=== PATIENT | female | born 1960 | race Caucasian/White ===

== ENCOUNTER → 2017-11-01 09:32 | Outpatient (CLI) | payer OTHER, SELFPAY ==
[2017-11-01 12:24] LABS: Erythrocyte Sedimentation Rate 12 mm/hr (0-30)
[2017-11-01 12:25] LABS: Absolute Lymphocyte Count 1.76 X10^3/ul (0.83-4.51); Absolute Neutrophil Count 3.3 X10^3/uL (2.0-7.7); Basophil# 0.01 X10^3/uL; Basophil% 0.2 % (0-1); Eosinophil# 0.04 X10^3/uL; Eosinophils% 0.7 % (0-5); Hematocrit 40.7 % (37-47); Hemoglobin 13.3 g/dl (12.0-15.0); Lymphocyte # 1.76 X10^3/ul (4.0); Lymphocyte % 31.8 % (19-41); Mean Corp Hgb Conc 32.7 g/gl (32-36); Mean Corpuscular Hgb 29.2 pg (27.0-32.0); Mean Corpuscular Volume 89.3 fL (81-99); Mean Platelet Vol. 9.6 fl (6.2-12.0); Monocyte# 0.41 X10^3/uL; Monocyte% 7.4 % (0-10); Neutrophil # 3.32 X10^3/uL (2.7-7.7); Neutrophil % 59.9 % (47-70); Platelet Count 314 K/mm3 (150-450); RBC Distribution Width CV 13.3 % (11.6-14.6); Red Blood Count 4.56 M/mm3 (4.2-5.4); White Blood Count 5.5 K/mm3 (4.4-11.0)
[2017-11-01 12:39] LABS: ALB/GLOB Ratio 1.1 RATIO (0.9-2.4); AST(SGOT) 9 U/L (15-37); Alanine Aminotransfer ALT/SGPT 23 U/L (13-56); Albumin, Serum 3.8 g/dL (3.2-5.0); Alkaline Phosphatase 65 U/L (45-117); Anion Gap 10 (5-15); BUN 11 mg/dL (7-18); BUN/Creat Ratio 13.7 RATIO (10-20); CRP < 2.90 mg/L (0.0-3.0); Calcium,Total 8.4 mg/dL (8.5-10.1); Chloride 104 mmol/L (98-107); EST Glomerular Filtration Rate 78 mL/min (>60); Est Glom Filt Rate - Afr Amer 95 mL/min (>60); Globulin 3.6 g/dL (2.2-4.2); Glucose 84 mg/dL (74-106); Iron 80 ug/dL (50-170); Magnesium 2.3 mg/dL (1.6-2.6); Potassium 3.2 mmol/L (3.5-5.1); Protein, Total 7.4 g/dL (6.4-8.2); Rheumatoid Factor < 10.0 IU/mL (<15); Sodium Level 142 mmol/L (136-145); Thyroid Stim Hormone (TSH) 1.18 uIU/mL (0.358-3.74)
[2017-11-01 12:42] LABS: POSITIVE COUNT NO; POSITIVE DIFFERENTIAL NO; POSITIVE MORPHOLOGY NO
[2017-11-01 12:48] LABS: Vitamin B12 459 pg/mL (211-911); Vitamin D,25 Hydroxy 19.7 ng/mL (29.95-100.01)
[2017-11-03 17:53] LABS: ANTINUCLEAR ANTIBODIES DIRECT Negative (Negative)
== END ==
PROVIDERS: Family Provider Family Medicine; PCP Family Medicine; Visit Provider Family Medicine
DX: R50.9 Fever, unspecified (principal); R20.2 Paresthesia of skin; R53.83 Other fatigue
CPT/HCPCS: 36415; 80053; 82306; 82607; 83540; 83735; 84443; 85025; 85652; 86038; 86140; 86431

== ENCOUNTER → 2017-11-29 07:46 | Outpatient (CLI) | payer OTHER, SELFPAY ==
[2017-11-29 10:22] LABS: Erythrocyte Sedimentation Rate 29 mm/hr (0-30)
[2017-11-29 10:24] LABS: Absolute Lymphocyte Count 1.17 X10^3/ul (0.83-4.51); Absolute Neutrophil Count 3.1 X10^3/uL (2.0-7.7); Basophil# 0.03 X10^3/uL; Basophil% 0.6 % (0-1); Eosinophil# 0.07 X10^3/uL; Eosinophils% 1.5 % (0-5); Hematocrit 39.1 % (37-47); Hemoglobin 13.2 g/dl (12.0-15.0); Lymphocyte # 1.17 X10^3/ul (4.0); Lymphocyte % 24.7 % (19-41); Mean Corp Hgb Conc 33.8 g/gl (32-36); Mean Corpuscular Volume 88.9 fL (81-99); Mean Platelet Vol. 9.6 fl (6.2-12.0); Monocyte# 0.36 X10^3/uL; Monocyte% 7.6 % (0-10); Neutrophil # 3.09 X10^3/uL (2.7-7.7); Neutrophil % 65.4 % (47-70); POSITIVE COUNT NO; POSITIVE DIFFERENTIAL NO; POSITIVE MORPHOLOGY NO; Platelet Count 340 K/mm3 (150-450); RBC Distribution Width CV 13.2 % (11.6-14.6); RBC Distribution Width SD 42.6 fl (35.1-43.9); White Blood Count 4.7 K/mm3 (4.4-11.0)
[2017-11-29 10:37] LABS: ALB/GLOB Ratio 0.8 RATIO (0.9-2.4); AST(SGOT) 14 U/L (15-37); Alanine Aminotransfer ALT/SGPT 20 U/L (13-56); Albumin, Serum 3.4 g/dL (3.2-5.0); Alkaline Phosphatase 72 U/L (45-117); Anion Gap 10 (5-15); BUN 8 mg/dL (7-18); BUN/Creat Ratio 10.5 RATIO (10-20); Calcium,Total 9.2 mg/dL (8.5-10.1); Chloride 107 mmol/L (98-107); Creatinine, Serum 0.76 mg/dL (0.55-1.02); EST Glomerular Filtration Rate 83 mL/min (>60); Est Glom Filt Rate - Afr Amer 100 mL/min (>60); Globulin 4.1 g/dL (2.2-4.2); Glucose 86 mg/dL (74-106); Potassium 3.8 mmol/L (3.5-5.1); Protein, Total 7.5 g/dL (6.4-8.2); Sodium Level 144 mmol/L (136-145)
== END ==
PROVIDERS: Family Provider Family Medicine; PCP Family Medicine; Visit Provider Family Medicine
DX: K21.0 Gastro-esophageal reflux disease with esophagitis (principal)
CPT/HCPCS: 36415; 80053; 85025; 85652

== ENCOUNTER → 2017-12-04 08:48 | Outpatient (CLI) | payer OTHER, SELFPAY ==
--- NOTE | 2017-12-04 09:17 | RAD_ITS ---
STUDY: AIR-CONTRAST UPPER GI SERIES AND SMALL BOWEL FOLLOW-THROUGH. REASON FOR EXAM: Female, 57 years old. Intermittent fevers and diarrhea for one year. Lower abdominal pain. FLUOROSCOPY TIME (if supplied): (1:14) minutes/seconds TECHNIQUE: The patient ingested barium. Multiple images of the esophagus, stomach and duodenum were obtained. COMPARISON: None. FINDINGS: The esophagus is unremarkable. There is no evidence of esophageal obstruction. No mass lesion is seen. There is no evidence of gastroesophageal reflux. The stomach and duodenum are unremarkable. There is no evidence of ulceration. No mass lesion is seen. The small bowel transit is rapid. Within 15 minutes, contrast is seen within the colon. There is no evidence of intrinsic or extrinsic small bowel disease. The terminal ileum is unremarkable. RAD/Upper GI/w Small Bowel IMPRESSION: Rapid transit of the small bowel. No other abnormality is seen. Electronically Signed: Benji James MD at 15:06 EDT Tel [phone], Service support ,
== END ==
PROVIDERS: Family Provider Family Medicine; PCP Family Medicine; Visit Provider Family Medicine
DX: K21.0 Gastro-esophageal reflux disease with esophagitis (principal)
CPT/HCPCS: 74249

== ENCOUNTER → 2017-12-13 07:58 | Outpatient (CLI) | payer OTHER, SELFPAY ==
--- NOTE | 2017-12-13 08:00 | BI_ITS ---
MAMMOGRAPHY - BILATERAL SCREENING 3-D CAITLIN SYNTHESIS REASON FOR EXAM: Female, 57 years old. Bilateral Screening 3-D tomosynthesis PERTINENT HISTORY: Mother with breast cancer.. TECHNIQUE: 2-D mammograms and 3-D Caitlin synthesis of the breast (s) were performed. CAD was performed. COMPARISON: 2013 FINDINGS: The breast composition is heterogeneously dense that can obscure small breast masses. Scattered benign calcifications are seen. No dense spiculated masses or suspicious microcalcifications are identified. No architectural distortion is identified. There is no skin thickening or retraction. There has been no significant change since the prior study. BI/SCREENING MAMM (CAD), BILAT IMPRESSION: No mammographic signs of malignancy. Routine yearly mammograms recommended. ASSESSMENT CATEGORY: BIRADS Category 2: Benign. A letter regarding these results will be sent to the patient by the facility within 30 days. FOLLOW UP RECOMMENDATION: Yearly follow up mammogram recommended. (A) Approximately 10% of breast cancers are not detected by mammography. A normal mammogram should not delay biopsy of a clinically suspicious abnormality. Electronically Signed: Chon Blackwell MD at 11:02 EDT , Service support ,
[2017-12-18 11:31] LABS: HPV APTIMA, High Risk Negative (Negative)
== END ==
PROVIDERS: Family Provider Family Medicine; PCP Family Medicine; Visit Provider Nurse Practitioner Women's Health
DX: Z12.31 Encounter for screening mammogram for malignant neoplasm of breast (principal); Z12.4 Encounter for screening for malignant neoplasm of cervix
CPT/HCPCS: 77063; 77067; 88175; G0145

== ENCOUNTER → 2018-08-30 | Outpatient (CLI) | payer OTHER, SELFPAY ==
[2018-01-10 10:58] VITALS: BMI 26.1
[2018-08-30 10:19] LABS: ALB/GLOB Ratio 1.1 RATIO (0.9-2.4); AST(SGOT) 13 U/L (15-37); Alanine Aminotransfer ALT/SGPT 27 U/L (13-56); Albumin, Serum 3.7 g/dL (3.2-5.0); Alkaline Phosphatase 86 U/L (45-117); Anion Gap 8 (5-15); BUN 13 mg/dL (7-18); BUN/Creat Ratio 19.1 RATIO (10-20); Calcium,Total 8.4 mg/dL (8.5-10.1); Chloride 107 mmol/L (98-107); Cholesterol 214 mg/dL (200); Creatinine, Serum 0.68 mg/dL (0.55-1.02); EST Glomerular Filtration Rate 94 mL/min (>60); Est Glom Filt Rate - Afr Amer 114 mL/min (>60); Globulin 3.4 g/dL (2.2-4.2); Glucose 88 mg/dL (74-106); High Density Lipoprotein 33 mg/dL; Potassium 3.8 mmol/L (3.5-5.1); Protein, Total 7.1 g/dL (6.4-8.2); Sodium Level 139 mmol/L (136-145); Thyroid Stim Hormone (TSH) 1.59 uIU/mL (0.358-3.74); Triglycerides 283 mg/dL; Very Low Density Lipoprotein 57 mg/dL (5-40)
== END | disposition home or self-care (01) ==
LOC: MTLAB 07:43
PROVIDERS: Family Provider Family Medicine; PCP Family Medicine; Referring Provider Family Medicine; Visit Provider Family Medicine
DX: E78.5 Hyperlipidemia, unspecified (principal)
CPT/HCPCS: 36415; 80053; 80061; 84443

== ENCOUNTER → 2019-07-30 | Outpatient (CLI) | payer OTHER, SELFPAY ==
[2019-07-24 10:49] VITALS: BMI 26.1
--- NOTE | 2019-07-30 13:38 | US_ITS ---
STUDY: ULTRASOUND TRANSVAGINAL CLINICAL: Female, 58 years old. POST MENOPAUSAL B;LEEDING-ONCE TECHNIQUE: Transvaginal COMPARISON: None. FINDINGS: Normal uterine size measuring 8.2 x 5.5 x 2.5 cm in maximal craniocaudal dimension. 1.8 cm oval hypoechoic mass in the posterior body of uterus consistent with an intramural fibroid. 0.8 cm round isoechoic mass in the anterior body of uterus consistent with an intramural fibroid.. Normal endometrial thickness measuring 4 mm. There are no endometrial masses, and there is no fluid in the endometrial cavity. Normal uterine cervix. Normal right ovary, measuring 3.2 x 2.6 x 1.2 cm. There are multiple follicles without a dominant cyst. Normal left ovary, measuring 2.0 x 2.5 x 1.2 cm. There are multiple follicles without a dominant cyst. There is no free fluid in the pelvis. Polycystic ovary disease: No. US/Pelvic (Non ) IMPRESSION: Small fibroids but overall normal size of the uterus. Electronically Signed: Casimiro Fishman MD at 11:45 EDT Tel , Service support ,
--- NOTE | 2019-07-30 13:38 | BI_ITS ---
MAMMOGRAPHY - BILATERAL SCREENING REASON FOR EXAM: Female, 58 years old. Routine annual screening examination. PERTINENT HISTORY: Mother with breast cancer. TECHNIQUE: Digital bilateral breast caitlin (3D mammographic acquisition) in the CC and MLO projections. 2-D mediolateral oblique (MLO) and craniocaudad (CC) views of both breasts were obtained. CAD: Full Field Digital Mammography with Computer Added Detection was performed. COMPARISON: Comparison is made with prior examination dated December 13, 2017. FINDINGS: Breast Composition: The breasts are heterogeneously dense, which may obscure small masses. There are no dominant masses or suspicious calcifications. Stable calcified 3 mm nodule in the central portion of the right breast. No other significant abnormalities are identified. There has been no significant change since the prior study. BI/SCREEN MAMM (CAD) W/CAITLIN BILAT IMPRESSION: Stable bilateral screening mammogram. Yearly follow-up mammogram recommended. (A) ASSESSMENT CATEGORY: BIRADS Category 2: Benign. A letter regarding these results will be sent to the patient by the facility within 30 days. Approximately 10% of breast cancers are not detected by mammography. A normal mammogram should not delay biopsy of a clinically suspicious abnormality. [id number] Electronically Signed: Benji James, at 15:30 EDT , Service support ,
--- NOTE | 2019-07-30 13:38 | US_ITS ---
STUDY: ULTRASOUND TRANSVAGINAL CLINICAL: Female, 58 years old. POST MENOPAUSAL B;LEEDING-ONCE TECHNIQUE: Transvaginal COMPARISON: None. FINDINGS: Normal uterine size measuring 8.2 x 5.5 x 2.5 cm in maximal craniocaudal dimension. 1.8 cm oval hypoechoic mass in the posterior body of uterus consistent with an intramural fibroid. 0.8 cm round isoechoic mass in the anterior body of uterus consistent with an intramural fibroid.. Normal endometrial thickness measuring 4 mm. There are no endometrial masses, and there is no fluid in the endometrial cavity. Normal uterine cervix. Normal right ovary, measuring 3.2 x 2.6 x 1.2 cm. There are multiple follicles without a dominant cyst. Normal left ovary, measuring 2.0 x 2.5 x 1.2 cm. There are multiple follicles without a dominant cyst. There is no free fluid in the pelvis. Polycystic ovary disease: No. US/Transvaginal Non- IMPRESSION: Small fibroids but overall normal size of the uterus. Electronically Signed: Casimiro Fishman MD at 11:45 EDT Tel , Service support ,
== END | disposition home or self-care (01) ==
PROVIDERS: PCP Family Medicine; Referring Provider Nurse Practitioner Women's Health; Visit Provider Nurse Practitioner Women's Health
DX: N95.0 Postmenopausal bleeding (principal); Z12.31 Encounter for screening mammogram for malignant neoplasm of breast
CPT/HCPCS: 76830; 76856; 77063; 77067

== ENCOUNTER → 2020-05-06 | Outpatient (CLI) | payer OTHER, SELFPAY ==
[2019-07-24 10:49] VITALS: BMI 26.1
== END | disposition home or self-care (01) ==
PROVIDERS: PCP Family Medicine; Visit Provider Family Medicine
DX: Z20.828 Contact with and (suspected) exposure to other viral communicable diseases (principal)
CPT/HCPCS: 87635; U0003

== ENCOUNTER → 2021-02-10 | Outpatient (CLI) | payer OTHER, SELFPAY ==
--- NOTE | 2021-02-10 14:15 | LIP_PTH ---
PATIENT: LINDA SANTIAGO LOC: [facility] U#:[id number] AGE/SX: 60/F ROOM: RE02/10/[address]: Dr. Reji Villarreal MD : 1960 BED: DIS: 02/10/2021 SPEC #: [id number] RECD: 02/10/21 16:16 STATUS: IVANIA REFany #: [id number] SONALI: 02/10/21 14:[address]: Reji Villarreal DEPT: SURGICAL PATHOLOGY RECD BY: Pilo Nicholas ENTERED: 02/11/21 07:10 SP TYPE: LIPOMA OTHR DR: Dr. Dany Thacker MD Tissues: Soft tissues, NOS Procedures: Surgery Specimen Level III HEADER OPERATION: Excision right arm lipoma PRE-OP DIAGNOSIS: Right arm lipoma TISSUE SUBMITTED: Right arm lipoma MICROSCOPIC DIAGNOSIS Right arm lipoma, excision: Mature adipose tissue, consistent with lipoma. Skin, no pathologic diagnosis. SJ:leena 02/12/2021 MICROSCOPIC DESCRIPTION Slides are reviewed. GROSS DESCRIPTION Received in fixative is one container labeled with the patient's name and designated right arm. The specimen consists of a piece of skin with underlying tissue. The skin piece measures 1.2 x 0.5 cm and underlying tissue measures 2 x 1.5 x 0.7 cm. The specimen is inked, bisected and submitted entirely in one cassette. / JULIANA:leena 02/11/21 TC:1 CPT: 14682
== END | disposition home or self-care (01) ==
LOC: LABSPEC 16:31
PROVIDERS: PCP Family Medicine; Referring Provider Surgery; Visit Provider Surgery
DX: D17.21 Benign lipomatous neoplasm of skin and subcutaneous tissue of right arm (principal)
CPT/HCPCS: 88304

== ENCOUNTER → 2021-02-17 17:00 | Outpatient (CLI) | payer OTHER, SELFPAY | PROVIDERS: PCP Family Medicine; Referring Provider Family Medicine; Visit Provider Family Medicine | DX: Z20.822 Contact with and (suspected) exposure to COVID-19 (principal) | CPT/HCPCS: 87635; U0005; U0003 ==

== ENCOUNTER → 2021-04-07 15:32 | Outpatient (CLI) | payer OTHER, SELFPAY ==
[2021-04-07 17:44] LABS: Absolute Neutrophil Count 3.2 X10^3/uL (2.0-7.7); Basophil# 0.03 X10^3/uL; Basophil% 0.5 % (0-1); Eosinophils% 1.8 % (0-5); Hematocrit 40.1 % (37-47); Hemoglobin 13.1 g/dL (12.0-15.0); Lymphocyte % 31.9 % (19-41); Mean Corp Hgb Conc 32.7 g/dL (32-36); Mean Corpuscular Hgb 29.3 pg (27.0-32.0); Mean Corpuscular Volume 89.7 fL (81-99); Monocyte# 0.47 X10^3/uL; Monocyte% 8.3 % (0-10); NRBC Flagged by Analyzer 0 % (0-5); Neutrophil # 3.24 X10^3/uL (2.7-7.7); Neutrophil % 57.3 % (47-70); Platelet Count 316 K/mm3 (150-450); RBC Distribution Width CV 12.6 % (11.6-14.6); RBC Distribution Width SD 41.1 fl (35.1-43.9); Red Blood Count 4.47 M/mm3 (4.2-5.4); White Blood Count 5.7 K/mm3 (4.4-11.0)
[2021-04-07 17:56] LABS: ALB/GLOB Ratio 0.9 RATIO (0.9-2.4); AST(SGOT) 24 U/L (15-37); Alanine Aminotransfer ALT/SGPT 53 U/L (13-56); Albumin, Serum 3.5 g/dL (3.2-5.0); Alkaline Phosphatase 66 U/L (45-117); Anion Gap 6 (5-15); BUN 10 mg/dL (7-18); BUN/Creat Ratio 16.2 RATIO (10-20); Calcium,Total 8.8 mg/dL (8.5-10.1); Chloride 109 mmol/L (98-107); Creatinine, Serum 0.62 mg/dL (0.55-1.02); EST Glomerular Filtration Rate 105 mL/min (>60); Est Glom Filt Rate - Afr Amer 126 mL/min (>60); Glucose 88 mg/dL (74-106); Lipase 142 U/L (73-393); Potassium 3.6 mmol/L (3.5-5.1); Protein, Total 7.5 g/dL (6.4-8.2); Sodium Level 139 mmol/L (136-145)
== END ==
PROVIDERS: PCP Family Medicine; Referring Provider Family Medicine; Visit Provider Family Medicine
DX: R10.9 Unspecified abdominal pain (principal)
CPT/HCPCS: 36415; 80053; 83690; 85025

== ENCOUNTER → 2021-04-08 07:07 | Outpatient (CLI) | payer OTHER, SELFPAY ==
--- NOTE | 2021-04-08 07:10 | US_ITS ---
STUDY: ABDOMINAL ULTRASOUND - RIGHT UPPER QUADRANT REASON FOR VISIT: Female, 60 years old RUQ PAIN TECHNIQUE: Ultrasound evaluation of the right upper quadrant was performed with real-time and static morelos-scale imaging. TECHNICAL QUALITY: Adequate. COMPARISON: None. FINDINGS: Liver: The liver measures 14.8 cm. There is increased echogenicity consistent with fatty infiltration. The bile ducts are within normal limits. There is hepatic color flow. The direction of portal flow is hepatopetal. There is no demonstrated mass lesion. Gallbladder: Normal distended gallbladder. The gallbladder wall measures 2.2 mm. There is a negative sonographic Herring''s sign. There is no pericholecystic fluid. There are multiple echogenic structures within the gallbladder, consistent with multiple gallstones. Common Bile Duct (C.B.D.): The common bile duct measures 2.2 mm. Pancreas: Normal size of the head, body and tail of the pancreas. There is normal echogenicity of the pancreas. There is no demonstrated pancreatic mass or cyst. Right Kidney: Normal size of the right kidney. The right kidney measures 11.4 cm x 5.4 cm x 5.7 cm. Normal renal cortex. The right cortex measures 1.6 cm. There is no demonstrated renal mass or cyst. There is no right hydronephrosis. US/Abdomen Limited IMPRESSION: Fatty infiltration of the liver. Multiple gallstones. Electronically Signed: Benji James MD at 8:53 EST , Service support ,
== END ==
PROVIDERS: PCP Family Medicine; Referring Provider Family Medicine; Visit Provider Family Medicine
DX: R10.9 Unspecified abdominal pain (principal)
CPT/HCPCS: 76705

== ENCOUNTER → 2021-04-12 12:29 | Outpatient (CLI) | payer OTHER, SELFPAY ==
[2021-04-12 15:16] LABS: Absolute Lymphocyte Count 1.62 X10^3/uL (0.83-4.51); Absolute Neutrophil Count 3.2 X10^3/uL (2.0-7.7); Basophil# 0.02 X10^3/uL; Basophil% 0.4 % (0-1); Eosinophil# 0.08 X10^3/uL; Eosinophils% 1.5 % (0-5); Hematocrit 41.2 % (37-47); Hemoglobin 13.6 g/dL (12.0-15.0); Lymphocyte # 1.62 X10^3/ul (0.83-4.51); Lymphocyte % 30.2 % (19-41); Mean Corpuscular Hgb 29.7 pg (27.0-32.0); Mean Platelet Vol. 10.1 fl (6.2-12.0); Monocyte% 7.5 % (0-10); NRBC Flagged by Analyzer 0 % (0-5); Neutrophil # 3.23 X10^3/uL (2.7-7.7); Neutrophil % 60.2 % (47-70); Platelet Count 323 K/mm3 (150-450); RBC Distribution Width CV 12.6 % (11.6-14.6); RBC Distribution Width SD 41.1 fl (35.1-43.9); Red Blood Count 4.58 M/mm3 (4.2-5.4); White Blood Count 5.4 K/mm3 (4.4-11.0)
[2021-04-12 15:39] LABS: ALB/GLOB Ratio 0.9 RATIO (0.9-2.4); AST(SGOT) 12 U/L (15-37); Alanine Aminotransfer ALT/SGPT 31 U/L (13-56); Albumin, Serum 3.6 g/dL (3.2-5.0); Alkaline Phosphatase 65 U/L (45-117); Anion Gap 4 (5-15); BUN 9 mg/dL (7-18); BUN/Creat Ratio 13.7 RATIO (10-20); Calcium,Total 9.1 mg/dL (8.5-10.1); Chloride 106 mmol/L (98-107); Creatinine, Serum 0.66 mg/dL (0.55-1.02); EST Glomerular Filtration Rate 97 mL/min (>60); Est Glom Filt Rate - Afr Amer 118 mL/min (>60); Globulin 3.9 g/dL (2.2-4.2); Glucose 90 mg/dL (74-106); Lipase 124 U/L (73-393); Potassium 3.9 mmol/L (3.5-5.1); Protein, Total 7.5 g/dL (6.4-8.2); Sodium Level 139 mmol/L (136-145)
== END ==
PROVIDERS: PCP Family Medicine; Referring Provider Family Medicine; Visit Provider Family Medicine
DX: R10.9 Unspecified abdominal pain (principal)
CPT/HCPCS: 36415; 80053; 83690; 85025

== ENCOUNTER → 2021-04-13 10:47 | Outpatient (CLI) | payer OTHER, SELFPAY | PROVIDERS: PCP Family Medicine; Referring Provider Family Medicine; Visit Provider Family Medicine | DX: R30.0 Dysuria (principal) | CPT/HCPCS: 87086; 87088 ==

== ENCOUNTER 2021-04-22 09:58 | Day surgery (SDC) | payer OTHER, SELFPAY ==
[2021-04-22] VITALS (9 sets, daily range): BP systolic 97–154; BP diastolic 52–80; PULSE 66–82; RESP 16; TEMP 36.1–36.6; O2SAT 95–100; BMI 29.0
--- NOTE | 2021-04-22 10:06 | EKG12_ITS ---
Test Reason : PRE OP Blood Pressure : / mmHG Vent. Rate : 065 BPM Atrial Rate : 065 BPM P-R Int : 138 ms QRS Dur : 088 ms QT Int : 430 ms P-R-T Axes : 050 003 046 degrees QTc Int : 447 ms Normal sinus rhythm Normal ECG When compared with ECG of 27-AUG-2009 10:26, No significant change was found Confirmed by JAMES BROOKS, OLIVA ([id number]), news assignment editor VINAY BROOKE ([id number]) on 04/26/2021 2:06:44 PM Referred By: MANISHA Confirmed By:OLIVA RAMIREZ MD
[2021-04-22] MEDS: Lactated Ringers 1,000 ML 15 ML IV (10:28)
--- NOTE | 2021-04-22 11:15 | PCM.HP.BLA ---
History and Physical Date of Admission: 04/22/21 Intake Visit Reasons: GALLSTONES Chief Complaint: gallstones Timber Sizer Required: No Is patient in pain?: No Allergies penicillin G Allergy (Mild, Verified 01/20/21 13:43) Other Medications citalopram 20 mg tablet 20 mg PO .COMPLEX #90 tab 06/05/18 [Rx Confirmed 04/14/21] clobetasol 0.05 % topical cream 1 applic TOPICAL .COMPLEX #15 g 09/28/20 [Rx Confirmed 04/14/21] estradiol See Rx Instructions VAGINAL .COMPLEX #42.5 g 10/21/20 [Rx Confirmed 04/14/21] calcium carbonate 600 mg calcium (1,500 mg) tablet 600 mg PO DAILY 01/20/21 [History Confirmed 04/14/21] cholecalciferol (vitamin D3) 50 mcg (2,000 unit) capsule 50 mcg PO DAILY 01/20/21 [History Confirmed 04/14/21] famotidine 40 mg tablet 40 mg PO DAILY 01/20/21 [History Confirmed 04/14/21] nitrofurantoin macrocrystal 100 mg capsule 100 mg PO BID 04/14/21 [History Confirmed 04/14/21] PFSH Medical History Hypercholesteremia Lipoma Surgical History H/O tubal ligation History of breast biopsy Family History (Updated 04/14/21 @ 12:45 by Reina Monday) Father Cancer lung Hypertension Mother Breast cancer Social History Smoking Status: Never smoker alcohol intake: current details: social substance use type: does not use caffeine: No what type of physical activity do you participate in: none seatbelt use: always do you feel safe at home: Yes 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 The patient is referred by Dr. Dany Thacker and a written copy my surgical consult recommendations will return to him. We have in the recent past assisted the patient with a benign subcutaneous lipoma excision. The patient is having spells of right upper quadrant discomfort. She then had an attack of stomach pain nausea dizziness and chilling. On April 08, 2021 a right upper quadrant ultrasound was obtained at the [facility]. This demonstrated fatty infiltration of the liver. The gallbladder wall was 2.2 mm. No pericholecystic fluid. Multiple gallstones are seen. The common bile duct measures 2.2 mm. On April 12, 2021 white blood cell count was 5.4 with a hemoglobin 13.6 hematocrit 41.2 platelet count 323,000. Normal differential. BUN is 9 with a creatinine of 0.66. Liver function tests are normal. Lipase normal. She has had 2 severe episodes. The last one was quite notable. She has had a lot of recent stress in her life. She works for [employer]. ROS General General: No weight change, appetite, fatigue, colon cancer, breast cancer or weakness HEENT HEENT: No difficulty swallowing, eye injury, eye surgery, swollen glands or hoarseness Endo Endocrine: No thyroid disease, diabetes mellitus, thyroid cancer, Hair loss, heat intolerance or cold intolerance Skin Skin: No rash or changing moles Musc Musculoskeletal: Yes back problems and arthritis; No rheumatoid arthritis, gout or joint pain Cardio Cardiovascular: No murmur, pacemaker, heart disease, atrial fibrillation, high blood pressure, heart attack, heart stent, palpitations, shortness of breat with exertion or chest pain Psych Psychiatric: Yes anxiety; No depression or hearing voices Resp Respiratory: No shortness of breath, No sleep apnea, No cough, No COPD, No asthma, No emphysema and No wheezing Gastro Gastrointestinal: Yes abdominal pain, Yes nausea or vomiting, No diarrhea, No constipation, No blood in stool, No acid reflux, No hemorrhoids, No ulcers, Yes gallbladder problem and No black,tarry stools Blaine Hematologic: No blood thinners, No blood disorders, No bleeding, No anemia and No blood clots Neuro Neurologic: No system reviewed and no additional complaints, except as documented, No as per HPI, No abnormal gait, No abnormal hearing, No abnormal movements, No abnormal speech, No behavioral changes, No burning sensations, No confusion, No convulsions, No disequilibrium, No dizziness, No localized weakness, No frequent falls, No headache(s), No lack of coordination, No loss of vision, No memory loss, No numbness, No other visual disturbances, No radicular pain, No restless legs, No sensory deficit, No syncope, No tingling, No tremor(s), No weakness and No other Exam Const General: cooperative, comfortable, no acute distress and well developed Nutritional Appearance: overweight Orientation: alert and awake [facility] Head: normal to inspection Eyes General: appearance normal, both eyes and all related structures Resp Effort & Inspection: normal respiratory effort Auscultation: clear to auscultation bilaterally Cardio Rate: regular rate Rhythm: regular rhythm GI Palpation: soft and no hepatosplenomegaly Auscultation: normal bowel sounds Musc Cervical Spine: normal cervical lordosis Skin General: no rashes or lesions noted Extrem General: no calf tenderness Psych Thought Process: normal Assessment and Plan Assessment and Plan (1) Cholelithiasis with chronic cholecystitis: Status: Chronic Qualifiers: Biliary obstruction: without biliary obstruction Cholelithiasis location: gallbladder Qualified Code(s): K80.10 - Calculus of gallbladder with chronic cholecystitis without obstruction Plan - Dr. Reji Villarreal MD: Findings are very much consistent with chronic cholecystitis cholelithiasis and biliary colic. I propose for the patient laparoscopic cholecystectomy with selective cholangiography. She is aware of the technique, benefit, risk, alternatives. She has had an opportunity to ask and have questions answered. Tentatively we will schedule for April 22, 2021. She will remain on a low-fat diet until that time. I appreciate the opportunity of assisting with her surgical care. Copy: Dr. Dany Villarreal M.D., F.A.C.S. I have re-examined the patient. There are no clinical changes since date of exam.
--- NOTE | 2021-04-22 11:42 | EX.PCM.DISCH ---
Discharge Instructions Procedure General Surgery Diet Discharge Diet: Light diet - advance as tolerated (if you have questions about your diet instructions, please talk to you doctor.) Activity Discharge Activity: May Not Drive (for 3-5 days or while taking narcotic pain medicine.) May shower in (days): 1 Lifting Restrictions: 10 pounds Dressing / Incision Call your doctor if your incision/area has: Continuous Slow Oozing, Sudden Increased Bleeding, Increased Pain/ Swelling, Increased Redness and Foul Smelling Discharge Call your doctor if you observe: Fever of 101 or Higher Suture Line Care: Avoid Pulling/Pushing and Avoid Pinching/Bending Additional Dressing/Incision Instructions:: Change or remove dressing in 4 days. Leave steri-strips in place for 1 week. Follow Up Care Please Follow Up With: Reji Villarreal MD When: Call [phone] to make an appointment to be seen in about 10 days. Test Results: Test results from this visit will be discussed in further detail at your follow-up appointment, if applicable. Discharge Plan Admission Attending Provider: Reji Villarreal Primary Care Provider: Dany Thacker Discharge Orders/Prescriptions Prescriptions: No Action famotidine 40 mg tablet 40 mg PO BID RF: 0 cholecalciferol (vitamin D3) 50 mcg (2,000 unit) capsule 50 mcg PO DAILY RF: 0 calcium carbonate 600 mg calcium (1,500 mg) tablet 600 mg PO DAILY RF: 0 citalopram [Celexa] 20 mg tablet 20 mg PO DAILY RF: 0 estradiol 0.01 % (0.1 mg/gram) cream 0.1 applic vaginal PRN PRN (Reason: HORMONES) RF: 0
--- NOTE | 2021-04-22 12:00 | GALL_PTH ---
PATIENT: LINDA SANTIAGO LOC: [facility] U#:[id number] AGE/SX: 60/F ROOM: RE04/22/[address]: Dr. Reji Villarreal MD : 1960 BED: DIS: 04/22/2021 SPEC #: [id number] RECD: 04/23/21 07:01 STATUS: IVANIA ELISE #: [id number] SONALI: 04/22/21 12:[address]: Reji Villarreal DEPT: SURGICAL PATHOLOGY RECD BY: Anna Gonzalez ENTERED: 04/23/21 08:41 SP TYPE: NEAL LOVELACE DR: Dr. Dany Thacker MD Tissues: Gallbladder, NOS Procedures: Surgery Specimen Level III HEADER OPERATION: Laparoscopic cholecystectomy with IOC, umbilical hernia repair PRE-OP DIAGNOSIS: Cholecystitis TISSUE SUBMITTED: Gallbladder MICROSCOPIC DIAGNOSIS Gallbladder, cholecystectomy: Chronic cholecystitis and cholelithiasis. AM:leena 04/26/2021 MICROSCOPIC DESCRIPTION Slides are reviewed. GROSS DESCRIPTION Received is one container labeled with the patient's name and designated gallbladder. The specimen consists of a gallbladder measuring 8 cm in length and up to 3.5 cm in diameter. The external surface is pink-bhatti, smooth and glistening for the most part. Focally it is granular, hemorrhagic and contains cautery artifact. The gallbladder contains green-yellow mucoid bile and multiple black to yellow-green mulberry stones measuring in aggregate 2 x 1 x 0.5 cm and <0.1 to 0.7 cm in greatest dimension. The mucosa is bile-stained and without any mass lesions. The gallbladder wall measures up to 0.1 cm in thickness. [employer]ist sections from the gallbladder and the cystic duct are submitted in one cassette. / SJ:leena 04/23/21 TC:3 CPT: 74388
[2021-04-22] MEDS: Bupivacaine Mpf 0.5% 30 ML VIAL (12:39)
--- NOTE | 2021-04-22 12:40 | RAD_ITS ---
STUDY: INTRAOPERATIVE CHOLANGIOGRAM. REASON FOR EXAM: Female, 60 years old. Laparoscopic cholecystectomy. FLUOROSCOPY TIME (if supplied): ( 13.6 seconds ) minutes/seconds. A cine loop of 95 images were submitted. TECHNIQUE: An intraoperative cholangiogram was performed by the surgeon. Imaging was submitted. COMPARISON: None. FINDINGS: The common bile duct is not dilated. No intraluminal filling defect is seen. There is free flow of contrast into the duodenum. RAD/Cholangiogram/ O R,Initial IMPRESSION: Unremarkable intraoperative cholangiogram. Electronically Signed: Benji James MD at 15:20 EST , Service support ,
--- NOTE | 2021-04-22 13:21 | PCM.OPRPT ---
Problems Associated Problem List Diagnoses (1) Cholelithiasis with chronic cholecystitis: Report of Operation Date of Procedure: 04/22/21 Pre-Operative Diagnosis: Chronic cholecystitis cholelithiasis Post-Operative Diagnosis: Same Surgery/Procedure Performed:: Laparoscopic cholecystectomy with cholangiography Description of Surgical Findings:: Timeout informed consent was obtained. 60-year-old female was taken to the operating place upon the table. Ancef 2 g given intravenously. The abdomen sterilely prepped and draped. 0.5% Marcaine was used as local anesthetic. Throughout the procedure total 30 cc was used. Skin sites preanesthetized. A vertical infraumbilical incision was created holding sutures 0 Vicryl placed varies needle inserted saline drop test performed the abdomen was insufflated with CO2 to a pressure of 10 mmHg pressure. 10 mm trocar was inserted. 10 mm laparoscope inserted. No missing trocar injuries. Under direct visualization 5 mm trochars were placed in the epigastric mid abdomen right upper quadrant. The gallbladder had any adhesions of omentum that were dissected free with blunt dissection and electrocautery dissection. Cautery was placed and distraction and blunt dissection was performed this demonstrated a anterior cystic artery overlying the cystic duct. I got the critical view completely dissecting free the fundus of the gallbladder identifying the cystic artery and cystic duct. The cystic artery was clipped twice proximally once distally prior to transecting it. A Hem-o-nicky clip was placed on the cystic duct incision in the cystic duct and through a 14-gauge Angiocath cholangiogram catheter was inserted. Fluoroscopically controlled cholangiograms were obtained demonstrating a very small common bile duct but otherwise normal ductal anatomy. The cholangiogram catheter was removed 2 Hem-o-nicky clips were placed on the cystic duct stump prior to transecting it. The gallbladder was dissected free from the liver bed. Small amount of bile was released from the gallbladder and this was rapidly aspirated free and secured. The patient had steatosis of the liver making it somewhat fragile. Electrocautery was used for hemostasis. Where needed Hem-o-nicky clips were used. The gallbladder was completely released and immediately placed in a retrieval bag. The right upper quadrant was aspirated and irrigated free of excess fluid. A piece of fibrillar was placed in the liver bed. The gallbladder was then exited the umbilicus after the abdomen was deflated through an antiviral valve. The fascia at the umbilicus likely noted 0 Vicryl [id number] suture. Skin edges approximated opted for Monocryl subdermal stitches. Steri-Strips Telfa OpSite dressings applied. Sponge and instrument and needle counts were reported to the surgeon be correct. Specimen gallbladder. Drains none. Blood loss minimal. The patient was taken to the recovery room in satisfactory addition without apparent complication Reji Villarreal M.D., F.A.C.S. Surgeon: Reji Villarreal Type of Anesthesia: General and Local Anesthesiologist: Tom Choe
[2021-04-22] MEDS: Acetaminophen 325 MG Tablet 650 MG PO (15:37)
== END 2021-04-22 17:10 | disposition home or self-care (01) ==
LOC: SDC 10:02 → AC 10:03
PROVIDERS: PCP Family Medicine; Visit Provider Surgery
PROC: (CPT 47610; principal; 2021-04-22 11:40)
DX: K80.10 Calculus of gallbladder with chronic cholecystitis without obstruction (principal); K76.0 Fatty (change of) liver, not elsewhere classified; E78.00 Pure hypercholesterolemia, unspecified; F41.9 Anxiety disorder, unspecified; M19.90 Unspecified osteoarthritis, unspecified site; K21.9 Gastro-esophageal reflux disease without esophagitis; Z87.891 Personal history of nicotine dependence; Z79.899 Other long term (current) drug therapy
CPT/HCPCS: 00790; 47563; 74300; 76000; 88304; 93005; J7120; J2405

== ENCOUNTER → 2021-11-19 | Outpatient (CLI) | payer OTHER, SELFPAY ==
--- NOTE | 2021-11-19 07:17 | BI_ITS ---
MAMMOGRAPHY - BILATERAL SCREENING REASON FOR EXAM: Female, 60 years old. Routine annual screening examination. PERTINENT HISTORY: Mother with breast cancer. Remote bilateral excisional breast biopsies. TECHNIQUE: Digital bilateral breast caitlin (3D mammographic acquisition) in the CC and MLO projections. 2-D mediolateral oblique (MLO) and craniocaudad (CC) views of both breasts were obtained. CAD: Full Field Digital Mammography with Computer Added Detection was performed. COMPARISON: Comparison is made with prior study of 07/30/2019 and 12/13/2017. FINDINGS: Breast Composition: The breasts are heterogeneously dense, which may obscure small masses. There are no dominant masses or suspicious calcifications. Stable small benign-appearing bilateral axillary lymph nodes. No other significant abnormalities are identified. There has been no significant change since the prior study. BI/SCRN MAMM (CAD)W/CAITLIN BILAT IMPRESSION: Stable bilateral screening mammogram. Yearly follow-up mammogram recommended. (A) ASSESSMENT CATEGORY: BIRADS Category 2: Benign. A letter regarding these results will be sent to the patient by the facility within 30 days. Approximately 10% of breast cancers are not detected by mammography. A normal mammogram should not delay biopsy of a clinically suspicious abnormality. [id number] Electronically Signed: Benji James MD at 8:28 EDT ,
== END | disposition home or self-care (01) ==
LOC: OPBI 07:16
PROVIDERS: PCP Family Medicine; Referring Provider Obstetrics & Gynecology; Visit Provider Obstetrics & Gynecology
DX: Z12.31 Encounter for screening mammogram for malignant neoplasm of breast (principal); Z80.3 Family history of malignant neoplasm of breast
CPT/HCPCS: 77063; 77067

== ENCOUNTER → 2022-11-02 | Outpatient (CLI) | payer OTHER, SELFPAY ==
[2022-11-02 11:22] LABS: ALB/GLOB Ratio 0.9 RATIO (0.9-2.4); AST(SGOT) 19 U/L (15-37); Alanine Aminotransfer ALT/SGPT 25 U/L (13-56); Albumin, Serum 3.6 g/dL (3.2-5.0); Alkaline Phosphatase 75 U/L (45-117); Anion Gap 7 (5-15); BUN 10 mg/dL (7-18); BUN/Creat Ratio 12.3 RATIO (10-20); Calcium,Total 9.1 mg/dL (8.5-10.1); Chloride 108 mmol/L (98-107); Cholesterol 258 mg/dL (200); Creatinine, Serum 0.82 mg/dL (0.55-1.02); EST Glomerular Filtration Rate 75 mL/min (>60); Est Glom Filt Rate - Afr Amer 91 mL/min (>60); Globulin 3.8 g/dL (2.2-4.2); Glucose 91 mg/dL (74-106); High Density Lipoprotein 37 mg/dL; Protein, Total 7.4 g/dL (6.4-8.2); Sodium Level 140 mmol/L (136-145); Thyroid Stim Hormone (TSH) 2.04 uIU/mL (0.358-3.74); Triglycerides 258 mg/dL; Very Low Density Lipoprotein 52 mg/dL (5-40)
[2022-11-02 11:46] LABS: Microalbumin,Random Urine 6.5 mg/L (NO RANGE EST.); Microalbumin:Creatinine Ratio 8.8 mg/g CRE (<30 mg/g CRE)
== END | disposition home or self-care (01) ==
LOC: MTLAB 07:01
PROVIDERS: PCP Family Medicine; Referring Provider Family Medicine; Visit Provider Family Medicine
DX: I10 Essential (primary) hypertension (principal)
CPT/HCPCS: 36415; 80053; 80061; 82043; 82570; 84443

== ENCOUNTER → 2022-12-29 | Outpatient (CLI) | payer OTHER, SELFPAY ==
--- NOTE | 2022-12-29 07:05 | BI_ITS ---
MAMMOGRAPHY - BILATERAL SCREENING REASON FOR EXAM: Female, 62 years old. Routine annual screening examination. PERTINENT HISTORY: Mother with breast cancer. History of prior bilateral excisional breast biopsies. TECHNIQUE: Digital bilateral breast caitlin (3D mammographic acquisition) in the CC and MLO projections. 2-D mediolateral oblique (MLO) and craniocaudad (CC) views of both breasts were obtained. CAD: Full Field Digital Mammography with Computer Added Detection was performed. COMPARISON: Comparison is made with prior study dated November 19, 2021 and July 30, 2019. FINDINGS: Breast Composition: The breasts are heterogeneously dense, which may obscure small masses. There are no dominant masses or suspicious calcifications. No other significant abnormalities are identified. There has been no significant change since the prior study. BI/SCRN MAMM (CAD)W/CAITLIN BILAT IMPRESSION: Stable bilateral screening mammogram. Yearly follow-up mammogram recommended. (A) ASSESSMENT CATEGORY: BIRADS Category 1: Negative. A letter regarding these results will be sent to the patient by the facility within 30 days. Approximately 10% of breast cancers are not detected by mammography. A normal mammogram should not delay biopsy of a clinically suspicious abnormality. [id number] Electronically Signed: Benji James MD at 8:56 EDT ,
== END | disposition home or self-care (01) ==
LOC: OPBI 07:04
PROVIDERS: PCP Family Medicine; Referring Provider Nurse Practitioner Women's Health; Visit Provider Nurse Practitioner Women's Health
DX: Z12.31 Encounter for screening mammogram for malignant neoplasm of breast (principal); Z80.3 Family history of malignant neoplasm of breast
CPT/HCPCS: 77063; 77067

== ENCOUNTER → 2023-01-17 | Outpatient (CLI) | payer OTHER, SELFPAY ==
[2023-01-25 13:07] LABS: HPV APTIMA, High Risk Negative (Negative)
== END | disposition home or self-care (01) ==
LOC: LABSPEC 13:40
PROVIDERS: Referring Provider Nurse Practitioner Women's Health; Visit Provider Nurse Practitioner Women's Health
DX: Z12.4 Encounter for screening for malignant neoplasm of cervix (principal)
CPT/HCPCS: 87624; 88175; G0145

== ENCOUNTER → 2023-07-17 | Outpatient (CLI) | payer OTHER, SELFPAY ==
--- NOTE | 2023-07-17 08:40 | RAD_ITS ---
STUDY: X-RAY - LEFT HAND REASON FOR EXAM: Female, 62 years old. Mass left hand TECHNIQUE: 3 view(s) of the hand. COMPARISON: None. FINDINGS: Normal radiocarpal articulation. Normal distal radioulnar joint. Normal visualized carpal bones. Normal carpal articulations Normal carpometacarpal articulation of the thumb. Normal second through fifth carpometacarpal joints. Normal metacarpi. Normal metacarpophalangeal joint of the thumb. Normal interphalangeal joint of the thumb. Normal proximal and distal phalanges of the thumb. Normal metacarpophalangeal joints of the second through fifth fingers. Normal proximal and distal interphalangeal joints of the second through fifth fingers. Normal phalanges of the second through fifth fingers. There is a 7.8 mm x 6.4 mm calcified nodule overlying the dorsal aspect of the wrist. A similar appearing calcified nodule measuring 5.6 mm x 4.2 mm is seen as well. RAD/Hand Min 3 Views IMPRESSION: There are 2 adjacent well defined calcified nodules overlying the dorsal aspect of the carpal bones most likely corresponding to the palpable abnormality. Electronically Signed: Benji James MD at 11:14 EST ,
== END | disposition home or self-care (01) ==
PROVIDERS: PCP Family Medicine; Referring Provider Family Medicine; Visit Provider Surgery
DX: R22.9 Localized swelling, mass and lump, unspecified (principal)
CPT/HCPCS: 73130

== ENCOUNTER → 2023-09-19 | Outpatient (CLI) | payer OTHER, SELFPAY ==
--- NOTE | 2023-09-19 06:46 | MRI_ITS ---
STUDY: MRI LEFT WRIST WITH AND WITHOUT CONTRAST REASON FOR EXAM: Female, 62 years old. Calcified mass. Nodule on left hand, off tendon aches. Symptoms for 4 to 6 months. TECHNIQUE: Standardized fat and water weighted pulse sequences were obtained in all 3 orthogonal planes, pre-and post contrast administration. 15 mL IV Clariscan was administered for the contrast portion of the examination. COMPARISON: Left hand radiographs dated 07/17/2023. FINDINGS: There is a clustered low signal densely calcified mass/deposit in the joint recess dorsal to the lunate-capitate joint and deep to the extensor digitorum tendons, overall measuring 0.7 cm AP, 2.1 cm transverse, and 1.3 cm craniocaudad. Normal visualized distal radius and ulna. Normal distal radioulnar Articulation (DRUJ). Normal triangular fibrocartilaginous complex (TFCC). Intact carpal bones. There is mild degenerative arthrosis at the triscaphe joint and first CMC joint. Normal visualized interosseous scapholunate ligament. Normal visualized dorsal (extrinsic) ligaments. Normal visualized volar (extrinsic) ligaments. There is minimal tenosynovitis of the extensor carpi radialis longus tendon (axial STIR series 6 images 14-17). Normal remainder of the extensor tendons. Normal flexor tendons. Normal carpal tunnel with a normal median nerve. Normal second through fifth carpometacarpal articulations. Normal visualized metacarpal bones. There is no demonstrated soft tissue abnormality. There is no abnormal contrast enhancement. MRI/Upper Ext Joint Only W/WO Cont IMPRESSION: Nonspecific 0.7 x 2.1 x 1.3 cm clustered densely calcified mass/deposit in the joint recess dorsal to the lunate-capitate joint and deep to the extensor digitorum tendons. No aggressive features. Mild degenerative arthrosis at the triscaphe joint and first CMC joint. Minimal tenosynovitis of the extensor carpi radialis longus tendon. No abnormal contrast enhancement. Electronically Signed: Irvin Stanton MD at 9:11 EDT ,
[2023-09-19 07:11] LABS: CREATININE FINGERSTICK < 1.0 mg/dL (0.55-1.02); EGFR FINGERSTICK > 60.0000 mL/min (>60)
== END | disposition home or self-care (01) ==
LOC: MRI 06:36
PROVIDERS: PCP Family Medicine; Referring Provider Orthopaedic Surgery Sports Medicine; Visit Provider Orthopaedic Surgery Sports Medicine
DX: R22.32 Localized swelling, mass and lump, left upper limb (principal)
CPT/HCPCS: 73223; A9575

== ENCOUNTER 2023-10-18 07:00 | Day surgery (SDC) | payer OTHER, SELFPAY ==
[2023-10-18] VITALS (7 sets, daily range): BP systolic 95–137; BP diastolic 54–70; PULSE 61–79; RESP 14–16; TEMP 36.2–36.7; O2SAT 94–100; BMI 27.4
[2023-10-18] MEDS: Lactated Ringers 1,000 ML 15 ML IV (07:35)
--- NOTE | 2023-10-18 08:31 | HP.PCM_ITS ---
HPI - General HPI Narrative LINDA SANTIAGO, is a 62 F who presents for left wrist mass excision. no changes to h and p. ok to proceed. rab and post op instructions given. left wrist marked. no further concerns or questions. MR#: [id number] Acct: [id number] Name: LINDA SANTIAGO Rep #: [id number] : 1960 Provider: Dr. Dion Stewart MD Age/Sex: 62/F Location: [facility] [place] Status: Signed Intake Vital Signs 09/07/2407:23 09/19/2411:25 Height 5 ft 5 in 5 ft 5 in Weight: 164 lb BMI 27.3 Intake Visit Reasons: left hand Chief Complaint: bump left hand Accompanied by: Is patient in pain?: Yes Allergies Penicillins Allergy (Verified 09/21/23 15:02) Rash Medications famotidine 40 mg tablet 40 mg PO BID 01/20/21 [History Confirmed 09/21/23] citalopram 20 mg tablet (Celexa) 20 mg PO DAILY 04/20/21 [History Confirmed 09/21/23] multivitamin 1 tab PO DAILY 01/12/22 [History Confirmed 09/21/23] clobetasol 0.05 % topical cream 1 applic topical DAILY PRN itching #15 grams 09/28/22 [Rx Confirmed 09/21/23] lisinopril 20 mg tablet 20 mg PO DAILY 01/17/23 [History Confirmed 09/21/23] rosuvastatin 10 mg tablet 10 mg PO DAILY 01/17/23 [History Confirmed 09/21/23] estradiol 0.01% (0.1 mg/gram) vaginal cream See Rx Instructions vaginal .COMPLEX #42.5 grams 02/10/23 [Rx Confirmed 09/21/23] diphenhydramine 25 mg-acetaminophen 500 mg/15 mL oral solution ml PO PRN 09/07/23 [History Confirmed 09/21/23] fexofenadine 60 mg tablet (Milly Allergy) 60 mg PO DAILY PRN 09/07/23 [History Confirmed 09/21/23] PFSH Medical History Anemia Anxiety Arthritis Cardiology follow-up encounter Former smoker Ganglion cyst of dorsum of left wrist Gastric reflux History of echocardiogram History of IBS History of stress test Hx of mitral valve prolapse Hypercholesteremia Lipoma Migraine headache Wears contact lenses Wears glasses Surgical History H/O tubal ligation History of breast biopsy S/P laparoscopic cholecystectomy Family History Father Cancer lung HypertensionMother Breast cancer Social History Smoking Status: Former smoker alcohol intake: current details: social substance use type: does not use caffeine: No what type of physical activity do you participate in: none seatbelt use: always do you feel safe at home: Yes 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 Dion Stewart MD 09/21/23 1317. Part of today?s visit was documented by [ ], acting as scribe. LINDA SANTIAGO is a 62 year old F here today for FU L wrist MRI. Patient still having pain and does not like the cosmetic appearance of the wrist either. Ortho Exam General General: Yes no acute distress Neurologic: Yes alert and Yes oriented x3 Psychologic: Yes reasonable and appropriate Right Wrist/Hand Skin/Wound: No Swelling and No Ecchymosis Left Wrist/Hand Skin/Wound: Yes CDI, No Swelling, No Ecchymosis, Yes nail intact, Yes capillary refill normal and No erythema Left Wrist: Yes ROM-Extension 0-60, Yes ROM-Flexion 0-80, Yes ROM-Pronation 0-80 and Yes ROM-Supination 0-90 Motor: EPL: 5, FDP-2: 5, 1st Dorsal Interosseous: 5 and APB: 5 Sensation: Radial: I, Ulnar: I and Median: I WRIST: firm, fixed lesion on dorsum of L wrist, midline, mildly tender. about 1 cm, round. Supplemental Info [facility] [address] [place] [address] Upper Ext Joint Only W/WO Cont MR#: [id number] Acct: [id number] Name: LINDA SANTIAGO HAIM Rep #: [id number] : 1960 F 62 From: Irvin Stanton MD PCP: Dr. Dany Thacker MD Status: REG CLI Study: Upper Ext Joint Only W/WO Cont Date of Exam: 09/19/23 Exam# [id number] Ordering Dr: Dion Stewart MD STUDY: MRI LEFT WRIST WITH AND WITHOUT CONTRAST REASON FOR EXAM: Female, 62 years old. Calcified mass. Nodule on left hand, off tendon aches. Symptoms for 4 to 6 months. TECHNIQUE: Standardized fat and water weighted pulse sequences were obtained in all 3 orthogonal planes, pre-and post contrast administration. 15 mL IV Clariscan was administered for the contrast portion of the examination. COMPARISON: Left hand radiographs dated 07/17/2023. FINDINGS: There is a clustered low signal densely calcified mass/deposit in the joint recess dorsal to the lunate-capitate joint and deep to the extensor digitorum tendons, overall measuring 0.7 cm AP, 2.1 cm transverse, and 1.3 cm craniocaudad. Normal visualized distal radius and ulna. Normal distal radioulnar Articulation (DRUJ). Normal triangular fibrocartilaginous complex (TFCC). Intact carpal bones. There is mild degenerative arthrosis at the triscaphe joint and first CMC joint. Normal visualized interosseous scapholunate ligament. Normal visualized dorsal (extrinsic) ligaments. Normal visualized volar (extrinsic) ligaments. There is minimal tenosynovitis of the extensor carpi radialis longus tendon (axial STIR series 6 images 14-17). Normal remainder of the extensor tendons. Normal flexor tendons. Normal carpal tunnel with a normal median nerve. Normal second through fifth carpometacarpal articulations. Normal visualized metacarpal bones. There is no demonstrated soft tissue abnormality. There is no abnormal contrast enhancement. MRI/Upper Ext Joint Only W/WO Cont IMPRESSION: Nonspecific 0.7 x 2.1 x 1.3 cm clustered densely calcified mass/deposit in the joint recess dorsal to the lunate-capitate joint and deep to the extensor digitorum tendons. No aggressive features. Mild degenerative arthrosis at the triscaphe joint and first CMC joint. Minimal tenosynovitis of the extensor carpi radialis longus tendon. No abnormal contrast enhancement. Electronically Signed: Irvin Stanton MD at 9:11 EDT , I independently reviewed the imaging. Concur with radiologist report. Coding Level of Care Code Off vis,est,level 3 Diagnoses Mass of left hand R22.32 Assessment and Plan Assessment and Plan (1) Mass of left hand: Status: Acute Plan: 62 yr F with L wrist Nonspecific 0.7 x 2.1 x 1.3 cm clustered densely calcified mass/deposit in the joint recess dorsal to the lunate-capitate joint and deep to the extensor digitorum tendons. No aggressive features. Patient counseled on the diagnosis prognosis different treatment options available including rest ice to be modifications bracing and surgical excision. This looks like benign callus if calcified deposit. The patient is interested to have this removed. They were consented for left wrist mass excision. They understand the pros and cons risks and benefits of this and wished to go ahead. No further questions. Pros and cons risks and benefits were discussed with the patient including but not limited to infection, pain, stiffness, bleeding, damage to surrounding structures, neurovascular injury, recurrence or retear, failure or wear of hardware or fixation, instability, fracture, deep vein thrombosis and pulmonary embolism, anesthetic risks, , patient dissatisfaction, need for further surgery and other risks. Patient understood and wished to proceed with surgery, and signed the informed consent documentation. [facility] Medical History Ganglion cyst of dorsum of left wrist Wears contact lenses Wears glasses Anxiety Arthritis Anemia Migraine headache History of IBS Gastric reflux Former smoker History of echocardiogram History of stress test Hx of mitral valve prolapse Cardiology follow-up encounter Lipoma Hypercholesteremia Home Medications ?Medication ?Instructions ?Recorded ?Last Taken ?Type famotidine 40 mg tablet 40 mg PO BID 01/20/21 10/17/23 History citalopram 20 mg tablet (Celexa) 20 mg PO DAILY 04/20/21 10/18/23 History multivitamin 1 tab PO DAILY 01/12/22 10/17/23 History clobetasol 0.05 % topical cream 1 applic topical DAILY PRN itching 09/28/22 10/16/23 Rx #15 grams lisinopril 20 mg tablet 20 mg PO DAILY 01/17/23 10/18/23 History rosuvastatin 10 mg tablet 10 mg PO DAILY 01/17/23 10/17/23 History estradiol 0.01% (0.1 mg/gram) See Rx Instructions vaginal 02/10/23 Unknown Rx vaginal cream .COMPLEX #42.5 grams diphenhydramine 25 15 ml PO QHS 09/07/23 10/17/23 History mg-acetaminophen 500 mg/15 mL oral solution fexofenadine 60 mg tablet (Milyl 60 mg PO DAILY PRN ALLERGY 09/07/23 Unknown History Allergy) Allergy/AdvReac Type Severity Reaction Status Date / Time Penicillins Allergy Rash Verified 10/18/23 07:21 Family History Father Cancer lung Hypertension Mother Breast cancer Surgical History S/P laparoscopic cholecystectomy History of breast biopsy H/O tubal ligation Social History Smoking Status: Former smoker alcohol intake: current details: social substance use type: does not use caffeine: No what type of physical activity do you participate in: none seatbelt use: always do you feel safe at home: Yes 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
--- NOTE | 2023-10-18 08:45 | MASS_PTH ---
PATIENT: LINDA SANTIAGO LOC: [facility] [place] U#:[id number] AGE/SX: 62/F ROOM: RE10/18/[address]: Dr. Dion Stewart MD : 1960 BED: DIS: 10/18/2023 SPEC #: [id number] RECD: 10/18/23 12:25 STATUS: IVANIA ARIK #: [id number] SONALI: 10/18/23 08:[address]: Dion Stewart DEPT: SURGICAL PATHOLOGY RECD BY: Pilo Nicholas ENTERED: 10/18/23 13:57 SP TYPE: Mass OTHR DR: Dr. Dany Thacker MD Tissues: Skin of wrist and hand Procedures: Surgery Specimen Level IV HEADER OPERATION: Left wrist mass excision PRE-OP DIAGNOSIS: Mass of left hand TISSUE SUBMITTED: Left wrist mass MICROSCOPIC DIAGNOSIS Left wrist mass, biopsy: Fibrous tissue with dystrophic microcalcifications. AM/mr 10/19/2023 MICROSCOPIC DESCRIPTION Slides are reviewed. GROSS DESCRIPTION Received in fixative is one container labeled with the patient's name and designated Left wrist mass. The specimen consists of multiple irregular fragments of bhatti-yellow soft tissue measuring in aggregate 1.5 x 1.2 x 0.2cm. The specimen is submitted in its entirety in one cassette. AM/mr 10/18/2023 TC:5 CPT:58333
[2023-10-18] MEDS: Cefazolin 2 GM in 0.9% Normal Saline (100mL Bag) 100 ML IV (08:48)
--- NOTE | 2023-10-18 09:11 | RAD_ITS ---
INDICATION: MASS EXAMINATION/TECHNIQUE: X-RAY - LEFT XR Wrist 2 Views 3 VIEWS COMPARISON: No relevant prior comparison study available FINDINGS: 2 lateral views of the wrist were obtained intraoperatively on a C-arm for documentation only. Number of fluoroscopic images: 2 Radiation dose: 0.38 mGy Fluoroscopy time: 31.1 seconds. RAD/Wrist 2 Views IMPRESSION: Intraoperative exam as described above. Electronically Signed: Elias Painter MD at 8:43 EDT ,
[2023-10-18] MEDS: Bupivacaine 0.25% 30 ML Vial (09:45)
--- NOTE | 2023-10-18 09:52 | PCM.OPRPT ---
Problems Associated Problem List Diagnoses (1) Mass of left hand: Report of Operation Date of Procedure: 10/18/23 Pre-Operative Diagnosis: Left wrist mass Post-Operative Diagnosis: Same Surgery/Procedure Performed:: Left wrist mass excision Description of Surgical Findings:: Calcifications white in appearance Surgeon: Dion Stewart Type of Anesthesia: General and Local Anesthesiologist: Bonifacio Candelario Estimated Blood Loss (mL): 10 Description of Procedure: Patient brought to the operating room theater. Placed supine on the table. 2 g IV Ancef administered prior to start of the procedure. General anesthesia induced. All bony prominences padded. SCDs on the legs. 18 inch tourniquet applied to the upper extremity properly padded. Left upper extremity prepped and draped in the usual sterile fashion with chlorhexidine-based prep solution allowing over 3 minutes drying time prior to draping. Preoperative timeout performed confirm the site patient and the surgery. Began by elevating the limb inflated the tourniquet to 250 mmHg. Made this standard dorsal longitudinal approach overlying the mass. Carried dissection down through skin and subtenons tissue to meticulous hemostasis. Protected the extensor tendons retracted this medially and laterally. Made a small distal a longitudinal incision in the extensor retinaculum which I did close at the end of the case with 2-0 Vicryl suture. Identified the 2 calcified masses I remove these gently with a [place] instrument. Took intraoperative lateral radiographs to confirm appropriate removal of the calcific appearing deposits and sent this to the lab for pathology. Tourniquet let down hemostasis achieved meticulous hemostasis. Thorough irrigation with normal saline. Skin closed with horizontal mattress 3-0 Ethilon sutures skin cleaned with wet dry dressing. 5 cc of quarter percent bupivacaine for local anesthesia. Skin cleaned with wet dry dressing provocation of Adaptic 4 x 4 gauze and Daya wrap with tape for the upper extremity dressing. Patient woken up from a general anesthetic transferred off the operating room table and taken postanesthetic care unit in stable addition. All sponge and immature counts were correct no complications. Plan for the patient gentle range of motion no heavy lifting or gripping follow-up in the office in 2 [place] [address]? Complications none Admit VTE Documentation VTE Present on Admission: No VTE Mechan Device Prophylaxis: SCD's VTE Pharm Prophylaxis ordered?: No Reason prophylaxis not ordered:: Treatment Not Indicated Procedures Musculoskeletal 20xxx-29xxx: Other Procedure See Report
--- NOTE | 2023-10-18 10:00 | DCINST_ITS ---
Discharge Instructions Diet Discharge Diet: No restrictions Activity Discharge Activity: Return to Normal Activity Ice area for (Minutes): 10 Keep extremity elevated above heart level: Operative Extremity Dressing / Incision Call your doctor if your incision/area has: Continuous Slow Oozing, Sudden Increased Bleeding, Increased Pain/ Swelling, Increased Redness, Foul Smelling D ischarge and Swelling at the incision site Remove Dressing in: leave in place till F/U Cleanse incision/area with: Do not get Incision Wet Follow Up Care Please Follow Up With: Dion Stewart MD When: 2 days Test Results: Test results from this visit will be discussed in further detail at your follow- up appointment, if applicable. Discharge Plan Admission Attending Provider: Dion Stewart Primary Care Provider: Dany Thacker Instructions Print Language: Albanian Discharge Orders/Prescriptions Prescriptions: No Action famotidine 40 mg tablet 40 mg PO BID multivitamin Tablet 1 tab PO DAILY lisinopril 20 mg tablet 20 mg PO DAILY rosuvastatin 10 mg tablet 10 mg PO DAILY fexofenadine [Milly Allergy] 60 mg tablet 60 mg PO DAILY PRN (Reason: ALLERGY) diphenhydramine-acetaminophen 25-500 mg-mg/mL solution 15 ml PO QHS citalopram [Celexa] 20 mg tablet 20 mg PO DAILY Rx Instructions: 20 mg PO 1.5 tab daily clobetasol 0.05 % cream 1 applic topical DAILY PRN (Reason: itching) Qty: 15 1RF Rx Instructions: apply small amount topically daily and prn as needed for itching estradiol 0.01 % (0.1 mg/gram) cream See Rx Instructions vaginal .COMPLEX Qty: 42.5 0RF Rx Instructions: small amount daily X 2 weeks then 2 days a week vaginally; Referrals / Follow Up: Dany Thacker MD [Primary Care Provider] - Dion Stewart MD [Med Staff - Active Staff] - Disposition Disposition (needs filled in before D/C Order can be placed): Home, Self Care
== END 2023-10-18 11:04 | disposition home or self-care (01) ==
LOC: SDC 07:01 → AC 07:02
PROVIDERS: PCP Family Medicine; Referring Provider Orthopaedic Surgery Sports Medicine; Visit Provider Orthopaedic Surgery Sports Medicine
PROC: (CPT 25076; principal; 2023-10-18 08:30)
DX: R22.32 Localized swelling, mass and lump, left upper limb (principal); E78.00 Pure hypercholesterolemia, unspecified; F41.9 Anxiety disorder, unspecified; K21.9 Gastro-esophageal reflux disease without esophagitis; Z79.899 Other long term (current) drug therapy; Z87.891 Personal history of nicotine dependence
CPT/HCPCS: 25076; 73100; 76000; 88305; J2405

== ENCOUNTER 2024-01-01 17:40 | Emergency (ER) | payer OTHER, SELFPAY ==
[2024-01-01 17:41] VITALS: BP 136/55; PULSE 103; RESP 18; TEMP 36.5; O2SAT 96; BMI 27.0
[2024-01-01 19:41] VITALS: BP 134/99; PULSE 80; RESP 16; O2SAT 97
--- NOTE | 2024-01-01 19:47 | EDS_ITS ---
HPI HPI - GI History of Present Illness Chief Complaint: Constipation Informant: patient Abdominal Pain/Flank Pain Onset: Weeks (1) Context: Gradual Onset Timing: Continuous Quality: Cramping Location: RLQ and LLQ Worsened by: Nothing Relieved by: - (Passing gas) Nausea/Vomiting/Emesis GI Symptom: Positive for Nausea and Vomiting Quality: Positive for - (Dry heaves) Associated Symptoms Associated Symptoms: Negative for Dysuria, Frequency or Hematuria Narrative Narrative: Patient presents with abdominal pain and constipation that has been getting worse over the past week. Patient states it is gradually getting worse. Patient states that has been constant. Patient states her pain is mainly over the lower abdomen. Patient describes it as cramping. Patient states that it gets better when she is able to pass gas. Patient states she has been having some nausea and vomiting with some dry heaves. Patient denies any hematemesis or coffee-ground emesis. Patient denies any urinary complaints. Patient admits to a low-grade fever of 100.9 at home. [facility] Medical History Disease of gingiva due to infection Ganglion cyst of dorsum of left wrist Wears contact lenses Wears glasses Anxiety Arthritis Anemia Migraine headache History of IBS Gastric reflux Former smoker History of echocardiogram History of stress test Hx of mitral valve prolapse Cardiology follow-up encounter [place] Hypercholesteremia Home Medications ?Medication ?Instructions ?Recorded ?Last Taken ?Type famotidine 40 mg tablet 40 mg PO BID 01/20/21 10/17/23 History citalopram 20 mg tablet (Celexa) 20 mg PO DAILY 04/20/21 10/18/23 History multivitamin 1 tab PO DAILY 01/12/22 10/17/23 History clobetasol 0.05 % topical cream 1 applic topical DAILY PRN itching 09/28/22 10/16/23 Rx #15 grams lisinopril 20 mg tablet 20 mg PO DAILY 01/17/23 10/18/23 History rosuvastatin 10 mg tablet 10 mg PO DAILY 01/17/23 10/17/23 History estradiol 0.01% (0.1 mg/gram) See Rx Instructions vaginal 02/10/23 Unknown Rx vaginal cream .COMPLEX #42.5 grams fexofenadine 60 mg tablet (Milly 60 mg PO DAILY PRN ALLERGY 09/07/23 Unknown History Allergy) meclizine 25 mg tablet 25 mg PO TID PRN dizziness #30 tabs 11/04/23 Unknown Rx doxycycline hyclate 100 mg tablet 100 mg PO BID #14 tabs 12/16/23 Unknown Rx methylprednisolone 4 mg tablets in See Rx Instructions PO PER PKG DIR 12/16/23 Unknown Rx a dose pack (Medrol (Sebastien)) #21 tabs ciprofloxacin HCl 500 mg tablet 500 mg PO BID #20 TABLETS 01/01/24 Unknown Rx metronidazole 500 mg tablet 500 mg PO Q6H #40 tabs 01/01/24 Unknown Rx Allergy/AdvReac Type Severity Reaction Status Date / Time Penicillins Allergy Rash Verified 01/01/24 17:41 Family History Father Cancer lung Hypertension Mother Breast cancer Surgical History S/P laparoscopic cholecystectomy History of breast biopsy H/O tubal ligation Social History Smoking Status: Former smoker alcohol intake: current details: social substance use type: does not use caffeine: No what type of physical activity do you participate in: none seatbelt use: always do you feel safe at home: Yes 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 [employer] [facility] ED Constitutional Constitutional ED: Reports fever(s); Denies chills Eyes Eyes: Denies blurry vision or change in vision ENT ENT ED: Denies rhinorrhea or sore throat Cardiovascular Cardiovascular: Denies chest pain or palpitations Respiratory/Chest Respiratory/Chest: Denies cough or dyspnea Gastrointestinal Gastrointestinal: Reports abdominal pain, constipation, nausea and vomiting Genitourinary Genitourinary ED: Denies dysuria or hematuria Musculoskeletal Musculoskeletal: Denies back pain or neck pain Integumentary Denies abscess or rash Neurologic Neurologic: Reports headache(s); Denies weakness Allergic/Immunologic Allergic/Immunologic ED: Denies mouth swelling or urticaria EXAM Physical Exam Const Vital Signs: 01/01/24 17:41 01/01/24 19:41 01/01/24 21:00 Temperature 97.7 F L Temperature Source Temporal Pulse Rate 103 H 80 77 Respiratory Rate 18 16 19 H Blood Pressure 136/55 H 134/99 H 129/81 H Blood Pressure Mean 82 110 97 Pulse Ox 96 97 97 Oxygen Delivery Method Room Air Room Air Room Air Positive well nourished and well developed General Appearance ED: well developed and NAD HEENT Reports moist mucous membranes Neck supple and no JVD Resp normal respiratory effort and clear to auscultation bilaterally Cardio regular rate and regular rhythm GI non-distended Palpation: soft and tender LLQ, RLQ and suprapubic; Negative for guarding or rebound tenderness present Neuro CN's II-XII intact bilaterally, moves all extremities and no sensory deficits noted Sensorium / Orientation: alert Motor Exam: strength 5/5 throughout Psych mental status grossly normal MDM MDM MDM Narrative Medical decision making narrative: Differential diagnosis includes constipation, bowel obstruction, dehydration, pancreatitis, gastritis, and peptic ulcer disease. CBC will be obtained to assess for leukocytosis and anemia. Comprehensive metabolic profile will be obtained to assess for hepatic function, renal function, and electrolyte abnormality. Lipase will be obtained to assess for pancreatitis. CT scan of the abdomen pelvis will be obtained to assess for constipation, bowel obstruction, and perforation. Lab Data Attestation: I reviewed the patient's lab results. Lab results narrative: CBC was reviewed. There is a leukocytosis of 15.7. The remainder is within normal limits. Comprehensive metabolic profile was reviewed and was within normal limits. Lipase was reviewed and was normal at 53. Labs: Laboratory Results - last 24 hr 01/01/24 19:51 WBC 15.7 H RBC 4.29 Hgb 12.8 Hct 39.2 MCV 91.4 MCH 29.8 MCHC 32.7 RDW Std Deviation 44.3 H RDW Coeff of Aditya 13.3 Plt Count 303 MPV 9.5 Immature Gran % (Auto) 0.400 Neut % (Auto) 80.4 H Lymph % (Auto) 10.4 L [place] % (Auto) 8.2 Eos % (Auto) 0.3 Baso % (Auto) 0.3 Absolute Neuts (auto) 12.6 H Absolute Lymphs (auto) 1.63 Nucleated RBC % 0 Sodium 136 Potassium 3.9 Chloride 106 Carbon Dioxide 23.0 Anion Gap 7 BUN 5 L Creatinine 0.72 Estim Creat Clear Calc 79.31 Est GFR (MDRD) Af Amer 104 Est GFR (MDRD) Non-Af 86 BUN/Creatinine Ratio 6.9 L Glucose 115 H Calcium 8.6 Total Bilirubin 0.60 AST 11 L ALT 21 Alkaline Phosphatase 70 Total Protein 7.3 Albumin 3.0 L Globulin 4.3 H Albumin/Globulin Ratio 0.7 L Lipase 53 Radiography Diagnostic Testing: Clinical Impression(s) from Imaging Studies Abdomen/Pelvis CT 01/01/24 20:20 IMPRESSION: 1. Acute diverticulitis involving the sigmoid. Mild free fluid. No free abscess, visible contained focal perforation, or free intraperitoneal air. Mildly prominent fluid in distal small bowel and proximal half of the colon. 2. 2.4 cm simple right ovarian or paraovarian cyst. Due to the size and appearance ACR White Paper guidelines (Mariee, et. al. JACR 2020;17(2):248-254) suggest no follow-up is necessary. Electronically Signed: Natalia Pittman MD at 22:22 EDT , CT scan of the abdomen pelvis was obtained. There is acute diverticulitis involving the sigmoid colon. There is mild free fluid. There is no abscess or perforation noted. There is a right ovarian cyst noted as well. This was interpreted by the radiologist and was also independently reviewed by myself. Treatment and Re-Evaluation :: Patient given IV fluids and Zofran. Patient was feeling better on reevaluation. Patient was advised of her findings. Patient was given a dose of Cipro and Flagyl here. Patient was given prescriptions for Cipro and Flagyl. Patient was instructed to avoid alcohol while taking Flagyl. Patient was instructed to start with a bland diet and advance as tolerated. Patient was instructed to follow-up with her primary care physician in 5 to 7 days. Patient understood and was agreeable with the plan. All questions were answered. Discharge Plan Triage Chief Complaint: Constipation ED Provider: Dimas Jackson Dx/Rx/DC Orders Clinical Impression: Sigmoid diverticulitis, Abdominal pain Instructions: ED Diverticulitis Prescriptions: New metronidazole 500 mg tablet 500 mg PO Q6H Qty: 40 0RF ciprofloxacin HCl 500 mg tablet 500 mg PO BID Qty: 20 0RF No Action famotidine 40 mg tablet 40 mg PO BID multivitamin Tablet 1 tab PO DAILY lisinopril 20 mg tablet 20 mg PO DAILY rosuvastatin 10 mg tablet 10 mg PO DAILY fexofenadine [Milly Allergy] 60 mg tablet 60 mg PO DAILY PRN (Reason: ALLERGY) meclizine 25 mg tablet 25 mg PO TID PRN (Reason: dizziness) Qty: 30 0RF doxycycline hyclate 100 mg tablet 100 mg PO BID Qty: 14 0RF methylprednisolone [Medrol (Sebastien)] 4 mg tablets,dose pack See Rx Instructions PO PER PKG DIR Qty: 21 0RF Rx Instructions: PO PER PKG DIR citalopram [Celexa] 20 mg tablet 20 mg PO DAILY Rx Instructions: 20 mg PO 1.5 tab daily clobetasol 0.05 % cream 1 applic topical DAILY PRN (Reason: itching) Qty: 15 1RF Rx Instructions: apply small amount topically daily and prn as needed for itching estradiol 0.01 % (0.1 mg/gram) cream See Rx Instructions vaginal .COMPLEX Qty: 42.5 0RF Rx Instructions: small amount daily X 2 weeks then 2 days a week vaginally; Primary Care Provider: Dany Thacker Referrals: Dany Thacker MD [Primary Care Provider] - 5-7 Days Print Language: Bulgarian Disposition Disposition: Home, Self Care
[2024-01-01] MEDS: 0.9% Normal Saline (1000mL) 1,000 ML 999 ML IV (19:55)
[2024-01-01] MEDS: Ondansetron 4 MG/2 ML Vial IV (19:56)
[2024-01-01 20:00] LABS: Absolute Lymphocyte Count 1.63 X10^3/uL (0.83-4.51); Absolute Neutrophil Count 12.6 X10^3/uL (2.0-7.7); Basophil# 0.04 X10^3/uL; Basophil% 0.3 % (0-1); Eosinophil# 0.05 X10^3/uL; Eosinophils% 0.3 % (0-5); Hematocrit 39.2 % (37-47); Hemoglobin 12.8 g/dL (12.0-15.0); Lymphocyte # 1.63 X10^3/ul (0.83-4.51); Lymphocyte % 10.4 % (19-41); Mean Corp Hgb Conc 32.7 g/dL (32-36); Mean Corpuscular Hgb 29.8 pg (27.0-32.0); Mean Corpuscular Volume 91.4 fL (81-99); Mean Platelet Vol. 9.5 fl (6.2-12.0); Monocyte# 1.29 X10^3/uL; Monocyte% 8.2 % (0-10); NRBC Flagged by Analyzer 0 % (0-5); Neutrophil % 80.4 % (47-70); Platelet Count 303 K/mm3 (150-450); RBC Distribution Width CV 13.3 % (11.6-14.6); RBC Distribution Width SD 44.3 fl (35.1-43.9); Red Blood Count 4.29 M/mm3 (4.2-5.4); White Blood Count 15.7 K/mm3 (4.4-11.0)
[2024-01-01 20:17] LABS: ALB/GLOB Ratio 0.7 RATIO (0.9-2.4); AST(SGOT) 11 U/L (15-37); Alanine Aminotransfer ALT/SGPT 21 U/L (13-56); Alkaline Phosphatase 70 U/L (45-117); Anion Gap 7 (5-15); BUN 5 mg/dL (7-18); BUN/Creat Ratio 6.9 RATIO (10-20); Calcium,Total 8.6 mg/dL (8.5-10.1); Chloride 106 mmol/L (98-107); Creatinine, Serum 0.72 mg/dL (0.55-1.02); EST Glomerular Filtration Rate 86 mL/min (>60); Est Glom Filt Rate - Afr Amer 104 mL/min (>60); Estimated Creatinine Clearance 79.31 ml/min; Globulin 4.3 g/dL (2.2-4.2); Glucose 115 mg/dL (74-106); Lipase 53 U/L (13-75); Potassium 3.9 mmol/L (3.5-5.1); Protein, Total 7.3 g/dL (6.4-8.2); Sodium Level 136 mmol/L (136-145)
--- NOTE | 2024-01-01 20:20 | CT_ITS ---
EXAM: CT ABDOMEN AND PELVIS WITH INTRAVENOUS CONTRAST CLINICAL INDICATION: Abdominal pain TECHNIQUE: Helically acquired images were obtained of the abdomen and pelvis with intravenous contrast. This CT exam was performed using one or more of the following dose reduction techniques: automated exposure control, adjustment of the mA and/or kV according to patient size, and/or use of iterative reconstruction technique. RADIATION DOSE: CTDIvol = 13.03 mGy, DLP = 931.65 mGy-cmContrast: IV 100mL [id number] COMPARISON: Pelvic ultrasound August 09, 2019, right ovary was not seen. FINDINGS: LOWER THORAX: Unremarkable. Lung bases are clear. No cardiomegaly. No significant pericardial effusion. ABDOMEN: LIVER: Unremarkable. Homogeneous. No focal mass. GALLBLADDER AND BILE DUCTS: Presumed cholecystectomy. No bile duct dilatation. PANCREAS: Unremarkable. No focal cystic or solid mass. SPLEEN: Unremarkable. Normal size without focal cystic or solid mass. ADRENALS: Unremarkable. No nodules. KIDNEYS AND URETERS: Unremarkable. Normal renal size and position. No hydronephrosis. STOMACH AND BOWEL: There is moderate fluid and gas distending the proximal half to two thirds of the colon. There is moderate wall thickening, luminal narrowing and hazy adjacent pericolonic soft tissue stranding involving the mid sigmoid colon, at the left of midline, with numerous diverticuli in the underlying segment. Mildly prominent fluid in distal small bowel. PELVIS: APPENDIX: Small appendix is seen. BLADDER: Mildly prominently distended, 13.1 cm craniocaudal but thin-walled. REPRODUCTIVE: Bilateral tubal ligation clips are noted. ABDOMEN and PELVIS: INTRAPERITONEAL SPACE: See below. BONES/JOINTS: Unremarkable. No suspicious lytic or blastic abnormality. SOFT TISSUES: Cluster of coarse calcifications or coarse ovoid calcification of roughly 7 mm x 5 mm in the right subareolar breast may be fibroadenoma. Moderate disc space narrowing and mild vacuum disc at L5-S1. Mild scattered intrapelvic fluid. No discrete drainable fluid collection. No free intraperitoneal air. No discrete abdominal or pelvic wall hernia. VASCULATURE: Well-circumscribed presumed 2.3 cm x 1.6 cm x 2.4 cm simple-appearing right adnexal cyst. Atherosclerotic changes of aortoiliac vessels, no aneurysm or dissection or high-grade arterial origin stenosis. LYMPH NODES: Unremarkable. No enlarged lymph nodes. CT/Abdomen/Pelvis W IV Cont ONLY IMPRESSION: 1. Acute diverticulitis involving the sigmoid. Mild free fluid. No free abscess, visible contained focal perforation, or free intraperitoneal air. Mildly prominent fluid in distal small bowel and proximal half of the colon. 2. 2.4 cm simple right ovarian or paraovarian cyst. Due to the size and appearance ACR White Paper guidelines (Mariee, et. al. JACR 2020;17(2):248-254) suggest no follow-up is necessary. Electronically Signed: Natalia Pittman MD at 22:22 EDT ,
[2024-01-01 21:00] VITALS: BP 129/81; PULSE 77; RESP 19; O2SAT 97
[2024-01-01 23:00] VITALS: BP 120/54; PULSE 88; RESP 16; O2SAT 98
[2024-01-01] MEDS: Ciprofloxacin 500 MG Tablet PO (23:16)
[2024-01-01] MEDS: metroNIDAZOLE 500 MG Tablet PO (23:16)
[2024-01-01 23:21] VITALS: BP 120/58; PULSE 88; RESP 16; TEMP 36.7; O2SAT 98
== END 2024-01-01 23:25 | disposition home or self-care (01) ==
PROVIDERS: Emergency Provider Emergency Medicine; PCP Family Medicine; Visit Provider Emergency Medicine
DX: K57.32 Diverticulitis of large intestine without perforation or abscess without bleeding (principal); Z87.891 Personal history of nicotine dependence; R11.2 Nausea with vomiting, unspecified; E78.00 Pure hypercholesterolemia, unspecified; R10.9 Unspecified abdominal pain; K21.9 Gastro-esophageal reflux disease without esophagitis; N83.201 Unspecified ovarian cyst, right side
CPT/HCPCS: 74177; 80053; 83690; 85025; 96361; 96374; 99284; J7030; Q9967; A4216; J2405

== ENCOUNTER → 2024-03-21 | Outpatient (CLI) | payer OTHER, SELFPAY ==
[2024-03-21 10:39] LABS: Anion Gap 4 (5-15); BUN 9 mg/dL (7-18); BUN/Creat Ratio 12.9 RATIO (10-20); Calcium,Total 9.2 mg/dL (8.5-10.1); Chloride 110 mmol/L (98-107); Cholesterol 184 mg/dL (200); EST Glomerular Filtration Rate 90 mL/min (>60); Est Glom Filt Rate - Afr Amer 109 mL/min (>60); Glucose 95 mg/dL (74-106); High Density Lipoprotein 46 mg/dL; Potassium 3.9 mmol/L (3.5-5.1); Sodium Level 142 mmol/L (136-145); Triglycerides 238 mg/dL; Very Low Density Lipoprotein 48 mg/dL (5-40)
== END | disposition home or self-care (01) ==
PROVIDERS: PCP Family Medicine; Referring Provider Family Medicine; Visit Provider Family Medicine
DX: Z00.00 Encounter for general adult medical examination without abnormal findings (principal)
CPT/HCPCS: 36415; 80048; 80061

== ENCOUNTER → 2024-04-09 | Outpatient (CLI) | payer OTHER, SELFPAY ==
--- NOTE | 2024-04-09 15:27 | BI_ITS ---
MAMMOGRAPHY - BILATERAL SCREENING REASON FOR EXAM: Female, 63 years old. Routine annual screening examination. PERTINENT HISTORY: Mother with breast cancer. History of prior bilateral excisional breast biopsies. TECHNIQUE: Digital bilateral breast caitlin (3D mammographic acquisition) in the CC and MLO projections. 2-D mediolateral oblique (MLO) and craniocaudad (CC) views of both breasts were obtained. CAD: Full Field Digital Mammography with Computer Added Detection was performed. COMPARISON: Comparison is made with prior study December 29, 2022 and November 19, 2021. FINDINGS: Breast Composition: The breasts are heterogeneously dense, which may obscure small masses. There are no dominant masses or suspicious calcifications. Stable subcentimeter calcified nodules in the retroareolar region of the right breast. No other significant abnormalities are identified. There has been no significant change since the prior study. BI/SCRN MAMM (CAD)W/CAITLIN BILAT IMPRESSION: Stable bilateral screening mammogram. Yearly follow-up mammogram recommended. (A) ASSESSMENT CATEGORY: BIRADS Category 2: Benign. A letter regarding these results will be sent to the patient by the facility within 30 days. Approximately 10% of breast cancers are not detected by mammography. A normal mammogram should not delay biopsy of a clinically suspicious abnormality. [id number] Electronically Signed: Benji James MD at 8:21 EST ,
--- NOTE | 2024-04-09 15:29 | BD_ITS ---
STUDY: DUAL ENERGY X-RAY ABSORPTIOMETRY / DXA REASON FOR EXAM: Female, 63 years old. [id number] TECHNIQUE: Bone Mineral Density (BMD) measurements of lumbar spine and bilateral hips were obtained. COMPARISON: None. FINDINGS: Lumbar Spine (L1-L4): g/cm2 (0.987) / T-score (-0.5) / Z-score (1.2) Findings are suggestive of normal bone density with a low fracture risk. Left Femur Total: g/cm2 (0.991) / T-score (0.4) / Z-score (1.6) Left Femoral Neck: g/cm2 (0.751) / T-score (-0.9) / Z-score (0.6) Right Femur Total: g/cm2 (0.957) / T-score (0.1) / Z-score (1.3) Right Femoral Neck: g/cm2 (0.767) / T-score (-0.7) / Z-score (0.7) BD/Dexa Bone Density Study IMPRESSION: The patient is considered normal as outlined below according to World Efra Organization (WHO) criteria with a low fracture risk. Reference Information: The T-score is the number of standard deviations above or below the standard which is normal for young adults at their peak bone mineral density. The World Health Organization (WHO) interprets the T-scores as follows: Above -1 Normal bone density Between -1 and -2.5 Osteopenia Equal to / or below -2.5 Osteoporosis As a practical clinical guideline, osteopenia may be graded as follows: Mild -1 through -1.5 Moderate -1.6 through -2.0 Severe -2.1 through -2.4 The Z-score is the number of standard deviations above or below age-matched controls. A Z-score of less than -1.5 would be considered abnormal. References: 1. NIH Osteoporosis and Related Bone Diseases www osteo.org 2. International Society for Clinical Densitometry www iscd.org 3. National Osteoporosis Foundation www nof.org Electronically Signed: Benji James MD at 15:00 EST ,
== END | disposition home or self-care (01) ==
LOC: OPBD 15:25
PROVIDERS: PCP Family Medicine; Referring Provider Family Medicine; Visit Provider Family Medicine
DX: Z00.00 Encounter for general adult medical examination without abnormal findings (principal); Z12.31 Encounter for screening mammogram for malignant neoplasm of breast
CPT/HCPCS: 77063; 77067; 77080

== ENCOUNTER → 2024-08-16 | Outpatient (CLI) | payer OTHER, SELFPAY | END | disposition home or self-care (01) | LOC: MTLAB 09:24 | PROVIDERS: PCP Family Medicine; Referring Provider Family Medicine; Visit Provider Family Medicine | DX: K57.92 Diverticulitis of intestine, part unspecified, without perforation or abscess without bleeding (principal) | CPT/HCPCS: 87493; 87506 ==

== ENCOUNTER 2024-08-21 12:28 | Emergency (ER) | payer OTHER, SELFPAY ==
[2024-08-21 12:29] VITALS: BP 137/58; PULSE 81; RESP 15; TEMP 36.6; O2SAT 97; BMI 26.4
[2024-08-21 13:07] LABS: Mucous, Urine 0 SEEN /hpf (<or=2+); Red Blood Cells-Urine 0 SEEN /hpf (0-5)
[2024-08-21 13:11] LABS: Color, Urine Yellow (Yellow); Glucose, Dipstick Normal (Normal); Ketone-Dipstick Negative (Negative); Leukocyte Esterase-Dipstick 25 /ul (Negative); Nitrite-Dipstick Negative (Negative); Occult Blood-Urine 25 /ul (Negative); Protein-Dipstick 30 mg/dl (Negative); Specific Gravity, Urine 1.025 (1.002-1.030); Urine Bilirubin Dipstick Negative (Negative); Urine Clarity Turbid (Clear); Urine Urobilinogen Normal (Normal)
[2024-08-21 13:12] LABS: Absolute Neutrophil Count 9.1 X10^3/uL (2.0-7.7); Basophil# 0.03 X10^3/uL; Basophil% 0.3 % (0-1); Eosinophil# 0.06 X10^3/uL; Eosinophils% 0.6 % (0-5); Hemoglobin 13.4 g/dL (12.0-15.0); Lymphocyte % 8.3 % (19-41); Mean Corp Hgb Conc 34.4 g/dL (32-36); Mean Corpuscular Hgb 30.3 pg (27.0-32.0); Mean Corpuscular Volume 88.2 fL (81-99); Mean Platelet Vol. 9.7 fl (6.2-12.0); Monocyte# 0.71 X10^3/uL; Monocyte% 6.6 % (0-10); NRBC Flagged by Analyzer 0 % (0-5); Neutrophil # 9.06 X10^3/uL (2.7-7.7); Neutrophil % 83.9 % (47-70); Platelet Count 277 K/mm3 (150-450); RBC Distribution Width SD 42.3 fl (35.1-43.9); Red Blood Count 4.42 M/mm3 (4.2-5.4); White Blood Count 10.8 K/mm3 (4.4-11.0)
[2024-08-21 13:22] LABS: Amorphous Sediment 2+; Bacteria 2+ /hpf (None Seen); Squamous Epithelial Cells - UA 0-5 SEEN /hpf (5-10)
[2024-08-21 13:23] LABS: White Blood Cells 0-5 SEEN /hpf (0-5)
[2024-08-21 14:43] LABS: ALB/GLOB Ratio 1.5 RATIO (0.9-2.4); AST(SGOT) 46 U/L (<=31); Alanine Aminotransfer ALT/SGPT 139 U/L (<=34); Albumin, Serum 4.3 g/dL (3.4-4.8); Alkaline Phosphatase 90 U/L (35-104); Anion Gap 11 (5-15); BUN 9 mg/dL (4-19); Calcium,Total 9.3 mg/dL (7.6-11.0); Carbon Dioxide 22.4 mmol/L (21.0-32.0); Chloride 107 mmol/L (98-108); Creatinine, Serum 0.72 mg/dL (0.70-1.20); EST Glomerular Filtration Rate 94 (>60); Estimated Creatinine Clearance 78.57 ml/min (50-250); Globulin 2.8 g/dL (2.2-4.2); Glucose 98 mg/dL (70-99); Lipase 29 U/L (13-75); Potassium 3.8 mmol/L (3.3-5.1); Protein, Total 7.1 g/dL (5.9-8.4); Sodium Level 140 mmol/L (133-145); Total Bilirubin 0.38 mg/dL (0.00-1.30)
[2024-08-21 14:49] VITALS: BP 121/61; PULSE 79; RESP 20; TEMP 36.9; O2SAT 97
--- NOTE | 2024-08-21 15:07 | EX.ED.DYSGE1 ---
HPI History of Present Illness Chief Complaint: Abd Pain [facility] Medical History Disease of gingiva due to infection Ganglion cyst of dorsum of left wrist Wears contact lenses Wears glasses Anxiety Arthritis Anemia Migraine headache History of IBS Gastric reflux Former smoker History of echocardiogram History of stress test Hx of mitral valve prolapse Cardiology follow-up encounter [place] Hypercholesteremia Home Medications ?Medication ?Instructions ?Recorded ?Last Taken ?Type famotidine 40 mg tablet 40 mg PO BID 01/20/21 10/17/23 History citalopram 20 mg tablet (Celexa) 20 mg PO DAILY 04/20/21 10/18/23 History multivitamin 1 tab PO DAILY 01/12/22 10/17/23 History clobetasol 0.05 % topical cream 1 applic topical DAILY PRN itching 09/28/22 10/16/23 Rx #15 grams lisinopril 20 mg tablet 20 mg PO DAILY 01/17/23 10/18/23 History rosuvastatin 10 mg tablet 10 mg PO DAILY 01/17/23 10/17/23 History estradiol 0.01% (0.1 mg/gram) See Rx Instructions vaginal 02/10/23 Unknown Rx vaginal cream .COMPLEX #42.5 grams fexofenadine 60 mg tablet (Milly 60 mg PO DAILY PRN ALLERGY 09/07/23 Unknown History Allergy) meclizine 25 mg tablet 25 mg PO TID PRN dizziness #30 tabs 11/04/23 Unknown Rx doxycycline hyclate 100 mg tablet 100 mg PO BID #14 tabs 12/16/23 Unknown Rx methylprednisolone 4 mg tablets in See Rx Instructions PO PER PKG DIR 12/16/23 Unknown Rx a dose pack (Medrol (Sebastien)) #21 tabs ciprofloxacin HCl 500 mg tablet 500 mg PO BID #20 TABLETS 01/01/24 Unknown Rx metronidazole 500 mg tablet 500 mg PO Q6H #40 tabs 01/01/24 Unknown Rx ondansetron 4 mg disintegrating 4 mg PO Q8H PRN PRN Nausea #10 tabs 08/21/24 Unknown Rx tablet Allergy/AdvReac Type Severity Reaction Status Date / Time Penicillins Allergy Rash Verified 08/21/24 15:09 Family History Father Cancer lung Hypertension Mother Breast cancer Surgical History S/P laparoscopic cholecystectomy History of breast biopsy H/O tubal ligation Social History Smoking Status: Former smoker alcohol intake: current details: social substance use type: does not use caffeine: No what type of physical activity do you participate in: none seatbelt use: always do you feel safe at home: Yes 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 [employer] Physical Exam Const Vital Signs: 08/21/24 12:29 08/21/24 14:49 08/21/24 16:29 Temperature 97.9 F 98.5 F Temperature Source Oral Oral Pulse Rate 81 79 71 Respiratory Rate 15 20 H 17 Blood Pressure 137/58 H 121/61 H 109/51 L Blood Pressure Mean 84 81 70 Pulse Ox 97 97 95 Oxygen Delivery Method Room Air Room Air Room Air MDM MDM MDM Narrative Medical decision making narrative: HISTORY OF PRESENT ILLNESS: Chief complaint: Abdominal pain 63-year-old female history of hypertension, hyperlipidemia, GERD recently diagnosed with diverticulitis abdominal pain states she has been having abdominal pain nausea and tenderness has been intermittent for 12 days. She notes she recently finished antibiotics for diverticulitis. She further states she feels bloated/distended. Note nausea and intermittent dizziness. Notes symptoms ongoing for approximately 6 days. She states she stopped antibiotics around this time. Since then she has felt the symptoms and they were worse. She notes watery diarrhea several episodes a day. She notes nausea. No blood in her stool. No she was recently tested for C. difficile and other GI bugs she states they were negative. She denies chest pain or shortness of breath. Denies any Palpitations, focal weakness, loss of sensation, or movement. REVIEW OF SYSTEMS: Pertinent positives: Abdominal pain, nausea, dizziness Pertinent negatives: PHYSICAL EXAM: Nursing triage notes reviewed, Vital signs reviewed Constitutional: please see mdm HENT: MMM Eyes: Pupils equal round and reactive to light, Extraocular muscles intact Neck: No stridor, no JVD, full neck ROM Lungs: Clear to auscultation, No wheezing or rales. No increased work of breathing, no conversational dyspnea, no accessory muscle use, no nasal flaring. No respiratory distress noted Heart: Regular rate and rhythm, No murmurs, No rubs and No gallops, 2+ distal pulses (radial, femoral, posterior tibial) in all extremities Abdomen: [], But no rigidity, rebound or guarding, no obvious peritoneal signs, no palpable pulsatile abdominal masses, no auscultated abdominal bruit : No CVAT Extremities: No edema Neuro: No new focal neurological deficits, cranial nerves II through XII intact, 5/5 strength in all present extremities. Intact sensation to light touch in all present extremities, 2+ reflexes bilateral patella tendons. Skin: No rash or lesions noted MEDICAL DECISION MAKING: Chief Complaint: please see HPI External records reviewed: Reviewed prior imaging studies: Reviewed CT scan of the abdomen pelvis from December 2023 which showed acute diverticulitis involving sigmoid colon, no evidence of abscess or perforation. Reviewed microbiological testing from 08/16/2024 which had a negative stool panel including C. difficile. Factors affecting care: diverticulitis, as per [facility] Social determinants of health: none History obtained from others: none Consults: none [facility] Narrative: Patient was initially hemodynamically stable, afebrile and nontoxic-appearing. Abdominal exam relatively benign. Slight distention but no definitive peritoneal signs. I considered the following differential diagnosis: AAA, small bowel obstruction, abdominal perforation, appendicitis, pancreatitis, hepatobiliary pathology (acute cholecystitis), mesenteric ischemia, pathology (ie nephrolithiasis, pyelonephritis). I initially resuscitated the patient with 1 L normal saline, 2 mg of IV morphine and 4 mg of IV Zofran. I obtained a broad lab and imaging workup. ALL IMAGES (IF OBTAINED) HAVE BEEN PERSONALLY REVIEWED AND INTERPRETED BY MYSELF. CBC without leukocytosis, severe anemia, no thrombocytopenia. CMP without evidence of acute kidney injury, significant electrolyte abnormality, anion gap to suggest end organ hypo-perfusion, no evidence of metabolic acidosis with a normal bicarbonate, no evidence of hepatobiliary obstructive pathology. Noted slight elevation in AST and ALT which are likely noncontributory. Lipase is wnl indicating no pancreatic inflammation. Urinalysis shows no evidence of urinary inflammation suggestive of UTI CT scan abdomen pelvis was remarkable for evidence of colitis The synthesis of the patient's history, physical exam, labs images suggest likely colitis. Given the patient's recent antimicrobial prescription and resultant diarrhea I did not feel it was indicated to start antibiotics at this time. She had no white count, no fever. Recent stool/enteric panel was negative for invasive bacterial species. The patient and/or family, caregivers express understanding. The patient and/or family, caregivers agrees with the plan. Shared decision making: I will have a discussion with the patient and or visitors regarding risk/benefits of further testing or admission. They will be made aware of of the risk/benefits inherent in this decision they will be given the opportunity to voice understanding. Total critical care time today provided was at least 0 minutes. This excludes separately billable procedures. Critical care time (if documented) is secondary to the patient having high probability of clinically significant/life threatening deterioration in the patient's condition which required my urgent intervention. Impression: 1. Acute abdominal pain 2. History of diverticulitis 3. Elevated liver enzymes Dispo: Discharge home This note was generated with [employer] dictation software. It may contain incorrect words, spelling, and punctuation that were not noted in review of the chart prior to signing. Lab Data Labs: Laboratory Results - last 24 hr 08/21/24 08/21/24 12:59 13:01 WBC 10.8 RBC 4.42 Hgb 13.4 Hct 39.0 MCV 88.2 MCH 30.3 MCHC 34.4 RDW Std Deviation 42.3 RDW Coeff of Aditya 13.0 Plt Count 277 MPV 9.7 Immature Gran % (Auto) 0.300 Neut % (Auto) 83.9 H Lymph % (Auto) 8.3 L Wagoner % (Auto) 6.6 Eos % (Auto) 0.6 Baso % (Auto) 0.3 Absolute Neuts (auto) 9.1 H Absolute Lymphs (auto) 0.90 Nucleated RBC % 0 Sodium 140 Potassium 3.8 Chloride 107 Carbon Dioxide 22.4 Anion Gap 11 BUN 9 Creatinine 0.72 Estim Creat Clear Calc 78.57 Est GFR (MDRD) Non-Af 94 BUN/Creatinine Ratio 13.0 Glucose 98 Calcium 9.3 Total Bilirubin 0.38 AST 46 H ALT 139 H Alkaline Phosphatase 90 Total Protein 7.1 Albumin 4.3 Globulin 2.8 Albumin/Globulin Ratio 1.5 Lipase 29 Urine Color Yellow Urine Clarity Turbid Urine pH 5.0 Ur Specific Omer 1.025 Urine Protein 30 H Urine Glucose (UA) Normal Urine Ketones Negative Urine Occult Blood 25 H Urine Nitrite Negative Urine Bilirubin Negative Urine Urobilinogen Normal Ur Leukocyte Esterase 25 H Urine RBC 0 SEEN Urine WBC 0-5 SEEN Ur Squamous Epith Cells 0-5 SEEN Amorphous Sediment 2+ Urine Bacteria 2+ Urine Mucus 0 SEEN Radiography Diagnostic Testing: Clinical Impression(s) from Imaging Studies Abdomen/Pelvis CT 08/21/24 15:40 IMPRESSION: 1. Mild wall thickening and enhancement of the distal sigmoid colon, which may represent infectious/inflammatory colitis. 2. No acute abdominopelvic finding. Reading Location: [facility] Discharge Plan Triage Chief Complaint: Abd Pain ED Provider: Thomas Watts Dx/Rx/DC Orders Clinical Impression: Colitis Instructions: ED Understanding Colitis Prescriptions: New ondansetron 4 mg tablet,disintegrating 4 mg PO Q8H PRN PRN (Reason: Nausea) Qty: 10 0RF No Action famotidine 40 mg tablet 40 mg PO BID multivitamin Tablet 1 tab PO DAILY lisinopril 20 mg tablet 20 mg PO DAILY rosuvastatin 10 mg tablet 10 mg PO DAILY fexofenadine [Milly Allergy] 60 mg tablet 60 mg PO DAILY PRN (Reason: ALLERGY) meclizine 25 mg tablet 25 mg PO TID PRN (Reason: dizziness) Qty: 30 0RF doxycycline hyclate 100 mg tablet 100 mg PO BID Qty: 14 0RF methylprednisolone [Medrol (Sebastien)] 4 mg tablets,dose pack See Rx Instructions PO PER PKG DIR Qty: 21 0RF Rx Instructions: PO PER PKG DIR citalopram [Celexa] 20 mg tablet 20 mg PO DAILY Rx Instructions: 20 mg PO 1.5 tab daily metronidazole 500 mg tablet 500 mg PO Q6H Qty: 40 0RF ciprofloxacin HCl 500 mg tablet 500 mg PO BID Qty: 20 0RF clobetasol 0.05 % cream 1 applic topical DAILY PRN (Reason: itching) Qty: 15 1RF Rx Instructions: apply small amount topically daily and prn as needed for itching estradiol 0.01 % (0.1 mg/gram) cream See Rx Instructions vaginal .COMPLEX Qty: 42.5 0RF Rx Instructions: small amount daily X 2 weeks then 2 days a week vaginally; Primary Care Provider: Dany Thacker Referrals: Friend,Leo, DO [Med Staff - Active Staff] - Activity Restrictions/Additional Instructions: Thank you for trusting us with your care today! Your labs images were reassuring. Your CT scan showed evidence of inflammation of your colon but no evidence of obvious diverticulitis or other acute surgical pathology that require admission or operation. Please drink plenty of fluids recommend Body Armor/Pedialyte/Gatorade. Please take Zofran as needed for nausea and vomiting. Please take Tylenol (2 pills, 650 mg), ibuprofen (2 pills, 400 mg) every 6 hours as needed for pain and fever control. Please return to the emergency department if your symptoms change or worsen. Please follow with your primary care physician and Gastroenterology (Dr. Monroe) for further outpatient evaluation and management. Print Language: Sinhala Disposition Disposition: Home, Self Care
--- NOTE | 2024-08-21 15:40 | CT_ITS ---
PROCEDURE: ABDOMEN/PELVIS W IV CONT ONLY 08/21/2024 REASON FOR EXAM: 63-year-old female, LOWER ABDOMINAL PAIN, history of diverticulitis. TECHNIQUE: Abdomen and pelvis CT with intravenous contrast. Coronal and Sagittal reconstruction series were provided. PATIENT PREPARATION: Per protocol ORAL CONTRAST TYPE: None. CONTRAST: Isovue 370 VOLUME: 100 mL One or more dose reduction techniques were used (e.g., Automated exposure control, adjustment of the mA and/or kV according to patient size, use of iterative reconstruction technique. RADIATION DOSE SUMMARY: CTDlvol: 25 mGy DLP: 800 mGycm COMPARISON: CT abdomen pelvis 01/01/2024. FINDINGS: Lung bases: Bibasilar atelectasis. The heart is normal in size. Liver: The liver is normal in size without focal hepatic mass. The major portal veins are patent. Minimal biliary ductal dilation. Gallbladder: Prior cholecystectomy. Spleen: Unremarkable. Pancreas: Unremarkable. Adrenals: Unremarkable. Kidneys: No hydronephrosis or nephrolithiasis. Bladder: Mildly distended and unremarkable. Reproductive Organs: Mildly lobular contour of the uterus with scattered fibroids. Bilateral Essure devices. Bowel: The bowel loops are normal in caliber. Mild wall thickening and enhancement of the distal sigmoid colon. Mild distal colonic diverticulosis. No ascites or pneumoperitoneum. Normal appendix. Lymph nodes: No suspicious lymph node enlargement. Vasculature: Mild mixed atherosclerotic plaque throughout the aortoiliac vessels. Bones: Minimal thoracolumbar spondylosis. No aggressive osseous lesions. CT/Abdomen/Pelvis W IV Cont ONLY IMPRESSION: 1. Mild wall thickening and enhancement of the distal sigmoid colon, which may represent infectious/inflammatory colitis. 2. No acute abdominopelvic finding. Reading Location: [id number]
[2024-08-21] MEDS: Morphine 2 MG/ML Syringe IV (15:55)
[2024-08-21] MEDS: 0.9% Normal Saline (1000mL) 1,000 ML 999 ML IV (15:55)
[2024-08-21] MEDS: Ondansetron 4 MG/2 ML Vial IV (15:56)
[2024-08-21 16:29] VITALS: BP 109/51; PULSE 71; RESP 17; O2SAT 95
== END 2024-08-21 17:56 | disposition home or self-care (01) ==
PROVIDERS: Emergency Provider Emergency Medicine; PCP Family Medicine; Visit Provider Emergency Medicine
DX: K52.9 Noninfective gastroenteritis and colitis, unspecified (principal); R74.8 Abnormal levels of other serum enzymes; R74.01 Elevation of levels of liver transaminase levels; I34.1 Nonrheumatic mitral (valve) prolapse; F41.9 Anxiety disorder, unspecified; K21.9 Gastro-esophageal reflux disease without esophagitis; E78.00 Pure hypercholesterolemia, unspecified; M19.90 Unspecified osteoarthritis, unspecified site; Z88.0 Allergy status to penicillin; Z90.49 Acquired absence of other specified parts of digestive tract; Z87.19 Personal history of other diseases of the digestive system; Z79.899 Other long term (current) drug therapy; Z87.891 Personal history of nicotine dependence
CPT/HCPCS: 74177; 80053; 81001; 83690; 85025; 96361; 96374; 96375; 99283; Q9967; A4216; J2405

== ENCOUNTER → 2024-08-27 | Outpatient (CLI) | payer OTHER, SELFPAY ==
[2024-08-27 12:04] LABS: ALB/GLOB Ratio 1.5 RATIO (0.9-2.4); AST(SGOT) 18 U/L (<=31); Alanine Aminotransfer ALT/SGPT 46 U/L (<=34); Albumin, Serum 4.5 g/dL (3.4-4.8); Alkaline Phosphatase 77 U/L (35-104); Anion Gap 11 (5-15); BUN 9 mg/dL (4-19); BUN/Creat Ratio 12.3 RATIO (10-20); Calcium,Total 9.7 mg/dL (7.6-11.0); Carbon Dioxide 24.9 mmol/L (21.0-32.0); Chloride 105 mmol/L (98-108); Creatinine, Serum 0.76 mg/dL (0.70-1.20); EST Glomerular Filtration Rate 88 (>60); Globulin 3.1 g/dL (2.2-4.2); Glucose 94 mg/dL (70-99); Potassium 4.3 mmol/L (3.3-5.1); Protein, Total 7.5 g/dL (5.9-8.4); Sodium Level 140 mmol/L (133-145); Total Bilirubin 0.25 mg/dL (0.00-1.30)
[2024-08-28 16:09] LABS: Endomysial Antibody IgA Negative (Negative); Immunoglobulin A 181 mg/dL (87-352); t-Transglutaminase IgA 2 U/mL (0-3)
== END | disposition home or self-care (01) ==
LOC: LAB 10:49
PROVIDERS: PCP Family Medicine; Referring Provider Student in an Organized Health Care Education/Training Program; Visit Provider Student in an Organized Health Care Education/Training Program
DX: K52.9 Noninfective gastroenteritis and colitis, unspecified (principal)
CPT/HCPCS: 36415; 80053; 82784; 83516; 86255

== ENCOUNTER → 2024-08-29 | Outpatient (CLI) | payer OTHER, SELFPAY ==
[2024-08-31 08:08] LABS: Calprotectin, Stool 16 ug/g (0-120)
== END | disposition home or self-care (01) ==
LOC: MTLAB 07:57
PROVIDERS: PCP Family Medicine; Referring Provider Student in an Organized Health Care Education/Training Program; Visit Provider Student in an Organized Health Care Education/Training Program
DX: K52.9 Noninfective gastroenteritis and colitis, unspecified (principal)
CPT/HCPCS: 83993

== ENCOUNTER 2024-11-07 05:52 | Day surgery (SDC) | payer OTHER, SELFPAY ==
[2024-11-07] VITALS (7 sets, daily range): BP systolic 95–123; BP diastolic 51–60; PULSE 61–71; RESP 16; TEMP 36.3–37; O2SAT 95–100; BMI 26.4
--- OUTSIDE RECORDS SUMMARY | 2024-11-07 05:55 | XMS RPT_ITS | CCD ---
Author Organization [facility] Care Team Providers Care Director Of User Experience Name Role Phone Dr. Dany Thacker Referring Provider [facility]PRAIS[facility], KACI Gifford Attending Provider [phone] Care Physician, No Primary Primary Care Provider Unavailable Care Physician, No Primary Referring Provider Un available CebuDr. Reji matthew Attending Provider [phone] Care Physician, No Primary Primary Care Provider Unavailable Care Physician, No Primary Referring Provider Un available Cebul, Dr. Reji Schreiber Attending Provider [phone] Dr. Dany Thacker Primary Care Provider [phone] Dany Thacker Referring Provider [phone] MD Dion Stewart Attending Provider [phone] Kedar BROOKS, Dr. Saenz Primary Care Provider [phone] Dr. Dany Thacker MD Attending Provider Dr. Dany Thacker MD Referring Provider Dr. Thomas Watts DO Emergency Provider [phone] Thomas Watts DO Attending Provider Lisa Avila Attending Provider Lisa Avila Referring Provider Dany Thacker Referring Unavailable Dany Thacker Primary Care Unavailable Friend, Leo Attending Unavailable Lisa Olivares Referring Unavailable Dany Thacker Primary Care Unavailable Lisa Olivares Attending Unavailable Dany Thacker Primary Care Unavailable Dany Thacker Attending Unavailable Dany Thacker Referring Unavailable Thacker, Dany Attending Unavailable Thacker, Dany Referring Unavailable Thacker, Dany Primary Care Unavailable Dany Thacker Attending Unavailable Dany Thacker Referring Unavailable Dany Thacker Primary Care Unavailable Kedar, Dany Primary Care Unavailable Thomas Watts Attending Unavailable Dimas Jackson Attending Unavailable Kedar, Dany Primary Care Unavailable Lisa Olivares Referring Unavailable Kedar, Dany Primary Care Unavailable Lisa Olivares Attending Unavailable Dany Thacker Referring Unavailable Dany Thacker Primary Care Unavailable Lisa Olivares Attending Unavailable Kedar, Dany Primary Care Unavailable Silvio Peters Attending Unavailable Kedar, Dany Referring Unavailable Allergies Allergy Classification Reported Allergen(s) Allergy Type Date of Onset Reaction(s) Facility (5 sources) Penicillin G Drug Allergy 05-03-[address] [facility] (5 sources) Penicillins Allergy to substance 09-21-[address] [facility] (1 source) Penicillins Drug allergy (disorder) 11-05-[address] [facility] Repository Medications Current Medications Medication Drug Class(es) Dates Sig (Normalized) Sig (Original) acetaminophen 500 mg / diphenhydrAMINE hydrochloride 25 mg oral tablet (2 sources) Histamine-1 Receptor Antagonist Start: 08-27-2024 Diphenhydramine- Acetaminophen (Tylenol Pm Extra Strength) 25-500 mg tablet Active 1 {tbl} PO AT BEDTIME as needed August 27, 2024 12:00am clobetasol propionate 0.5 mg/ml topical cream (20 sources) Corticosteroid Start: 11-16-2021 End: 09-28-2022 Clobetasol 0.05 % cream Active 1 NMA TOPICAL DAILY as needed for itching September 28, 2022 10:56am apply small amount topically daily and prn as needed for itching Start: 11-16-2021 End: 09-28-2022 Clobetasol 0.05 % cream Disc ontinued 1 NMA TOPICAL DAILY as needed for itching November 16, 2021 12:00am September 28, 2022 10:56am apply small amount topically daily and prn as needed for itching Start: 07-24-2019 End: 09-28-2020 Clobetasol 0.05 % cream Disc ontinued 1 NMA TOPICAL .COMPLEX July 24, 2019 1:00am September 28, 2020 7:39am 1 applic TOPICAL apply thin layer as directed bid X 2 weeks then daily X 2 weeks; apply thin layer; massage in to cover area Diphenhydramine-Acetaminophe n (1 source) Start: 09-07-2023 Diphenhydramine-Acetaminophe n Active ML PO September 07, 2023 12:00am famotidine 40 mg oral tablet (20 sources) Histami ne-2 Recepto r Antagon ist Start: 01-20-2021 take 1 tablet by mouth twice daily Famotidine 40 mg tablet Active 40 mg PO TWICE A DAY January 20, 2021 12:00am Start: 12-13-2017 End: 07-24-2019 take 1 tablet by mouth once daily Famotidine (Pepcid) 40 mg tablet Discontinued 40 mg PO daily December 13, 2017 12:00am July 24, 2019 11:49am fexofenadine hydrochloride 60 mg oral tablet (5 sources) Histamine-1 Receptor Antagonist Start: 09-07-2023 take 1 tablet by mouth once daily as needed Fexofenadine (Milly Allergy) 60 mg tablet Active 60 mg PO DAILY as needed for ALLERGY September 07, 2023 12:00am lisinopril 20 mg oral tablet (7 sources) Angiotensin Converting Enzyme Inhibitor Start: 01-17-2023 take 1 tablet by mouth once daily Lisinopril 20 mg tablet Active 20 mg PO DAILY January 17, 2023 12:00am methylPREDNISolone 4 mg oral tablet (4 sources) Corticosteroid Start: 12-16-2023 take 1 tablet by mouth once Methylprednisolone (Medrol (Sebastien)) 4 mg tablets,dose pack Active 0 PO per package directions December 16, 2023 12:00am PO PER PKG DIR Multivitamin preparation (5 sources) Start: 01-12-2022 take 1 tablet by mouth once daily Multivitamin Active 1 TABLET PO DAILY January 11, 2022 11:00pm Start: 01-12-2022 take 1 tablet by shania th once daily Multivitamin Active 1 TABLET PO DAILY January 12, 2022 12:00am Multivitamin tablet (4 sources) Start: 01-12-2022 Multivitamin tablet Active 1 {tbl} PO DAILY January 12, 2022 12:00am omeprazole 20 mg delayed release oral tablet (2 sources) Proton Pump Inhibitor Start: 08-27-2024 take 1 tablet by mouth once daily Omeprazole 20 mg tablet,delayed release (DR/EC) Active 20 mg PO daily August 27, 2024 12:00am ondansetron 4 mg disintegrating oral tablet (3 sources) Serotonin-3 Receptor Antagonist Start: 08-21-2024 take 1 tablet by mouth every eight hours as needed for nausea Ondansetron 4 mg tablet,disintegrat ing Active 4 mg PO EVERY 8 HOURS NEEDED as needed for Nausea August 21, 2024 12:00am Completed/Discontinued Medications Medication Drug Class(es) Dates Sig (Normalized) Sig (Original) acetaminophen 325 mg / HYDROcodone bitartrate 5 mg oral tablet (10 sources) Opioid Agonist Start: 04-22-2021 End: 01-12-2022 Hydrocodone-Acetami nophen 5-325 mg tablet Discontinued 1 {tbl} PO EVERY 6 HOURS as needed for pain 6 2 April 22, 2021 January 12, 2022 9:30am Start: 04-22-2021 End: 01-12-2022 take 1 tablet by mouth every six hours Hydrocodone-Acetaminophen Discontinued 1 TABLET PO EVERY 6 HOURS 6 2 April 22, 2021 January 12, 2022 9:30am calcium carbonate 1500 mg oral tablet (10 sources) Start: 01-20-2021 End: 01-12-2022 take 1 tablet by mouth once daily Calcium Carbonate 600 mg calcium (1,500 mg) tablet Discontinued 600 mg PO DAILY January 20, 2021 12:00am January 12, 2022 9:28am cholecalciferol 0.05 mg oral capsule (10 sources) Vitamin D Start: 01-20-2021 End: 01-12-2022 take 1 capsule by mouth once daily Cholecalciferol (Vitamin D3) 50 mcg (2,000 unit) capsule Discontinued 50 ug PO DAILY January 20, 2021 12:00am January 12, 2022 9:29am ciprofloxacin 500 mg oral tablet (4 sources) Quinolone Antimicrobial Start: 01-01-2024 End: 08-27-2024 take 1 tablet by mouth twice daily Ciprofloxacin Hcl 500 mg tablet Discontinued 500 mg PO TWICE A DAY January 01, 2024 12:00am August 27, 2024 10:11am citalopram 20 mg oral tablet (20 sources) Serotonin Reuptake Inhibitor Start: 01-10-2018 End: 08-27-2024 take 1.5 tablets by mouth once daily Citalopram (Celexa) 20 mg tablet Discontinued 20 mg PO .COMPLEX 90 June 05, 2018 10:35am April 20, 2021 9:18am 20 mg PO 1.5 tab daily Start: 12-13-2017 End: 01-10-2018 take 1 tablet by mouth once daily Citalopram (Celexa) 20 mg tablet Discontinued 20 mg PO daily December 13, 2017 12:00am January 10, 2018 11:08am Diphenhydramine-Acetaminophe n 25-500 mg-mg/mL solution (4 sources) Start: 09-07-2023 End: 11-04-2023 take 1 mL by mouth at bedtime Diphenhydramine-Acetaminophen 25-500 mg-mg/mL solution Discontinued 15 mL PO AT BEDTIME September 07, 2023 12:00am November 04, 2023 11:55am doxycycline hyclate 100 mg oral tablet (4 sources) [facility] ycline -class Drug Start: 12-16-2023 End: 08-27-2024 take 1 tablet by mouth twice daily Doxycycline Hyclate 100 mg tablet Discontinued 100 mg PO TWICE A DAY December 16, 2023 12:00am August 27, 2024 10:10am estradiol 0.1 mg/ml vaginal cream (20 sources) Estrog en Start: 01-12-2022 End: 08-27-2024 Estradiol 0.01 % (0.1 mg/gra m) cream Discontinued 0 VAGINAL .COMPLEX 42.5 February 10, 2023 3:25pm August 27, 2024 10:14am small amount daily X 2 weeks then 2 days a week vaginally; Start: 01-12-2022 End: 02-10-2023 Estradiol Active 0 VAGINAL . COMPLEX 42.5 February 10, 2023 3:25pm small amount daily X 2 weeks then 2 days a week vaginally; Start: 10-21-2020 End: 01-12-2022 Estradiol 0.01 % (0.1 mg/gra m) cream Discontinued 0.1 NMA VAGINAL NEEDED as needed for HORMONES April 20, 2021 9:18am January 12, 2022 9:29am small amount as directed vaginal every other day X 4 weeks then twice a week; Start: 10-21-2020 End: 01-12-2022 Estradiol Discontinued 0.1 A PPLIC VAGINAL NEEDED April 20, 2021 9:18am January 12, 2022 9:29am small amount as directed vaginal every other day X 4 weeks then twice a week; fluticasone propionate 0.05 mg/actuat metered dose nasal spray (4 sources) Corticosteroid Start: 11-04-2023 End: 11-18-2023 take 50 ug nasal route every twelve hours Fluticasone Propionate (Allergy Relief (Fluticasone)) 50 mcg/actuation spray,suspension Discontinued 1 NMA INTRANASAL Q12H 16 November 04, 2023 12:00am November 17, 2023 12:00am November 18, 2023 12:11am administer into each nostril meclizine hydrochloride 25 mg oral tablet (4 sources) Antiemetic Start: 11-04-2023 End: 08-27-2024 take 1 tablet by mouth three times daily as needed for dizziness Meclizine 25 mg tablet Discontinued 25 mg PO THREE TIMES A DAY as needed for dizziness November 04, 2023 12:00am August 27, 2024 10:13am metroNIDAZOLE 500 mg oral tablet (4 sources) Nitroimidazole Antimicrobial Start: 01-01-2024 End: 08-27-2024 take 1 tablet by mouth every six hours Metronidazole 500 mg tablet Discontinued 500 mg PO EVERY 6 HOURS January 01, 2024 12:00am August 27, 2024 10:14am nystatin [id number] unt/ml topical cream (10 sources) Polyene Antifungal Start: 12-13-2017 End: 10-21-2020 Nystatin 100,000 unit/gram cream Discontinued 1 NMA TOPICAL TWICE A DAY as needed for monilial intertrigo December 13, 2017 12:00am October 21, 2020 8:35am Start: 12-13-2017 End: 10-21-2020 Nystatin Discontinued 1 APPL IC TOPICAL TWICE A DAY December 13, 2017 12:00am October 21, 2020 8:35am rosuvastatin calcium 10 mg oral tablet (7 sources) HMG-CoA Reductase Inhibitor Start: 01-17-2023 End: 08-27-2024 take 1 tablet by mouth once daily Rosuvastatin 10 mg tablet Discontinued 10 mg PO DAILY January 17, 2023 12:00am August 27, 2024 10:13am Problems Active Problems Problem Classification Problem Date Documented Da te Episodic/Chronic Abdominal pain (5 sources) Abdominal pain; Translations: [Unspecified abdominal pain] Onset: 11-04-2024 01-09-2024 Episodic Anxiety disorders (10 sources) Anxiety; Translations: [Anxiety disorder, unspecified] 01-10-2018 Chronic Biliary tract disease (10 sources) Calculus of gallbladder with cholecystitis; Translations: [Calculus of gallbladder with chronic cholecystitis without obstruction] 01-12-2022 Episodic Conditions associated with dizziness or vertigo (4 sources) Vertigo; Translations: [Dizziness and giddiness] 11-04-2023 Episodic Disorders of lipid metabolism (10 sources) Hypercholesterolemia; Translations: [Pure hypercholesterolemia, unspecified] 10-21-2020 Chronic Disorders of teeth and jaw (4 sources) Gingival disease; Translations: [Other specified disorders of gingiva and edentulous alveolar ridge] 12-16-2023 Episodic Diverticulosis and diverticulitis (5 sources) Diverticulitis of sigmoid colon; Translations: [Diverticulitis of large intestine without perforation or abscess without bleeding] Onset: 08-20-2024 01-09-2024 Chronic Menopausal disorders (11 sources) Atrophic vaginitis; Translations: [Postmenopausal atrophic vaginitis] 01-12-2022 Chronic Comment on above: estradiol cream/[facility] Noninfectious gastroenteritis (6 sources) Colitis; Translations: [Noninfective gastroenteritis and colitis, unspecified] Onset: 09-02-2024 08-21-2024 Episodic Other and unspecified benign neoplasm (10 sources) Lipoma (clinical); Translations: [Benign lipomatous neoplasm, unspecified] 01-12-2022 Episodic Other circulatory disease (10 sources) Labile hypertension due to being in a clinical environment; Translations: [Elevated blood-pressure reading, without diagnosis of hypertension] 07-24-2019 Episodic Other connective tissue disease (5 sources) Ganglion cyst of left dorsal wrist; Translations: [Ganglion, left wrist] 09-07-2023 Episodic Other gastrointestinal disorders (4 sources) Heartburn; Translations: [Heartburn] 08-27-2024 Episodic Other liver diseases (4 sources) Elevated liver enzymes level; Translations: [Abnormal levels of other serum enzymes] 08-27-2024 Episodic Other skin disorders (11 sources) Lichen sclerosus et atrophicus; Translations: [Lichen sclerosus et atrophicus] 01-12-2022 Chronic Comment on above: clobetesol/stable Other skin disorders (10 sources) Mass of subcutaneous tissue; Translations: [Localized swelling, mass and lump, unspecified] 01-12-2022 Episodic Other skin disorders (6 sources) Mass of hand; Translations: [Localized swelling, mass and lump, left upper limb] 07-17-2023 Episodic Other skin disorders (4 sources) Localized swelling, mass and lump, left upper limb; Translations: [Localized superficial swelling, mass, or lump] 07-17-2023 Episodic Past or Other Problems Problem Classification Problem Date Documented Da te Episodic/Chronic Other gastrointestinal disorders (1 source) Constipation, unspecified; Translations: [Constipation, unspecified] Onset: 01-12-2024 Episodic Results Test Name Value Interpretation Reference Range Facility Calprotectin, Stoolon [address] 16 ug/g Normal 0-[address] [facility] Comment on above: Result Comment: Conc entration Interpretation Follow-Up < 5 - 50 ug/g Normal None >50 -120 ug/g Borderline Re-evaluate in 4-6 weeks >120 ug/g Abnormal Repeat as clinically indicated Performed at: [facility] [id number] [place], [place] [id number] Entertainment Reporter: Frank Nuñez MD, Phone: [phone] Performed By: #### L 7000.0700 ####[facility] [address] [place], [place], [address] Calprotectin stoolOrdered By : Lisa Olivares on 08-29-2024 Stool Calprotectin 16 ug/g 0-120 [facility] Comment on above: Concentration Interp retation Follow-Up< 5 - 50 ug/g Normal None>50 -120 ug/g Borderline Re-evaluate in 4-6 weeks >120 ug/g Abnormal Repeat as clinically indicatedPerformed at: [facility] [address] [place], [place] [id number] Director: Frank Nuñez MD, Phone: [phone] Celiac Disease Profileon ENDOMYSIAL IGA Negative Normal Negative [facility] Comment on above: Performed By: #### L 500.4050, L3410.2400 #### [facility] [address] [place], [place], [address] IMMUNOGLOB A QN 181 mg/dL Normal 87-[address] [facility] Comment on above: Result Comment: Perf ormed at: [facility] [id number] Entertainment Reporter: Evens Mireles PhD, Phone: [phone] Performed By: #### L 500.4050, L3410.2400 #### [facility] [address] [place], [place], [id number] tTG IGA 2 U/mL Normal 0-[address] [facility] Comment on above: Result Comment: Nega tive 0 - 3 Weak Positive 4 - 10 Positive >10 Tissue Transglutaminase (tTG) has been identified as the endomysial antigen. Studies have demonstr- ated that endomysial IgA antibodies have over 99% specificity for gluten sensitive enteropathy. Performed By: #### L 500.4050, L3410.2400 #### [facility] [address] [place], [address] Anion gap in Serum or Plasma Ordered By: Lisa Olivares on 08-27-2024 Anion gap [Moles/Vol] 11 mmol/L 5-15 [facility] BUN/creatinine ratioOrdered By: Lisa Olivares on 08-27-2024 Urea nitrogen/Creatinine [Mass ratio] 12.3 mg/mg 10-[address] [facility] Bilirubin, totalOrdered By: Lisa Olivares on 08-27-2024 Bilirubin [Mass/Vol] 0.25 mg/dL 0.00-1.30 [facility] Carbon dioxide, total [Moles /volume] in Central venous bloodOrdered By: Lisa Olivares on 08-27-2024 CO2 [Moles/Vol] 24.9 mmol/L 21.0-32.[address] [facility] Chloride assayOrdered By: Mima Olivares on 08-27-2024 Chloride [Moles/Vol] 105 mmol/L 98-108 [facility] Comprehensive Metabolic Prof ilon 08-27-2024 Albumin [Mass/Vol] 4.5 g/dL Normal 3.4-4.8 [facility] Comment on above: Performed By: #### L 500.4050, L3410.2400 #### [facility] [address] [place], [address] Albumin/Globulin [Mass ratio] 1.5 {ratio} Normal 0.9-2.[address] [facility] Comment on above: Performed By: #### L 500.4050, L3410.2400 #### [facility] [address] [place], [address] ALK PHOS 77 U/L Normal 35-[address] [facility] Comment on above: Performed By: #### L 500.4050, L3410.2400 #### [facility] [address] [place], [address] ALT [Catalytic activity/Vol] 46 U/L High <=[address] [facility] Comment on above: Performed By: #### L 500.4050, L3410.2400 #### [facility] [address] [place], [address] AST [Catalytic activity/Vol] 18 U/L Normal <=[address] [facility] Comment on above: Performed By: #### L 500.4050, L3410.2400 #### [facility] [address] [place], [address] Bilirubin [Mass/Vol] 0.25 mg/dL Normal 0.00-1.30 [facility] Comment on above: Performed By: #### L 500.4050, L3410.2400 #### [facility] [address] [place], [address] BUN/CRE 12.3 RATIO Normal 10-[address] [facility] Comment on above: Performed By: #### L 500.4050, L3410.2400 #### [facility] [address] [place], [address] Calcium [Mass/Vol] 9.7 mg/dL Normal 7.6-11.0 [facility] Comment on above: Performed By: #### L 500.4050, L3410.2400 #### [facility] [address] [place], [address] Chloride [Moles/Vol] 105 mmol/L Normal 98-108 [facility] Comment on above: Performed By: #### L 500.4050, [id number] #### [facility] [address] [place], [address] CO2 [Moles/Vol] 24.9 mmol/L Normal 21.0-32.[address] [facility] Comment on above: Performed By: #### L 500.4050, L3410.2400 #### [facility] [address] [place], [address] Creatinine [Mass/Vol] 0.76 mg/dL Normal 0.70-1.20 [facility] Comment on above: Performed By: #### L 500.4050, L3410.2400 #### [facility] [address] [place], [address] GAP 11 Normal 5-[address] [facility] Comment on above: Performed By: #### L 500.4050, [id number] #### [facility] [address] [place], [address] GFR/1.73 sq M.predicted among non-blacks MDRD (S/P/Bld) [Vol rate/Area] 88 mL/min/{1.73_m2} Normal >[address] [facility] Comment on above: Result Comment: mL/m in/1.73m2 CKD-EPI Creatinine Equation (2020) Performed By: #### L 500.4050, L3410.2400 #### [facility] [address] [place], [address] Globulin (S) [Mass/Vol] 3.1 g/dL Normal 2.2-4.2 [facility] Comment on above: Performed By: #### L 500.4050, [id number] #### [facility] [address] [place], [address] Glucose [Mass/Vol] 94 mg/dL Normal 70-99 [facility] Comment on above: Performed By: #### L 500.4050, [id number] #### [facility] [address] [place], [address] Potassium [Moles/Vol] 4.3 mmol/L Normal 3.3-5.1 [facility] Comment on above: Performed By: #### L 500.4050, [id number] #### [facility] [address] [place], [address] Sodium [Moles/Vol] 140 mmol/L Normal 133-145 [facility] Comment on above: Performed By: #### L 500.4050, [id number] #### [facility] [address] [place], [address] T PROT 7.5 g/dL Normal 5.9-8.[address] [facility] Comment on above: Performed By: #### L 500.4050, [id number] #### [facility] [address] [place], [address] Urea nitrogen [Mass/Vol] 9 mg/dL Normal 4-[address] [facility] Comment on above: Performed By: #### L 500.4050, [id number] #### [facility] [address] [place], [address] Endomysial IgA antibody assa yOrdered By: Lisa Olivares on 08-27-2024 Endomysial IgA Antibody Negative Negative [facility] GFR/1.73 sq M.predicted kinga g non-blacks MDRD (S/P/Bld) [Vol rate/Area]Ordered By: Lisa Olivares on 08-27-2024 Estimated GFR (MDRD) Non-Af Amer 88 >[address] [facility] Comment on above: mL/min/1.73m2 CKD-EP I Creatinine Equation (2020) Gastroenterology Visit Repor ton 08-27-2024 Gastroenterology Visit Report [facility] [address] [place] [address] OFFICE VISIT Date of Service: 08/27/24 MR#: [id number] Acct: [id number] Name: LINDA SANTIAGO HAIM Rep #: [id number] : 1960 Provider: MADONNA Jc Age/Sex: 63/F Location: [facility] Status: Signed Intake Vital Signs 08/21/24 12:29 Height 5 ft 5 in Intake Visit Reasons: DIARRHEA - DVT Chief Complaint: colitis Course Instructor Required: No Allergies Penicillins Allergy (Verified 08/21/24 15:09) Rash Medications ???Medication ???Instructions ???Recorded ???Confirmed ???Type famotidine 40 mg tablet 40 mg PO BID 01/20/21 08/27/24 His tory multivitamin 1 tab PO DAILY 01/12/22 08/27/24 H istory clobetasol 0.05 % topical cream 1 applic topical DAILY PRN itching 09/28/22 10/31/23 Rx #15 grams lisinopril 20 mg tablet 20 mg PO DAILY 01/17/23 08/27/24 H istory fexofenadine 60 mg tablet (Milly 60 mg PO DAILY PRN ALLERGY 09/0608/27/24 History Allergy) methylprednisolone 4 mg tablets in See Rx Instructions PO PER PKG D IR 12/16/23 12/16/23 Rx a dose pack (Medrol (Sebastien)) #21 tabs ondansetron 4 mg disintegrating 4 mg PO Q8H PRN PRN Nausea #10 tab s 08/21/24 Rx tablet diphenhydramine 25 1 tab PO QHS PRN 08/27/24 08/27/24 History mg-acetaminophen 500 mg tablet (Tylenol PM Extra Strength) omeprazole 20 mg tablet,delayed 20 mg PO QDAY 08/27/24 08/27/24 Hi story release Patient : No Nurse's Note: OV 08.27.24 Pt here to establish care. Pt reports she was experiencing diarrhea, abdominal pain, dizziness, and n/v. Pt reports she cut out gluten, and limiting dairy and seems to be feeling a little better. Pt reports gallbladder removed 3-4 years ago. Pt reports prior hx of colonoscopy. No prior EGD. 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 Ganglion cyst of dorsum of left wrist Wears contact lenses Wears glasses Anxiety Arthritis Anemia Migraine headache History of IBS Gastric reflux Former smoker History of echocardiogram History of stress test Hx of mitral valve prolapse Cardiology follow-up encounter Lipoma Hypercholesteremia Surgical History S/P laparoscopic cholecystectomy History of breast biopsy H/O tubal ligation Family History Father Cancer lung Hypertension Mother Breast cancer Social History Smoking Status: Former smoker alcohol intake: current details: social substance use type: does not use caffeine: No what type of physical activity do you participate in: none seatbelt use: always do you feel safe at home: Yes 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 ED .07.16 with nausea, abd pain and tenderness. Pt recently finished antibiotic for diverticulitis. Work up remarkable for elevated liver enzymes and colitis on CT. CT abd/pelvis .07.16:1. Mild wall thickening and enhancement of the distal sigmoid colon, which may represent infectious/ inflammatory colitis. 2. No acute abdominopelvic finding. Pt was diagnosed with diverticulitis in December 2023 and was treated with antibiotics. She recently felt like she was having this again. She contacted her PCP and was put on an antibiotic however this time it worsened her symptoms and she discontinued it. She presented to the ED and had a CT which showed colitis. She endorses having issues with her bowels all through out her life with intermittent diarrhea. She has cut out gluten in her diet and has noticed improvements. SHe is not sure if the gluten free is helping or if she is just healing. Last colonoscopy was about 10 years ago. She also has intermittent heartburn and difficulty swallowing pills. SHe has tried famotidine and PPIs in the past for this. ROS Const Constitutional: No fatigue, fever(s) or weight change ENT ENT: No difficulty swallowing Gastro GI: Positive for abdominal pain, bloating, change in bowel habits, diarrhea, heartburn, excessive flatus and nausea/dyspepsia; No belching, change in stool character, coffee ground emesis, constipation, cramping, difficulty swallowing, feeling full early, incontinent of stools, Vomiting blood/hematemesis, Blood in stool, loose stools, Black,tarry stools, pain with swallowing, vomiting or other Musc Musculoskeletal: Positive for joint swelling, stiffness, Arthritis and restless legs; No joint pain Skin Skin: No yellowing of the eye or itchy eyes Neuro Neurology: Positive for (more content not included)... Normal [facility] IgA [Mass/Vol]Ordered By: Mima Olivares on 08-27-2024 Immunoglobulin A 181 mg/dL 87-[address] [facility] Comment on above: Performed at: [place] [id number] Director: Evens Mireles PhD, Phone: [phone] Laboratory - Chemistry and C hemistry - challengeOrdered By: Lisa Olivares on 08-27-2024 AST [Catalytic activity/Vol] 18 U/L <[address] [facility] Potassium (Unsp spec) [Mass/ Vol]Ordered By: Lisa Oliavres on 08-27-2024 Potassium [Moles/Vol] 4.3 mmol/L 3.3-5.1 [facility] Serum creatinine measurement (mass/volume)Ordered By: Lisa Olivares on 08-27-2024 Creatinine [Mass/Vol] 0.76 mg/dL 0.70-1.20 [facility] Serum globulin measurementOr dered By: Lisa Olivares on 08-27-2024 Globulin (S) [Mass/Vol] 3.1 g/dL 2.2-4.2 [facility] Serum glucose measurement (m ass/volume)Ordered By: Lisa Olivares on 08-27-2024 Glucose [Mass/Vol] 94 mg/dL 70-99 [facility] Serum or plasma alanine padron otransferase (ALT) measurementOrdered By: Lisa Olivares on 08-27-2024 ALT [Catalytic activity/Vol] 46 U/L High <[address] [facility] Serum or plasma albumin oswaldo urement (mass/volume)Ordered By: Lisa Olivares on 08-27-2024 Albumin [Mass/Vol] 4.5 g/dL 3.4-4.8 [facility] Serum or plasma albumin/glob ulin mass ratioOrdered By: Lisa Olivares on 08-27-2024 Albumin/Globulin [Mass ratio] 1.5 {ratio} 0.9-2.[address] [facility] Serum or plasma alkaline daniel sphatase measurementOrdered By: Lisa Olivares on 08-27-2024 ALP [Catalytic activity/Vol] 77 U/L 35-[address] [facility] Serum or plasma calcium oswaldo urement (mass/volume)Ordered By: Lisa Olivares on 08-27-2024 Calcium [Mass/Vol] 9.7 mg/dL 7.6-11.0 [facility] Serum or plasma urea nitroge n measurement (mass/volume)Ordered By: Lisa Olivares on 08-27-2024 Urea nitrogen [Mass/Vol] 9 mg/dL 4-[address] [facility] Sodium levelOrdered By: Shyam Olivares on 08-27-2024 Sodium [Moles/Vol] 140 mmol/L 133-145 [facility] Total proteinOrdered By: Maribel Olivares on 08-27-2024 Protein [Mass/Vol] 7.5 g/dL 5.9-8.4 [facility] tTG IgA Qn (S)Ordered By: Mima Olivares on 08-27-2024 Tissue Transglutaminase IgA Ab 2 U/mL 0-[address] [facility] Comment on above: Negative 0 - 3 Weak Positive 4 - 10 Positive >10 Tissue Transglutaminase (tTG) has been identified as the endomysial antigen. Studies have demonstr- ated that endomysial IgA antibodies have over 99% specificity for gluten sensitive enteropathy. Abdomen/Pelvis W IV Cont ONL Yon 08-21-2024 Abdomen/Pelvis W IV Cont ONLY [facility] Imaging Services [address] [place] [place] [id number] Abdomen/Pelvis W IV Cont ONLY MR#: [id number] Acct: [id number] Name: LINDA SANTIAGO Rep #: [id number] : 1960 F 63 From: Sabine Wang nd, MD PCP: Dr. Dany Thacker MD Status: REG ER Study: Abdomen/Pelvis W IV Cont ONLY Date of Exam: Exam# [id number] Ordering Dr: Thomas Watts DO PROCEDURE: ABDOMEN/PELVIS W IV CONT ONLY 08/21/2024 REASON FOR EXAM: 63-year-old female, LOWER ABDOMINAL PAIN, history of diverticulitis. TECHNIQUE: Abdomen and pelvis CT with intravenous contrast. Coronal and Sagittal reconstruction series were provided. PATIENT PREPARATION: Per protocol ORAL CONTRAST TYPE: None. CONTRAST: Isovue 370 VOLUME: 100 mL One or more dose reduction techniques were used (e.g., Automated exposure control, adjustment of the mA and/or kV according to patient size, use of iterative reconstruction technique. RADIATION DOSE SUMMARY: CTDlvol: 25 mGy DLP: 800 mGycm COMPARISON: CT abdomen pelvis 01/01/2024. FINDINGS: Lung bases: Bibasilar atelectasis. The heart is normal in size. Liver: The liver is normal in size without focal hepatic mass. The major portal veins are patent. Minimal biliary ductal dilation. Gallbladder: Prior cholecystectomy. Spleen: Unremarkable. Pancreas: Unremarkable. Adrenals: Unremarkable. Kidneys: No hydronephrosis or nephrolithiasis. Bladder: Mildly distended and unremarkable. Reproductive Organs: Mildly lobular contour of the uterus with scattered fibroids. Bilateral Essure devices. Bowel: The bowel loops are normal in caliber. Mild wall thickening and enhancement of the distal sigmoid colon. Mild distal colonic diverticulosis. No ascites or pneumoperitoneum. Normal appendix. Lymph nodes: No suspicious lymph node enlargement. Vasculature: Mild mixed atherosclerotic plaque throughout the aortoiliac vessels. Bones: Minimal thoracolumbar spondylosis. No aggressive osseous lesions. CT/Abdomen/Pelvis W IV Cont ONLY IMPRESSION: 1. Mild wall thickening and enhancement of the distal sigmoid colon, which may represent infectious/inflammator y colitis. 2. No acute abdominopelvic finding. Reading Location: [facility] CC: Dr. Dany Thacker MD; Dr. Thomas Watts DO Computer Applications Developer: Signed Normal [facility] Absolute neutrophil countOrd ered By: ED PROVIDER on 08-21-2024 Neutrophils (Bld) [#/Vol] 9.1 10*3/uL High 2.0-7.[address] [facility] Amorphous sediment detection in urine sediment by light microscopyOrdered By: ED PROVIDER on 08-21-2024 Amorphous sediment LM Ql (Urine sed) 2+ [facility] Anion gap in Serum or Plasma Ordered By: ED PROVIDER on 08-21-2024 Anion gap [Moles/Vol] 11 mmol/L 5-15 [facility] BUN/creatinine ratioOrdered By: ED PROVIDER on 08-21-2024 Urea nitrogen/Creatinine [Mass ratio] 13.0 mg/mg 10-[address] [facility] Basophil percentageOrdered B y: ED PROVIDER on 08-21-2024 Basophils/100 WBC (Bld) 0.3 % 0-1 [facility] Bilirubin Test strip Ql (U)O rdered By: ED PROVIDER on 08-21-2024 Bilirubin Ql (U) Negative Negative [facility] Bilirubin, totalOrdered By: ED PROVIDER on 08-21-2024 Bilirubin [Mass/Vol] 0.38 mg/dL 0.00-1.30 [facility] CBC W/Diff, Automatedon Absolute Lymph 0.90 X10 3/uL Normal 0.83-4.[address] [facility] Comment on above: Performed By: #### L 501.2450, L100.0100, L500.4050 ####[facility] [address] [place], [address] Absolute Neut 9.1 X10 3/uL High 2.0-7.[address] [facility] Comment on above: Performed By: #### L 501.2450, L100.0100, L500.4050 ####[facility] [address] [place], [address] Basophils/100 WBC (Bld) 0.3 % Normal 0-1 [facility] Comment on above: Performed By: #### L 501.2450, L100.0100, L500.4050 ####[facility] [address] [place], [address] Eosinophils/100 WBC (Bld) 0.6 % Normal 0-[address] [facility] Comment on above: Performed By: #### L 501.2450, L100.0100, L500.4050 ####[facility] [address] [place], [address] Erythrocyte distribution width (RBC) [Ratio] 13.0 % Normal 11.6-14.[address] [facility] Comment on above: Performed By: #### L 501.2450, L100.0100, L500.4050 ####[facility] [address] [place], [address] Hematocrit (Bld) [Volume fraction] 39.0 % Normal 37-[address] [facility] Comment on above: Performed By: #### L 501.2450, L100.0100, L500.4050 ####[facility] [address] [place], [address] Hemoglobin (Bld) [Mass/Vol] 13.4 g/dL Normal 12.0-15.[address] [facility] Comment on above: Performed By: #### L 501.2450, L100.0100, L500.4050 ####[facility] [address] [place], [address] IG% 0.300 Normal 0.0-0.[address] [facility] Comment on above: Result Comment: IG% - Immature Granulocytes (promyelocytes, myelocytes and metamyelocytes) > 1% indicates that a LEFT SHIFT is Present. Performed By: #### L 501.2450, L100.0100, L500.4050 ####[facility] [address] [place], [address] Lymphocytes/100 WBC (Bld) 8.3 % Low 19-[address] [facility] Comment on above: Performed By: #### L 501.2450, L100.0100, L500.4050 ####[facility] [address] [place], [address] MCH (RBC) [Entitic mass] 30.3 pg Normal 27.0-32.[address] [facility] Comment on above: Performed By: #### L 501.2450, L100.0100, L500.4050 ####[facility] [address] [place], [address] MCHC (RBC) [Mass/Vol] 34.4 g/dL Normal 32-36 [facility] Comment on above: Performed By: #### L 501.2450, L100.0100, L500.4050 ####[facility] [address] [place], [address] MCV (RBC) [Entitic vol] 88.2 fL Normal 81-99 [facility] Comment on above: Performed By: #### L 501.2450, L100.0100, L500.4050 ####[facility] [address] [place], [address] Monocytes/100 WBC (Bld) 6.6 % Normal 0-10 [facility] Comment on above: Performed By: #### L 501.2450, L100.0100, L500.4050 ####[facility] [address] [place], [address] Neutrophils/100 WBC (Bld) 83.9 % High 47-[address] [facility] Comment on above: Performed By: #### L 501.2450, L100.0100, L500.4050 ####[facility] [address] [place], [address] Nucleated RBC (Bld) [#/Vol] 0 10*3/uL Normal 0-[address] [facility] Comment on above: Performed By: #### L 501.2450, L100.0100, L500.4050 ####[facility] [address] [place], [address] Platelet mean volume (Bld) [Entitic vol] 9.7 fL Normal 6.2-12.[address] [facility] Comment on above: Performed By: #### L 501.2450, L100.0100, L500.4050 ####[facility] [address] [place], [address] Platelets (Bld) [#/Vol] 277 10*3/uL Normal 150-[address] [facility] Comment on above: Performed By: #### L 501.2450, L100.0100, L500.4050 ####[facility] [address] [place], [address] RBC (Bld) [#/Vol] 4.42 10*6/uL Normal 4.2-5.4 [facility] Comment on above: Performed By: #### L 501.2450, L100.0100, L500.4050 ####[facility] [address] [place], [address] RDW SD 42.3 fl Normal 35.1-43.[address] [facility] Comment on above: Performed By: #### L 501.2450, L100.0100, L500.4050 ####[facility] [address] [place], [address] WBC (Bld) [#/Vol] 10.8 10*3/uL Normal 4.4-11.0 [facility] Comment on above: Performed By: #### L 501.2450, L100.0100, L500.4050 ####[facility] [address] [place], [address] Carbon dioxide, total [Moles /volume] in Central venous bloodOrdered By: ED PROVIDER on 08-21-2024 CO2 [Moles/Vol] 22.4 mmol/L 21.0-32.[address] [facility] Chloride assayOrdered By: ED PROVIDER on 08-21-2024 Chloride [Moles/Vol] 107 mmol/L 98-108 [facility] Comprehensive Metabolic Prof ilon 08-21-2024 Albumin [Mass/Vol] 4.3 g/dL Normal 3.4-4.8 [facility] Comment on above: Performed By: #### L 501.2450, L100.0100, L500.4050 ####[facility] [address] [place], [address] Albumin/Globulin [Mass ratio] 1.5 {ratio} Normal 0.9-2.[address] [facility] Comment on above: Performed By: #### L 501.2450, L100.0100, L500.4050 ####[facility] [address] [place], [address] ALK PHOS 90 U/L Normal 35-[address] [facility] Comment on above: Performed By: #### L 501.2450, L100.0100, L500.4050 ####[facility] [address] [place], [address] ALT [Catalytic activity/Vol] 139 U/L High <=[address] [facility] Comment on above: Performed By: #### L 501.2450, L100.0100, L500.4050 ####[facility] [address] [place], [address] AST [Catalytic activity/Vol] 46 U/L High <=[address] [facility] Comment on above: Performed By: #### L 501.2450, L100.0100, L500.4050 ####[facility] [address] [place], [address] Bilirubin [Mass/Vol] 0.38 mg/dL Normal 0.00-1.30 [facility] Comment on above: Performed By: #### L 501.2450, L100.0100, L500.4050 ####[facility] [address] [place], [address] BUN/CRE 13.0 RATIO Normal 10-[address] [facility] Comment on above: Performed By: #### L 501.2450, L100.0100, L500.4050 ####[facility] [address] [place], [address] Calcium [Mass/Vol] 9.3 mg/dL Normal 7.6-11.0 [facility] Comment on above: Performed By: #### L 501.2450, L100.0100, L500.4050 ####[facility] [address] [place], [address] Chloride [Moles/Vol] 107 mmol/L Normal 98-108 [facility] Comment on above: Performed By: #### L 501.2450, L100.0100, L500.4050 ####[facility] [address] [place], [address] CO2 [Moles/Vol] 22.4 mmol/L Normal 21.0-32.[address] [facility] Comment on above: Performed By: #### L 501.2450, L100.0100, L500.4050 ####[facility] [address] [place], [address] Creatinine [Mass/Vol] 0.72 mg/dL Normal 0.70-1.20 [facility] Comment on above: Performed By: #### L 501.2450, L100.0100, L500.4050 ####[facility] [address] [place], [address] ECRCL 78.57 ml/min Normal 50-[address] [facility] Comment on above: Performed By: #### L 501.2450, L100.0100, L500.4050 ####[facility] [address] [place], [address] GAP 11 Normal 5-[address] [facility] Comment on above: Performed By: #### L 501.2450, L100.0100, L500.4050 ####[facility] [address] [place], [address] GFR/1.73 sq M.predicted among non-blacks MDRD (S/P/Bld) [Vol rate/Area] 94 mL/min/{1.73_m2} Normal >[address] [facility] Comment on above: Result Comment: mL/m in/1.73m2 CKD-EPI Creatinine Equation (2020) Performed By: #### L 501.2450, L100.0100, L500.4050 ####[facility] [address] [place], [address] Globulin (S) [Mass/Vol] 2.8 g/dL Normal 2.2-4.2 [facility] Comment on above: Performed By: #### L 501.2450, L100.0100, L500.4050 ####[facility] [address] [place], [address] Glucose [Mass/Vol] 98 mg/dL Normal 70-99 [facility] Comment on above: Performed By: #### L 501.2450, L100.0100, L500.4050 ####[facility] [address] [place], [address] Potassium [Moles/Vol] 3.8 mmol/L Normal 3.3-5.1 [facility] Comment on above: Performed By: #### L 501.2450, L100.0100, L500.4050 ####[facility] [address] [place], [address] Sodium [Moles/Vol] 140 mmol/L Normal 133-145 [facility] Comment on above: Performed By: #### L 501.2450, L100.0100, L500.4050 ####[facility] [address] [place], [address] T PROT 7.1 g/dL Normal 5.9-8.[address] [facility] Comment on above: Performed By: #### L 501.2450, L100.0100, L500.4050 ####[facility] [address] [place], [address] Urea nitrogen [Mass/Vol] 9 mg/dL Normal 4-[address] [facility] Comment on above: Performed By: #### L 501.2450, L100.0100, L500.4050 ####[facility] [address] [place], [address] Emergency Department Summary on 08-21-2024 Emergency Department Summary [facility] Medical Records Department [address] [place] [address] Emergency Department Summary 08/21/24 MR#: [id number] Acct: [id number] Name: LINDA SANTIAGO HAIM Rep #: [id number] : 1960 63 From: Thomas Watts DO PCP: Dr. Dany Thacker MD Status:DEP ER Location: ED HPI History of Present Illness Chief Complaint: Abd Pain [facility] Medical History Disease of gingiva due to infection Ganglion cyst of dorsum of left wrist Wears contact lenses Wears glasses Anxiety Arthritis Anemia Migraine headache History of IBS Gastric reflux Former smoker History of echocardiogram History of stress test Hx of mitral valve prolapse Cardiology follow-up encounter [place] Hypercholesteremia Home Medications ???Medication ???Instructions ???Recorded ???Last Taken ???Type famotidine 40 mg tablet 40 mg PO BID 01/20/21 10/17/23 His tory citalopram 20 mg tablet (Celexa) 20 mg PO DAILY 04/20/21 10/18/23 H istory multivitamin 1 tab PO DAILY 01/12/22 10/17/23 H istory clobetasol 0.05 % topical cream 1 applic topical DAILY PRN itching 09/28/22 10/16/23 Rx #15 grams lisinopril 20 mg tablet 20 mg PO DAILY 01/17/23 10/18/23 H istory rosuvastatin 10 mg tablet 10 mg PO DAILY 01/17/23 10/17/23 H istory estradiol 0.01% (0.1 mg/gram) See Rx Instructions vaginal Unknown Rx vaginal cream .COMPLEX #42.5 grams fexofenadine 60 mg tablet (Milly 60 mg PO DAILY PRN ALLERGY 09/06 Unknown History Allergy) meclizine 25 mg tablet 25 mg PO TID PRN dizziness #30 tab s 11/04/23 Unknown Rx doxycycline hyclate 100 mg tablet 100 mg PO BID #14 tabs 12/16/23 U nknown Rx methylprednisolone 4 mg tablets in See Rx Instructions PO PER PKG D IR 12/16/23 Unknown Rx a dose pack (Medrol (Sebastien)) #21 tabs ciprofloxacin HCl 500 mg tablet 500 mg PO BID #20 TABLETS 01/01/24 Unknown Rx metronidazole 500 mg tablet 500 mg PO Q6H #40 tabs 01/01/24 Un known Rx ondansetron 4 mg disintegrating 4 mg PO Q8H PRN PRN Nausea #10 tab s 08/21/24 Unknown Rx tablet Allergy/AdvReac Type Severity Reaction Status Date / Time Penicillins Allergy Rash Verified 08/21/24 15:09 Family History Father Cancer lung Hypertension Mother Breast cancer Surgical History S/P laparoscopic cholecystectomy History of breast biopsy H/O tubal ligation Social History Smoking Status: Former smoker alcohol intake: current details: social substance use type: does not use caffeine: No what type of physical activity do you participate in: none seatbelt use: always do you feel safe at home: Yes 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 [employer] EXAM Physical Exam Const Vital Signs: 08/21/24 12:29 08/21/24 14:49 08/21/24 16:29 Temperature 97.9 F 98.5 F Temperature Source Oral Oral Pulse Rate 81 79 71 Respiratory Rate 15 20 H 17 Blood Pressure 137/58 H 121/61 H 109/51 L Blood Pressure Mean 84 81 70 Pulse Ox 97 97 95 Oxygen Delivery Method Room Air Room Air Room Air MDM MDM MDM Narrative Medical decision making narrative: HISTORY OF PRESENT ILLNESS: Chief complaint: Abdominal pain 63-year-old female history of hypertension, hyperlipidemia, GERD recently diagnosed with diverticulitis abdominal pain states she has been having abdominal pain nausea and tenderness has been intermittent for 12 days. She notes she recently finished antibiotics for diverticulitis. She further states she feels bloated/distended. Note nausea and intermittent dizziness. Notes symptoms ongoing for approximately 6 days. She states she stopped antibiotics around this time. Since then she has felt the symptoms and they were worse. She notes watery diarrhea several episodes a day. She notes nausea. No blood in her stool. No she was recently tested for C. difficile and other GI bugs she states they were negative. She denies chest pain or shortness of breath. Denies any Palpitations, focal weakness, loss of sensation, or movement. REVIEW OF SYSTEMS: Pertinent positives: Abdominal pain, nausea, dizziness Pertinent negatives: PHYSICAL EXAM: Nursing triage notes reviewed, Vital signs reviewed Constitutional: please see mdm HENT: MMM Eyes: Pupils equal round and reactive to light, Extraocular muscles intact Neck: No stridor, no JVD, full neck ROM Lungs: Clear to auscultation, No wheezing or rales. No increased work of breathing, no conversational dyspnea, no accessory muscle use, no nasal flaring. No respiratory distress noted Heart: Regular rate and rhythm, No murmurs, No rub (more content not included)... Normal [facility] Eosinophil percentageOrdered By: ED PROVIDER on 08-21-2024 Eosinophils/100 WBC (Bld) 0.6 % 0-[address] [facility] Epithelial cells.squamous LM Ql (Urine sed)Ordered By: ED PROVIDER on 08-21-2024 Epithelial cells.squamous LM.HPF (Urine sed) [#/Area] 0 /[HPF] 5-[address] [facility] Erythrocyte distribution wid th (RBC) [Ratio]Ordered By: ED PROVIDER on 08-21-2024 Erythrocyte distribution width (RBC) [Entitic vol] 42.3 fL 35.1-43.[address] [facility] Erythrocyte distribution wid th ratioOrdered By: ED PROVIDER on 08-21-2024 Erythrocyte distribution width (RBC) [Ratio] 13.0 % 11.6-14.[address] [facility] Estimation of creatinine micki aranceOrdered By: ED PROVIDER on 08-21-2024 Estimated Creatinine Clearance Calc 78.57 ml/min 50-[address] [facility] GFR/1.73 sq M.predicted kinga g non-blacks MDRD (S/P/Bld) [Vol rate/Area]Ordered By: ED PROVIDER on 08-21-2024 Estimated GFR (MDRD) Non-Af Amer 94 >[address] [facility] Comment on above: mL/min/1.73m2 CKD-EP I Creatinine Equation (2020) Glucose Ql (U)Ordered By: ED PROVIDER on 08-21-2024 Urine Glucose (UA) Normal mg/dl Normal [facility] Hematocrit Auto (Bld) [Volum e fraction]Ordered By: ED PROVIDER on 08-21-2024 Hematocrit (Bld) [Volume fraction] 39.0 % 37-[address] [facility] Hemoglobin measurementOrdere d By: ED PROVIDER on 08-21-2024 Hemoglobin (Bld) [Mass/Vol] 13.4 g/dL 12.0-15.[address] [facility] Immature granulocytes/100 WB C Auto (Bld)Ordered By: ED PROVIDER on 08-21-2024 Immature granulocytes/100 WBC (Bld) 0.300 % 0.0-0.[address] [facility] Comment on above: IG% - Immature Granu locytes (promyelocytes, myelocytes and metamyelocytes) > 1% indicates that a LEFT SHIFT is Present. Ketones Test strip Ql (U)Ord ered By: ED PROVIDER on 08-21-2024 Ketones Ql (U) Negative Negative [facility] Laboratory - Chemistry and C hemistry - challengeOrdered By: ED PROVIDER on 08-21-2024 AST [Catalytic activity/Vol] 46 U/L High <[address] [facility] Lipaseon 08-21-2024 Lipase [Catalytic activity/Vol] 29 U/L Normal 13-[address] [facility] Comment on above: Result Comment: Gabriella ambrocio note: LIPASE revised reference range effective 22. New Lipase methodology. Expected to produce lower values than the previous assay method. NEW Reference Range: 13 - 75 U/L Performed By: #### L 501.2450, L100.0100, L500.4050 ####[facility] [address] [place], [address] Lipase measurementOrdered By : ED PROVIDER on 08-21-2024 Lipase [Catalytic activity/Vol] 29 U/L 13-[address] [facility] Comment on above: Please note:LIPASE r evised reference range effective 22. New Lipase methodology. Expected to produce lower values than the previous assay method. NEW Reference Range: 13 - 75 U/L Lymphocytes Auto (Unsp spec) [#/Vol]Ordered By: ED PROVIDER on 08-21-2024 Lymphocytes (Bld) [#/Vol] 0.90 10*3/uL 0.83-4.[address] [facility] Lymphocytes/100 WBC Auto (Un sp spec)Ordered By: ED PROVIDER on 08-21-2024 Lymphocytes/100 WBC (Bld) 8.3 % Low 19-[address] [facility] MCV (mean corpuscular volume ) determinationOrdered By: ED PROVIDER on 08-21-2024 MCV (RBC) [Entitic vol] 88.2 fL 81-99 [facility] Mean corpuscular hemoglobin (MCH) determinationOrdered By: ED PROVIDER on 08-21-2024 MCH (RBC) [Entitic mass] 30.3 pg 27.0-32.[address] [facility] Mean corpuscular hemoglobin concentration (MCHC) determinationOrdered By: ED PROVIDER on 08-21-2024 MCHC (RBC) [Mass/Vol] 34.4 g/dL 32-36 [facility] Mean platelet volume determi nationOrdered By: ED PROVIDER on 08-21-2024 Platelet mean volume (Bld) [Entitic vol] 9.7 fL 6.2-12.[address] [facility] Microscopic analysis of urin e for red blood cells (RBC)Ordered By: ED PROVIDER on 08-21-2024 Urine RBC 0 SEEN /hpf 0-[address] [facility] Monocyte percentageOrdered B y: ED PROVIDER on 08-21-2024 Monocytes/100 WBC (Bld) 6.6 % 0-10 [facility] Mucus LM Ql (Urine sed)Order ed By: ED PROVIDER on 08-21-2024 Mucus Ql (Urine sed) 0 SEEN /hpf [facility] Neutrophil percentageOrdered By: ED PROVIDER on 08-21-2024 Neutrophils/100 WBC (Bld) 83.9 % High 47-[address] [facility] Nitrite Test strip Ql (U)Ord ered By: ED PROVIDER on 08-21-2024 Nitrite Ql (U) Negative Negative [facility] Nucleated red blood cell per centageOrdered By: ED PROVIDER on 08-21-2024 Nucleated RBC/100 WBC (Bld) [Ratio] 0 % 0-[address] [facility] Platelet countOrdered By: ED PROVIDER on 08-21-2024 Platelets (Bld) [#/Vol] 277 10*3/uL 150-[address] [facility] Potassium (Unsp spec) [Mass/ Vol]Ordered By: ED PROVIDER on 08-21-2024 Potassium [Moles/Vol] 3.8 mmol/L 3.3-5.1 [facility] Protein Test strip Ql (U)Ord ered By: ED PROVIDER on 08-21-2024 Protein Ql (U) 30 mg/dl High Negative [facility] RBC Auto (Bld) [#/Vol]Ordere d By: ED PROVIDER on 08-21-2024 RBC (Bld) [#/Vol] 4.42 10*6/uL 4.2-5.4 [facility] Serum creatinine measurement (mass/volume)Ordered By: ED PROVIDER on 08-21-2024 Creatinine [Mass/Vol] 0.72 mg/dL 0.70-1.20 [facility] Serum globulin measurementOr dered By: ED PROVIDER on 08-21-2024 Globulin (S) [Mass/Vol] 2.8 g/dL 2.2-4.2 [facility] Serum glucose measurement (m ass/volume)Ordered By: ED PROVIDER on 08-21-2024 Glucose [Mass/Vol] 98 mg/dL 70-99 [facility] Serum or plasma alanine padron otransferase (ALT) measurementOrdered By: ED PROVIDER on 08-21-2024 ALT [Catalytic activity/Vol] 139 U/L High <[address] [facility] Serum or plasma albumin oswaldo urement (mass/volume)Ordered By: ED PROVIDER on 08-21-2024 Albumin [Mass/Vol] 4.3 g/dL 3.4-4.8 [facility] Serum or plasma albumin/glob ulin mass ratioOrdered By: ED PROVIDER on 08-21-2024 Albumin/Globulin [Mass ratio] 1.5 {ratio} 0.9-2.[address] [facility] Serum or plasma alkaline daniel sphatase measurementOrdered By: ED PROVIDER on 08-21-2024 ALP [Catalytic activity/Vol] 90 U/L 35-[address] [facility] Serum or plasma calcium oswaldo urement (mass/volume)Ordered By: ED PROVIDER on 08-21-2024 Calcium [Mass/Vol] 9.3 mg/dL 7.6-11.0 [facility] Serum or plasma urea nitroge n measurement (mass/volume)Ordered By: ED PROVIDER on 08-21-2024 Urea nitrogen [Mass/Vol] 9 mg/dL 4-[address] [facility] Sodium levelOrdered By: ED Christa MONTOYA on 08-21-2024 Sodium [Moles/Vol] 140 mmol/L 133-145 [facility] Total proteinOrdered By: ED PROVIDER on 08-21-2024 Protein [Mass/Vol] 7.1 g/dL 5.9-8.4 [facility] Urinalysis, Completeon 08-21 WBC 0-5 SEEN Normal 0-[address] [facility] Comment on above: Order Comment: COLLE CTOR TO SPECIFY Performed By: #### L 400.0001 #### [facility] [address] [place], [address] AMORPHOUS 2+ Normal [facility] Comment on above: Order Comment: LUIZ CTOR TO SPECIFY Performed By: #### L 400.0001 #### [facility] [address] [place], [address] BACTERIA 2+ /hpf Normal None Seen [facility] Comment on above: Order Comment: LUIZ CTOR TO SPECIFY Performed By: #### L 400.0001 #### [facility] [address] [place], [address] EPI,SQUAMOUS 0-5 SEEN Normal 5-[address] [facility] Comment on above: Order Comment: LUIZ CTOR TO SPECIFY Performed By: #### L 400.0001 #### [facility] [address] [place], [address] Mucus Ql (Urine sed) 0 SEEN Normal [facility] Comment on above: Order Comment: LUIZ CTOR TO SPECIFY Performed By: #### L 400.0001 #### [facility] [address] [place], [address] RBC 0 SEEN Normal 0-[address] [facility] Comment on above: Order Comment: LUIZ CTOR TO SPECIFY Performed By: #### L 400.0001 #### [facility] [address] [place], [address] Urine blood detectionOrdered By: ED PROVIDER on 08-21-2024 Urine Occult Blood 25 /ul High Negative [facility] Urine clarityOrdered By: ED PROVIDER on 08-21-2024 Clarity (U) Turbid Clear [facility] Urine color determinationOrd ered By: ED PROVIDER on 08-21-2024 Color (U) Yellow Yellow [facility] Urine leukocyte esterase det ection by dipstickOrdered By: ED PROVIDER on 08-21-2024 Leukocyte esterase Test strip Ql (U) 25 /ul High Negative [facility] Urine pHOrdered By: ED PROVI IMELDA on 08-21-2024 pH (U) 5.0 [pH] 5.0 - 8.[address] [facility] Urine sediment bacteria coun t by microscopy (number/high power field)Ordered By: ED PROVIDER on 08-21-2024 Bacteria LM.HPF (Urine sed) [#/Area] 2 /[HPF] None Seen [facility] Urine specific gravity measu rementOrdered By: ED PROVIDER on 08-21-2024 Specific gravity (U) [Rel density] 1.025 1.002-1.[address] [facility] Urobilinogen Ql (U)Ordered B y: ED PROVIDER on 08-21-2024 Urine Urobilinogen Normal mg/dl Normal [facility] White blood cell (WBC) count Ordered By: ED PROVIDER on 08-21-2024 WBC (Bld) [#/Vol] 10.8 10*3/uL 4.4-11.0 [facility] White blood cell countOrdere d By: ED PROVIDER on 08-21-2024 Urine WBC 0-5 SEEN /hpf 0-[address] [facility] C. difficile DNA KIM+probe Q l (Unsp spec)Ordered By: Dany Thacker on 08-16-2024 Clostridioides difficile (PCR) [facility] CDIFF (PCR)on 08-16-2024 CDIFF Pending 027 [id number] NAP1-B1 Presumptive Negative *for epidemiolologic???use C. Diff PCR Negative- No toxigenic C. Diff Detected Normal [facility] Comment on above: Performed By: #### M [id number], M100.637 ####[facility] [address] [place], [place], [id number] ENTERIC PATHOGEN PANEL STOOL on 08-16-2024 EP PANEL Normal Reference Ran ge = Not Detected Nucleic acid amplification test method Not detected for Campylobacter group, Salmonella species, Shigella species, Vibrio Group, Yersinia enterocolitica, EHEC (Shiga Toxin 1, Shiga Toxin 2), Norovirus Gl/Gll, and Rotavirus A. Other common stool pathogens are not detected on this panel include: Aeromonas/Plesiomonas or parasites. Order testing for these organisms separately if suspected. This is an amplified DNA test which makes it both specific and sensitive. CAMPYLOBACTER Not Detected Norovirus Not Detected Rotavirus Not Detected Salmonella Not Detected Shiga Toxin Not Detected Shigella sp. Not Detected VIBRIO Not Detected Yersinia Not Detected Normal [facility] Comment on above: Performed By: #### M 100.6796, M100.637 ####[facility] [address] [place], [place], [address] Stool enteric pathogen panel by probe and target amplification methodOrdered By: Dany Thacker on 08-16-2024 Enteric Bacteriology [facility] Dexa Bone Density Studyon Dexa Bone Density Study [facility] Imaging Services [address] [place], [place] [address] Dexa Bone Density Study MR#: [id number] Acct: [id number] Name: LINDA SANTIAGO Rep #: [id number] : 1960 F 63 From: Benji rangel MD PCP: Dr. Dany Thacker MD Status: [facility] Study: Dexa Bone Density Study Date of Exam: 04/09/24 Exam# [id number] Ordering Dr: Dany Thacker MD [id number] STUDY: DUAL ENERGY X-RAY ABSORPTIOMETRY / DXA REASON FOR EXAM: Female, 63 years old. [id number] TECHNIQUE: Bone Mineral Density (BMD) measurements of lumbar spine and bilateral hips were obtained. COMPARISON: None. FINDINGS: Lumbar Spine (L1-L4): g/cm2 (0.987) / T-score (-0.5) / Z-score (1.2) Findings are suggestive of normal bone density with a low fracture risk. Left Femur Total: g/cm2 (0.991) / T-score (0.4) / Z-score (1.6) Left Femoral Neck: g/cm2 (0.751) / T-score (-0.9) / Z-score (0.6) Right Femur Total: g/cm2 (0.957) / T-score (0.1) / Z-score (1.3) Right Femoral Neck: g/cm2 (0.767) / T-score (-0.7) / Z-score (0.7) BD/Dexa Bone Density Study IMPRESSION: The patient is considered normal as outlined below according to World Efra Organization (WHO) criteria with a low fracture risk. Reference Information: The T-score is the number of standard deviations above or below the standard which is normal for young adults at their peak bone mineral density. The World Health Organization (WHO) interprets the T-scores as follows: Above -1 Normal bone density Between -1 and -2.5 Osteopenia Equal to / or below -2.5 Osteoporosis As a practical clinical guideline, osteopenia may be graded as follows: Mild -1 through -1.5 Moderate -1.6 through -2.0 Severe -2.1 through -2.4 The Z-score is the number of standard deviations above or below age-matched controls. A Z-score of less than -1.5 would be considered abnormal. References: 1. NIH Osteoporosis and Related Bone Diseases www osteo.org 2. International Society for Clinical Densitometry www iscd.org 3. National Osteoporosis Foundation www nof.org Electronically Signed: Benji James MD at 15:00 EST , CC: Dr. Dany Thacker MD Computer Applications Developer: Signed Normal [facility] SCRN MAMM (CAD)W/CAITLIN Barron n 04-09-2024 SCRN MAMM (CAD)W/CAITLIN BILAT [facility] Imaging Services [address] [place], [place] [address] SCRN MAMM (CAD)W/CAITLIN IZAGUIRRE MR#: [id number] Acct: [id number] Name: LINDA SANTIAGO Rep #: [id number] : 1960 F 63 From: Benji rangel MD PCP: Dr. Dany Thacker MD Status: [facility] Study: SCRN MAMM (CAD)W/CAITLIN BILAT Date of Exam: 03/22 02/12 Exam# [id number] Ordering Dr: Dany Thacker MD [id number] MAMMOGRAPHY - BILATERAL SCREENING REASON FOR EXAM: Female, 63 years old. Routine annual screening examination. PERTINENT HISTORY: Mother with breast cancer. History of prior bilateral excisional breast biopsies. TECHNIQUE: Digital bilateral breast caitlin (3D mammographic acquisition) in the CC and MLO projections. 2-D mediolateral oblique (MLO) and craniocaudad (CC) views of both breasts were obtained. CAD: Full Field Digital Mammography with Computer Added Detection was performed. COMPARISON: Comparison is made with prior study December 29, 2022 and November 19, 2021. FINDINGS: Breast Composition: The breasts are heterogeneously dense, which may obscure small masses. There are no dominant masses or suspicious calcifications. Stable subcentimeter calcified nodules in the retroareolar region of the right breast. No other significant abnormalities are identified. There has been no significant change since the prior study. BI/SCRN MAMM (CAD)W/CAITLIN BILAT IMPRESSION: Stable bilateral screening mammogram. Yearly follow-up mammogram recommended. (A) ASSESSMENT CATEGORY: BIRADS Category 2: Benign. A letter regarding these results will be sent to the patient by the facility within 30 days. Approximately 10% of breast cancers are not detected by mammography. A normal mammogram should not delay biopsy of a clinically suspicious abnormality. [id number] Electronically Signed: Benji James MD at 8:21 EST , CC: Dr. Dany Thacker MD Computer Applications Developer: Signed Normal [facility] Basic Metabolic Profile (BMP )on 03-21-2024 BUN/CRE 12.9 RATIO Normal 03-[address] [facility] Comment on above: Performed By: #### L 500.2500, L500.4100 ####[facility] [address] [place], [address] CA,Total 9.2 mg/dL Normal 8.5-10.[address] [facility] Comment on above: Performed By: #### L 500.2500, L500.4100 ####[facility] [address] [place], [address] Chloride [Moles/Vol] 110 mmol/L High 98-107 [facility] Comment on above: Performed By: #### L 500.2500, L500.4100 ####[facility] [address] [place], [address] CO2 [Moles/Vol] 28.0 mmol/L Normal 21.0-32.[address] [facility] Comment on above: Performed By: #### L 500.2500, L500.4100 ####[facility] [address] [place], [address] Creatinine [Mass/Vol] 0.70 mg/dL Normal 0.55-1.02 [facility] Comment on above: Result Comment: The validity of the calculated GFR GFRAA in patients over 70 years has not been determined. Clinical correlation is essential. Performed By: #### L 500.2500, L500.4100 ####[facility] [address] [place], [address] EST GFR - AA 109 mL/min Normal >[address] [facility] Comment on above: Result Comment: Afri can [place] GFR Calc Performed By: #### L 500.2500, L500.4100 ####[facility] [address] [place], [address] GAP 4 Low 5-[address] [facility] Comment on above: Performed By: #### L 500.2500, L500.4100 ####[facility] [address] [place], [address] GFR/1.73 sq M.predicted among non-blacks MDRD (S/P/Bld) [Vol rate/Area] 90 mL/min/{1.73_m2} Normal >[address] [facility] Comment on above: Result Comment: Non- GFR Calc Performed By: #### L 500.2500, L500.4100 ####[facility] [address] [place], [address] Glucose [Mass/Vol] 95 mg/dL Normal 74-106 [facility] Comment on above: Performed By: #### L 500.2500, L500.4100 ####[facility] [address] [place], [address] Potassium [Moles/Vol] 3.9 mmol/L Normal 3.5-5.1 [facility] Comment on above: Performed By: #### L 500.2500, L500.4100 ####[facility] [address] [place], [address] Sodium [Moles/Vol] 142 mmol/L Normal 136-145 [facility] Comment on above: Performed By: #### L 500.2500, L500.4100 ####[facility] [address] [place], [address] Urea nitrogen [Mass/Vol] 9 mg/dL Normal 7-[address] [facility] Comment on above: Performed By: #### L 500.2500, L500.4100 ####[facility] [address] [place], [address] Lipid Profileon 03-21-2024 Cholesterol [Mass/Vol] 184 mg/dL Normal 200 [facility] Comment on above: Result Comment: <200 mg/dL Desirable 200-240 mg/dL Borderline >240 mg/dL High Risk Performed By: #### L 500.2500, L500.4100 ####[facility] [address] [place], [address] Cholesterol in HDL [Mass/Vol] 46 mg/dL Normal [facility] Comment on above: Result Comment: The drugs N-Acetylcysteine and Metamizole may falsely depress this assay. Reference Range HDL <40 mg/dL Low HDL Cholesterol HDL >or= 60 mg/dL High HDL Cholesterol Performed By: #### L 500.2500, L500.4100 ####[facility] [address] [place], [address] Cholesterol in LDL [Mass/Vol] 90 mg/dL Normal 0-[address] [facility] Comment on above: Performed By: #### L 500.2500, L500.4100 ####[facility] [address] [place], [address] Cholesterol in VLDL [Mass/Vol] 48 mg/dL High 5-[address] [facility] Comment on above: Performed By: #### L 500.2500, L500.4100 ####[facility] [address] [place], [address] Triglyceride [Mass/Vol] 238 mg/dL High [facility] Comment on above: Result Comment: The drugs N-Acetylcysteine and Metamizole may falsely depress this assay. Serum Triglycerides Reference Interval Normal <150 mg/dL Borderline high 150 - 199 mg/dL High 200 - 499 mg/dL Very High > or = 500 mg/dL Performed By: #### L 500.2500, L500.4100 ####[facility] [address] [place], [address] Abdomen/Pelvis W IV Cont ONL Yon 01-01-2024 Abdomen/Pelvis W IV Cont ONLY [facility] Imaging Services [address] [place], [place] [address] Abdomen/Pelvis W IV Cont ONLY MR#: [id number] Acct: [id number] Name: LINDA SANTIAGO Rep #: [id number] : 1960 F 63 From: Natalia Pittman MD PCP: Dr. Dany Thacker MD Status: [facility] Study: Abdomen/Pelvis W IV Cont ONLY Date of Exam: Exam# [id number] Ordering Dr: Dimas Jackson DO [id number] EXAM: CT ABDOMEN AND PELVIS WITH INTRAVENOUS CONTRAST CLINICAL INDICATION: Abdominal pain TECHNIQUE: Helically acquired images were obtained of the abdomen and pelvis with intravenous contrast. This CT exam was performed using one or more of the following dose reduction techniques: automated exposure control, adjustment of the mA and/or kV according to patient size, and/or use of iterative reconstruction technique. RADIATION DOSE: CTDIvol = 13.03 mGy, DLP = 931.65 mGy-cmContrast: IV 100mL Isovue-370 COMPARISON: Pelvic ultrasound August 09, 2019, right ovary was not seen. FINDINGS: LOWER THORAX: Unremarkable. Lung bases are clear. No cardiomegaly. No significant pericardial effusion. ABDOMEN: LIVER: Unremarkable. Homogeneous. No focal mass. GALLBLADDER AND BILE DUCTS: Presumed cholecystectomy. No bile duct dilatation. PANCREAS: Unremarkable. No focal cystic or solid mass. SPLEEN: Unremarkable. Normal size without focal cystic or solid mass. ADRENALS: Unremarkable. No nodules. KIDNEYS AND URETERS: Unremarkable. Normal renal size and position. No hydronephrosis. STOMACH AND BOWEL: There is moderate fluid and gas distending the proximal half to two thirds of the colon. There is moderate wall thickening, luminal narrowing and hazy adjacent pericolonic soft tissue stranding involving the mid sigmoid colon, at the left of midline, with numerous diverticuli in the underlying segment. Mildly prominent fluid in distal small bowel. PELVIS: APPENDIX: Small appendix is seen. BLADDER: Mildly prominently distended, 13.1 cm craniocaudal but thin-walled. REPRODUCTIVE: Bilateral tubal ligation clips are noted. ABDOMEN and PELVIS: INTRAPERITONEAL SPACE: See below. BONES/JOINTS: Unremarkable. No suspicious lytic or blastic abnormality. SOFT TISSUES: Cluster of coarse calcifications or coarse ovoid calcification of roughly 7 mm x 5 mm in the right subareolar breast may be fibroadenoma. Moderate disc space narrowing and mild vacuum disc at L5-S1. Mild scattered intrapelvic fluid. No discrete drainable fluid collection. No free intraperitoneal air. No discrete abdominal or pelvic wall hernia. VASCULATURE: Well-circumscribed presumed 2.3 cm x 1.6 cm x 2.4 cm simple-appearing right adnexal cyst. Atherosclerotic changes of aortoiliac vessels, no aneurysm or dissection or high-grade arterial origin stenosis. LYMPH NODES: Unremarkable. No enlarged lymph nodes. CT/Abdomen/Pelvis W IV Cont ONLY IMPRESSION: 1. Acute diverticulitis involving the sigmoid. Mild free fluid. No free abscess, visible contained focal perforation, or free intraperitoneal air. Mildly prominent fluid in distal small bowel and proximal half of the colon. 2. 2.4 cm simple right ovarian or paraovarian cyst. Due to the size and appearance ACR White Paper guidelines (Mariee, et. al. JACR 2020;17(2):248-254) suggest no follow-up is necessary. Electronically Signed: Natalia Pittman MD at 22:22 EDT Reading Location ID and State: [facility] / [place] Tel , Service support , CC: Dr. Dimas Jackson, ; Dr. Dany Thacker MD Computer Applications Developer: Signed Normal [facility] CBC W/Diff, Automatedon 12-20 Absolute Lymph 1.63 X10 3/uL Normal 0.83-4.[address] [facility] Comment on above: Performed By: #### L 100.0100, L500.4050, L501.2450 #### [facility] [address] [place], [place], [id number] Absolute Neut 12.6 X10 3/uL High 2.0-7.[address] [facility] Comment on above: Performed By: #### L 100.0100, L500.4050, L501.2450 #### [facility] [address] [place], [address] Basophils/100 WBC (Bld) 0.3 % Normal 0-1 [facility] Comment on above: Performed By: #### L 100.0100, L500.4050, L501.2450 #### [facility] [address] [place], [address] Eosinophils/100 WBC (Bld) 0.3 % Normal 0-[address] [facility] Comment on above: Performed By: #### L 100.0100, L500.4050, L501.2450 #### [facility] [address] [place], [address] Erythrocyte distribution width (RBC) [Ratio] 13.3 % Normal 11.6-14.[address] [facility] Comment on above: Performed By: #### L 100.0100, L500.4050, L501.2450 #### [facility] [address] [place], [address] Hematocrit (Bld) [Volume fraction] 39.2 % Normal 37-[address] [facility] Comment on above: Performed By: #### L 100.0100, L500.4050, L501.2450 #### [facility] [address] [place], [address] Hemoglobin (Bld) [Mass/Vol] 12.8 g/dL Normal 12.0-15.[address] [facility] Comment on above: Performed By: #### L 100.0100, L500.4050, L501.2450 #### [facility] [address] [place], [address] IG% 0.400 Normal 0.0-0.[address] [facility] Comment on above: Result Comment: IG% - Immature Granulocytes (promyelocytes, myelocytes and metamyelocytes) > 1% indicates that a LEFT SHIFT is Present. Performed By: #### L 100.0100, L500.4050, L501.2450 #### [facility] [address] [place], [address] Lymphocytes/100 WBC (Bld) 10.4 % Low 19-[address] [facility] Comment on above: Performed By: #### L 100.0100, L500.4050, L501.2450 #### [facility] [address] [place], [address] MCH (RBC) [Entitic mass] 29.8 pg Normal 27.0-32.[address] [facility] Comment on above: Performed By: #### L 100.0100, L500.4050, L501.2450 #### [facility] [address] [place], [address] MCHC (RBC) [Mass/Vol] 32.7 g/dL Normal 32-36 [facility] Comment on above: Performed By: #### L 100.0100, L500.4050, L501.2450 #### [facility] [address] [place], [address] MCV (RBC) [Entitic vol] 91.4 fL Normal 81-99 [facility] Comment on above: Performed By: #### L 100.0100, L500.4050, L501.2450 #### [facility] [address] [place], [address] Monocytes/100 WBC (Bld) 8.2 % Normal 0-10 [facility] Comment on above: Performed By: #### L 100.0100, L500.4050, L501.2450 #### [facility] [address] [place], [address] Neutrophils/100 WBC (Bld) 80.4 % High 47-[address] [facility] Comment on above: Performed By: #### L 100.0100, L500.4050, L501.2450 #### [facility] [address] [place], [address] Nucleated RBC (Bld) [#/Vol] 0 10*3/uL Normal 0-[address] [facility] Comment on above: Performed By: #### L 100.0100, L500.4050, L501.2450 #### [facility] [address] [place], [address] Platelet mean volume (Bld) [Entitic vol] 9.5 fL Normal 6.2-12.[address] [facility] Comment on above: Performed By: #### L 100.0100, L500.4050, L501.2450 #### [facility] [address] [place], [address] Platelets (Bld) [#/Vol] 303 10*3/uL Normal 150-[address] [facility] Comment on above: Performed By: #### L 100.0100, L500.4050, L501.2450 #### [facility] [address] [place], [address] RBC (Bld) [#/Vol] 4.29 10*6/uL Normal 4.2-5.4 [facility] Comment on above: Performed By: #### L 100.0100, L500.4050, L501.2450 #### [facility] [address] [place], [address] RDW SD 44.3 fl High 35.1-43.[address] [facility] Comment on above: Performed By: #### L 100.0100, L500.4050, L501.2450 #### [facility] [address] [place], [address] WBC (Bld) [#/Vol] 15.7 10*3/uL High 4.4-11.0 [facility] Comment on above: Performed By: #### L 100.0100, L500.4050, L501.2450 #### [facility] [address] [place], [address] Comprehensive Metabolic [facility] ilon 01-01-2024 Albumin [Mass/Vol] 3.0 g/dL Low 3.2-5.0 [facility] Comment on above: Performed By: #### L 100.0100, L500.4050, L501.2450 #### [facility] [address] [place], [address] Albumin/Globulin [Mass ratio] 0.7 {ratio} Low 0.9-2.[address] [facility] Comment on above: Performed By: #### L 100.0100, L500.4050, L501.2450 #### [facility] [address] [place], [address] ALK P 70 U/L Normal 45-[address] [facility] Comment on above: Performed By: #### L 100.0100, L500.4050, L501.2450 #### [facility] [address] [place], [address] ALT [Catalytic activity/Vol] 21 U/L Normal 13-[address] [facility] Comment on above: Performed By: #### L 100.0100, L500.4050, L501.2450 #### [facility] [address] [place], [address] AST [Catalytic activity/Vol] 11 U/L Low 15-[address] [facility] Comment on above: Performed By: #### L 100.0100, L500.4050, L501.2450 #### [facility] [address] [place], [address] Bilirubin [Mass/Vol] 0.60 mg/dL Normal 0.20-1.00 [facility] Comment on above: Result Comment: For patients on eltrombopag therapy, use of Dimension [place] TBIL is not recommended. Performed By: #### L 100.0100, L500.4050, L501.2450 #### [facility] [address] [place], [address] BUN/CRE 6.9 RATIO Low 10-[address] [facility] Comment on above: Performed By: #### L 100.0100, L500.4050, L501.2450 #### [facility] [address] [place], [address] CA,Total 8.6 mg/dL Normal 8.5-10.[address] [facility] Comment on above: Performed By: #### L 100.0100, L500.4050, L501.2450 #### [facility] [address] [place], [address] Chloride [Moles/Vol] 106 mmol/L Normal 98-107 [facility] Comment on above: Performed By: #### L 100.0100, L500.4050, L501.2450 #### [facility] [address] [place], [address] CO2 [Moles/Vol] 23.0 mmol/L Normal 21.0-32.[address] [facility] Comment on above: Performed By: #### L 100.0100, L500.4050, L501.2450 #### [facility] [address] [place], [address] Creatinine [Mass/Vol] 0.72 mg/dL Normal 0.55-1.02 [facility] Comment on above: Result Comment: The validity of the calculated GFR GFRAA in patients over 70 years has not been determined. Clinical correlation is essential. Performed By: #### L 100.0100, L500.4050, L501.2450 #### [facility] [address] [place], [address] ECRCL 79.31 ml/min Normal [facility] Comment on above: Performed By: #### L 100.0100, L500.4050, L501.2450 #### [facility] [address] [place], [address] EST GFR - AA 104 mL/min Normal >[address] [facility] Comment on above: Result Comment: Afri can [place] GFR Calc Performed By: #### L 100.0100, L500.4050, L501.2450 #### [facility] [address] [place], [address] GAP 7 Normal 5-[address] [facility] Comment on above: Performed By: #### L 100.0100, L500.4050, L501.2450 #### [facility] [address] [place], [address] GFR/1.73 sq M.predicted among non-blacks MDRD (S/P/Bld) [Vol rate/Area] 86 mL/min/{1.73_m2} Normal >[address] [facility] Comment on above: Result Comment: Non- GFR Calc Performed By: #### L 100.0100, L500.4050, L501.2450 #### [facility] [address] [place], [address] Globulin (S) [Mass/Vol] 4.3 g/dL High 2.2-4.2 [facility] Comment on above: Performed By: #### L 100.0100, L500.4050, L501.2450 #### [facility] [address] [place], [address] Glucose [Mass/Vol] 115 mg/dL High 74-106 [facility] Comment on above: Result Comment: Fast ing Glucose result from 100 to 125 mg/dL suggests IMPAIRED HOMEOSTASIS per A.D.A. criteria. Performed By: #### L 100.0100, L500.4050, L501.2450 #### [facility] [address] [place], [address] Potassium [Moles/Vol] 3.9 mmol/L Normal 3.5-5.1 [facility] Comment on above: Performed By: #### L 100.0100, L500.4050, L501.2450 #### [facility] [address] [place], [address] Sodium [Moles/Vol] 136 mmol/L Normal 136-145 [facility] Comment on above: Performed By: #### L 100.0100, L500.4050, L501.2450 #### [facility] [address] [place], [address] T PROT 7.3 g/dL Normal 6.4-8.[address] [facility] Comment on above: Performed By: #### L 100.0100, L500.4050, L501.2450 #### [facility] [address] [place], [address] Urea nitrogen [Mass/Vol] 5 mg/dL Low 7-[address] [facility] Comment on above: Performed By: #### L 100.0100, L500.4050, L501.2450 #### [facility] [address] [place], [address] Emergency Department Summary on 01-01-2024 Emergency Department Summary [facility] Medical Records Department [address] [place] [address] Emergency Department Summary 01/01/24 MR#: [id number] Acct: [id number] Name: LINDA SANTIAGO HAIM Rep #: [id number] : 1960 63 From: Dimas Jackson DO PCP: Dr. Dany Thacker MD Status:DEP ER Location: ED HPI HPI - GI History of Present Illness Chief Complaint: Constipation Informant: patient Abdominal Pain/Flank Pain Onset: Weeks (1) Context: Gradual Onset Timing: Continuous Quality: Cramping Location: RLQ and LLQ Worsened by: Nothing Relieved by: - (Passing gas) Nausea/Vomiting/Emesis GI Symptom: Positive for Nausea and Vomiting Quality: Positive for - (Dry heaves) Associated Symptoms Associated Symptoms: Negative for Dysuria, Frequency or Hematuria Narrative Narrative: Patient presents with abdominal pain and constipation that has been getting worse over the past week. Patient states it is gradually getting worse. Patient states that has been constant. Patient states her pain is mainly over the lower abdomen. Patient describes it as cramping. Patient states that it gets better when she is able to pass gas. Patient states she has been having some nausea and vomiting with some dry heaves. Patient denies any hematemesis or coffee-ground emesis. Patient denies any urinary complaints. Patient admits to a low-grade fever of 100.9 at home. [facility] Medical History Disease of gingiva due to infection Ganglion cyst of dorsum of left wrist Wears contact lenses Wears glasses Anxiety Arthritis Anemia Migraine headache History of IBS Gastric reflux Former smoker History of echocardiogram History of stress test Hx of mitral valve prolapse Cardiology follow-up encounter [place] Hypercholesteremia Home Medications ???Medication ???Instructions ???Recorded ???Last Taken ???Type famotidine 40 mg tablet 40 mg PO BID 01/20/21 10/17/23 History citalopram 20 mg tablet (Celexa) 20 mg PO DAILY 04/20/21 10/18/23 History multivitamin 1 tab PO DAILY 01/12/22 10/17/23 History clobetasol 0.05 % topical cream 1 applic topical DAILY PRN itching 09/28/22 10/16/23 Rx #15 grams lisinopril 20 mg tablet 20 mg PO DAILY 01/17/23 10/18/23 History rosuvastatin 10 mg tablet 10 mg PO DAILY 01/17/23 10/17/23 History estradiol 0.01% (0.1 mg/gram) See Rx Instructions vaginal 02/10/23 Unknown Rx vaginal cream .COMPLEX #42.5 grams fexofenadine 60 mg tablet (Milly 60 mg PO DAILY PRN ALLERGY 09/07/23 Unknown History Allergy) meclizine 25 mg tablet 25 mg PO TID PRN dizziness #30 tabs 11/04/23 Unknown Rx doxycycline hyclate 100 mg tablet 100 mg PO BID #14 tabs 12/16/23 Unknown Rx methylprednisolone 4 mg tablets in See Rx Instructions PO PER PKG DIR 12/16/23 Unknown Rx a dose pack (Medrol (Sebastien)) #21 tabs ciprofloxacin HCl 500 mg tablet 500 mg PO BID #20 TABLETS 01/01/24 Unknown Rx metronidazole 500 mg tablet 500 mg PO Q6H #40 tabs 01/01/24 Unknown Rx Allergy/AdvReac Type Severity Reaction Status Date / Time Penicillins Allergy Rash Verified 01/01/24 17:41 Family History Father Cancer lung Hypertension Mother Breast cancer Surgical History S/P laparoscopic cholecystectomy History of breast biopsy H/O tubal ligation Social History Smoking Status: Former smoker alcohol intake: current details: social substance use type: does not use caffeine: No what type of physical activity do you participate in: none seatbelt use: always do you feel safe at home: Yes 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 [employer] ED Constitutional Constitutional ED: Reports fever(s); Denies chills Eyes Eyes: Denies blurry vision or change in vision ENT ENT ED: Denies rhinorrhea or sore throat Cardiovascular Cardiovascular: Denies chest pain or palpitations Respiratory/Chest Respiratory/Chest: Denies cough or dyspnea Gastrointestinal Gastrointestinal: Reports abdominal pain, constipation, nausea and vomiting Genitourinary Genitourinary ED: Denies dysuria or hematuria Musculoskeletal Musculoskeletal: Denies back pain or neck pain Integumentary Denies abscess or rash Neurologic Neurologic: Reports headache(s); Denies weakness Allergic/Immunologic Allergic/Immunologic ED: Denies mouth swelling or urticaria EXAM Physical Exam Const Vital Signs: 01/01/24 17:41 01/01/24 19:41 01/01/24 21:00 Temperature 97.7 F L Temperature Source Temporal Pulse Rate 103 H 80 77 Respiratory Rate 18 16 19 H Blood Pressure 136/55 H 134/99 H 129/81 H Blood Pressure Mean 82 110 97 Pulse Ox 96 97 (more content not included)... Normal [facility] Lipaseon 01-01-2024 Lipase [Catalytic activity/Vol] 53 U/L Normal 13-[address] [facility] Comment on above: Result Comment: Gabriella ambrocio note: LIPASE revised reference range effective 22. New Lipase methodology. Expected to produce lower values than the previous assay method. NEW Reference Range: 13 - 75 U/L Performed By: #### L 100.0100, L500.4050, L501.2450 #### [facility] [address] [place], [address] Urgent Care Visit Reporton 0 12-16-2023 Urgent Care Visit Report [facility] [address], [address] [place] [address] OFFICE VISIT Date of Service: 12/16/23 MR#: [id number] Acct: [id number] Name: LINDA SANTIAGO HAIM Rep #: [id number] : 1960 Provider: MADONNA Wilkins Age/Sex: 63/F Location: [facility] Status: Signed Intake Vital Signs 11/04/23 11:54 12/16/23 11:18 Height 5 ft 5 in Weight: 164 lb 6 oz BMI 27.3 BP 132/80 H 150/68 H Blood Pressure Location Lt brachial Lt brachial Position Sitting Sitting Respiration 15 15 Pulse 70 70 Pulse Source NIBP NIBP Temp 98.6 F 98.6 F Temp Source Temporal Temporal Pulse Oximetry (%) 98 98 Oxygen Delivery Method room air room air 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 known multiple cavities, has dental appt in two days but concerned for infection. [facility] Medical History (Updated 12/16/23 @ 11:41 by Silvio PEACOCK, PA) Disease of gingiva due to infection Ganglion cyst of dorsum of left wrist Wears contact lenses Wears glasses Anxiety Arthritis Anemia Migraine headache History of IBS Gastric reflux Former smoker History of echocardiogram History of stress test Hx of mitral valve prolapse Cardiology follow-up encounter [place] Hypercholesteremia Surgical History S/P laparoscopic cholecystectomy History of breast biopsy H/O tubal ligation Family History Father Cancer lung Hypertension Mother Breast cancer Social History Smoking Status: Former smoker alcohol intake: current details: social substance use type: does not use caffeine: No what type of physical activity do you participate in: none seatbelt use: always do you feel safe at home: Yes 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 No complaints of fever, chills, sweats. No [id number] products taken to assist, stating both acetaminophen and pbwe-[id number]-[id number] NSAIDs upset her stomach. No other associated symptoms and no other alleviating/aggravatin g factors ROS Const Constitutional: No other (As above) Exam Const General: cooperative, healthy appearing and no acute distress Orientation: alert and awake HENDE Head: normal to inspection Ears: hearing grossly normal bilaterally and external ears normal Nose: external nose normal Face and sinus: normal facial exam and face symmetric Mouth: oral mucosae normal, lip normal, tongue normal and oropharynx normal Teeth and gingiva: abnormal tooth or associated gingiva (Left lower outer gingival erythema, swelling with tender to palpation same) Throat: posterior oropharynx normal, tonsils normal, uvula midline and no postnasal drainage Neck Neck: normal visual inspection, no lymphadenopathy and no meningeal signs Resp Effort Inspection: normal respiratory effort and able to speak in complete sentences Cardio Rate: regular rate Pulses: radial pulses present Skin General: no rashes or lesions noted Neuro General: patient alert and patient awake Cognition: normal cognition Speech: speech normal Psych Appearance: grossly normal Mental Status: mental status grossly normal Mood: congruent mood Affect: normal affect Speech and Movement: speech and movement normal Attitude: cooperative Coding Level of Care Code Off vis,est,level 3 Diagnoses Disease of gingiva due to infection K06.8; B99.9 Assessment and Plan Assessment and Plan (1) Disease of gingiva due to infection: Status: Acute Plan: Doxycycline as prescribed today. Due to intolerance to acetaminophen and [id number] NSAIDs, Medrol Dosepak as prescribed today. Supportive measures as instructed today. Keep dentist follow-up appointment in 2 days as previously arranged, ED sooner should symptoms worsen or any other concerns develop. Patient states acknowledging understanding all the above. This note was generated with [employer] dictation software. It may contain incorrect words, spelling, and punctuation that were not noted in checking the note before signing. Medications: New doxycycline (more content not included)... Normal [facility] Basophil percentageOrdered B y: Dion Stewart on 09-19-2023 Basophil percentage < 1.0 mg/dL 0.55-1.02 [facility] No Panel InformationOrdered By: Dion Stewart on 09-19-2023 Bedside Estimated GFR (eGFR) > 60.0000 mL/min >[address] [facility] Basophil percentageOrdered B y: Dr. Bettencourt on 11-02-2022 Bilirubin [Mass/Vol] 0.40 mg/dL 0.20-1.00 [facility] Comment on above: For patients on eltr ombopag therapy, use of Dimension [place] TBIL is not recommended. Chloride [Moles/Vol] 108 mmol/L 98-107 [facility] Cholesterol [Mass/Vol] 258 mg/dL <200 [facility] Comment on above: <200 mg/dL Desirable 200-240 mg/dL Borderline >240 mg/dL High Risk Glucose [Mass/Vol] 91 mg/dL 74-106 [facility] Potassium [Moles/Vol] 4.0 mmol/L 3.5-5.1 [facility] Protein [Mass/Vol] 7.4 g/dL 6.4-8.2 [facility] Sodium [Moles/Vol] 140 mmol/L 136-145 [facility] Triglyceride [Mass/Vol] 258 mg/dL <199 [facility] Comment on above: The drugs N-Acetylcy steine and Metamizole may falsely depress this assay.Serum Triglycerides Reference Interval Normal <150 mg/dL Borderline high 150 - 199 mg/dL High 200 - 499 mg/dL Very High > or = 500 mg/dL Laboratory - Chemistry and C hemistry - challengeOrdered By: Dr. Bettencourt on 11-02-2022 ALP [Catalytic activity/Vol] 75 U/L 45-[address] [facility] ALT [Catalytic activity/Vol] 25 U/L 13-[address] [facility] CO2 [Moles/Vol] 25.0 mmol/L 21.0-32.[address] [facility] Globulin (S) [Mass/Vol] 3.8 g/dL 2.2-4.2 [facility] Urea nitrogen/Creatinine [Mass ratio] 12.3 mg/mg 10-[address] [facility] No Panel InformationOrdered By: Dr. Bettencourt on 11-02-2022 Estimated GFR (MDRD) Amer 91 mL/min >[address] [facility] Comment on above: GFR Calc Estimated GFR (MDRD) Non-Af Amer 75 mL/min >[address] [facility] Comment on above: Non- GFR Calc Thyroid Stimulating Hormone (TSH) 2.04 uIU/mL 0.358-3.[address] [facility] Urine Microalbumin/Creatinine Ratio 8.8 mg/g CRE <[address] [facility] Serum or plasma albumin oswaldo urement (mass/volume)Ordered By: Dr. Bettencourt on 11-02-2022 Albumin [Mass/Vol] 3.6 g/dL 3.2-5.0 [facility] Serum or plasma albumin/glob ulin mass ratioOrdered By: Dr. Bettencourt on 11-02-2022 Albumin/Globulin [Mass ratio] 0.9 {ratio} 0.9-2.[address] [facility] Serum or plasma calcium oswaldo urement (mass/volume)Ordered By: Dr. Bettencourt on 11-02-2022 Calcium [Mass/Vol] 9.1 mg/dL 8.5-10.1 [facility] Serum or plasma cholesterol in HDL measurement (mass/volume)Ordered By: Dr. Bettencourt on 11-02-2022 Cholesterol in HDL [Mass/Vol] 37 mg/dL >[address] [facility] Comment on above: The drugs N-Acetylcy steine and Metamizole may falsely depress this assay. Reference Range HDL <40 mg/dL Low HDL Cholesterol HDL >or= 60 mg/dL High HDL Cholesterol Serum or plasma cholesterol in VLDL measurement (mass/volume)Ordered By: Dr. Bettencourt on 11-02-2022 Cholesterol in VLDL [Mass/Vol] 52 mg/dL 5-[address] [facility] Serum or plasma creatinine m easurement (mass/volume)Ordered By: Dr. Bettencourt on 11-02-2022 Creatinine [Mass/Vol] 0.82 mg/dL 0.55-1.02 [facility] Comment on above: The validity of the calculated GFR & GFRAA in patients over 70 years has not been determined. Clinical correlation is essential. Serum or plasma low density lipoprotein (LDL) cholesterol measurement (mass/volume)Ordered By: Dr. Bettencourt on 11-02-2022 Cholesterol in LDL [Mass/Vol] 169 mg/dL 0-[address] [facility] Serum or plasma urea nitroge n measurement (mass/volume)Ordered By: Dr. Bettencourt on 11-02-2022 Urea nitrogen [Mass/Vol] 10 mg/dL 7-[address] [facility] Thin prep Papanicolaou smear with manual screeningOrdered By: Dr. Bettencourt on 11-02-2022 Thin prep Papanicolaou smear with manual screening 19 U/L 15-[address] [facility] Thin prep Papanicolaou smear with manual screening 7 5-[address] [facility] Thin prep Papanicolaou smear with manual screening 6.5 mg/L NO RANGE EST. [facility] Urine creatinine measurement (mass/volume)Ordered By: Dr. Bettencourt on 11-02-2022 Creatinine (U) [Mass/Vol] 73.30 mg/dL NO RANGE EST. [facility] Vital Signs Date Time Vital Sign Value Performing Clinician Faci lity 08-21-2024 16:29-0400 Diastolic blood pressure 51 mm[Hg] Dr. Dany Thacker MD Work Phone: [facility] 08-21-2024 16:29-0400 Heart rate 71 /min Dr. Dany Thacker MD Work Phone: [facility] 08-21-2024 16:29-0400 Respiratory rate 17 /min Dr. Dany Thacker MD Work Phone: [facility] 08-21-2024 16:29-0400 SaO2% (BldA) [Mass fraction] 95 % Dr. Dany Thacker MD Work Phone: [facility] 08-21-2024 16:29-0400 Systolic blood pressure 109 mm[Hg] Dr. Dany Thacker MD Work Phone: [facility] 08-21-2024 14:49-0400 Body temperature 98.5 [degF] Dr. Dany Thacker MD Work Phone: [facility] 08-21-2024 12:29-0400 Body height 165.[address] Dany Thacker MD Work Phone: [facility] 08-21-2024 12:29-0400 Body mass index (BMI) [Ratio] 26.4 kg/m2 Dr. Dany Thacker MD Work Phone: [facility] 08-21-2024 12:29-0400 Body weight 72.[address] Dany Thacker MD Work Phone: [facility] 09-19-2023 12:25-0400 Body height 165.1 cm No Primary Care Physician [facility] 09-07-2023 08:23-0400 Body mass index (BMI) [Ratio] 27.3 kg/m2 No Primary Care Physician [facility] 09-07-2023 08:23-0400 Body weight 74.38 kg No Primary Care Physician [facility] 07-17-2023 07:47-0500 Body height 165.1 cm No Primary Care Physician [facility] 07-17-2023 07:47-0500 Body mass index (BMI) [Ratio] 26.6 kg/m2 No Primary Care Physician [facility] 07-17-2023 07:47-0500 Body temperature 97 [degF] No Primary Care Physician [facility] 07-17-2023 07:47-0500 Body weight 72.57 kg No Primary Care Physician [facility] 07-17-2023 07:47-0500 Diastolic blood pressure 65 mm[Hg] No Primary Care Physician [facility] 07-17-2023 07:47-0500 Heart rate 59 /min No Primary Care Physician [facility] 07-17-2023 07:47-0500 Respiratory rate 18 /min No Primary Care Physician [facility] 07-17-2023 07:47-0500 SaO2% (BldA) [Mass fraction] 97 % No Primary Care Physician [facility] 07-17-2023 07:47-0500 Systolic blood pressure 142 mm[Hg] No Primary Care Physician [facility] 01-17-2023 11:19-0400 Body height 165.[address] Dany Thacker Work Phone: [facility] 01-17-2023 11:12-0400 Body mass index (BMI) [Ratio] 27.3 kg/m2 Dr. Dany Thacker Work Phone: [facility] 01-17-2023 11:12-0400 Body weight 74.[address] Dany Thacker Work Phone: [facility] 01-17-2023 11:12-0400 Diastolic blood pressure 70 mm[Hg] Dr. Dany Thacker Work Phone: [facility] 01-17-2023 11:12-0400 Systolic blood pressure 124 mm[Hg] Dr. Dany Thacker Work Phone: [facility] Encounters Encounter Date Encounter Type Care Provider Facility Start: 11-07-2024 ambulatory Dany Thacker Facility:[facility] Start: 08-29-2024 End: 08-29-[address] Dany Thacker MD Work Phone: [facility] Work Phone: Start: 08-29-2024 End: 08-29-2024 Patient encounter procedure Rolf Nina Work Phone: Start: 08-29-2024 End: 08-29-2024 ambulatory Lisa Olivares Facility:[facility] Start: 08-27-2024 End: 08-27-2024 [facility]: Start: 08-27-2024 End: 08-27-[address] Dany Thacker MD Work Phone: [facility] Work Phone: Start: 08-27-2024 End: 08-27-2024 ambulatory Lisa Olivares Facility:[facility] Start: 08-21-2024 End: 08-21-2024 Emergency department patient visit Dr. Dany Thacker MD Work Phone: -Emergency Department Work Phone: Start: 08-16-2024 End: 08-16-[address] Dany Thacker MD Work Phone: [facility] Work Phone: Start: 08-16-2024 End: 08-16-[address] Dany Thacker MD -Laboratory, [place] Work Phone: Start: 08-16-2024 End: 08-16-2024 ambulatory [facility] Facility:[facility] Start: 05-09-2024 Encounter for genera l adult medical examination without abnormal findings [facility] Start: 04-09-2024 End: 04-09-2024 ambulatory [facility] Facility:[facility] Start: 03-21-2024 End: 03-21-2024 ambulatory [facility] Facility:[facility] Start: 01-01-2024 End: 01-01-2024 Emergency department patient visit Dimas Jackson Facility:[facility] Start: 12-16-2023 End: 12-16-2023 ambulatory [facility] Facility:[facility] Start: 09-21-2023 End: 09-21-2023 Patient encounter procedure No Primary Care Physician [facility] Work Phone: Start: 09-19-2023 End: 09-19-2023 ambulatory No Primary Care Physician [facility] Work Phone: Start: 09-19-2023 End: 09-19-2023 Patient encounter procedure No Primary Care Physician [facility] Work Phone: Start: 09-07-2023 End: 09-07-2023 Patient encounter procedure No Primary Care Physician [facility] Work Phone: Start: 07-17-2023 End: 07-17-2023 ambulatory No Primary Care Physician [facility] Work Phone: Start: 07-17-2023 End: 07-17-2023 Patient encounter procedure No Primary Care Physician [facility] Work Phone: Start: 01-17-2023 End: 01-17-[address] Dany Thacker Work Phone: [facility] Work Phone: Start: 01-17-2023 End: 01-17-[address] [facility] Thacker [facility] Work Phone: Start: 01-17-2023 End: 01-17-[address] Dany Thacker Work Phone: [facility] Work Phone: Start: 12-29-2022 End: 12-29-2022 ambulatory [facility] Work Phone: Start: 12-29-2022 End: 12-29-2022 Patient encounter procedure [facility] Work Phone: Start: 11-02-2022 End: 11-02-2022 ambulatory [facility] Work Phone: Start: 11-02-2022 End: 11-02-2022 Patient encounter procedure [facility] [place] Start: 11-19-2021 End: 11-19-2021 Patient encounter procedure [facility] Procedures Date Procedure Procedure Detail Performing Clinician Start: 08-21-2024 Computed tomography of abdomen and pelvis with intravenous contrast Dr. Dany Thacker MD Work Phone: Start: 08-16-2024 Clost[address]ium difficil e detection Dr. Dany Thacker MD Work Phone: Start: 08-16-[address] Dany Thacker MD Work Phone: Start: 09-19-2023 MRI of joint of uppe r extremity No Primary Care Physician Start: 07-17-2023 Plain x-ray of hand No Primary Care Physician Start: 12-29-2022 Screening mammography Start: 11-19-2021 Screening mammography Plan of Treatment Date Care Activity Detail Author Start: 08-21-2024 [facility] Start: 07-17-2023 Patient referral [facility] Work Phone: Start: 01-17-2023 Liquid based cervica l cytology screening [facility] Path report.final Dx Spec [facility] Patient Education ED Understanding Coliti s [facility] Work Phone: Patient referral [facility] Work Phone: [facility] Payers Date Payer Category Payer Self-pay [id number] 2023 Unknown [id number] Private Health Insurance [id number] Unknown [id number] 2.16.8 [id number] Unknown [id number] 2.16.8 [id number] Unknown [id number] 2.16.8 [id number] Unknown [id number] 2.16.8 [id number] Unknown [id number] 2.16.8 [id number] Unknown [id number] 2.16.8 [id number] Unknown [id number] 2.16.8 [id number] Unknown [id number] 2.16.8 [id number] Unknown [id number] 2.16.8 [id number] Unknown [id number] 2.16.8 [id number] Social History Date Type Detail Facility Start: 04-20-2021 End: 09-19-2023 Tobacco smoking status MDIS Unknown if ever smoked [facility] Start: 1960 Sex Assigned At Female W [facility] Start: 01-01-2024 End: 08-21-2024 Tobacco smoking status NHIS Ex-smoker (finding) [facility] Start: 08-20-2024 End: 09-02-2024 Sex Female (finding) [facility] Medical Equipment Procedure Code Equipment Code Equipment Original Text Equipment Identifier Dates Total cholecystectomy with exploration of common bile duct DRESSING,FIBRILLA R 1961 FDA Start: 04-22-2021 Total cholecystectomy with exploration of common bile duct Ligation clip, synthetic polymer, non-bioabsorbable ()[id number] FDA Start: 04-22-2021 Total cholecystectomy with exploration of common bile duct Ligation clip, synthetic polymer, non-bioabsorbable ()[id number] FDA Start: 04-22-2021 Total cholecystectomy with exploration of common bile duct DRESSING,FIBRILLA R [id number] FDA Start: 04-22-2021 Total cholecystectomy with exploration of common bile duct DRESSING,FIBRILLA R [id number] FDA Start: 04-22-2021 Total cholecystectomy with exploration of common bile duct DRESSING,FIBRILLA R 1X1960 FDA Start: 04-22-2021 Total cholecystectomy with exploration of common bile duct DRESSING,FIBRILLA R [id number] FDA Start: 04-22-2021 Total cholecystectomy with exploration of common bile duct DRESSING,FIBRILLA R [id number] FDA Start: 04-22-2021 Total cholecystectomy with exploration of common bile duct DRESSING,FIBRILLA R [id number] FDA Start: 04-22-2021 Total cholecystectomy with exploration of common bile duct DRESSING,FIBRILLA R 1960 FDA Start: 04-22-2021 Total cholecystectomy with exploration of common bile duct DRESSING,FIBRILLA R 1960 FDA Start: 04-22-2021 Total cholecystectomy with exploration of common bile duct DRESSING,FIBRILLA R 1960 FDA Start: 04-22-2021 Evaluation note 08-27-2024 Note Date & Type Note Facility 08-27-2024 Evaluation note Diagnosis Onset Date Resolution Elevated liver enzymes acute Ap 2024 9:52am Heartburn acute August 27 9:52am Colitis inactive August 27 9:52am [facility] Work Phone: Radiology Diagnostic study note 08-21-2024 Note Date & Type Note Facility 08-21-2024 Radiology Diagnostic study note [facility] Imaging Services [address] [place] [address] Abdomen/Pelvis W IV Cont ONLY MR#: [id number] Acct: [id number] Name: LINDA SANTIAGO HAIM Rep #: [id number] : 1960 F 63 From: Katarina Angel MD PCP: Dr. Dany Thacker MD Status: REG E R Study:Abdomen/Pelvis W IV Cont ONLY Date of E xam: 08/21/24 Exam# [id number] Ordering Dr: Sobeida Watts DO PROCEDURE: ABDOMEN/PELVIS W IV CONT ONLY 08/21/2024 REASON FOR EXAM: 63-year-old female, LOWER ABDOMINAL PAIN, history of diverticulitis. TECHNIQUE: Abdomen and pelvis CT with intravenous contrast. Coronal and Sagittal reconstruction series were provided. PATIENT PREPARATION: Per protocol ORAL CONTRAST TYPE: None. CONTRAST: Isovue 370 VOLUME: 100 mL One or more dose reduction techniques were used (e.g., Automated exposure control, adjustment of the mA and/or kV according to patient size, use of iterative reconstruction technique. RADIATION DOSE SUMMARY: CTDlvol: 25 mGy DLP: 800 mGycm COMPARISON: CT abdomen pelvis 01/01/2024. FINDINGS: Lung bases: Bibasilar atelectasis. The heart is normal in size. Liver: The liver is normal in size without focal hepatic mass. The major portalveins are patent. Minimal biliary ductal dilation. Gallbladder: Prior cholecystectomy. Spleen: Unremarkable. Pancreas: Unremarkable. Adrenals: Unremarkable. Kidneys: No hydronephrosis or nephrolithiasis. Bladder: Mildly distended and unremarkable. Reproductive Organs: Mildly lobular contour of the uterus with scattered fibroids. Bilateral Essure devices. Bowel: The bowel loops are normal in caliber. Mild wall thickening and enhancement of the distal sigmoid colon. Mild distal colonic diverticulosis. No ascites or pneumoperitoneum. Normal appendix. Lymph nodes: No suspicious lymph node enlargement. Vasculature: Mild mixed atherosclerotic plaque throughout the aortoiliac vessels. Bones: Minimal thoracolumbar spondylosis. No aggressive osseous lesions. CT/Abdomen/Pelvis W IV Cont ONLY IMPRESSION: 1. Mild wall thickening and enhancement of the distal sigmoid colon, which may represent infectious/inflammatory colitis. 2. No acute abdominopelvic finding. Reading Location: [facility] CC: Dr. Dany Thacker MD; Dr. Thomas Watts DO ~ Computer Applications Developer: Signed [facility] Evaluation note Note Date & Type Note Facility Evaluation note No assessment information availa ble [facility] Work Phone: Evaluation note Note Date & Type Note Facility Evaluation note Diagnosis Onset Date Atrophic vaginitis acute Lichen sclerosus acute Encounter for routine gyneco logical examination noneactive [facility] Work Phone: Evaluation note Note Date & Type Note Facility Evaluation note Diagnosis Onset Date Mass of left hand acute [facility] Work Phone: Evaluation note Note Date & Type Note Facility Evaluation note Diagnosis Onset Date Mass of left hand acute Mass of left hand acute Mass of left hand acute [facility] Work Phone: Hospital Discharge instructions Note Date & Type Note Facility Hospital Discharge instructions Ambulatory [facility] Location: None Selected [facility] Work Phone: Hospital Discharge instructions Note Date & Type Note Facility Hospital Discharge instructions Additional Instructions Thank you for trusting us with your care today! Your labs images were reassuring. Your CT scan showed evidence of inflammation of your colon but no evidence of obvious diverticulitis or other acute surgical pathology that require admission or operation. Please drink plenty of fluids recommend Body Armor/Pedialyte/Gatorade. Please take Zofran as needed for nausea and vomiting. Please take Tylenol (2 pills, 650 mg), ibuprofen (2 pills, 400 mg) every 6 hours as needed for pain and fever control. Please return to the emergency department if your symptoms change or worsen. Please follow with your primary care physician and Gastroenterology (Dr. Monroe) for further outpatient evaluation and management. [facility] Work Phone: Reason for referral (narrative) Note Date & Type Note Facility Reason for referral (narrative) No reason for referral information available [facility] Work Phone: Chief Complaint and Reason for Visit Chief Complaint SCREENING Chief Complaint EORDER Chief Complaint EORDER SCREENING Chief Complaint EORDER SCREENING Annual (HAMMERER) PAP Reason for Visit Atrophic vaginitis Lichen sclerosus Encounter for routine gynecological examination Chief Complaint SELF REFERRED - LESI ON ON ARM EORDER Reason for Visit Mass of left hand Chief Complaint SELF REFERRED - LESI ON ON ARM EORDER LEFT HAND LT WRIST CALCIFIED MASS left hand Reason for Visit Mass of left hand Mass of left hand Mass of left hand Chief Complaint Admit Date STOOL August 16, 2024 9:2 3am Chief Complaint Admit Date STOOL August 16, 2024 9:2 3am ABD pain August 21, 2024 12:2 8pm Chief Complaint Admit Date STOOL August 16, 2024 9:2 3am ABD pain August 21, 2024 12:2 8pm DIARRHEA - DVT August 27, 2024 9:52 am INT LAB ORDER August 27, 2024 10:4 7am LABSPEC August 29, 2024 7:5 6am Reason for Visit Admit Date Elevated liver enzymes August 27, 2024 9 :52am Heartburn August 27, 2024 9:52 am Colitis August 27, 2024 9:52 am Family History No Family History Records Found Relationship Condition Age at Onset Recorded Date/T dorian father Malignant neoplasm Unknown Hypertension Unknown mother Malignant neoplasm of breast Unknown Advance Directives No Advanced Directives Records Found Advance Directive Response Recorded Date/ Time Living Will No April 20 9:19am Power of Associate Java Developer No April 20, 2021 9:19am Advance Directive Response Recorded Date/ Time Living Will No April 20, 8:19am Power of Associate Java Developer No April 20, 2021 8:19am Advance Directive Response Recorded Date/ Time Living Will No September 19, 2023 12:25pm Power of Associate Java Developer No September 18 12:25pm Advance Directive Response Recorded Date/ Time Living Will No August 21, 2024 3:10pm Do you have a Healthcare Power of Associate Java Developer? No August 21, 2024 3:10pm Summary Purpose Additional Source Comments Goals (unrecognized section and content) Goals may be documented in a n alternate sectionGoals may be documented in an alternate sectionGoals may be documented in an alternate sectionGoals may be documented in an alternate sectionGoals may be documented in an alternate sectionGoals may be documented in an alternate sectionGoals may be documented in an alternate sectionGoals may be documented in an alternate sectionGoals may be documented in an alternate sectionGoals may be documented in an alternate section Care Teams (unrecognized sec tion and content) Team Status: Active Member Role Status Dates Dr. Dany Thacker MD Family Provider Active Dr. Dany Thacker MD Primary Care Provider Active Team Status: Inactive Member Role Status Dates Dr. Dany Thacker MD Primary Care Provider Active Dr. Lorenzo Bettencourt MD Attending Provider, Referri ng Provider Active Team Status: Inactive Member Role Status Dates Dr. Dany Thacker MD Primary Care Provider Active [facility] Attending Provider, Referring Provider Active Team Status: Active Member Role Status Dates Dr. Dany Thacker MD Family Provider Active No Primary Care Physician Primary Care Provider Active Team Status: Inactive Member Role Status Dates Dr. Dany Thacker MD Referring Provider Active [facility] Attending Provider Active Team Status: Inactive Member Role Status Dates No Primary Care Physician Primary Care Provider Active [facility] Attending Provider, Referring Provider Active Team Status: Inactive Member Role Status Dates No Primary Care Physician Primary Care Provider, Refer ring Provider Active Dr. Reji Villarreal MD Attending Provider Active Team Status: Inactive Member Role Status Dates Dr. Dany Thacker MD Primary Care Provider Active Dr. Reji Villarreal MD Attending Provider Active David RIVERA MD Referring Provider Active Team Status: Inactive Member Role Status Dates Dr. Dany Thacker MD Primary Care Provider, Referring Provider Active Dion Stewart MD Attending Provider Active Team Status: Inactive Member Role Status Dates Dr. Dany Thacker MD Primary Care Provider Active Dion Stewart MD Attending Provider, Referring Prov ider Active Team Status: Active Member Role Status Dates Dr. Dany Thacker MD Primary Care Provider Active Team Status: Inactive Member Role Status Dates Dr. Dany Thacker MD Primary Care Provider Active Start: August 16, 2024 End: August 16, 2024 Dr. Dany Thacker MD Attending Provider Active Start: August 16, 2024 End: August 16, 2024 Dr. Dany Thacker MD Referring Provider Active Start: August 16, 2024 End: August 16, 2024 Team Status: Inactive Member Role Status Dates Dr. Dany Thacker MD Primary Care Provider Active Start: August 21, 2024 End: August 21, 2024 Dr. Thomas Watts DO Emergency Provider Active Start: August 21, 2024 End: August 21, 2024 Team Status: Inactive Member Role Status Dates Dr. Dany Thacker MD Primary Care Provider Active Start: August 21, 2024 End: August 21, 2024 Dr. Thomas Watts DO Attending Provider Active Start: August 21, 2024 End: August 21, 2024 Dr. Thomas Watts DO Emergency Provider Active Start: August 21, 2024 End: August 21, 2024 Team Status: Inactive Member Role Status Dates Dr. Dany Thacker MD Primary Care Provider Active Start: August 27, 2024 End: August 27, 2024 Dr. Dany Thacker MD Referring Provider Active Start: August 27, 2024 End: August 27, 2024 MADONNA Jc Attending Provider Active Start: August 27, 2024 End: August 27, 2024 Team Status: Inactive Member Role Status Dates Dr. Dany Thacker MD Primary Care Provider Active Start: August 27, 2024 End: August 27, 2024 MADONNA Jc Attending Provider Active Start: August 27, 2024 End: August 27, 2024 MADONNA Jc Referring Provider Active Start: August 27, 2024 End: August 27, 2024 Team Status: Active Member Role Status Dates Dr. Dany Thacker MD Primary Care Provider Active Start: August 29, 2024 MADONNA Jc Attending Provider Active Start: August 29, 2024 MADONNA Jc Referring Provider Active Start: August 29, 2024 Team Status: Inactive Member Role Status Dates Dr. Dany Thacker MD Primary Care Provider Active Start: August 29, 2024 End: August 29, 2024 MADONNA Jc Attending Provider Active Start: August 29, 2024 End: August 29, 2024 MADONNA Jc Referring Provider Active Start: August 29, 2024 End: August 29, 2024 INFORMATION SOURCE (unrecogn ized section and content) DATE CREATED AUTHOR 11/05/2024 [facility] FOR RECORDS PERTAINING TO PATIENTS WHO ARE OR HAVE BEEN ENROLLED IN A CHEMICAL DEPENDENCY/SUBSTANCEABUSE PROGRAM, SOME INFORMATION MAY BE OMITTED. This clinical summary was aggregated from multiple sources. Caution should be exercised in using it in the provision of clinical care. This summary normalizes information from multiple sources, and as a consequence, information in this document may materially change the coding, format and clinical context of patient data. In addition, data may be omitted in some cases. CLINICAL DECISIONS SHOULD BE BASED ON THE PRIMARY CLINICAL RECORDS. [employer] provides no warranty or guarantee of the accuracy or completeness of information in this document.
[2024-11-07] MEDS: Lactated Ringers 1,000 ML 15 ML IV (06:36)
--- NOTE | 2024-11-07 06:46 | PRE.ANES_ITS ---
ASA Classification* ASA Classification ASA Classification: 2 (HTN, GERD, migraines, arthritis ) Assessment & Plan Anesthesia* Anesthesia Assessment Anesthesia Assessment: Discussed sedation and/or anesthesia options, risks, benefits, and alternatives with patient/parents/legal guardian/POA. Questions invited. The patient/parents/legal guardian/POA seems to understand and agrees to proceed with anesthesia plan. Reviewed the physical assessment, medical history, allergy history and patient home medications list prior to surgery/procedure/anesthetic and documented any changes. Performed airway and anesthesia risk assessments. Anesthesia Type Anesthesia Type: MAC History Source History Obtained from:: Patient and Chart Anesthesia Focused Assessment* Temperature: 98.6 F Pulse Rate: 64 Blood Pressure: 123/60 Respiratory Rate: 16 Pulse Ox: 95 Oxygen Delivery Method: Room Air Airway Assessment Mouth opens: >3 cm Mallampati Score: II Teeth Condition: Intact Neck Range of motion (ROM): Full ROM Labs Anesthesia Preop lab: CBC WBC 10.8 K/mm3 (4.4-11.0) 08/21/24 12:59 08/21/24 RBC 4.42 M/mm3 (4.2-5.4) 08/21/24 12:59 08/21/24 Hgb 13.4 g/dL (12.0-15.0) 08/21/24 12:59 08/21/24 Hct 39.0 % (37-47) 08/21/24 12:59 08/21/24 Plt Count 277 K/mm3 (150-450) 08/21/24 12:59 08/21/24 CHEMISTRY Potassium 4.3 mmol/L (3.3-5.1) 08/27/24 10:51 08/27/24 Sodium 140 mmol/L (133-145) 08/27/24 10:51 08/27/24 Magnesium 2.3 mg/dL (1.6-2.6) 11/01/17 09:38 11/01/17 BUN 9 mg/dL (4-19) 08/27/24 10:51 08/27/24 Creatinine 0.76 mg/dL (0.70-1.20) 08/27/24 10:51 08/27/24 Glucose 94 mg/dL (70-99) 08/27/24 10:51 08/27/24 TSH 2.04 uIU/mL (0.358-3.74) 11/02/22 07:01 COAG Pre-Assessment Diagnosis/Proposed Procedure Planned Operative Procedure(s): EGD, COLONOSCOPY Anesthesia History 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 When Was Last Pacemaker Check QUESTION #4 FULL TEXT: You/Your Family Experience fever (hyperthermia) with Anesthesia Last Oral Intake Last Oral intake: Last Oral Intake NPO since 04:00 11/07/24 06:33 Meds taken in AM with sips of No 11/07/24 06:33 water? Meds patient instructed to take am of surgery PONV PONV - bioinformatics programmer: PONV - bioinformatics programmer Female Yes 11/05/24 15:26 HX of Motion Sickness No 11/05/24 15:26 HX of N/V After Surgery No 11/05/24 15:26 Non-Smoker Yes 11/05/24 15:26 Duration of Surgery greater No 11/05/24 15:26 than 60 minutes Number of Risk Factors 2 11/05/24 15:26 PONV Score Moderate Risk 11/05/24 15:26 Height & Weight Height & Weight: Anesthesia: Height & Weight Height 5 ft 5 in 11/07/24 06:33 Weight: 72.2 kg 11/07/24 06:33 Body Mass Index (BMI) 26.4 11/07/24 06:33 Respiratory Assessment Respiratory Assessment - bioinformatics programmer: Respiratory Tract Infection Hx - bioinformatics programmer Hx Respiratory Tract Infection No 11/05/24 15:26 STOP Sleep Apnea STOP Sleep Apnea - bioinformatics programmer: STOP Sleep Apnea - bioinformatics programmer Hx Hypertension Yes 11/05/24 15:26 Hx Sleep Apnea No 11/05/24 15:26 CPAP BIPAP Do you snore loudly (louder No 11/05/24 15:26 than talking or can be heard Do you often feel tired/ No 11/05/24 15:26 fatigued/ sleepy during daytime? Has anyone observed you stop No 11/05/24 15:26 breathing during sleep? STOP Results Negative 11/05/24 15:26 QUESTION #5 FULL TEXT : Do you snore loudly (louder than talking or can be heard through closed doors)? 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 Specify any problems Hx of Preganancy in last 3 No 11/05/24 15:26 Months Nurse Filling Out Transfusion [facility] 11/05/24 15:26 & Questions: Date: 11/05/24 11/05/24 15:26 Time: 15:33 11/05/24 15:26 Patient unable to answer at this time (ie. confused, unrespo /Reproduction History /Reproductive History - bioinformatics programmer: /Reproductive Hx- bioinformatics programmer Hx Now No 11/05/24 15:26 Gestational Age (in weeks): EDC: Hx Hx Para Hx Section SAB No 11/05/24 15:26 Active Medications Active Medications: Current Medications Generic Name Dose Route Start Last Admin Trade Name Freq PRN Reason Stop Dose Admin Lactated Ringer's 1,000 mls @ 15 mls/hr 11/07/24 06:15 11/07/24 06:36 IV 15 mls/hr .Q48H SARA Administration PFSH Medical History Post-menopausal History of diverticulitis Mitral valve prolapse Hypertension Disease of gingiva due to infection Ganglion cyst of dorsum of left wrist Wears contact lenses Wears glasses Anxiety Arthritis Anemia Migraine headache History of IBS Gastric reflux Former smoker History of echocardiogram History of stress test Hx of mitral valve prolapse Cardiology follow-up encounter [place] Hypercholesteremia Home Medications ?Medication ?Instructions ?Recorded ?Last Taken ?Type famotidine 40 mg tablet 40 mg PO BID 01/20/21 History multivitamin 1 tab PO DAILY 01/12/2210/20 History clobetasol 0.05 % topical cream 1 applic topical DAILY PRN itching 09/28/22 10/16/23 Rx #15 grams lisinopril 20 mg tablet 20 mg PO DAILY 01/17/2310/20 History fexofenadine 60 mg tablet (Milly 60 mg PO DAILY PRN ALLERGY 09/07/23 Unknown History Allergy) ondansetron 4 mg disintegrating 4 mg PO Q8H PRN PRN Na usea #10 tabs 08/21/24 11/06/24 Rx tablet diphenhydramine 25 1 tab PO QHS PRN sedation 11/05/24 History mg-acetaminophen 500 mg tablet (Tylenol PM Extra Strength) omeprazole 20 mg tablet,delayed 20 mg PO QDAY PRN hear tburn 08/27/24 11/06/24 History release buspirone 7.5 mg tablet 7.5 mg PO BID 11/05/2411/06 History citalopram 20 mg tablet 30 mg PO DAILY 11/05/2410/20 History Allergy/AdvReac Type Severity Reaction Status Date / Time Penicillins Allergy Rash Verified 11/05/24 15:21 Family History Father Cancer lung Hypertension Mother Breast cancer Surgical History S/P laparoscopic cholecystectomy History of breast biopsy H/O tubal ligation Social History Smoking Status: Former smoker alcohol intake: current details: social substance use type: does not use caffeine: No what type of physical activity do you participate in: none seatbelt use: always do you feel safe at home: Yes 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
--- NOTE | 2024-11-07 07:00 | EGD_PTH ---
PATIENT: LINDA SANTIAGO LOC: EN U#:[id number] AGE/SX: 63/F ROOM: RE11/07/[address]: Dr. Leo Monroe DO : 1960 BED: DIS: 11/07/2024 SPEC #: [id number] RECD: 11/07/24 10:48 STATUS: IVANIA ARIK #: [id number] SONALI: 11/07/24 07:[address]: Leo Monroe DEPT: SURGICAL PATHOLOGY RECD BY: Maciej Keen ENTERED: 11/07/24 12:10 SP TYPE: EGD BIOPSY [place] DR: Dr. Dany Thacker MD Tissues: A - Duodenum, NOS B - Gastric mucous membrane C - Esophagus, NOS D - Ileum, NOS E - COLON BIOPSY F - Rectum, NOS Procedures: Immunohistochemical Stains Surgery Specimen Level IV HEADER OPERATION: Colonoscopy with biopsy, EGD with biopsy PRE-OP DIAGNOSIS: Colitis, heartburn, diarrhea TISSUE SUBMITTED: A- Duodenum biopsy, B- Gastric ulcer biopsy, C- Random esophagus biopsy,D- Terminal ileum biopsy, E- Random colon biopsy, F- Rectal biopsy MICROSCOPIC DIAGNOSIS A. Duodenum, biopsy: -Villous blunting, negative for increased intraepithelial lymphocytes. -Jaydon gland hyperplasia with superficial erosion and focal reactive epithelial change. 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 B. Stomach, ulcer, biopsy: -Features of reactive gastropathy with focal erosion. -IHC for H pylori is pending and will be reported in an addendum. C. Esophagus, random, biopsy: -Squamous mucosa negative for eosinophils. -Columnar mucosa negative for goblet cell metaplasia. D. Terminal ileum, biopsy: -Normal villous morphology with no specific pathologic change. E. Colon, random, biopsy: -No specific pathologic change. -The histologic features of microscopic colitis are not demonstrated. F. Rectum, biopsy: -No specific pathologic change. MICROSCOPIC DESCRIPTION Slides are reviewed. GROSS DESCRIPTION A. Received in fixative is one container labeled with the patient's name and designated Duodenum biopsy. The specimen consists of multiple irregular fragments of light bhatti soft tissue that in aggregate measure <0.1 to 0.7 cm. The specimen is totally submitted in one cassette. B. Received in fixative is one container labeled with the patient's name and designated Gastric ulcer biopsy. The specimen consists of multiple irregular fragments of light bhatti soft tissue that in aggregate measure <0.1 to 0.4 cm. The specimen is totally submitted in one cassette. C. Received in fixative is one container labeled with the patient's name and designated Random esophagus biopsy. The specimen consists of multiple irregular fragments of light bhatti soft tissue that in aggregate measure <0.1 to 0.5 cm. The specimen is totally submitted in one cassette. D. Received in fixative is one container labeled with the patient's name and designated Terminal ileum biopsy. The specimen consists of multiple irregular fragments of light bhatti soft tissue that in aggregate measure 0.9 x 0.6 x 0.1 cm. The specimen is totally submitted in one cassette. E. Received in fixative is one container labeled with the patient's name and designated Random colon biopsy. The specimen consists of multiple irregular fragments of light bhatti soft tissue that in aggregate measure 0.3 to 0.6 cm. The specimen is totally submitted in one cassette. F. Received in fixative is one container labeled with the patient's name and designated Rectal biopsy. The specimen consists of one irregular fragment of light bhatti soft tissue that measures 0.5 cm. The specimen is totally submitted in one cassette. JOSE CARLOS/ 11/07/2024 [facility]:[id number] ADDENDUM ADDENDUM ADDENDUM ADDENDUM ADDENDUM ADDENDUM ADDENDUM ADDENDUM ADDENDUM ADDENDUM 11/28/2024 11:01 ADDENDUM 11/28/2024 11:01 ADDENDUM 11/28/2024 11:01 ADDENDUM 11/28/2024 11:01 ADDENDUM 11/28/2024 11:01 This addendum is to report the IHC for H pylori on part B: B. The immunostain is negative for H pylori organisms. All matched controls reacted appropriately. These tests were developed and their performance characteristics determined by [facility]. They may not have been cleared or approved by the U.S. Food and Drug Administration. The FDA has determined that such clearance or approval is not necessary.? The above immunohistochemical/dualISH?markers are reviewed by the Pathologist..
--- NOTE | 2024-11-07 07:27 | PCM.HP.STD ---
HPI - General General Date of Admission: 11/07/24 Date of Service: 11/07/24 Chief Complaint: colitis, heartburn and elevated liver enzymes HPI Narrative LINDA SANTIAGO, is a 63 F who presents with the Chief Complaint: colitis [facility] ED 08.21.24 with nausea, abd pain and tenderness. Pt recently finished antibiotic for diverticulitis. Work up remarkable for elevated liver enzymes and colitis on CT. CT abd/pelvis 08.21.24:1. Mild wall thickening and enhancement of the distal sigmoid colon, which may represent infectious/inflammatory colitis. 2. No acute abdominopelvic finding. Pt was diagnosed with diverticulitis in December 2023 and was treated with antibiotics. She recently felt like she was having this again. She contacted her PCP and was put on an antibiotic however this time it worsened her symptoms and she discontinued it. She presented to the ED and had a CT which showed colitis. She endorses having issues with her bowels all through out her life with intermittent diarrhea. She has cut out gluten in her diet and has noticed improvements. SHe is not sure if the gluten free is helping or if she is just healing. Last colonoscopy was about 10 years ago. She also has intermittent heartburn and difficulty swallowing pills. SHe has tried famotidine and PPIs in the past for this. [facility] Medical History Post-menopausal History of diverticulitis Mitral valve prolapse Hypertension Disease of gingiva due to infection Ganglion cyst of dorsum of left wrist Wears contact lenses Wears glasses Anxiety Arthritis Anemia Migraine headache History of IBS Gastric reflux Former smoker History of echocardiogram History of stress test Hx of mitral valve prolapse Cardiology follow-up encounter [place] Hypercholesteremia Home Medications ?Medication ?Instructions ?Recorded ?Last Taken ?Type famotidine 40 mg tablet 40 mg PO BID 01/20/21 11/06/24 History multivitamin 1 tab PO DAILY 01/12/22 11/06/24 History clobetasol 0.05 % topical cream 1 applic topical DAILY PRN itching 09/28/22 10/16/23 Rx #15 grams lisinopril 20 mg tablet 20 mg PO DAILY 01/17/23 11/06/24 History fexofenadine 60 mg tablet (Milly 60 mg PO DAILY PRN ALLERGY 09/07/23 Unknown History Allergy) ondansetron 4 mg disintegrating 4 mg PO Q8H PRN PRN Nausea #10 tabs 08/21/24 11/06/24 Rx tablet diphenhydramine 25 1 tab PO QHS PRN sedation 08/27/24 11/05/24 History mg-acetaminophen 500 mg tablet (Tylenol PM Extra Strength) omeprazole 20 mg tablet,delayed 20 mg PO QDAY PRN heartburn 08/27/24 11/06/24 History release buspirone 7.5 mg tablet 7.5 mg PO BID 11/05/24 11/06/24 History citalopram 20 mg tablet 30 mg PO DAILY 11/05/24 11/06/24 History Allergy/AdvReac Type Severity Reaction Status Date / Time Penicillins Allergy Rash Verified 11/05/24 15:21 Family History Father Cancer lung Hypertension Mother Breast cancer Surgical History S/P laparoscopic cholecystectomy History of breast biopsy H/O tubal ligation Social History Smoking Status: Former smoker alcohol intake: current details: social substance use type: does not use caffeine: No what type of physical activity do you participate in: none seatbelt use: always do you feel safe at home: Yes 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 [employer] Constitutional Constitutional: Denies fatigue, fever(s), poor appetite, weight gain or weight loss Gastrointestinal Gastrointestinal: Denies belching, bloating, change in bowel habits, change in stool character, chewing difficulty, coffee ground emesis, constipation, cramping, diarrhea, dyspepsia, dysphagia, early satiety, excessive flatus, fecal incontinence, heartburn, hematemesis, hematochezia, hemorrhoids, loose stools, melena, nausea, odynophagia, rectal bleeding, tenesmus, vomiting or weight changes Vital Signs Vital Signs Vital Signs: 11/07/24 06:32 11/07/24 06:33 11/07/24 06:48 Temperature 98.6 F 98.6 F Temperature Source Temporal Pulse Rate 64 64 Respiratory Rate 16 16 Respiratory Pattern Normal Blood Pressure 123/60 H 123/60 H Blood Pressure Mean 81 Blood Pressure Source Monitor Blood Pressure Position Semi-Fowlers Blood Pressure Location Right Arm Pulse Ox 95 95 Oxygen Delivery Method Room Air Room Air Weight Weight: 159 lb 2.78 oz Body Mass Index (BMI) 26.4 Physical Exam Const alert, oriented x3, no apparent distress and healthy appearing General Appearance: cooperative GI normal to inspection, nondistended, normoactive bowel sounds, soft to palpation, non-tender and non-distended Percussion: normal to percussion Rectal Exam: deferred Assessment & Plan Assessment/Plan (1) Heartburn: (2) Diarrhea: PLAN: Assessment and Plan Assessment and Plan (1) Colitis: Status: Acute Plan: This is a 63 yo female pt here today for ED f/u after being diagnosed with colitis. Pt has a PMHx of diverticulitis with most recent episode in December 2023. Her symptoms of abd pain and loose stools have mostly resolved. She noticed improvements after cutting gluten out of her diet. Will order celiac panel and calprotectin. She will also undergo colonoscopy for assessment of her colon. She has daily heartburn in the evening. She has been on PPI and H2 macario in the past. SHe will have an EGD at the same time as colonoscopy. In the ED, she was found to have elevated liver enzymes. She endorses use of acetaminophen daily for 10 years. I will repeat CMP and consider further work up. -Colonoscopy and EGD -Celiac panel, calprotectin and CMP -f/u after procedure (2) Elevated liver enzymes: Status: Acute (3) Heartburn: Status: Acute Orders: Orders Celiac Disease Profile Today K52.9 - Noninfective gastroenteritis and colitis, unspecified Calprotectin, Stool Today K52.9 - Noninfective gastroenteritis and colitis, unspecified Comprehensive Metabolic Profil Today K52.9 - Noninfective gastroenteritis and colitis, unspecified
--- NOTE | 2024-11-07 08:16 | PCM.POST.ANE ---
Anesthesia: Postop Eval I Current Vital Signs Temperature: 97.5 F Pulse Rate: 67 Blood Pressure: 107/56 Respiratory Rate: 16 Pulse Ox: 100 Oxygen Delivery Method: Room Air Assessment Airway patent: Yes Spontaneous unlabored respirations: Yes Mental status: Asleep nausea: No Vomiting: No Anesthesia Complication: No Fluid Hydration Crystalloid volume administer (ml): 800 Total IV fluid infused: 800 Progress Note Anesthesia document: Postop Eval 1 completed: Yes
--- NOTE | 2024-11-07 08:21 | OP.EGD_ITS ---
Patient Name: Vanda Vela Procedure Date: 11/07/2024 7:34 AM Date of : 1960 Age: 63 Procedure: Upper GI endoscopy Indications: Epigastric abdominal pain, Functional Dyspepsia Providers: Leo Monroe DO Referring MD: Dany Thacker MD Medicines: Monitored Anesthesia Care Patient Profile: This is a 63 year old female. Refer to note in patient chart for documentation of history and physical. Patient has symptoms of acute abdominal cramping and acute epigastric abdominal pain. Complications: No immediate complications. Procedure: Pre-Anesthesia Assessment: - Prior to the procedure, a History and Physical was performed, and patient medications and allergies were reviewed. The patient is competent. The risks and benefits of the procedure and the sedation options and risks were discussed with the patient. All questions were answered and informed consent was obtained. Patient identification and proposed procedure were verified by the physician in the pre-procedure area. Mental Status Examination: alert and oriented. Airway Examination: normal oropharyngeal airway and neck mobility. Respiratory Examination: clear to auscultation. CV Examination: normal. Prophylactic Antibiotics: The patient does not require prophylactic antibiotics. Prior Anticoagulants: The patient has taken no anticoagulant or antiplatelet agents except for NSAID medication. ASA Grade Assessment: II - A patient with mild systemic disease. After reviewing the risks and benefits, the patient was deemed in satisfactory condition to undergo the procedure. The anesthesia plan was to use monitored anesthesia care (MAC). Immediately prior to administration of medications, the patient was re-assessed for adequacy to receive sedatives. The heart rate, respiratory rate, oxygen saturations, blood pressure, adequacy of pulmonary ventilation, and response to care were monitored throughout the procedure. The physical status of the patient was re-assessed after the procedure. After obtaining informed consent, the endoscope was passed under direct vision. Throughout the procedure, the patient's blood pressure, pulse, and oxygen saturations were monitored continuously. The colonoscope was introduced through the mouth, and advanced to the third part of the duodenum. Small bowel enteroscopy was deemed necessary. The upper GI endoscopy was accomplished without difficulty. The patient tolerated the procedure well. Scope In: 7:46:38 AM Scope Out: 7:53:03 AM Total Procedure Duration Time 0 hours 6 minutes 25 seconds Findings: One benign-appearing, intrinsic moderate stenosis was found at the cricopharyngeus. This stenosis measured 9 mm (inner diameter) x 3 cm (in length). The stenosis was traversed. Mucosal changes including ringed esophagus and small-caliber esophagus were found in the middle third of the esophagus and in the lower third of the esophagus. Biopsies were obtained from the proximal and distal esophagus with cold forceps for histology of suspected eosinophilic esophagitis. Verification of patient identification for the specimen was done. Estimated blood loss was minimal. Three non-bleeding linear gastric ulcers with no stigmata of bleeding were found in the gastric antrum. Biopsies were taken with a cold forceps for histology. Verification of patient identification for the specimen was done. Estimated blood loss was minimal. Biopsies were taken with a cold forceps for Helicobacter pylori testing. Verification of patient identification for the specimen was done. Many non-bleeding linear duodenal ulcers with no stigmata of bleeding were found in the duodenal bulb, in the first portion of the duodenum, in the second portion of the duodenum, in the third portion of the duodenum and in the fourth portion of the duodenum. The largest lesion was 4 mm in largest dimension. Biopsies were taken with a cold forceps for histology. Verification of patient identification for the specimen was done. Estimated blood loss was minimal. Impression: - Benign-appearing esophageal stenosis. - Esophageal mucosal changes suggestive of eosinophilic esophagitis. - Non-bleeding gastric ulcers with no stigmata of bleeding. Biopsied. - Non-bleeding duodenal ulcers with no stigmata of bleeding. Biopsied. - Biopsies were taken with a cold forceps for evaluation of eosinophilic esophagitis. Recommendation: - Discharge patient to home. - Resume previous diet. - Continue present medications. - Await pathology results. Procedure Code(s): --- Professional --- 52903, Small intestinal endoscopy, enteroscopy beyond second portion of duodenum, not including ileum; with biopsy, single or multiple CPT copyright 2021 [employer]. All rights reserved. The codes documented in this report are preliminary and upon brush clearer surveying review may be revised to meet current compliance requirements. Leo Monroe DO 11/07/2024 8:20:32 AM This report has been signed electronically. Number of Addenda: 0 Note Initiated On: 11/07/2024 7:34 AM
--- NOTE | 2024-11-07 08:21 | OP.CCLET_ITS ---
11/07/2024 Dany Thacker MD [address] [id number] Re : Upper GI endoscopy procedure for Vanda Vela Dear Dr. Thacker This procedure was performed on October. My impressions and recommendations are as follows: Impressions : - Benign-appearing esophageal stenosis. - Esophageal mucosal changes suggestive of eosinophilic esophagitis. - Non-bleeding gastric ulcers with no stigmata of bleeding. Biopsied. - Non-bleeding duodenal ulcers with no stigmata of bleeding. Biopsied. - Biopsies were taken with a cold forceps for evaluation of eosinophilic esophagitis. Recommendations : - Discharge patient to home. - Resume previous diet. - Continue present medications. - Await pathology results. My findings are described in the full procedure note, which is enclosed. If I can be of further assistance, please feel free to contact me at . Sincerely, Leo Monroe, 11/07/2024 8:20:32 AM This report has been signed electronically.
--- NOTE | 2024-11-07 08:23 | OP.COLON_ITS ---
Patient Name: Vanda Vela Procedure Date: 11/07/2024 7:53 AM Date of : 1960 Age: 63 Procedure: Colonoscopy Indications: Generalized abdominal pain, Clinically significant diarrhea of unexplained origin Providers: Leo Monroe DO Referring MD: Dany Thacker MD Medicines: Monitored Anesthesia Care Patient Profile: This is a 63 year old female. Refer to note in patient chart for documentation of history and physical. Patient has symptoms of acute abdominal cramping and acute epigastric abdominal pain. Last Colonoscopy: several years ago. Complications: No immediate complications. Procedure: Pre-Anesthesia Assessment: - Prior to the procedure, a History and Physical was performed, and patient medications and allergies were reviewed. The patient is competent. The risks and benefits of the procedure and the sedation options and risks were discussed with the patient. All questions were answered and informed consent was obtained. Patient identification and proposed procedure were verified by the physician in the pre-procedure area. Mental Status Examination: alert and oriented. Airway Examination: normal oropharyngeal airway and neck mobility. Respiratory Examination: clear to auscultation. CV Examination: normal. Prophylactic Antibiotics: The patient does not require prophylactic antibiotics. Prior Anticoagulants: The patient has taken no anticoagulant or antiplatelet agents except for NSAID medication. ASA Grade Assessment: II - A patient with mild systemic disease. After reviewing the risks and benefits, the patient was deemed in satisfactory condition to undergo the procedure. The anesthesia plan was to use monitored anesthesia care (MAC). Immediately prior to administration of medications, the patient was re-assessed for adequacy to receive sedatives. The heart rate, respiratory rate, oxygen saturations, blood pressure, adequacy of pulmonary ventilation, and response to care were monitored throughout the procedure. The physical status of the patient was re-assessed after the procedure. After I obtained informed consent, the scope was passed under direct vision. Throughout the procedure, the patient's blood pressure, pulse, and oxygen saturations were monitored continuously. The colonoscope was introduced through the anus and advanced to the terminal ileum. The colonoscopy was performed without difficulty. The patient tolerated the procedure well. The quality of the bowel preparation was adequate. The terminal ileum, ileocecal valve, appendiceal orifice, and rectum were photographed. Scope In: 7:54:47 AM Scope Withdrawal Time 0 hours 8 minutes 44 seconds Scope Out: 8:08:05 AM Total Procedure Duration Time 0 hours 13 minutes 18 seconds Findings: The perianal and digital rectal examinations were normal. The colon (entire examined portion) appeared normal. Biopsies were taken with a cold forceps for histology. Verification of patient identification for the specimen was done. Estimated blood loss was minimal. A patchy area of the distal ileum was congested. Biopsies were taken with a cold forceps for histology. Verification of patient identification for the specimen was done. Estimated blood loss was minimal. A few small-mouthed diverticula were found in the recto-sigmoid colon and sigmoid colon. Impression: - The entire examined colon is normal. Biopsied. - Congested mucosa in the distal ileum. Biopsied. - Diverticulosis in the recto-sigmoid colon and in the sigmoid colon. Recommendation: - Discharge patient to home. - Resume previous diet. - Continue present medications. - Await pathology results. - Repeat colonoscopy for surveillance based on pathology results. - Return to GI office. Procedure Code(s): --- Professional --- 00277, Colonoscopy, flexible; with biopsy, single or multiple CPT copyright 2021 [employer]. All rights reserved. The codes documented in this report are preliminary and upon dredge master review may be revised to meet current compliance requirements. Leo Monroe DO 11/07/2024 8:22:52 AM This report has been signed electronically. Number of Addenda: 0 Note Initiated On: 11/07/2024 7:53 AM
--- NOTE | 2024-11-07 08:23 | OP.CCLET_ITS ---
11/07/2024 Dany Thacker MD [address] [id number] Re : Colonoscopy procedure for Vanda Vela Dear Dr. Thacker This procedure was performed on October. My impressions and recommendations are as follows: Impressions : - The entire examined colon is normal. Biopsied. - Congested mucosa in the distal ileum. Biopsied. - Diverticulosis in the recto-sigmoid colon and in the sigmoid colon. Recommendations : - Discharge patient to home. - Resume previous diet. - Continue present medications. - Await pathology results. - Repeat colonoscopy for surveillance based on pathology results. - Return to GI office. My findings are described in the full procedure note, which is enclosed. If I can be of further assistance, please feel free to contact me at . Sincerely, Leo Monroe, 11/07/2024 8:22:52 AM This report has been signed electronically.
--- NOTE | 2024-11-07 11:27 | PCM.POSTANE2 ---
Anesthesia Postop Eval I Sum Postop Eval Completion status Anesthesia document: Postop Eval 1 completed: Yes Anesthesia Postop Eval I Summary Anesthesia Postop Eval I Summary: Anesthesia Postop Eval I: Assessment Summary Airway patent Yes 11/07/24 08:17 [email or web address] Spontaneous unlabored Yes 11/07/24 08:17 [email or web address] respirations Mental status Asleep 11/07/24 08:17 [email or web address] nausea No 11/07/24 08:17 [email or web address] Vomiting No 11/07/24 08:17 [email or web address] Anesthesia Postop Eval I: Fluid Summary Crystalloid volume administer 800 11/07/24 08:17 [email or web address] (ml) Colloids volume administered ( ml) Blood Product volume administered (ml) Total IV fluid infused 800 11/07/24 08:17 [email or web address] Anesthesia Postop Eval I: Summary Notes Anesthesia Complication No 11/07/24 08:17 [email or web address] Anesthesia Complication Comment: Post-operative progress note Anesthesia: Postop Eval II Evaluation Mental status: Awake Pain Level: 0 nausea: No Vomiting: No Complications Anesthesia Complication: No
== END 2024-11-07 09:00 | disposition home or self-care (01) ==
LOC: EN 05:52 → AC 05:53
PROVIDERS: PCP Family Medicine; Referring Provider Family Medicine; Visit Provider Internal Medicine Gastroenterology
PROC: 0DJD8ZZ Inspection of Lower Intestinal Tract, Via Natural or Artificial Opening Endoscopic (ICD-10-PCS; CPT 45378; principal; 2024-11-07 06:55)
DX: K25.9 Gastric ulcer, unspecified as acute or chronic, without hemorrhage or perforation (principal); I10 Essential (primary) hypertension; Z87.891 Personal history of nicotine dependence; K22.2 Esophageal obstruction; K57.30 Diverticulosis of large intestine without perforation or abscess without bleeding; E78.00 Pure hypercholesterolemia, unspecified; K26.9 Duodenal ulcer, unspecified as acute or chronic, without hemorrhage or perforation; R74.8 Abnormal levels of other serum enzymes; K21.9 Gastro-esophageal reflux disease without esophagitis; Z79.899 Other long term (current) drug therapy
CPT/HCPCS: 45380; 43239; 88305; 88342; J2405

== ENCOUNTER → 2025-04-23 | Outpatient (CLI) | payer OTHER, SELFPAY ==
--- NOTE | 2025-04-23 16:15 | BI_ITS ---
EXAM: SCRN MAMM (CAD)W/CAITLIN BILAT DATE: 04/23/2025 CLINICAL HISTORY: F, Age 64 y/o , BREAST CANCER SCREENING Mother with breast cancer. Prior bilateral excisional breast biopsies. TECHNIQUE: Procedure Code: [id number] Modality: MG Procedure: SCRN MAMM (CAD)W/CAITLIN BILAT COMPARISON: Prior exam(s) dated April 09, 2024.. FINDINGS: TISSUE DENSITY: The breasts are heterogeneously dense, which may obscure small masses. Bilateral Breast Mammographic Findings: No significant masses, calcifications or other abnormalities are identified. Stable calcified nodule in the retroareolar region of the right breast. No suspicious masses, areas of developing architectural distortion, or suspicious calcifications. There has been no significant interval change. BI/SCRN MAMM (CAD)W/CAITLIN BILAT IMPRESSION: Stable bilateral screening mammogram. OVERALL FINAL ASSESSMENT BI-RADS 2: BENIGN RECOMMENDATION: Routine annual follow-up in 1 Year Additional Recommendation none A letter with findings and recommendations will be mailed to the patient. Reading Location: [place] [id number]
== END | disposition home or self-care (01) ==
LOC: OPBI 16:00
PROVIDERS: PCP Family Medicine; Referring Provider Nurse Practitioner Women's Health; Visit Provider Nurse Practitioner Women's Health
DX: Z01.419 Encounter for gynecological examination (general) (routine) without abnormal findings (principal); Z12.31 Encounter for screening mammogram for malignant neoplasm of breast
CPT/HCPCS: 77063; 77067

== ENCOUNTER 2025-04-28 05:22 | Day surgery (SDC) | payer OTHER, SELFPAY ==
[2025-04-28] VITALS (8 sets, daily range): BP systolic 99–133; BP diastolic 49–68; PULSE 58–67; RESP 14–16; TEMP 36.4–36.9; O2SAT 64–98; BMI 28.2
--- OUTSIDE RECORDS SUMMARY | 2025-04-28 05:24 | XMS RPT_ITS | CCD ---
Author Organization [facility] Care Team Providers Care Sonography Technician Name Role Phone Dr. Dany Thacker Referring Provider Jhonatan CUSTOM WOOD STAIR BUILDER, KACI Gifford Attending Provider [phone] Care Physician, No Primary Primary Care Provider Unavailable Care Physician, No Primary Referring Provider Un available Cebul, Dr. Reji Schreiber Attending Provider [phone] Care Physician, No Primary Primary Care Provider Unavailable Care Physician, No Primary Referring Provider Un available Cebul, Dr. Reji Schreiber Attending Provider [phone] Dany Thacker Primary Care Provider Dr. Dany Thacker Referring Provider [phone] MD Dion Stewart Attending Provider [phone] Kedar BROOKS, Dr. Saenz Primary Care Provider [phone] Dr. Dany Thacker MD Attending Provider Kedar BROOKS, Dr. Saenz Referring Provider Dr. Thomas Watts DO Emergency Provider Dr. Thomas Watts DO Attending Provider Lisa Avila Attending Provider Lisa Avila Referring Provider Dr. Leo Monroe DO Attending Provider Dr. Leo Monroe DO Other Provider Dany Thacker Attending Unavailable Dany Thacker Referring Unavailable Dany Thacker Primary Care Unavailable Dany Thacker Primary Care Unavailable Lisa Olivares Attending Unavailable Lisa Olivares Referring Unavailable Dany Thacker Primary Care Unavailable Lisa Olivares Attending Unavailable Lisa Olivares Referring Unavailable Thacker, Dany Referring Unavailable Thacker, Dany Primary Care Unavailable Friend, Leo Attending Unavailable Thacker, Dany Primary Care Unavailable Thomas Watts Attending Unavailable Thacker, Dany Primary Care Unavailable Friend, Leo Attending Unavailable Thacker, Dany Referring Unavailable Thacker, Dnay Primary Care Unavailable Lisa Olivares Attending Unavailable Ирина Israel NP Attending Unavailable Thacker, Dany Referring Unavailable Thacker, Dany Primary Care Unavailable Thacker, Dany Referring Unavailable Thacker, Dany Primary Care Unavailable Lisa Olivares Attending Unavailable Thacker, Dany Referring Unavailable Thacker, Dany Primary Care Unavailable Friend, Leo Consulting Unavailable Friend, Leo Attending Unavailable Thacker, Dany Primary Care Unavailable Thacker, Dany Attending Unavailable Thacker, Dany Referring Unavailable Thacker, Dany Attending Unavailable Thacker, Dany Referring Unavailable Thacker, Dany Primary Care Unavailable Thacker , Dr. Saenz Primary Care Physician Dr. Dany Thacker MD Referring Provider Lisa Avila Attending Physician [phone] Ирина Valladares Attending Physician [phone] Allergies Allergy Classification Reported Allergen(s) Allergy Type Date of Onset Reaction(s) Facility (5 sources) Penicillin G Drug Allergy 05-03-2021 Other [facility] (8 sources) Penicillins Allergy to substance 09-21-2023 Rash [facility] (1 source) Penicillins Drug allergy (disorder) 02-27-2025 [facility] Repository Medications Current Medications Medication Drug Class(es) Dates Sig (Normalized) Sig (Original) busPIRone hydrochloride 7.5 mg oral tablet (3 sources) Start: 11-05-2024 take 1 tablet by mouth twice daily Buspirone 7.5 mg tablet Active 7.5 mg PO TWICE A DAY November 05, 2024 12:00am Complies with drug therapy citalopram 20 mg oral tablet (20 sources) Serotonin Reuptake Inhibitor Start: 11-05-2024 Citalopram 20 mg tablet Active 30 mg PO DAILY November 05, 2024 12:00am Complies with drug therapy Start: 01-10-2018 End: 08-27-2024 take 1.5 tablets by mouth once daily Citalopram (Celexa) 20 mg tablet Discontinued 20 mg PO .COMPLEX 90 June 05, 2018 10:35am April 20, 2021 9:18am 20 mg PO 1.5 tab daily Start: 12-13-2017 End: 01-10-2018 take 1 tablet by mouth once daily Citalopram (Celexa) 20 mg tablet Discontinued 20 mg PO daily 30 December 13, 2017 12:00am January 10, 2018 11:08am clobetasol propionate 0.5 mg/ml topical cream (20 sources) Corticosteroid Start: 02-27-2025 Clobetasol 0.0 5 % cream Active 1 NMA TOPICAL DAILY as needed for itching 05 06February 27, 2025 2:28pm apply small amount topically daily and prn as needed for itching Complies with drug therapy Start: 11-16-2021 End: 09-28-2022 Clobetasol 0.05 % cream Disc ontinued 1 NMA TOPICAL DAILY as needed for itching 15 November 16, 2021 12:00am September 28, 2022 10:56am apply small amount topically daily and prn as needed for itching Start: 11-16-2021 End: 02-27-2025 Clobetasol 0.05 % cream Disc ontinued 1 NMA TOPICAL DAILY as needed for itching 05 06September 28, 2022 10:56am February 27, 2025 2:28pm apply small amount topically daily and prn as needed for itching Start: 07-24-2019 End: 09-28-2020 Clobetasol 0.05 % cream Disc ontinued 1 NMA TOPICAL .COMPLEX 15 July 24, 2019 1:00am September 28, 2020 7:39am 1 applic TOPICAL apply thin layer as directed bid X 2 weeks then daily X 2 weeks; apply thin layer; massage in to cover area colestipol hydrochloride 1000 mg oral tablet (2 sources) Bile Acid Sequestrant Start: 11-28-2024 Colestip ol 1 gram tablet Active 1 g PO daily 30 November 28, 2024 12:00am Complies with drug therapy Diphenhydramine-Acetamin ophen (1 source) Start: 09-07-2023 Diphenhydramin e-Acet aminophen Active ML PO September 07, 2023 12:00am estradiol 0.1 mg/ml vaginal cream (20 sources) Estrogen Start: 02-27-2025 Estradiol 0.01 % (0.1 mg/gram) cream Active 0 VAGINAL TWICE A WEEK February 27, 2025 12:00am small amount vaginally twice a week; [facility] Complies with drug therapy Start: 01-12-2022 End: 08-27-2024 Estradiol 0.01 % (0.1 mg/gra m) cream Discontinued 0 VAGINAL .COMPLEX 42.5 0 February 10, 2023 3:25pm August 27, 2024 [...] X 4 weeks then twice a week; fexofenadine hydrochloride 60 mg oral tablet (8 sources) Histamine-1 Receptor Antagonist Start: 09-07-2023 take 1 tablet by mouth once daily as needed Fexofenadine (Milly Allergy) 60 mg tablet Active 60 mg PO DAILY as needed for ALLERGY September 07, 2023 12:00am Complies with drug therapy lisinopril 20 mg oral tablet (10 sources) Angiotensin Converting Enzyme Inhibitor Start: 01-17-2023 take 1 tablet by mouth once daily Lisinopril 20 mg tablet Active 20 mg PO DAILY January 17, 2023 12:00am Complies with drug therapy Multivitamin preparation (5 sources) Start: 01-12-2022 take 1 tablet by mouth once daily Multivitamin Active 1 TABLET PO DAILY January 11, 2022 11:00pm Start: 01-12-2022 take 1 tablet by shania th once daily Multivitamin Active 1 TABLET PO DAILY January 12, 2022 12:00am Multivitamin tablet (7 sources) Start: 01-12-2022 Multivitamin t ablet Active 1 {tbl} PO DAILY January 12, 2022 12:00am Complies with drug therapy Start: 01-12-2022 Multivitamin t ablet Active 1 {tbl} PO DAILY January 12, 2022 12:00am omeprazole 40 mg delayed release oral capsule (7 sources) Proton Pump Inhibitor Start: 11-27-2024 take 1 capsule by mouth once daily Omeprazole 40 mg capsule,delayed release(DR/EC) Active 40 mg PO daily 60 2 November 27, 2024 12:00am Complies with drug therapy Start: 08-27-2024 End: 02-27-2025 take 1 tablet by mouth once daily as needed for gastroesophageal reflux disease Omeprazole 20 mg tablet,delayed release (DR/EC) Discontinued 20 mg PO daily as needed for heartburn August 27, 2024 12:00am February 27, 2025 2:26pm Completed/Discontinued Medications Medication Drug Class(es) Dates Sig (Normalized) Sig (Original) acetaminophen 500 mg / diphenhydrAMINE hydrochloride 25 mg oral tablet (5 sources) Histamine-1 Receptor Antagonist Start: 08-27-2024 End: 02-27-2025 Diphenhydramine-Acet aminophen (Tylenol Pm Extra Strength) 25-500 mg tablet Discontinued 1 {tbl} PO AT BEDTIME as needed for sedation August 27, 2024 12:00am February 27, 2025 2:25pm acetaminophen 325 mg / HYDROcodone bitartrate 5 mg oral tablet (13 sources) Opioid Agonist Start: 04-22-2021 End: 01-12-2022 Hydrocodone-Acetamin ophen 5-325 mg tablet Discontinued 1 {tbl} PO EVERY 6 HOURS as needed for pain 6 2 0 April 22, 2021 January 12, 2022 9:30am Cholelithiasis with chronic cholecystitis Calculus of gallbladder with chronic cholecystitis without obstruction Start: 04-22-2021 End: 01-12-2022 take 1 tablet by mouth every six hours Hydrocodone-Acetaminophen Discontinued 1 TABLET PO EVERY 6 HOURS 6 2 April 22, 2021 January 12, 2022 9:30am calcium carbonate 1500 mg oral tablet (13 sources) Start: 01-20-2021 End: 01-12-2022 take 1 tablet by mouth once daily Calcium Carbonate 600 mg calcium (1,500 mg) tablet Discontinued 600 mg PO DAILY January 20, 2021 12:00am January 12, 2022 9:28am cholecalciferol 0.05 mg oral capsule (13 sources) Vitamin D Start: 01-20-2021 End: 01-12-2022 take 1 capsule by mouth once daily Cholecalciferol (Vitamin D3) 50 mcg (2,000 unit) capsule Discontinued 50 ug PO DAILY January 20, 2021 12:00am January 12, 2022 9:29am ciprofloxacin 500 mg oral tablet (7 sources) Quinolone Antimicrobial Start: 01-01-2024 End: 08-27-2024 take 1 tablet by mouth twice daily Ciprofloxacin Hcl 500 mg tablet Discontinued 500 mg PO TWICE A DAY 20 0 January 01, 2024 12:00am August 27, 2024 10:11am Diphenhydramine-Acet aminophen 25-500 mg-mg/mL solution (7 sources) Start: 09-07-2023 End: 11-04-2023 take 1 mL by mouth at bedtime Diphenhydramine-Acet aminophen 25-500 mg-mg/mL solution Discontinued 15 mL PO AT BEDTIME September 07, 2023 12:00am November 04, 2023 11:55am doxycycline hyclate 100 mg oral tablet (7 sources) Tetracycline-class Drug Start: 12-16-2023 End: 08-27-2024 take 1 tablet by mouth twice daily Doxycycline Hyclate 100 mg tablet Discontinued 100 mg PO TWICE A DAY 14 0 December 16, 2023 12:00am August 27, 2024 10:10am famotidine 40 mg oral tablet (20 sources) Histamine-2 Receptor Antagonist Start: 01-20-2021 End: 02-27-2025 take 1 tablet by mouth twice daily Famotidine 40 mg tablet Discontinued 40 mg PO TWICE A DAY January 20, 2021 12:00am February 27, 2025 2:25pm Start: 12-13-2017 End: 07-24-2019 take 1 tablet by mouth once daily Famotidine (Pepcid) 40 mg tablet Discontinued 40 mg PO daily December 13, 2017 12:00am July 24, 2019 11:49am fluticasone propionate 0.05 mg/actuat metered dose nasal spray (7 sources) Corticosteroid Start: 11-04-2023 End: 11-18-2023 take 50 ug nasal route every twelve hours Fluticasone Propionate (Allergy Relief (Fluticasone)) 50 mcg/actuation spray,suspension Discontinued 1 NMA INTRANASAL Q12H 16 14 0 November 04, 2023 12:00am November 17, 2023 12:00am November 18, 2023 12:11am administer into each nostril meclizine hydrochloride 25 mg oral tablet (7 sources) Antiemetic Start: 11-04-2023 End: 08-27-2024 take 1 tablet by mouth three times daily as needed for dizziness Meclizine 25 mg tablet Discontinued 25 mg PO THREE TIMES A DAY as needed for dizziness 30 0 November 04, 2023 12:00am August 27, 2024 10:13am methylPREDNISolone 4 mg oral tablet (7 sources) Corticosteroid Start: 12-16-2023 End: 11-05-2024 take 1 tablet by mouth once Methylprednisolone (Medrol (Sebastien)) 4 mg tablets,dose pack Discontinued 0 PO per package directions 21 0 December 16, 2023 12:00am November 05, 2024 3:23pm PO PER PKG DIR metroNIDAZOLE 500 mg oral tablet (7 sources) Nitroimidazole Antimicrobial Start: 01-01-2024 End: 08-27-2024 take 1 tablet by mouth every six hours Metronidazole 500 mg tablet Discontinued 500 mg PO EVERY 6 HOURS 40 0 January 01, 2024 12:00am August 27, 2024 10:14am nystatin [id number] unt/ml topical cream (13 sources) Polyene Antifungal Start: 12-13-2017 End: 10-21-2020 Nystatin 100,000 unit/gram cream Discontinued 1 NMA TOPICAL TWICE A DAY as needed for monilial intertrigo 15 December 13, 2017 12:00am October 21, 2020 8:35am Start: 12-13-2017 End: 10-21-2020 Nystatin Discontinued 1 APPL IC TOPICAL TWICE A DAY December 13, 2017 12:00am October 21, 2020 8:35am ondansetron 4 mg disintegrating oral tablet (6 sources) Serotonin-3 Receptor Antagonist Start: 08-21-2024 End: 02-27-2025 take 1 tablet by mouth every eight hours as needed for nausea Ondansetron 4 mg tablet,disintegrating Discontinued 4 mg PO EVERY 8 HOURS NEEDED as needed for Nausea 10 0 August 21, 2024 12:00am February 27, 2025 2:26pm rosuvastatin calcium 10 mg oral tablet (10 sources) HMG-CoA Reductase Inhibitor Start: 01-17-2023 End: 08-27-2024 take 1 tablet by mouth once daily Rosuvastatin 10 mg tablet Discontinued 10 mg PO DAILY January 17, 2023 12:00am August 27, 2024 10:13am Problems Active Problems Problem Classification Problem Date Documented Da te Episodic/Chronic Anxiety disorders (13 sources) Anxiety; Translations: [Anxiety disorder, unspecified] 01-10-2018 Chronic Biliary tract disease (13 sources) Calculus of gallbladder with cholecystitis; Translations: [Calculus of gallbladder with chronic cholecystitis without obstruction] 01-12-2022 Episodic Conditions associated with dizziness or vertigo (7 sources) Vertigo; Translations: [Dizziness and giddiness] 11-04-2023 Episodic Disorders of lipid metabolism (13 sources) Hypercholesterolemia; Translations: [Pure hypercholesterolemia, unspecified] 10-21-2020 Chronic Disorders of teeth and jaw (7 sources) Gingival disease; Translations: [Other specified disorders of gingiva and edentulous alveolar ridge] 12-16-2023 Episodic Diverticulosis and diverticulitis (8 sources) Diverticulitis of sigmoid colon; Translations: [Diverticulitis of large intestine without perforation or abscess without bleeding] Onset: 08-20-2024 01-09-2024 Chronic Menopausal disorders (15 sources) Atrophic vaginitis; Translations: [Postmenopausal atrophic vaginitis] 01-12-2022 Chronic Comment on above: estradiol cream/[facility] Noninfectious gastroenteritis (11 sources) Colitis; Translations: [Noninfective gastroenteritis and colitis, unspecified] Onset: 01-29-2025 08-21-2024 Episodic Other and unspecified benign neoplasm (13 sources) Lipoma (clinical); Translations: [Benign lipomatous neoplasm, unspecified] 01-12-2022 Episodic Other circulatory disease (13 sources) Labile hypertension due to being in a clinical environment; Translations: [Elevated blood-pressure reading, without diagnosis of hypertension] 07-24-2019 Episodic Other connective tissue disease (8 sources) Ganglion cyst of left dorsal wrist; Translations: [Ganglion, left wrist] 09-07-2023 Episodic Other gastrointestinal disorders (11 sources) Heartburn; Translations: [Heartburn] 08-27-2024 Episodic Other gastrointestinal disorders (6 sources) Diarrhea; Translations: [Diarrhea, unspecified] 11-07-2024 Episodic Other gastrointestinal disorders (1 source) Heartburn; Translations: [Heartburn] Onset: 01-29-2025 Episodic Other gastrointestinal disorders (1 source) Diarrhea, unspecified; Translations: [Diarrhea, unspecified] Onset: 01-29-2025 Episodic Other gastrointestinal disorders (2 sources) History of diverticulitis; Translations: [Personal history of other diseases of the digestive system] 11-28-2024 Episodic Other liver diseases (9 sources) Elevated liver enzymes level; Translations: [Abnormal levels of other serum enzymes] 08-27-2024 Episodic Other skin disorders (15 sources) Lichen sclerosus et atrophicus; Translations: [Lichen sclerosus et atrophicus] 01-12-2022 Chronic Comment on above: clobetesol/stable Other skin disorders (13 sources) Mass of subcutaneous tissue; Translations: [Localized swelling, mass and lump, unspecified] 01-12-2022 Episodic Other skin disorders (9 sources) Mass of hand; Translations: [Localized swelling, mass and lump, left upper limb] 07-17-2023 Episodic Other skin disorders (4 sources) Localized swelling, mass and lump, left upper limb; Translations: [Localized superficial swelling, mass, or lump] 07-17-2023 Episodic Past or Other Problems Problem Classification Problem Date Documented Da te Episodic/Chronic Abdominal pain (8 sources) Abdominal pain; Translations: [Unspecified abdominal pain] Onset: 11-04-2024 01-09-2024 Episodic Results Test Name Value Interpretation Reference Range Facility House Worker Office Visit Reporton 02-27-2025 House Worker Office Visit Report [facility]'[address], [address] [place] [address] OFFICE VISIT Date of Service: 02/27/25 MR#: [id number] Acct: [id number] Name: VANDA SANTIAGO Rep #: [id number] : 1960 Provider: KACI roberts Age/Sex: 64/F Location: [facility] [place] Status: Signed Intake Vital Signs 11/07/24 06:33 02/27/25 14:20 02/27/25 14:26 Height 5 ft 5 in 5 ft 5 in 5 ft 5 in Weight: 169 lb 7 oz BMI 28.2 BP 115/70 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: No Is patient in pain?: No Allergies Penicillins Allergy (Verified 02/27/25 14:27) Rash Medications ???Medication ???Instructions ???Recorded ???Confirmed ???Type multivitamin 1 tab PO DAILY 01/12/22 02/27/25 H istory lisinopril 20 mg tablet 20 mg PO DAILY 01/17/23 02/27/25 H istory fexofenadine 60 mg tablet (Milly 60 mg PO DAILY PRN ALLERGY 09/0602/27/25 History Allergy) buspirone 7.5 mg tablet 7.5 mg PO BID 11/05/24 02/27/25 Hi story citalopram 20 mg tablet 30 mg PO DAILY 11/05/24 02/27/25 H istory omeprazole 40 mg capsule,delayed 40 mg PO QDAY #60 caps 11/27/24 Rx release colestipol 1 gram tablet 1 g PO QDAY #30 tabs 11/28/24 1002/13 Rx clobetasol 0.05 % topical cream 1 applic topical DAILY PRN itching 02/27/25 02/27/25 Rx #15 grams estradiol 0.01% (0.1 mg/gram) See Rx Instructions vaginal 2XW 02/27/25 History vaginal cream Is last menstrual period known: No Post menopausal: Yes Patient : No : No PFSH Medical History Post-menopausal History of diverticulitis Mitral valve prolapse Hypertension 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 Date Name GA/Weeks Outcome Route Bth Weight Infant Gen Labor Lgth Anesthesia Del Locatn Provider FOB Unknown 1981 Lui Male Unknown 1984 Alondra Female HPI Encounter for routine gynecological examination Details: VANDA SANTIAGO is a 64 year old who presents for annual exam. Needs refill of estradiol cream(compounded) and clobetesol cream Last PAP: 2022 History of abnormal PAP: no Last mammogram: 03/2024 History of abnormal mammogram: benign bx Colon cancer screenin Other preventative health care screenings: Francois Female Reproductive History Questions: metrorrhagia: No, sexually active: Yes, dyspareunia: No and PCB: No Menopausal Treatment: Yes Vaginal Estrogen ROS Const Constitutional: Denies fatigue, weight gain or weight loss Cardio Card: Denies chest pain Resp Resp: Denies cough or dyspnea on exertion GI GI: Denies abdominal pain, bloating, change in stool character, constipation or vomiting : Reports as per HPI; Denies difficulty voiding, pelvic pain, urinary frequency, urinary incontinence, urinary urgency, vaginal discharge or vaginal pruritus Exam Const General: cooperative, healthy appearing, no acute distress and well developed Orientation: alert, oriented to person and oriented to place HENMA Head: normal to inspection Neck Neck: normal visual inspection Thyroid: thyroid normal Lymphatic: no lymphadenopathy noted Chest Breast inspection: normal inspection of the breasts and normal inspection of the axillae Breast palpation: normal palpation of the breasts, normal palpation of the axillae and no axillary lymphadenopathy Resp Effort Inspection: normal respiratory effort GI Palpation: soft, no masses and nontender Rectal Exam: deferred External Female Exam: normal external appearance and normal appearance of the u (more content not included)... Normal [facility] Gastroenterology Visit Repor ton 11-28-2024 Gastroenterology Visit Report [facility] Gastroenter[facility] [address] [place] [address] OFFICE VISIT Date of Service: 11/28/24 MR#: [id number] Acct: [id number] Name: VANDA SANTIAGO HAIM Rep #: [id number] : 1960 Provider: JEFF Jc Age/Sex: 63/F Location: [facility] [place] Status: Signed Intake Vital Signs 11/07/24 06:33 Height 5 ft 5 in Intake Visit Reasons: loose stool Chief Complaint: colitis Allergies Penicillins Allergy (Verified 11/05/24 15:21) Rash Nurse's Note: OV 11/28/24 Pt here for a f/u and reports diarrhea, gas, bloating and heartburn. 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 HPI HPI Chief Complaint: colitis Details: VANDA SANTIAGO, is a 63 F who presents to the office today for f/u. [facility] ED 08.21.24 with nausea, abd pain and tenderness. Pt recently finished antibiotic for diverticulitis. Work up remarkable for elevated liver enzymes and colitis on CT. CT abd/pelvis 08.21.24:1. Mild wall thickening and enhancement of the distal sigmoid colon, which may represent infectious/inflammator y colitis. 2. No acute abdominopelvic finding. Pt [...] and PPIs in the past for this. EGD- Benign-appearing esophageal stenosis. - Esophageal mucosal changes suggestive of eosinophilic esophagitis. - Non-bleeding gastric ulcers with no stigmata of bleeding. Biopsied. - Non-bleeding duodenal ulcers with no stigmata of bleeding. Biopsied. - Biopsies were taken with a cold forceps for evaluation of eosinophilic esophagitis. Colonoscopy The entire examined colon is normal. Biopsied. - Congested mucosa in the distal ileum. Biopsied. - Diverticulosis in the recto-sigmoid colon and in the sigmoid colon OV 7 Pt here today to review results of endoscopy. SHe has had continued symptoms of daily loose stools. This is affecting her life as she feels afraid to go anywhere due to this urgency. She denies abd pain, constipation, heartburn, nausea or vomiting. ROS Const Constitutional: Positive for fatigue; No fever(s) or weight change ENT ENT: No difficulty swallowing Gastro GI: Positive for bloating, diarrhea, heartburn and excessive flatus; No abdominal pain, belching, change in bowel habits, change in stool character, coffee ground emesis, constipation, cramping, difficulty swallowing, feeling full early, incontinent of stools, Vomiting blood/hematemesis, Blood in stool, loose stools, Black,tarry stools, nausea/dyspepsia, pain with swallowing, vomiting or other Musc Musculoskeletal: Positive for Arthritis; No joint pain Skin Skin: No yellowing of the eye or itchy eyes Psych Psychiatric: No anxiety and No depression Endo Endocrine: Positive for fatigue; No weight change Aller/Imm Allergy/Immunologic: No itchy eyes Blaine/Lymp Hematologic/Lymphatic: No easy bleeding or easy bruising Assessment and Plan Assessment and Plan (1) Diarrhea: Status: Acute (2) Hx of diverticulitis of colon: Status: Acute Plan: Vanda is a 63 yo female pt here today (more content not included)... Normal [facility] Colonoscopy Reporton 025 Colonoscopy Report [facility] Medical Records Department [address] [place] [address] Colonoscopy Report MR#: [id number] Acct: [id number] Name: VANDA SANTIAGO HAIM Rep #: [id number] : 1960 63 From: Leo Monroe DO PCP: Dr. Dany Thacker MD Status:[facility] Patient Name: Vanda Santiago Procedure Date: 11/07/2024 7:53 AM Date of : 1960 Age: 63 Procedure: Colonoscopy Indications: Generalized abdominal pain, Clinically significant diarrhea of unexplained origin Providers: Leo Monroe DO Referring MD: Dany Thacker MD Medicines: Monitored Anesthesia Care Patient Profile: This is a 63 year old female. Refer to note in patient chart for documentation of history and physical. Patient has symptoms of acute abdominal cramping and acute epigastric abdominal pain. Last Colonoscopy: several years ago. Complications: No immediate complications. Procedure: Pre-Anesthesia Assessment: - Prior to the procedure, a History and Physical was performed, and patient medications and allergies were reviewed. The patient is competent. The risks and benefits of the procedure and the sedation options and risks were discussed with the patient. All questions were answered and informed consent was obtained. Patient identification and proposed procedure were verified by the physician in the pre-procedure area. Mental Status Examination: alert and oriented. Airway Examination: normal oropharyngeal airway and neck mobility. Respiratory Examination: clear to auscultation. CV Examination: normal. Prophylactic Antibiotics: The patient does not require prophylactic antibiotics. Prior Anticoagulants: The patient has taken no anticoagulant or antiplatelet agents except for NSAID medication. ASA Grade Assessment: II - A patient with mild systemic disease. After reviewing the risks and benefits, the patient was deemed in satisfactory condition to undergo the procedure. The anesthesia plan was to use monitored anesthesia care (MAC). Immediately prior to administration of medications, the patient was re-assessed for adequacy to receive sedatives. The heart rate, respiratory rate, oxygen saturations, blood pressure, adequacy of pulmonary ventilation, and response to care were monitored throughout the procedure. The physical status of the patient was re-assessed after the procedure. After I obtained informed consent, the scope was passed under direct vision. Throughout the procedure, the patient's blood pressure, pulse, and oxygen saturations were monitored continuously. The colonoscope was introduced through the anus and advanced to the terminal ileum. The colonoscopy was performed without difficulty. The patient tolerated the procedure well. The quality of the bowel preparation was adequate. The terminal ileum, ileocecal valve, appendiceal orifice, and rectum were photographed. Scope In: 7:54:47 AM Scope Withdrawal Time 0 hours 8 minutes 44 seconds Scope Out: 8:08:05 AM Total Procedure Duration Time 0 hours 13 minutes 18 seconds Findings: The perianal and digital rectal examinations were normal. The colon (entire examined portion) appeared normal. Biopsies were taken with a cold forceps for histology. Verification of patient identification for the specimen was done. Estimated blood loss was minimal. A patchy area of the distal ileum was congested. Biopsies were taken with a cold forceps for histology. Verification of patient identification for the specimen was done. Estimated blood loss was minimal. A few small-mouthed diverticula were found in the recto-sigmoid colon and sigmoid colon. Impression: - The entire examined colon is normal. Biopsied. - Congested mucosa in the distal ileum. Biopsied. - Diverticulosis in the recto-sigmoid colon and in the sigmoid colon. Recommendation: - Discharge patient to home. - Resume previous diet. - Continue present medications. - Await pathology results. - Repeat colonoscopy for surveillance based on pathology results. - Return to GI office. Procedure Code(s): --- Professional --- 65445, Colonoscopy, flexible; with biopsy, single or multiple CPT copyright 2021 [employer]. All rights reserved. The codes documented in this report are preliminary and upon radar mechanic review may be revised to meet current compliance requirements. Leo Monroe DO 11/07/2024 8:22:52 AM This report has been signed electronically. Number of Addenda: 0 Note Initiated On: 11/07/2024 7:53 AM 11/07/24 0823 Date Leo Monroe DO Cosigner Signature: Date (if indicated) CC: Dr. Dany Thacker MD; Leo Monroe DO Date Dictated: 11/07/24 0753 Date Transcribed: Train Operator: RF Signed Normal [facility] EGD Reporton 11-07-2024 EGD Report [facility] Medical Records Department [address] [place] [id number] EGD Report MR#: [id number] Acct: [id number] Name: VANDA SANTIAGO Rep #: [id number] : 1960 63 From: Leo Monroe DO PCP: Dr. Dany Thacker MD Status:[facility] Patient Name: Vanda Santiago Procedure Date: 11/07/2024 7:34 AM Date of : 1960 Age: 63 Procedure: Upper GI endoscopy Indications: Epigastric abdominal pain, Functional Dyspepsia Providers: Leo Monroe DO Referring MD: Dany Thacker MD Medicines: Monitored Anesthesia Care Patient Profile: This is a 63 year old female. Refer to note in patient chart for documentation of history and physical. Patient has symptoms of acute abdominal cramping and acute epigastric abdominal pain. Complications: No immediate complications. Procedure: Pre-Anesthesia Assessment: - Prior to the procedure, a History and Physical was performed, and patient medications and allergies were reviewed. The patient is competent. The risks and benefits of the procedure and the sedation options and risks were discussed with the patient. All questions were answered and informed consent was obtained. Patient identification and proposed procedure were verified by the physician in the pre-procedure area. Mental Status Examination: alert and oriented. Airway Examination: normal oropharyngeal airway and neck mobility. Respiratory Examination: clear to auscultation. CV Examination: normal. Prophylactic Antibiotics: The patient does not require prophylactic antibiotics. Prior Anticoagulants: The patient has taken no anticoagulant or antiplatelet agents except for NSAID medication. ASA Grade Assessment: II - A patient with mild systemic disease. After reviewing the risks and benefits, the patient was deemed in satisfactory condition to undergo the procedure. The anesthesia plan was to use monitored anesthesia care (MAC). Immediately prior to administration of medications, the patient was re-assessed for adequacy to receive sedatives. The heart rate, respiratory rate, oxygen saturations, blood pressure, adequacy of pulmonary ventilation, and response to care were monitored throughout the procedure. The physical status of the patient was re-assessed after the procedure. After obtaining informed consent, the endoscope was passed under direct vision. Throughout the procedure, the patient's blood pressure, pulse, and oxygen saturations were monitored continuously. The colonoscope was introduced through the mouth, and advanced to the third part of the duodenum. Small bowel enteroscopy was deemed necessary. The upper GI endoscopy was accomplished without difficulty. The patient tolerated the procedure well. Scope In: 7:46:38 AM Scope Out: 7:53:03 AM Total Procedure Duration Time 0 hours 6 minutes 25 seconds Findings: One benign-appearing, intrinsic moderate stenosis was found at the cricopharyngeus. This stenosis measured 9 mm (inner diameter) x 3 cm (in length). The stenosis was traversed. Mucosal changes including ringed esophagus and small-caliber esophagus were found in the middle third of the esophagus and in the lower third of the esophagus. Biopsies were obtained from the proximal and distal esophagus with cold forceps for histology of suspected eosinophilic esophagitis. Verification of patient identification for the specimen was done. Estimated blood loss was minimal. Three non-bleeding linear gastric ulcers with no stigmata of bleeding were found in the gastric antrum. Biopsies were taken with a cold forceps for histology. Verification of patient identification for the specimen was done. Estimated blood loss was minimal. Biopsies were taken with a cold forceps for Helicobacter pylori testing. Verification of patient identification for the specimen was done. Many non-bleeding linear duodenal ulcers with no stigmata of bleeding were found in the duodenal bulb, in the first portion of the duodenum, in the second portion of the duodenum, in the third portion of the duodenum and in the fourth portion of the duodenum. The largest lesion was 4 mm in largest dimension. Biopsies were taken with a cold forceps for histology. Verification of patient identification for the specimen was done. Estimated blood loss was minimal. Impression: - Benign-appearing esophageal stenosis. - Esophageal mucosal changes suggestive of eosinophilic esophagitis. - Non-bleeding gastric ulcers with no stigmata of bleeding. Biopsied. - Non-bleeding duodenal ulcers with no stigmata of bleeding. Biopsied. - Biopsies were taken with a cold forceps for evaluation of eosinophilic esophagitis. Recommendation: - Discharge patient to home. - Resume previous diet. - Continue present medications. - Await pathology results. Procedure Code(s): --- Professional --- (more content not included)... [facility] Immunohistochemical Stainson 11-07-2024 Immunohistochemical Stains ---- Patient Age/Sex Location Account Attending Physician ---- VANDA SANTIAGO 63/F EN [id number] Leo Monroe, DO ---- Specimen: [id number] Received: 11/07/24 Status: IVANIA Zhao Num: [id number] Spec Type: EGD BIOPSY Subm Dr: Leo Monroe, HEADER OPERATION: Colonoscopy with biopsy, EGD with biopsy PRE-OP DIAGNOSIS: Colitis, heartburn, diarrhea TISSUE SUBMITTED: A- Duodenum biopsy, B- Gastric ulcer biopsy, C- Random esophagus biopsy,D- Terminal ileum biopsy, E- Random colon biopsy, F- Rectal biopsy ---- MICROSCOPIC DIAGNOSIS A. Duodenum, biopsy: -Villous blunting, negative for increased intraepithelial lymphocytes. -Jaydon gland hyperplasia with superficial erosion and focal reactive epithelial change. 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 B. Stomach, ulcer, biopsy: -Features of reactive gastropathy with focal erosion. -IHC for H pylori is pending and will be reported in an addendum. C. Esophagus, random, biopsy: -Squamous mucosa negative for eosinophils. -Columnar mucosa negative for goblet cell metaplasia. D. Terminal ileum, biopsy: -Normal villous morphology with no specific pathologic change. E. Colon, random, biopsy: -No specific pathologic change. -The histologic features of microscopic colitis are not demonstrated. F. Rectum, biopsy: -No specific pathologic change. MICROSCOPIC DESCRIPTION Slides are reviewed. GROSS DESCRIPTION A. Received in fixative is one container labeled with the patient's name and designated Duodenum biopsy. The specimen consists of multiple irregular fragments of light bhatti soft tissue that in aggregate measure <0.1 to 0.7 cm. The specimen is totally submitted in one cassette. B. Received in fixative is one container labeled with the patient's name and designated Gastric ulcer biopsy. The specimen consists of multiple irregular fragments of light bhatti soft tissue that in aggregate measure <0.1 to 0.4 cm. The specimen is totally submitted in ---- Patient Age/Sex Location Account Attending Physician ---- VANDA SANTIAGO 63/F EN [id number] Leo Monroe DO ---- one cassette. C. Received in fixative is one container labeled with the patient's name and designated Random esophagus biopsy. The specimen consists of multiple irregular fragments of light bhatti soft tissue that in aggregate measure <0.1 to 0.5 cm. The specimen is totally submitted in one cassette. D. Received in fixative is one container labeled with the patient's name and designated Terminal ileum biopsy. The specimen consists of multiple irregular fragments of light bhatti soft tissue that in aggregate measure 0.9 x 0.6 x 0.1 cm. The specimen is totally submitted in one cassette. E. Received in fixative is one container labeled with the patient's name and designated Random colon biopsy. The specimen consists of multiple irregular fragments of light bhatti soft tissue that in aggregate measure 0.3 to 0.6 cm. The specimen is totally submitted in one cassette. F. Received in fixative is one container labeled with the patient's name and designated Rectal biopsy. The specimen consists of one irregular fragment of light bhatti soft tissue that measures 0.5 cm. The specimen is totally submitted in one cassette. JOSE CARLOS/ 11/07/2024 CPT:74561a9,63422 ---- ADDENDUM Addendum 1 Entered: 11/28/24 This addendum is to report the IHC for H pylori on part B: B. The immunostain is negative for H pylori organisms. All matched controls reacted appropriately. These tests were developed and their performance characteristics determined by [facility]. They may not have been cleared or approved by the U.S. Food and Drug Administration. The FDA has determined that such clearance or approval is not necessary.??? The above immunohistochemical/du alISH???markers are reviewed by the Pathologist.. Addendum Signed (signature on file) Dr. Kinsey Gaona MD 11/28/241100 ---- ---- Jeff (more content not included)... Normal [facility] Comment on above: Performed By: #### P ELENA WESTBROOK ####[facility] [address] [place], [address] MR/POSTOP.ANEon 11-07-2024 MR/POSTOP.[facility] Medical Records Department [address] [place] [address] Anesthesia Postop Eval I 11/07/24 0816 MR#: [id number] Acct: [id number] Name: VANDA SANTIAGO HAIM Rep #: [id number] : 1960 63 From: Naeem Dennis PCP: Dr. Dany Thacker MD Status:[facility] Y Race: C Location: [place] [address] Anesthesia: Postop Eval I Current Vital Signs Temperature: 97.5 F Pulse Rate: 67 Blood Pressure: 107/56 Respiratory Rate: 16 Pulse Ox: 100 Oxygen Delivery Method: Room Air Assessment Airway patent: Yes Spontaneous unlabored respirations: Yes Mental status: Asleep nausea: No Vomiting: No Anesthesia Complication: No Fluid Hydration Crystalloid volume administer (ml): 800 Total IV fluid infused: 800 Progress Note Anesthesia document: Postop Eval 1 completed: Yes 11/07/24816 Date Naeem Peters Signature: Date CC: Signed Normal [facility] MR/[id number] 11-07-2024 [facility] Medical Records Department [facility] [place] [address] Anesthesia Postop Eval II 11/07/24 1127 MR#: [id number] Acct: [id number] Name: VANDA SANTIAGO HAIM Rep #: [id number] : 1960 63 From: Andrei Grimm MD PCP: Dr. Dany Thacker MD Status:[facility] Y Race: C Location: EN Anesthesia Postop Eval I Sum Postop Eval Completion status Anesthesia document: Postop Eval 1 completed: Yes Anesthesia Postop Eval I Summary Anesthesia Postop Eval I Summary: Anesthesia Postop Eval I: Assessment Summary Airway patent Yes 11/07/24 08:17 [email or web address] Spontaneous unlabored Yes 11/07/24 08:17 [email or web address] respirations Mental status Asleep 11/07/24 08:17 [email or web address] nausea No 11/07/24 08:17 [email or web address] Vomiting No 11/07/24 08:17 [email or web address] Anesthesia Postop Eval I: Fluid Summary Crystalloid volume administer 800 11/07/24 08:17 [email or web address] (ml) Colloids volume administered ( ml) Blood Product volume administered (ml) Total IV fluid infused 800 11/07/24 08:17 [email or web address] Anesthesia Postop Eval I: Summary Notes Anesthesia Complication No 11/07/24 08:17 [email or web address] Anesthesia Complication Comment: Post-operative progress note Anesthesia: Postop Eval II Evaluation Mental status: Awake Pain Level: 0 nausea: No Vomiting: No Complications Anesthesia Complication: No 11/07/24 112 Date Andrei Grimm MD Cosigner Signature: Date CC: Signed Normal [facility] Surgery Specimen Level Niurka 11-07-2024 Surgery Specimen Level IV ---- Patient Age/Sex Location Account Attending Physician ---- VANDA SANTIAGO 63/F EN [id number] Leo Monroe DO ---- Specimen: [id number] Received: 11/07/24 Status: IVANIA Kowalskichastity Num: [id number] Spec Type: EGD BIOPSY Subm Dr: Leo Monroe DO HEADER OPERATION: Colonoscopy with biopsy, EGD with biopsy PRE-OP DIAGNOSIS: Colitis, heartburn, diarrhea TISSUE SUBMITTED: A- Duodenum biopsy, B- Gastric ulcer biopsy, C- Random esophagus biopsy,D- Terminal ileum biopsy, E- Random colon biopsy, F- Rectal biopsy ---- MICROSCOPIC DIAGNOSIS A. Duodenum, biopsy: -Villous blunting, negative for increased intraepithelial lymphocytes. -Jaydon gland hyperplasia with superficial erosion and focal reactive epithelial change. 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 B. Stomach, ulcer, biopsy: -Features of reactive gastropathy with focal erosion. -IHC for H pylori is pending and will be reported in an addendum. C. Esophagus, random, biopsy: -Squamous mucosa negative for eosinophils. -Columnar mucosa negative for goblet cell metaplasia. D. Terminal ileum, biopsy: -Normal villous morphology with no specific pathologic change. E. Colon, random, biopsy: -No specific pathologic change. -The histologic features of microscopic colitis are not demonstrated. F. Rectum, biopsy: -No specific pathologic change. MICROSCOPIC DESCRIPTION Slides are reviewed. GROSS DESCRIPTION A. Received in fixative is one container labeled with the patient's name and designated Duodenum biopsy. The specimen consists of multiple irregular fragments of light bahtti soft tissue that in aggregate measure <0.1 to 0.7 cm. The specimen is totally submitted in one cassette. B. Received in fixative is one container labeled with the patient's name and designated Gastric ulcer biopsy. The specimen consists of multiple irregular fragments of light bhatti soft tissue that in aggregate measure <0.1 to 0.4 cm. The specimen is totally submitted in ---- Patient Age/Sex Location Account Attending Physician ---- VANDA SANTIAGO 63/F EN [id number] Leo Monroe DO ---- one cassette. C. Received in fixative is one container labeled with the patient's name and designated Random esophagus biopsy. The specimen consists of multiple irregular fragments of light bhatti soft tissue that in aggregate measure <0.1 to 0.5 cm. The specimen is totally submitted in one cassette. D. Received in fixative is one container labeled with the patient's name and designated Terminal ileum biopsy. The specimen consists of multiple irregular fragments of light bhatti soft tissue that in aggregate measure 0.9 x 0.6 x 0.1 cm. The specimen is totally submitted in one cassette. E. Received in fixative is one container labeled with the patient's name and designated Random colon biopsy. The specimen consists of multiple irregular fragments of light bhatti soft tissue that in aggregate measure 0.3 to 0.6 cm. The specimen is totally submitted in one cassette. F. Received in fixative is one container labeled with the patient's name and designated Rectal biopsy. The specimen consists of one irregular fragment of light bhatti soft tissue that measures 0.5 cm. The specimen is totally submitted in one cassette. Manuel 11/07/2024 CPT:96839p4,11276 ---- Patient Age/Sex Location Account Attending Physician ---- VANDA SANTIAGO 63/F EN [id number] Leo Monroe, DO ---- Signed (signature on file) Dr. Kinsey Gaona MD 11/27/24 1352 ---- Normal [facility] Comment on above: Performed By: #### P ELENA WESTBROOK ####[facility] [address] [place], [address] Calprotectin, Stoolon [address] 16 ug/g Normal 0-120 [facility] Comment on above: Result Comment: Conc entration Interpretation Follow-Up < 5 - 50 ug/g Normal None >50 -120 ug/g Borderline Re-evaluate in 4-6 weeks >120 ug/g Abnormal Repeat as clinically indicated Performed at: [employer] [facility] [id number] Beef Cattle Specialist: Frank Nuñez MD, Phone: [phone] Performed By: #### L 7000.0700 #### [facility] [address] [place], [address] Calprotectin stoolOrdered By : Lisa Olivares on 08-29-2024 Calprotectin stool 16 ug/g 0-120 [facility] Comment on above: Concentration Interp retation Follow-Up< 5 - 50 ug/g Normal None>50 -120 ug/g Borderline Re-evaluate in 4-6 weeks >120 ug/g Abnormal Repeat as clinically indicatedPerformed at: [facility] [id number] Director: Frank Nuñez MD, Phone: [phone] Stool Calprotectin 16 ug/g 0-120 [facility] Comment on above: Concentration Interp retation Follow-Up< 5 - 50 ug/g Normal None>50 -120 ug/g Borderline Re-evaluate in 4-6 weeks >120 ug/g Abnormal Repeat as clinically indicatedPerformed at: - [facility] [address] [place], [place] [id number] Director: Frank Nuñez MD, Phone: [phone] Celiac Disease Profileon ENDOMYSIAL IGA Negative Normal Negative [facility] Comment on above: Performed By: #### L 500.4050, L3410.2400 ####[facility] [address] [place], [place], [id number] IMMUNOGLOB A QN 181 mg/dL Normal 87-352 [facility] Comment on above: Result Comment: Perf ormed at: - [facility] [address] [id number] Beef Cattle Specialist: Evens Mireles PhD, Phone: [phone] Performed By: #### L 500.4050, L3410.2400 ####[facility] [address] [place], [place], [id number] tTG IGA 2 U/mL Normal 0-3 [facility] Comment on above: Result Comment: Nega tive 0 - 3 Weak Positive 4 - 10 Positive >10 Tissue Transglutaminase (tTG) has been identified as the endomysial antigen. Studies have demonstr- ated that endomysial IgA antibodies have over 99% specificity for gluten sensitive enteropathy. Performed By: #### L 500.4050, L3410.2400 ####[facility] [address] [facility] [place], [address] Anion gap in Serum or Plasma Ordered By: Lisa Olivares on 08-27-2024 Anion gap [Moles/Vol] 11 mmol/L 5-15 [facility] BUN/creatinine ratioOrdered By: Lisa Olivares on 08-27-2024 Urea nitrogen/Creatinine [Mass ratio] 12.3 mg/mg 10-20 [facility] Bilirubin, totalOrdered By: Lisa Olivares on 08-27-2024 Bilirubin [Mass/Vol] 0.25 mg/dL 0.00-1.30 [facility] Carbon dioxide, total [Moles /volume] in Central venous bloodOrdered By: Lisa Olivares on 08-27-2024 CO2 [Moles/Vol] 24.9 mmol/L 21.0-32.0 [facility] Chloride assayOrdered By: Mima Olivares on 08-27-2024 Chloride [Moles/Vol] 105 mmol/L 98-108 [facility] Comprehensive Metabolic Prof ilon 08-27-2024 Albumin [Mass/Vol] 4.5 g/dL Normal 3.4-4.8 [facility] Comment on above: Performed By: #### L 500.4050, L3410.2400 ####[facility] [address] [place], [address] Albumin/Globulin [Mass ratio] 1.5 {ratio} Normal 0.9-2.4 [facility] Comment on above: Performed By: #### L 500.4050, L3410.2400 ####[facility] [address] [place], [address] ALK PHOS 77 U/L Normal 35-104 [facility] Comment on above: Performed By: #### L 500.4050, L3410.2400 ####[facility] [address] [place], [address] ALT [Catalytic activity/Vol] 46 U/L High <=34 [facility] Comment on above: Performed By: #### L 500.4050, L3410.2400 ####[facility] [address] [place], [address] AST [Catalytic activity/Vol] 18 U/L Normal <=31 [facility] Comment on above: Performed By: #### L 500.4050, L3410.2400 ####[facility] [address] [place], [address] Bilirubin [Mass/Vol] 0.25 mg/dL Normal 0.00-1.30 [facility] Comment on above: Performed By: #### L 500.4050, L3410.2400 ####[facility] [address] [place], [address] BUN/CRE 12.3 RATIO Normal 10-20 [facility] Comment on above: Performed By: #### L 500.4050, L3410.2400 ####[facility] [address] [place], [address] Calcium [Mass/Vol] 9.7 mg/dL Normal 7.6-11.0 [facility] Comment on above: Performed By: #### L 500.4050, L3410.2400 ####[facility] [address] [place], [address] Chloride [Moles/Vol] 105 mmol/L Normal 98-108 [facility] Comment on above: Performed By: #### L 500.4050, L3410.2400 ####[facility] [address] [place], [address] CO2 [Moles/Vol] 24.9 mmol/L Normal 21.0-32.0 [facility] Comment on above: Performed By: #### L 500.4050, L3410.2400 ####[facility] [address] [place], [address] Creatinine [Mass/Vol] 0.76 mg/dL Normal 0.70-1.20 [facility] Comment on above: Performed By: #### L 500.4050, L3410.2400 ####[facility] [address] [place], [address] GAP 11 Normal 5-15 [facility] Comment on above: Performed By: #### L 500.4050, L3410.2400 ####[facility] [address] [place], [address] GFR/1.73 sq M.predicted among non-blacks MDRD (S/P/Bld) [Vol rate/Area] 88 mL/min/{1.73_m2} Normal >60 [facility] Comment on above: Result Comment: mL/m in/1.73m2 CKD-EPI Creatinine Equation (2020) Performed By: #### L 500.4050, L3410.2400 ####[facility] [address] [place], [address] Globulin (S) [Mass/Vol] 3.1 g/dL Normal 2.2-4.2 [facility] Comment on above: Performed By: #### L 500.4050, L3410.2400 ####[facility] [address] [place], [address] Glucose [Mass/Vol] 94 mg/dL Normal 70-99 [facility] Comment on above: Performed By: #### L 500.4050, L3410.2400 ####[facility] [address] [place], [address] Potassium [Moles/Vol] 4.3 mmol/L Normal 3.3-5.1 [facility] Comment on above: Performed By: #### L 500.4050, L3410.2400 ####[facility] [address] [place], [address] Sodium [Moles/Vol] 140 mmol/L Normal 133-145 [facility] Comment on above: Performed By: #### L 500.4050, L3410.2400 ####[facility] [address] [place], [address] T PROT 7.5 g/dL Normal 5.9-8.4 [facility] Comment on above: Performed By: #### L 500.4050, L3410.2400 ####[facility] [address] [place], [place], [id number] Urea nitrogen [Mass/Vol] 9 mg/dL Normal 4-19 [facility] Comment on above: Performed By: #### L 500.4050, L3410.2400 ####[facility] [address] [place], [place], [id number] Endomysial IgA antibody assa yOrdered By: Lisa Olivares on 08-27-2024 Endomysial IgA Antibody Negative Negative [facility] GFR/1.73 sq M.predicted kinga g non-blacks MDRD (S/P/Bld) [Vol rate/Area]Ordered By: Lisa Olivares on 08-27-2024 Estimated GFR (MDRD) Non-Af Amer 88 >60 [facility] Comment on above: mL/min/1.73m2 CKD-EP I Creatinine Equation (2020) Gastroenterology Visit Repor ton 08-27-2024 Gastroenterology Visit Report [facility] Gastroenterology [address] [place] [address] OFFICE VISIT Date of Service: 08/27/24 MR#: [id number] Acct: [id number] Name: VANDA SANTIAGO HAIM Rep #: [id number] : 1960 Provider: JEFF Jc Age/Sex: 63/F Location: [facility] [place] Status: Signed Intake Vital Signs 08/21/24 12:29 Height 5 ft 5 in Intake Visit Reasons: DIARRHEA - DVT Chief Complaint: colitis Heel Stainer Required: No Allergies Penicillins Allergy (Verified 08/21/24 [...] prior hx of colonoscopy. No prior EGD. 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 HPI HPI Chief Complaint: colitis Details: VANDA SANTIAGO, is a 63 F who presents to the office today for establishment with [facility] ED 4.07.16 with nausea, abd pain and tenderness. Pt recently finished antibiotic for diverticulitis. Work up remarkable for elevated liver enzymes and colitis on CT. CT abd/pelvis 4.07.16:1. Mild wall thickening and enhancement of the [...] Positive for (more content not included)... Normal [facility] Glomerular filtration rate ( GFR) estimation/1.73 sq m using serum, plasma, or whole bOrdered By: Lisa Olivares on 08-27-2024 GFR/1.73 sq M.predicted among non-blacks MDRD (S/P/Bld) [Vol rate/Area] 88 mL/min/{1.73_m2} >60 [facility] Comment on above: mL/min/1.73m2 CKD-EP I Creatinine Equation (2020) IgA [Mass/Vol]Ordered By: Mima Olivares on 08-27-2024 Immunoglobulin A 181 mg/dL 87-352 [facility] Comment on above: Performed at: [employer] [address] [id number] Director: Evens Mireles PhD, Phone: [phone] Laboratory - Chemistry and C hemistry - challengeOrdered By: Lisa Olivares on 08-27-2024 AST [Catalytic activity/Vol] 18 U/L <32 [facility] Potassium (Unsp spec) [Mass/ Vol]Ordered By: Lisa Olivares on 08-27-2024 Potassium [Moles/Vol] 4.3 mmol/L 3.3-5.1 [facility] Potassium measurement (mass/ volume)Ordered By: Lisa Olivares on 08-27-2024 Potassium (Unsp spec) [Mass/Vol] 4.3 mmol/L 3.3-5.1 [facility] Serum creatinine measurement (mass/volume)Ordered By: Lisa Olivares on 08-27-2024 Creatinine [Mass/Vol] 0.76 mg/dL 0.70-1.20 [facility] Serum globulin measurementOr dered By: Lisa Olivares on 08-27-2024 Globulin (S) [Mass/Vol] 3.1 g/dL 2.2-4.2 [facility] Serum glucose measurement (m ass/volume)Ordered By: Lisa Olivares on 08-27-2024 Glucose [Mass/Vol] 94 mg/dL 70-99 [facility] Serum or plasma IgA measurem ent (mass/volume)Ordered By: Lisa Olivares on 08-27-2024 IgA [Mass/Vol] 181 mg/dL 87-352 [facility] Comment on above: Performed at: [employer] [address] [id number] Director: Evens Mireles PhD, Phone: [phone] Serum or plasma alanine padron otransferase (ALT) measurementOrdered By: Lisa Olivares on 08-27-2024 ALT [Catalytic activity/Vol] 46 U/L High <35 [facility] Serum or plasma albumin oswaldo urement (mass/volume)Ordered By: Lisa Olivares on 08-27-2024 Albumin [Mass/Vol] 4.5 g/dL 3.4-4.8 [facility] Serum or plasma albumin/glob ulin mass ratioOrdered By: Lisa Olivares on 08-27-2024 Albumin/Globulin [Mass ratio] 1.5 {ratio} 0.9-2.4 [facility] Serum or plasma alkaline daniel sphatase measurementOrdered By: Lisa Olivares on 08-27-2024 ALP [Catalytic activity/Vol] 77 U/L 35-104 [facility] Serum or plasma calcium oswaldo urement (mass/volume)Ordered By: Lisa Olivares on 08-27-2024 Calcium [Mass/Vol] 9.7 mg/dL 7.6-11.0 [facility] Serum or plasma urea nitroge n measurement (mass/volume)Ordered By: Lisa Olivares on 08-27-2024 Urea nitrogen [Mass/Vol] 9 mg/dL 4-19 [facility] Serum tissue transglutaminas e (tTG) IgA antibody assay (units/volume)Ordered By: Lisa Olivares on 08-27-2024 tTG IgA Qn (S) 2 U/mL 0-3 [facility] Comment on above: Negative 0 - 3 Weak Positive 4 - 10 Positive >10 Tissue Transglutaminase (tTG) has been identified as the endomysial antigen. Studies have demonstr- ated that endomysial IgA antibodies have over 99% specificity for gluten sensitive enteropathy. Sodium levelOrdered By: Shyam Olivares on 08-27-2024 Sodium [Moles/Vol] 140 mmol/L 133-145 [facility] Total proteinOrdered By: Maribel Olivares on 08-27-2024 Protein [Mass/Vol] 7.5 g/dL 5.9-8.4 [facility] tTG IgA Qn (S)Ordered By: Mima Olivares on 08-27-2024 Tissue Transglutaminase IgA Ab 2 U/mL 0-3 [facility] Comment on above: Negative 0 - 3 Weak Positive 4 - 10 Positive >10 Tissue Transglutaminase (tTG) has been identified as the endomysial antigen. Studies have demonstr- ated that endomysial IgA antibodies have over 99% specificity for gluten sensitive enteropathy. Abdomen/Pelvis W IV Cont ONL Yon 08-21-2024 Abdomen/Pelvis W IV Cont ONLY [facility] Imaging Services [address] [place] [address] Abdomen/Pelvis W IV Cont ONLY MR#: [id number] Acct: [id number] Name: VANDA SANTIAGO Rep #: [id number] : 1960 F 63 From: Sabine Wang nd, MD PCP: Dr. Dany Thacker MD Status: REG ER Study: Abdomen/Pelvis W IV Cont ONLY Date of Exam: Exam# [id number] Ordering Dr: Thomas Watts DO PROCEDURE: ABDOMEN/PELVIS [...] 2. No acute abdominopelvic finding. Reading Location: [facility] CC: Dr. Dany Thacker MD; Dr. Thomas Watts DO Train Operator: Signed Normal [facility] Absolute lymphocyte countOrd ered By: ED PROVIDER on 08-21-2024 Lymphocytes Auto (Unsp spec) [#/Vol] 0.90 10*3/uL 0.83-4.51 [facility] Absolute neutrophil countOrd ered By: ED PROVIDER on 08-21-2024 Neutrophils (Bld) [#/Vol] 9.1 10*3/uL High 2.0-7.7 [facility] Amorphous sediment detection in urine sediment by light microscopyOrdered By: ED PROVIDER on 08-21-2024 Amorphous sediment LM Ql (Urine sed) 2+ [facility] Anion gap in Serum or Plasma Ordered By: ED PROVIDER on 08-21-2024 Anion gap [Moles/Vol] 11 mmol/L 5-15 [facility] Automated lymphocyte count a s percentage of total leukocytesOrdered By: ED PROVIDER on 08-21-2024 Lymphocytes/100 WBC Auto (Unsp spec) 8.3 % Low 19-41 [facility] BUN/creatinine ratioOrdered By: ED PROVIDER on 08-21-2024 Urea nitrogen/Creatinine [Mass ratio] 13.0 mg/mg 10-20 [facility] Basophil percentageOrdered B y: ED PROVIDER on 08-21-2024 Basophils/100 WBC (Bld) 0.3 % 0-1 [facility] Bilirubin Test strip Ql (U)O rdered By: ED PROVIDER on 08-21-2024 Bilirubin Ql (U) Negative Negative [facility] Bilirubin, totalOrdered By: ED PROVIDER on 08-21-2024 Bilirubin [Mass/Vol] 0.38 mg/dL 0.00-1.30 [facility] CBC W/Diff, Automatedon Absolute Lymph 0.90 X10 3/uL Normal 0.83-4.51 [facility] Comment on above: Performed By: #### L 100.0100, L500.4050, L501.2450 #### [facility] [address] [place], [address] Absolute Neut 9.1 X10 3/uL High 2.0-7.7 [facility] Comment on above: Performed By: #### L 100.0100, L500.4050, L501.2450 #### [facility] [address] [place], [address] Basophils/100 WBC (Bld) 0.3 % Normal 0-1 [facility] Comment on above: Performed By: #### L 100.0100, L500.4050, L501.2450 #### [facility] [address] [place], [address] Eosinophils/100 WBC (Bld) 0.6 % Normal 0-5 [facility] Comment on above: Performed By: #### L 100.0100, L500.4050, L501.2450 #### [facility] [address] [place], [address] Erythrocyte distribution width (RBC) [Ratio] 13.0 % Normal 11.6-14.6 [facility] Comment on above: Performed By: #### L 100.0100, L500.4050, L501.2450 #### [facility] [address] [place], [address] Hematocrit (Bld) [Volume fraction] 39.0 % Normal 37-47 [facility] Comment on above: Performed By: #### L 100.0100, L500.4050, L501.2450 #### [facility] [address] [place], [address] Hemoglobin (Bld) [Mass/Vol] 13.4 g/dL Normal 12.0-15.0 [facility] Comment on above: Performed By: #### L 100.0100, L500.4050, L501.2450 #### [facility] [address] [place], [address] IG% 0.300 Normal 0.0-0.9 [facility] Comment on above: Result Comment: IG% - Immature Granulocytes (promyelocytes, myelocytes and metamyelocytes) > 1% indicates that a LEFT SHIFT is Present. Performed By: #### L 100.0100, L500.4050, L501.2450 #### [facility] [address] [place], [address] Lymphocytes/100 WBC (Bld) 8.3 % Low 19-41 [facility] Comment on above: Performed By: #### L 100.0100, L500.4050, L501.2450 #### [facility] [address] [place], [address] MCH (RBC) [Entitic mass] 30.3 pg Normal 27.0-32.0 [facility] Comment on above: Performed By: #### L 100.0100, L500.4050, L501.2450 #### [facility] [address] [place], [address] MCHC (RBC) [Mass/Vol] 34.4 g/dL Normal 32-36 [facility] Comment on above: Performed By: #### L 100.0100, L500.4050, L501.2450 #### [facility] [address] [place], [address] MCV (RBC) [Entitic vol] 88.2 fL Normal 81-99 [facility] Comment on above: Performed By: #### L 100.0100, L500.4050, L501.2450 #### [facility] [address] [place], [address] Monocytes/100 WBC (Bld) 6.6 % Normal 0-10 [facility] Comment on above: Performed By: #### L 100.0100, L500.4050, L501.2450 #### [facility] [address] [place], [address] Neutrophils/100 WBC (Bld) 83.9 % High 47-70 [facility] Comment on above: Performed By: #### L 100.0100, L500.4050, L501.2450 #### [facility] [address] [place], [address] Nucleated RBC (Bld) [#/Vol] 0 10*3/uL Normal 0-5 [facility] Comment on above: Performed By: #### L 100.0100, L500.4050, L501.2450 #### [facility] [address] [place], [address] Platelet mean volume (Bld) [Entitic vol] 9.7 fL Normal 6.2-12.0 [facility] Comment on above: Performed By: #### L 100.0100, L500.4050, L501.2450 #### [facility] [address] [place], [address] Platelets (Bld) [#/Vol] 277 10*3/uL Normal 150-450 [facility] Comment on above: Performed By: #### L 100.0100, L500.4050, L501.2450 #### [facility] [address] [place], [address] RBC (Bld) [#/Vol] 4.42 10*6/uL Normal 4.2-5.4 [facility] Comment on above: Performed By: #### L 100.0100, L500.4050, L501.2450 #### [facility] [address] [place], [address] RDW SD 42.3 fl Normal 35.1-43.9 [facility] Comment on above: Performed By: #### L 100.0100, L500.4050, L501.2450 #### [facility] [address] [place], [address] WBC (Bld) [#/Vol] 10.8 10*3/uL Normal 4.4-11.0 [facility] Comment on above: Performed By: #### L 100.0100, L500.4050, L501.2450 #### [facility] [address] [place], [address] Carbon dioxide, total [Moles /volume] in Central venous bloodOrdered By: ED PROVIDER on 08-21-2024 CO2 [Moles/Vol] 22.4 mmol/L 21.0-32.0 [facility] Chloride assayOrdered By: ED PROVIDER on 08-21-2024 Chloride [Moles/Vol] 107 mmol/L 98-108 [facility] Comprehensive Metabolic Prof ilon 08-21-2024 Albumin [Mass/Vol] 4.3 g/dL Normal 3.4-4.8 [facility] Comment on above: Performed By: #### L 100.0100, L500.4050, L501.2450 #### [facility] [address] [place], [address] Albumin/Globulin [Mass ratio] 1.5 {ratio} Normal 0.9-2.4 [facility] Comment on above: Performed By: #### L 100.0100, L500.4050, L501.2450 #### [facility] [address] [place], [address] ALK PHOS 90 U/L Normal 35-104 [facility] Comment on above: Performed By: #### L 100.0100, L500.4050, L501.2450 #### [facility] [address] [place], [address] ALT [Catalytic activity/Vol] 139 U/L High <=34 [facility] Comment on above: Performed By: #### L 100.0100, L500.4050, L501.2450 #### [facility] [address] [place], [address] AST [Catalytic activity/Vol] 46 U/L High <=31 [facility] Comment on above: Performed By: #### L 100.0100, L500.4050, L501.2450 #### [facility] [address] [place], [address] Bilirubin [Mass/Vol] 0.38 mg/dL Normal 0.00-1.30 [facility] Comment on above: Performed By: #### L 100.0100, L500.4050, L501.2450 #### [facility] [address] [place], [address] BUN/CRE 13.0 RATIO Normal 10-20 [facility] Comment on above: Performed By: #### L 100.0100, L500.4050, L501.2450 #### [facility] [address] [place], [address] Calcium [Mass/Vol] 9.3 mg/dL Normal 7.6-11.0 [facility] Comment on above: Performed By: #### L 100.0100, L500.4050, L501.2450 #### [facility] [address] [place], [address] Chloride [Moles/Vol] 107 mmol/L Normal 98-108 [facility] Comment on above: Performed By: #### L 100.0100, L500.4050, L501.2450 #### [facility] [address] [place], [address] CO2 [Moles/Vol] 22.4 mmol/L Normal 21.0-32.0 [facility] Comment on above: Performed By: #### L 100.0100, L500.4050, L501.2450 #### [facility] [address] [place], [address] Creatinine [Mass/Vol] 0.72 mg/dL Normal 0.70-1.20 [facility] Comment on above: Performed By: #### L 100.0100, L500.4050, L501.2450 #### [facility] [address] [place], [address] ECRCL 78.57 ml/min Normal 50-250 [facility] Comment on above: Performed By: #### L 100.0100, L500.4050, L501.2450 #### [facility] [address] [place], [address] GAP 11 Normal 5-15 [facility] Comment on above: Performed By: #### L 100.0100, L500.4050, L501.2450 #### [facility] [address] [place], [address] GFR/1.73 sq M.predicted among non-blacks MDRD (S/P/Bld) [Vol rate/Area] 94 mL/min/{1.73_m2} Normal >60 [facility] Comment on above: Result Comment: mL/m in/1.73m2 CKD-EPI Creatinine Equation (2020) Performed By: #### L 100.0100, L500.4050, L501.2450 #### [facility] [address] [place], [address] Globulin (S) [Mass/Vol] 2.8 g/dL Normal 2.2-4.2 [facility] Comment on above: Performed By: #### L 100.0100, L500.4050, L501.2450 #### [facility] [address] [place], [address] Glucose [Mass/Vol] 98 mg/dL Normal 70-99 [facility] Comment on above: Performed By: #### L 100.0100, L500.4050, L501.2450 #### [facility] [address] [place], [address] Potassium [Moles/Vol] 3.8 mmol/L Normal 3.3-5.1 [facility] Comment on above: Performed By: #### L 100.0100, L500.4050, L501.2450 #### [facility] [address] [place], [address] Sodium [Moles/Vol] 140 mmol/L Normal 133-145 [facility] Comment on above: Performed By: #### L 100.0100, L500.4050, L501.2450 #### [facility] [address] [place], [address] T PROT 7.1 g/dL Normal 5.9-8.4 [facility] Comment on above: Performed By: #### L 100.0100, L500.4050, L501.2450 #### [facility] [address] [place], [address] Urea nitrogen [Mass/Vol] 9 mg/dL Normal 4-19 [facility] Comment on above: Performed By: #### L 100.0100, L500.4050, L501.2450 #### [facility] [address] [place], [address] Emergency Department Summary on 08-21-2024 Emergency Department Summary [facility] Medical Records Department [address] [place] [address] Emergency Department Summary 08/21/24 MR#: [id number] Acct: [id number] Name: VANDA SANTIAGO HAIM Rep #: [id number] : 1960 63 From: Thomas Watts DO PCP: Dr. 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 Normal [facility] Eosinophil percentageOrdered By: ED PROVIDER on 08-21-2024 Eosinophils/100 WBC (Bld) 0.6 % 0-5 [facility] Epithelial cells.squamous LM Ql (Urine sed)Ordered By: ED PROVIDER on 08-21-2024 Epithelial cells.squamous LM.HPF (Urine sed) [#/Area] 0 /[HPF] 5-10 [facility] Erythrocyte distribution wid th (RBC) [Ratio]Ordered By: ED PROVIDER on 08-21-2024 Erythrocyte distribution width (RBC) [Entitic vol] 42.3 fL 35.1-43.9 [facility] Erythrocyte distribution wid th ratioOrdered By: ED PROVIDER on 08-21-2024 Erythrocyte distribution width (RBC) [Ratio] 13.0 % 11.6-14.6 [facility] Erythrocyte distribution wid th standard deviationOrdered By: ED PROVIDER on 08-21-2024 Erythrocyte distribution width (RBC) [Ratio] 42.3 fl 35.1-43.9 [facility] Estimation of creatinine micki aranceOrdered By: ED PROVIDER on 08-21-2024 Estimated Creatinine Clearance Calc 78.57 ml/min 50-250 [facility] GFR/1.73 sq M.predicted kinga g non-blacks MDRD (S/P/Bld) [Vol rate/Area]Ordered By: ED PROVIDER on 08-21-2024 Estimated GFR (MDRD) Non-Af Amer 94 >60 [facility] Comment on above: mL/min/1.73m2 CKD-EP I Creatinine Equation (2020) Glomerular filtration rate ( GFR) estimation/1.73 sq m using serum, plasma, or whole bOrdered By: ED PROVIDER on 08-21-2024 GFR/1.73 sq M.predicted among non-blacks MDRD (S/P/Bld) [Vol rate/Area] 94 mL/min/{1.73_m2} >60 [facility] Comment on above: mL/min/1.73m2 CKD-EP I Creatinine Equation (2020) Glucose Ql (U)Ordered By: ED PROVIDER on 08-21-2024 Urine Glucose (UA) Normal mg/dl Normal [facility] Hematocrit Auto (Bld) [Volum e fraction]Ordered By: ED PROVIDER on 08-21-2024 Hematocrit (Bld) [Volume fraction] 39.0 % 37-47 [facility] Hemoglobin measurementOrdere d By: ED PROVIDER on 08-21-2024 Hemoglobin (Bld) [Mass/Vol] 13.4 g/dL 12.0-15.0 [facility] Immature granulocytes/100 WB C Auto (Bld)Ordered By: ED PROVIDER on 08-21-2024 Immature granulocytes/100 WBC (Bld) 0.300 % 0.0-0.9 [facility] Comment on above: IG% - Immature Granu locytes (promyelocytes, myelocytes and metamyelocytes) > 1% indicates that a LEFT SHIFT is Present. Ketones Test strip Ql (U)Ord ered By: ED PROVIDER on 08-21-2024 Ketones Ql (U) Negative Negative [facility] Laboratory - Chemistry and C hemistry - challengeOrdered By: ED PROVIDER on 08-21-2024 AST [Catalytic activity/Vol] 46 U/L High <32 [facility] Lipaseon 08-21-2024 Lipase [Catalytic activity/Vol] 29 U/L Normal 13-75 [facility] Comment on above: Result Comment: Gabriella ambrocio note: LIPASE revised reference range effective 22. New Lipase methodology. Expected to produce lower values than the previous assay method. NEW Reference Range: 13 - 75 U/L Performed By: #### L 100.0100, L500.4050, L501.2450 #### [facility] [address] [place], [place], [address] Lipase measurementOrdered By : ED PROVIDER on 08-21-2024 Lipase [Catalytic activity/Vol] 29 U/L 13-75 [facility] Comment on above: Please note:LIPASE r evised reference range effective 22. New Lipase methodology. Expected to produce lower values than the previous assay method. NEW Reference Range: 13 - 75 U/L Lymphocytes Auto (Unsp spec) [#/Vol]Ordered By: ED PROVIDER on 08-21-2024 Lymphocytes (Bld) [#/Vol] 0.90 10*3/uL 0.83-4.51 [facility] Lymphocytes/100 WBC Auto (Un sp spec)Ordered By: ED PROVIDER on 08-21-2024 Lymphocytes/100 WBC (Bld) 8.3 % Low 19-41 [facility] MCV (mean corpuscular volume ) determinationOrdered By: ED PROVIDER on 08-21-2024 MCV (RBC) [Entitic vol] 88.2 fL 81-99 [facility] Mean corpuscular hemoglobin (MCH) determinationOrdered By: ED PROVIDER on 08-21-2024 MCH (RBC) [Entitic mass] 30.3 pg 27.0-32.0 [facility] Mean corpuscular hemoglobin concentration (MCHC) determinationOrdered By: ED PROVIDER on 08-21-2024 MCHC (RBC) [Mass/Vol] 34.4 g/dL 32-36 [facility] Mean platelet volume determi nationOrdered By: ED PROVIDER on 08-21-2024 Platelet mean volume (Bld) [Entitic vol] 9.7 fL 6.2-12.0 [facility] Microscopic analysis of urin e for red blood cells (RBC)Ordered By: ED PROVIDER on 08-21-2024 Microscopic analysis of urine for red blood cells (RBC) 0 SEEN /hpf 0-5 [facility] Urine RBC 0 SEEN /hpf 0-5 [facility] Monocyte percentageOrdered B y: ED PROVIDER on 08-21-2024 Monocytes/100 WBC (Bld) 6.6 % 0-10 [facility] Mucus LM Ql (Urine sed)Order ed By: ED PROVIDER on 08-21-2024 Mucus Ql (Urine sed) 0 SEEN /hpf [facility] Neutrophil percentageOrdered By: ED PROVIDER on 08-21-2024 Neutrophils/100 WBC (Bld) 83.9 % High 47-70 [facility] Nitrite Test strip Ql (U)Ord ered By: ED PROVIDER on 08-21-2024 Nitrite Ql (U) Negative Negative [facility] Nucleated red blood cell per centageOrdered By: ED PROVIDER on 08-21-2024 Nucleated RBC/100 WBC (Bld) [Ratio] 0 % 0-5 [facility] Platelet countOrdered By: ED PROVIDER on 08-21-2024 Platelets (Bld) [#/Vol] 277 10*3/uL 150-450 [facility] Potassium (Unsp spec) [Mass/ Vol]Ordered By: ED PROVIDER on 08-21-2024 Potassium [Moles/Vol] 3.8 mmol/L 3.3-5.1 [facility] Potassium measurement (mass/ volume)Ordered By: ED PROVIDER on 08-21-2024 Potassium (Unsp spec) [Mass/Vol] 3.8 mmol/L 3.3-5.1 [facility] Protein Test strip Ql (U)Ord ered By: ED PROVIDER on 08-21-2024 Protein Ql (U) 30 mg/dl High Negative [facility] RBC Auto (Bld) [#/Vol]Ordere d By: ED PROVIDER on 08-21-2024 RBC (Bld) [#/Vol] 4.42 10*6/uL 4.2-5.4 [facility] Serum creatinine measurement (mass/volume)Ordered By: ED PROVIDER on 08-21-2024 Creatinine [Mass/Vol] 0.72 mg/dL 0.70-1.20 [facility] Serum globulin measurementOr dered By: ED PROVIDER on 08-21-2024 Globulin (S) [Mass/Vol] 2.8 g/dL 2.2-4.2 [facility] Serum glucose measurement (m ass/volume)Ordered By: ED PROVIDER on 08-21-2024 Glucose [Mass/Vol] 98 mg/dL 70-99 [facility] Serum or plasma alanine padron otransferase (ALT) measurementOrdered By: ED PROVIDER on 08-21-2024 ALT [Catalytic activity/Vol] 139 U/L High <35 [facility] Serum or plasma albumin oswaldo urement (mass/volume)Ordered By: ED PROVIDER on 08-21-2024 Albumin [Mass/Vol] 4.3 g/dL 3.4-4.8 [facility] Serum or plasma albumin/glob ulin mass ratioOrdered By: ED PROVIDER on 08-21-2024 Albumin/Globulin [Mass ratio] 1.5 {ratio} 0.9-2.4 [facility] Serum or plasma alkaline daniel sphatase measurementOrdered By: ED PROVIDER on 08-21-2024 ALP [Catalytic activity/Vol] 90 U/L 35-104 [facility] Serum or plasma calcium oswaldo urement (mass/volume)Ordered By: ED PROVIDER on 08-21-2024 Calcium [Mass/Vol] 9.3 mg/dL 7.6-11.0 [facility] Serum or plasma urea nitroge n measurement (mass/volume)Ordered By: ED PROVIDER on 08-21-2024 Urea nitrogen [Mass/Vol] 9 mg/dL 4-19 [facility] Sodium levelOrdered By: ED P ROVIDER on 08-21-2024 Sodium [Moles/Vol] 140 mmol/L 133-145 [facility] Squamous epithelial cells de tection in urine sediment by light microscopyOrdered By: ED PROVIDER on 08-21-2024 Epithelial cells.squamous LM Ql (Urine sed) 0-5 SEEN /hpf 5-10 [facility] Total proteinOrdered By: ED PROVIDER on 08-21-2024 Protein [Mass/Vol] 7.1 g/dL 5.9-8.4 [facility] Urinalysis, Completeon 08-21 WBC 0-5 SEEN Normal 0-5 [facility] Comment on above: Order Comment: LUIZ CTOR TO SPECIFY Performed By: #### L 400.0001 #### [facility] [address] [facility] [address] AMORPHOUS 2+ Normal [facility] Comment on above: Order Comment: LUIZ CTOR TO SPECIFY Performed By: #### L 400.0001 #### [facility] [address] [facility] [address] BACTERIA 2+ /hpf Normal None Seen [facility] Comment on above: Order Comment: LUIZ CTOR TO SPECIFY Performed By: #### L 400.0001 #### [facility] [address] [facility] [address] EPI,SQUAMOUS 0-5 SEEN Normal 5-10 [facility] Comment on above: Order Comment: LUIZ CTOR TO SPECIFY Performed By: #### L 400.0001 #### [facility] [address] [place], [address] Mucus Ql (Urine sed) 0 SEEN Normal [facility] Comment on above: Order Comment: LUIZ CTOR TO SPECIFY Performed By: #### L 400.0001 #### [facility] [address] [place], [address] RBC 0 SEEN Normal 0-5 [facility] Comment on above: Order Comment: LUIZ CTOR TO SPECIFY Performed By: #### L 400.0001 #### [facility] [address] [place], [address] Urine blood detectionOrdered By: ED PROVIDER on 08-21-2024 Urine Occult Blood 25 /ul High Negative [facility] Urine clarityOrdered By: ED PROVIDER on 08-21-2024 Clarity (U) Turbid Clear [facility] Urine color determinationOrd ered By: ED PROVIDER on 08-21-2024 Color (U) Yellow Yellow [facility] Urine glucose detectionOrder ed By: ED PROVIDER on 08-21-2024 Glucose Ql (U) Normal mg/dl Normal [facility] Urine leukocyte esterase det ection by dipstickOrdered By: ED PROVIDER on 08-21-2024 Leukocyte esterase Test strip Ql (U) 25 /ul High Negative [facility] Urine pHOrdered By: ED PROVI IMELDA on 08-21-2024 pH (U) 5.0 [pH] 5.0 - 8.0 [facility] Urine sediment bacteria coun t by microscopy (number/high power field)Ordered By: ED PROVIDER on 08-21-2024 Bacteria LM.HPF (Urine sed) [#/Area] 2 /[HPF] None Seen [facility] Urine specific gravity measu rementOrdered By: ED PROVIDER on 08-21-2024 Specific gravity (U) [Rel density] 1.025 1.002-1.030 [facility] Urine urobilinogen measureme ntOrdered By: ED PROVIDER on 08-21-2024 Urobilinogen Ql (U) Normal mg/dl Normal [facility] Urobilinogen Ql (U)Ordered B y: ED PROVIDER on 08-21-2024 Urine Urobilinogen Normal mg/dl Normal [facility] White blood cell (WBC) count Ordered By: ED PROVIDER on 08-21-2024 WBC (Bld) [#/Vol] 10.8 10*3/uL 4.4-11.0 [facility] White blood cell countOrdere d By: ED PROVIDER on 08-21-2024 Urine WBC 0-5 SEEN /hpf 0-5 [facility] White blood cell count 0-5 SEEN /hpf 0-5 [facility] C. difficile DNA KIM+probe Q l (Unsp spec)Ordered By: Dany Thacker on 08-16-2024 Clostridioides difficile (PCR) [facility] CDIFF (PCR)on 08-16-2024 CDIFF Pending [phone] NAP1-B1 Presumptive Negative *for epidemiolologic???use C. Diff PCR Negative- No toxigenic C. Diff Detected Normal [facility] Comment on above: Performed By: #### M 100637, M140.6496 ####[facility] [address] [place], [place], [id number] Clostridium difficile detect ion by polymerase chain reactionOrdered By: Dany Thacker on 08-16-2024 C. difficile DNA KIM+probe Ql (Unsp spec) [facility] ENTERIC PATHOGEN PANEL STOOL on 08-16-2024 EP [...] VIBRIO Not Detected Yersinia Not Detected Normal [facility] Comment on above: Performed By: #### M 100637, M100.0496 ####[facility] [address] [place], [address] Stool enteric pathogen panel by probe and target amplification methodOrdered By: Dany Thacker on 08-16-2024 Enteric Bacteriology [facility] Dexa Bone Density Studyon Dexa Bone Density Study [facility] Imaging Services [address] [place] [address] Dexa Bone Density Study MR#: [id number] Acct: [id number] Name: VANDA SANTIAGO Rep #: [id number] : 1960 F 63 From: Benji rangel MD PCP: Dr. Dany Thacker MD Status: [facility] CL Study: Dexa Bone Density Study Date of Exam: 04/09/24 Exam# [id number] Ordering Dr: Dany Thacker MD [id number] STUDY: DUAL ENERGY X-RAY ABSORPTIOMETRY / DXA [...] Signed: Benji James MD at 15:00 EST Reading Location ID and State: [facility] / [place] , Service support , CC: Dr. Dany Thacker MD Train Operator: Signed Normal [facility] SCRN MAMM (CAD)W/CAITLIN BILATo n 04-09-2024 SCRN MAMM (CAD)W/CAITLIN BILAT [facility] Imaging Services [address] [place], [place] [address] SCRN MAMM (CAD)W/CAITLIN BILAT MR#: [id number] Acct: [id number] Name: VANDA SANTIAGO Rep #: [id number] : 1960 F 63 From: Benji rangel MD PCP: Dr. Dany Thacker MD Status: [facility] Study: SCRN MAMM (CAD)W/CAITLIN BILAT Date of Exam: 03/22 02/12 Exam# [id number] Ordering Dr: Dany Thacker MD [id number] MAMMOGRAPHY - BILATERAL SCREENING REASON FOR EXAM: [...] delay biopsy of a clinically suspicious abnormality. [id number] Electronically Signed: Benji James MD at 8:21 EST , CC: Dr. Dany Thacker MD Train Operator: Signed Normal [facility] Basic Metabolic Profile (BMP )on 03-21-2024 BUN/CRE 12.9 RATIO Normal 10-20 [facility] Comment on above: Performed By: #### L 500.2500, L500.4100 ####[facility] [address] [place], [address] CA,Total 9.2 mg/dL Normal 8.5-10.1 [facility] Comment on above: Performed By: #### L 500.2500, L500.4100 ####[facility] [address] [place], [address] Chloride [Moles/Vol] 110 mmol/L High 98-107 [facility] Comment on above: Performed By: #### L 500.2500, L500.4100 ####[facility] [address] [place], [address] CO2 [Moles/Vol] 28.0 mmol/L Normal 21.0-32.0 [facility] Comment on above: Performed By: #### L 500.2500, L500.4100 ####[facility] [address] [place], [address] Creatinine [Mass/Vol] 0.70 mg/dL Normal 0.55-1.02 [facility] Comment on above: Result Comment: The validity of the calculated GFR GFRAA in patients over 70 years has not been determined. Clinical correlation is essential. Performed By: #### L 500.2500, L500.4100 ####[facility] [address] [place], [address] EST GFR - AA 109 mL/min Normal >60 [facility] Comment on above: Result Comment: Afri can [place] GFR Calc Performed By: #### L 500.2500, L500.4100 ####[facility] [address] [place], [address] GAP 4 Low 5-15 [facility] Comment on above: Performed By: #### L 500.2500, L500.4100 ####[facility] [address] [place], [address] GFR/1.73 sq M.predicted among non-blacks MDRD (S/P/Bld) [Vol rate/Area] 90 mL/min/{1.73_m2} Normal >60 [facility] Comment on above: Result Comment: Non- GFR Calc Performed By: #### L 500.2500, L500.4100 ####[facility] [address] [place], [address] Glucose [Mass/Vol] 95 mg/dL Normal 74-106 [facility] Comment on above: Performed By: #### L 500.2500, L500.4100 ####[facility] [address] [place], [address] Potassium [Moles/Vol] 3.9 mmol/L Normal 3.5-5.1 [facility] Comment on above: Performed By: #### L 500.2500, L500.4100 ####[facility] [address] [place], [address] Sodium [Moles/Vol] 142 mmol/L Normal 136-145 [facility] Comment on above: Performed By: #### L 500.2500, L500.4100 ####[facility] [address] [place], [address] Urea nitrogen [Mass/Vol] 9 mg/dL Normal 7-18 [facility] Comment on above: Performed By: #### L 500.2500, L500.4100 ####[facility] [address] [place], [address] Lipid Profileon 03-21-2024 Cholesterol [Mass/Vol] 184 mg/dL Normal 200 [facility] Comment on above: Result Comment: <200 mg/dL Desirable 200-240 mg/dL Borderline >240 mg/dL High Risk Performed By: #### L 500.2500, L500.4100 ####[facility] [address] [place], [address] Cholesterol in HDL [Mass/Vol] 46 mg/dL Normal [facility] Comment on above: Result Comment: The drugs N-Acetylcysteine and Metamizole may falsely depress this assay. Reference Range HDL <40 mg/dL Low HDL Cholesterol HDL >or= 60 mg/dL High HDL Cholesterol Performed By: #### L 500.2500, L500.4100 ####[facility] [address] [place], [address] Cholesterol in LDL [Mass/Vol] 90 mg/dL Normal 0-130 [facility] Comment on above: Performed By: #### L 500.2500, L500.4100 ####[facility] [address] [place], [address] Cholesterol in VLDL [Mass/Vol] 48 mg/dL High 5-40 [facility] Comment on above: Performed By: #### L 500.2500, L500.4100 ####[facility] [address] [place], [address] Triglyceride [Mass/Vol] 238 mg/dL High [facility] Comment on above: Result Comment: The drugs N-Acetylcysteine and Metamizole may falsely depress this assay. Serum Triglycerides Reference Interval Normal <150 mg/dL Borderline high 150 - 199 mg/dL High 200 - 499 mg/dL Very High > or = 500 mg/dL Performed By: #### L 500.2500, L500.4100 ####[facility] [address] [place], [address] Basophil percentageOrdered B y: Dion Stewart on 09-19-2023 Basophil percentage < 1.0 mg/dL 0.55-1.02 [facility] No Panel InformationOrdered By: Dion Stewart on 09-19-2023 Bedside Estimated GFR (eGFR) > 60.0000 mL/min >60 [facility] Basophil percentageOrdered B y: Dr. Bettencourt on 11-02-2022 Bilirubin [Mass/Vol] 0.40 mg/dL 0.20-1.00 [facility] Comment on above: For patients on eltr ombopag therapy, use of Dimension [place] TBIL is not recommended. Chloride [Moles/Vol] 108 mmol/L 98-107 [facility] Cholesterol [Mass/Vol] 258 mg/dL <200 [facility] Comment on above: <200 mg/dL Desirable 200-240 mg/dL Borderline >240 mg/dL High Risk Glucose [Mass/Vol] 91 mg/dL 74-106 [facility] Potassium [Moles/Vol] 4.0 mmol/L 3.5-5.1 [facility] Protein [Mass/Vol] 7.4 g/dL 6.4-8.2 [facility] Sodium [Moles/Vol] 140 mmol/L 136-145 [facility] Triglyceride [Mass/Vol] 258 mg/dL <199 [facility] Comment on above: The drugs N-Acetylcy steine and Metamizole may falsely depress this assay.Serum Triglycerides Reference Interval Normal <150 mg/dL Borderline high 150 - 199 mg/dL High 200 - 499 mg/dL Very High > or = 500 mg/dL Laboratory - Chemistry and C hemistry - challengeOrdered By: Dr. Bettencourt on 11-02-2022 ALP [Catalytic activity/Vol] 75 U/L 45-117 [facility] ALT [Catalytic activity/Vol] 25 U/L 13-56 [facility] CO2 [Moles/Vol] 25.0 mmol/L 21.0-32.0 [facility] Globulin (S) [Mass/Vol] 3.8 g/dL 2.2-4.2 [facility] Urea nitrogen/Creatinine [Mass ratio] 12.3 mg/mg 10-20 [facility] No Panel InformationOrdered By: Dr. Bettencourt on 11-02-2022 Estimated GFR (MDRD) Amer 91 mL/min >60 [facility] Comment on above: GFR Calc Estimated GFR (MDRD) Non-Af Amer 75 mL/min >60 [facility] Comment on above: Non- GFR Calc Thyroid Stimulating Hormone (TSH) 2.04 uIU/mL 0.358-3.74 [facility] Urine Microalbumin/Creatinine Ratio 8.8 mg/g CRE <30 [facility] Serum or plasma albumin oswaldo urement (mass/volume)Ordered By: Dr. Bettencourt on 11-02-2022 Albumin [Mass/Vol] 3.6 g/dL 3.2-5.0 [facility] Serum or plasma albumin/glob ulin mass ratioOrdered By: Dr. Bettencourt on 11-02-2022 Albumin/Globulin [Mass ratio] 0.9 {ratio} 0.9-2.4 [facility] Serum or plasma calcium oswaldo urement (mass/volume)Ordered By: Dr. Bettencourt on 11-02-2022 Calcium [Mass/Vol] 9.1 mg/dL 8.5-10.1 [facility] Serum or plasma cholesterol in HDL measurement (mass/volume)Ordered By: Dr. Bettencourt on 11-02-2022 Cholesterol in HDL [Mass/Vol] 37 mg/dL >40 [facility] Comment on above: The drugs N-Acetylcy steine and Metamizole may falsely depress this assay. Reference Range HDL <40 mg/dL Low HDL Cholesterol HDL >or= 60 mg/dL High HDL Cholesterol Serum or plasma cholesterol in VLDL measurement (mass/volume)Ordered By: Dr. Bettencourt on 11-02-2022 Cholesterol in VLDL [Mass/Vol] 52 mg/dL 5-40 [facility] Serum or plasma creatinine m easurement (mass/volume)Ordered By: Dr. Bettencourt on 11-02-2022 Creatinine [Mass/Vol] 0.82 mg/dL 0.55-1.02 [facility] Comment on above: The validity of the calculated GFR & GFRAA in patients over 70 years has not been determined. Clinical correlation is essential. Serum or plasma low density lipoprotein (LDL) cholesterol measurement (mass/volume)Ordered By: Dr. Bettencourt on 11-02-2022 Cholesterol in LDL [Mass/Vol] 169 mg/dL 0-130 [facility] Serum or plasma urea nitroge n measurement (mass/volume)Ordered By: Dr. Bettencourt on 11-02-2022 Urea nitrogen [Mass/Vol] 10 mg/dL 7-18 [facility] Thin prep Papanicolaou smear with manual screeningOrdered By: Dr. Bettencourt on 11-02-2022 Thin prep Papanicolaou smear with manual screening 19 U/L 15-37 [facility] Thin prep Papanicolaou smear with manual screening 7 5-15 [facility] Thin prep Papanicolaou smear with manual screening 6.5 mg/L NO RANGE EST. [facility] Urine creatinine measurement (mass/volume)Ordered By: Dr. Bettencourt on 11-02-2022 Creatinine (U) [Mass/Vol] 73.30 mg/dL NO RANGE EST. [facility] Vital Signs Date Time Vital Sign Value Performing Clinician Faci lity 02-27-2025 14:26-0400 Body height 165.[address] Dany Thacker MD Work Phone: [facility] 02-27-2025 14:20-0400 Body mass index (BMI) [Ratio] 28.2 kg/m2 Dr. Dany Thacker MD Work Phone: [facility] 02-27-2025 14:20-0400 Body weight 76.[address] Dany Thacker MD Work Phone: [facility] 02-27-2025 14:20-0400 Diastolic blood pressure 70 mm[Hg] Dr. Dany Thacker MD Work Phone: [facility] 02-27-2025 14:20-0400 Systolic blood pressure 115 mm[Hg] Dr. Dany Thacker MD Work Phone: [facility] 11-07-2024 08:25-0400 Body temperature 97.4 [degF] Dr. Dany Thacker MD Work Phone: [facility] 11-07-2024 08:25-0400 Diastolic blood pressure 54 mm[Hg] Dr. Dany Thacker MD Work Phone: [facility] 11-07-2024 08:25-0400 Heart rate 62 /min Dr. Dany Thacker MD Work Phone: [facility] 11-07-2024 08:25-0400 Respiratory rate 16 /min Dr. Dany Thacker MD Work Phone: 3(009)287-663541 [place] [address] 11-07-2024 08:25-0400 SaO2% (BldA) [Mass fraction] 96 % Dr. Dany Thacker MD Work Phone: 9(841)381-711584 [place] [address] 11-07-2024 08:25-0400 Systolic blood pressure 102 mm[Hg] Dr. Dany Thacker MD Work Phone: 5(551)393-172884 [place] [address] 11-07-2024 06:33-0400 Body height 165.[address] Dany Thacker MD Work Phone: 1(994)403-082884 [place] [address] 11-07-2024 06:33-0400 Body mass index (BMI) [Ratio] 26.4 kg/m2 Dr. Dany Thacker MD Work Phone: 2(457)599-051684 [place] [address] 11-07-2024 06:33-0400 Body weight 72.[address] Dany Thacker MD Work Phone: 9(266)829-239084 [place] [address] 08-21-2024 16:29-0400 Diastolic blood pressure 51 mm[Hg] Dr. Dany Thacker MD Work Phone: 0(242)[phone] [place] [address] 08-21-2024 16:29-0400 Heart rate 71 /min Dr. Dany Thacker MD Work Phone: 8(744)599-633184 [place] [address] 08-21-2024 16:29-0400 Respiratory rate 17 /min Dr. Dany Thacker MD Work Phone: 6(688)031-116584 [place] [address] 08-21-2024 16:29-0400 SaO2% (BldA) [Mass fraction] 95 % Dr. Dany Thacker MD Work Phone: 9(630)602-485184 [place] [address] 08-21-2024 16:29-0400 Systolic blood pressure 109 mm[Hg] Dr. Dany Thacker MD Work Phone: 8(177)878-655684 [place] [address] 08-21-2024 14:49-0400 Body temperature 98.5 [degF] Dr. Dany Thacker MD Work Phone: 5(617)049-514084 [place] [address] 08-21-2024 12:29-0400 Body height 165.[address] Dany Thacker MD Work Phone: 8(073)793-549084 [place] [address] 08-21-2024 12:29-0400 Body mass index (BMI) [Ratio] 26.4 kg/m2 Dr. Dany Thacker MD Work Phone: [facility] 08-21-2024 12:29-0400 Body weight 72.[address] Dany Thackre MD Work Phone: [facility] 09-19-2023 12:25-0400 Body height 165.1 cm No Primary Care Physician [facility] 09-07-2023 08:23-0400 Body mass index (BMI) [Ratio] 27.3 kg/m2 No Primary Care Physician [facility] 09-07-2023 08:23-0400 Body weight 74.38 kg No Primary Care Physician [facility] 07-17-2023 07:47-0500 Body height 165.1 cm No Primary Care Physician [facility] 07-17-2023 07:47-0500 Body mass index (BMI) [Ratio] 26.6 kg/m2 No Primary Care Physician [facility] 07-17-2023 07:47-0500 Body temperature 97 [degF] No Primary Care Physician [facility] 07-17-2023 07:47-0500 Body weight 72.57 kg No Primary Care Physician [facility] 07-17-2023 07:47-0500 Diastolic blood pressure 65 mm[Hg] No Primary Care Physician [facility] 07-17-2023 07:47-0500 Heart rate 59 /min No Primary Care Physician [facility] 07-17-2023 07:47-0500 Respiratory rate 18 /min No Primary Care Physician [facility] 07-17-2023 07:47-0500 SaO2% (BldA) [Mass fraction] 97 % No Primary Care Physician [facility] 07-17-2023 07:47-0500 Systolic blood pressure 142 mm[Hg] No Primary Care Physician [facility] 01-17-2023 11:19-0400 Body height 165.[address] Dany Thacker Work Phone: [facility] 01-17-2023 11:12-0400 Body mass index (BMI) [Ratio] 27.3 kg/m2 Dr. Dany Thacker Work Phone: [facility] 01-17-2023 11:12-0400 Body weight 74.[address] Dany Thacker Work Phone: [facility] 01-17-2023 11:12-0400 Diastolic blood pressure 70 mm[Hg] Dr. Dany Thacker Work Phone: [facility] 01-17-2023 11:12-0400 Systolic blood pressure 124 mm[Hg] Dr. aDny Thacker Work Phone: [facility] Encounters Encounter Date Encounter Type Care Provider Facility Start: 02-27-2025 End: 02-27-2025 Patient encounter procedure Ирина Israel NP-C -[facility] Work Phone: Start: 02-27-2025 End: 02-27-2025 Patient encounter status Ирина Israel NP-C [facility] Start: 02-27-2025 End: 02-27-2025 ambulatory Ирина Israel NP Facility:[facility] Start: 11-28-2024 End: 11-28-2024 Patient encounter procedure Lisa Olivares [place] -[facility] Work Phone: Start: 11-28-2024 End: 11-28-[address] Dany Thacker MD Work Phone: [facility] Start: 11-07-2024 ambulatory Dany Thacker Facility:[facility] Start: 11-07-2024 Non-patient / Non-visit Leo Monroe DO -[facility] Start: 11-07-2024 End: 11-07-2024 Admission to same day surgery center Leo Monroe DO -Endoscopy Work Phone: Start: 11-07-2024 End: 11-07-[address] Dany Thacker MD Work Phone: [facility] Work Phone: Start: 08-29-2024 End: 08-29-[address] Dany Thacker MD Work Phone: [facility] Work Phone: Start: 08-29-2024 End: 08-29-2024 Patient encounter procedure Lisa PEACOCK -[facility], [place] Work Phone: Start: 08-29-2024 End: 08-29-2024 ambulatory Dany Thacker Facility:[facility] Start: 08-27-2024 End: 08-27-2024 Patient encounter procedure Lisa PEACOCK -[facility] Work Phone: Start: 08-27-2024 End: 08-27-[address] Dany Thacker MD Work Phone: [facility] Work Phone: Start: 08-27-2024 End: 08-27-2024 ambulatory Dany Thacker Facility:[facility] Start: 08-21-2024 End: 08-21-2024 Emergency department patient visit Dr. Dany Thacker MD Work Phone: -Emergency Department Work Phone: Start: 08-16-2024 End: 08-16-[address] Dany Thacker MD Work Phone: [facility] Work Phone: Start: 08-16-2024 End: 08-16-[address] Dany Thacker MD -[facility] [place] Work Phone: Start: 08-16-2024 End: 08-16-2024 ambulatory Dany Thacker Facility:[facility] Start: 05-09-2024 Encounter for genera l adult medical examination without abnormal findings Dany Thacker [facility] Start: 04-09-2024 End: 04-09-2024 ambulatory Dany Thacker Facility:[facility] Start: 03-21-2024 End: 03-21-2024 ambulatory Dany Thacker Facility:[facility] Start: 09-21-2023 End: 09-21-2023 Patient encounter procedure No Primary Care Physician [facility] Work Phone: Start: 09-19-2023 End: 09-19-2023 ambulatory No Primary Care Physician [facility] Work Phone: Start: 09-19-2023 End: 09-19-2023 Patient encounter procedure No Primary Care Physician [facility] Work Phone: Start: 09-07-2023 End: 09-07-2023 Patient encounter procedure No Primary Care Physician [facility] Work Phone: Start: 07-17-2023 End: 07-17-2023 ambulatory No Primary Care Physician [facility] Work Phone: Start: 07-17-2023 End: 07-17-2023 Patient encounter procedure No Primary Care Physician [facility] Work Phone: Start: 01-17-2023 End: 01-17-[address] Dany Thacker Work Phone: [facility] Work Phone: Start: 01-17-2023 End: 01-17-[address] Dany Thacker Work Phone: [facility] Work Phone: Start: 01-17-2023 End: 01-17-[address] Dany Thacker Work Phone: [facility] Work Phone: Start: 12-29-2022 End: 12-29-2022 ambulatory [facility] Work Phone: Start: 12-29-2022 End: 12-29-2022 Patient encounter procedure [facility] Work Phone: Start: 11-02-2022 End: 11-02-2022 ambulatory [facility] Work Phone: Start: 11-02-2022 End: 11-02-2022 Patient encounter procedure [facility] [place] Start: 11-19-2021 End: 11-19-2021 Patient encounter procedure [facility] Procedures Date Procedure Procedure Detail Performing Clinician Start: 11-07-[address] Dany pichardo MD Work Phone: Start: 08-27-2024 Endomysial antibody IgA level Dr. Dany Thacker MD Work Phone: Start: 08-21-2024 Computed tomography of abdomen and pelvis with intravenous contrast Dr. Dany Thacker MD Work Phone: Start: 08-21-2024 Urnls dip stick/tabl et reagent auto microscopy Dr. Dany Thacker MD Work Phone: Start: 08-21-[address] Dany Thacker MD Work Phone: Start: 08-16-20[address] e detection Dr. Dany Thacker MD Work Phone: Start: 08-16-[address] Dany Thacker MD Work Phone: Start: 08-16-2024 Iadna-dna/rna gi pth gn multiplex probe tq 6-11 Dr. Dany Thacker MD Work Phone: Start: 09-19-2023 MRI of joint of uppe r extremity No Primary Care Physician Start: 07-17-2023 Plain x-ray of hand No Primary Care Physician Start: 12-29-2022 Screening mammography Start: 11-19-2021 Screening mammography Plan of Treatment Date Care Activity Detail Author Start: 04-28-2025 ambulatory Ambulatory Facility:[facility] Start: 11-07-2024 Colonoscopy w/biopsy single/multiple COLONOSCOPY AND BIOPSY [facility] Start: 11-07-2024 Egd transoral biopsy single/multiple EGD BIOPSY SINGLE/MULTIPLE [facility] Start: 11-07-2024 Patient discharge [facility] Start: 08-21-2024 [facility] Start: 07-17-2023 Patient referral [facility] Work Phone: Start: 01-17-2023 Liquid based cervical cytology screening [facility] Path report.final Dx Spec [facility] Patient Education ED Understanding Coliti s [facility] Work Phone: Patient referral [facility] Work Phone: [facility] Payers Date Payer Category Payer Self-pay [id number] 2024 Unknown [id number] Private Health Insurance [id number] Unknown [id number] 2.16.8 [id number] Unknown [id number] 2.16.8 [id number] Unknown [id number] 2.16.8 [id number] Unknown [id number] 2.16.8 [id number] Unknown [id number] 2.16.8 [id number] Unknown [id number] 2.16.8 [id number] Unknown [id number] 2.16.8 [id number] Unknown [id number] 2.16.8 [id number] Unknown [id number] 2.16.8 [id number] Unknown [id number] 2.16.8 [id number] Unknown [id number] 2.16.8 [id number] Unknown [id number] 2.16.8 [id number] Social History Date Type Detail Facility Start: 04-20-2021 End: 09-19-2023 Tobacco smoking status NHIS Unknown if ever smoked [facility] Start: 1960 Sex Assigned At Female [facility] Start: 01-01-2024 End: 11-05-2024 Tobacco smoking status NHIS Ex-smoker (finding) [facility] Start: 08-20-2024 End: 09-02-2024 Sex Female (finding) [facility] Sex Female [facility] NEGATED: Highlighted row Not [facility] Medical Equipment Procedure Code Equipment Code Equipment Original Text Equipment Identifier Dates Total cholecystectomy with exploration of common bile duct DRESSING,FIBRILLA R 1X2 1960 FDA Start: 04-22-2021 Total cholecystectomy with exploration of common bile duct Ligation clip, synthetic polymer, non-bioabsorbable [id number] FDA Start: 04-22-2021 Total cholecystectomy with exploration of common bile duct Ligation clip, synthetic polymer, non-bioabsorbable ()[id number] FDA Start: 04-22-2021 Total cholecystectomy with exploration of common bile duct DRESSING,FIBRILLA R 1X2 1960 FDA Start: 04-22-2021 Total cholecystectomy with exploration of common bile duct DRESSING,FIBRILLA R 1X2 1960 FDA Start: 04-22-2021 Total cholecystectomy with exploration of common bile duct DRESSING,FIBRILLA R 1X2 1960 FDA Start: 04-22-2021 Total cholecystectomy with exploration of common bile duct DRESSING,FIBRILLA R 1X2 1960 FDA Start: 04-22-2021 Total cholecystectomy with exploration of common bile duct DRESSING,FIBRILLA R 1X2 1960 FDA Start: 04-22-2021 Total cholecystectomy with exploration of common bile duct DRESSING,FIBRILLA R 1X2 1960 FDA Start: 04-22-2021 Total cholecystectomy with exploration of common bile duct DRESSING,FIBRILLA R 1X2 1960 FDA Start: 04-22-2021 Total cholecystectomy with exploration of common bile duct DRESSING,FIBRILLA R 1X2 1960 FDA Start: 04-22-2021 Total cholecystectomy with exploration of common bile duct DRESSING,FIBRILLA R 1X2 1960 FDA Start: 04-22-2021 Total cholecystectomy with exploration of common bile duct DRESSING,FIBRILLA R 1X2 1960 FDA Start: 04-22-2021 Total cholecystectomy with exploration of common bile duct DRESSING,FIBRILLA R 1X2 1960 FDA Start: 04-22-2021 Total cholecystectomy with exploration of common bile duct DRESSING,FIBRILLA R 1X2 1960 FDA Start: 04-22-2021 Goals Date Patient Goal Desired Activity /State Mental Status Date Assessment Result Facility 11-07-2024 Cognitive function Level Of Cons ciousness Follows Commands;Drowsy [facility] Work Phone: 11-07-2024 Cognitive function Voice/Name [facility] Work Phone: Clinical Notes 08-21-2024 to 02-27-2025 Note Date & Type Note Facility 02-27-2025 Progress note [facility] 02-27-2025 Progress note Note Date/Time February 27, 2025 2:34pm [facility] [address], [address] [place] [address] OFFICE VISIT Date of Service: 02/27/25 MR#: [id number] Acct: [id number] Name: VANDA SANTIAGO HAIM Rep #: [id number] : 1960 Provider: KACI Israel Age/Sex: 64/F Location: [facility] Status: Signed Intake Vital Signs 11/07/24 06:33 02/27/25 14:20 02/27/25 14:26 Height 5 ft 5 in 5 ft 5 in 5 ft 5 in Weight: 169 lb 7 oz BMI 28.2 BP 115/70 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: No Is patient in pain?: No Allergies Penicillins Allergy (Verified 02/27/25 14:27) Rash Medications ?Medication ?Instructions ?Recorded ?Confirmed ?Type multivitamin 1 tab PO DAILY 01/12/2202/13 History lisinopril 20 mg tablet 20 mg PO DAILY 01/17/2302/13 History fexofenadine 60 mg tablet (Milly 60 mg PO DAILY PRN ALLERGY 09/07/23 02/27/25 History Allergy) buspirone 7.5 mg tablet 7.5 mg PO BID 11/05/2402/27 History citalopram 20 mg tablet 30 mg PO DAILY 11/05/2402/13 History omeprazole 40 mg capsule,delayed 40 mg PO QDAY #60 cap s 11/27/24 02/27/25 Rx release colestipol 1 gram tablet 1 g PO QDAY #30 tabs 5 02/27/25 Rx clobetasol 0.05 % topical cream 1 applic topical DAILY PRN itching 02/27/25 02/27/25 Rx #15 grams estradiol 0.01% (0.1 mg/gram) See Rx Instructions vagi nal 2XW 02/27/25 02/27/25 History vaginal cream Is last menstrual period known: No Post menopausal: Yes Patient : No : No PFSH Medical History Post-menopausal History of diverticulitis Mitral valve prolapse Hypertension 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 Date Name GA/Weeks Outcome Route Bth Weight Infant Gen Labor Lgth Anesthesia Del Locatn Provider FOB Unknown 1981 Lui Male Unknown 1984 Alondra Female HPI Encounter for routine gynecological examination Details: VANDA SANTIAGO is a 64 year old who presents for annual exam. Needs refill of estradiol cream(compounded) and clobetesol cream Last PAP: 2022 History of abnormal PAP: no Last mammogram: 03/2024 History of abnormal mammogram: benign bx Colon cancer screenin Other preventative health care screenings: [facility] Female Reproductive History Questions: metrorrhagia: No, sexually active: Yes, dyspareunia: No and PCB: No Menopausal Treatment: Yes Vaginal Estrogen ROS Const Constitutional: Denies fatigue, weight gain or weight loss Cardio Card: Denies chest pain Resp Resp: Denies cough or dyspnea on exertion GI GI: Denies abdominal pain, bloating, change in stool character, constipation or vomiting : Reports as per HPI; Denies difficulty voiding, pelvic pain, urinary frequency, urinary incontinence,urinary urgency, vaginal discharge or vaginal pruritus Exam Const General: cooperative, healthy appearing, no acute distress and well developed Orientation: alert, oriented to person and oriented to place HENMA Head: normal to inspection Neck Neck: normal visual inspection Thyroid: thyroid normal Lymphatic: no lymphadenopathy noted Chest Breast inspection: normal inspection of the breasts and normal inspection of theaxillae Breast palpation: normal palpation of the breasts, normal palpation of the axillae and no axillary lymphadenopathy Resp Effort & Inspection: normal respiratory effort GI Palpation: soft, no masses and nontender Rectal Exam: deferred External Female Exam: normal external appearance and normal appearance of the urethra Urethra: normal appearance of the urethra and normal palpation Speculum Exam - Vagina: normal vaginal discharge and vagina atrophic (mild) Speculum Exam - Cervix: normal appearance of the cervix Bimanual Exam- Vagina & Uterus: normal bimanual exam, uterine size normal, uterine shape normal and non-tender Bimanual Exam- Adnexa, other: normal adnexae, no masses, normal and non-tender Pelvic Support: normal Neuro General: patient alert and patient oriented x3 Psych Affect: normal affect Coding Level of Care Code Off vis,est,prev 65+yrs Diagnoses Encounter for gynecological examination with abnormal finding Z01.411 Gynecological examination findings: abnormal findings PRESENT Lichen sclerosus L90.0 Atrophic vaginitis N95.2 Assessment and Plan Assessment and Plan (1) Encounter for routine gynecological examination: Qualifiers: Gynecological examination findings: abnormal findings PRESENT QualifiedCode(s): Z01.411 - Encounter for gynecological examination (general) (routine) with abnormal findings (2) Lichen sclerosus: Status: Acute Comment: clobetesol/stable (3) Atrophic vaginitis: Status: Acute Comment: estradiol cream/[facility] Medications: New estradiol 0.01%(0.1mg/gram) small amount vaginally twice a week; compounded [facility] Refilled clobetasol 0.05% apply small amount topically daily and prn as needed for itching 1 applic topical DAILY PRN 15 grams 1RF itching Plan Completed breast and pelvic exam Reviewed diet and exercise Pap 2022 Mammogram ordered breast self exam encouraged monthly Refills estradiol compounded cream and clobetesol Colonoscopy 2023 Bone density with PCP RTO 1 year, prn with problems Ирина Israel NIGHTMAN 02/27/25 1437 <Electronically signed by Ирина oshea CUSTOM WOOD STAIR BUILDER CUSTOM WOOD STAIR BUILDER-C> Date _ Ирина Israel CUSTOM WOOD STAIR BUILDER CUSTOM WOOD STAIR BUILDER-C Cosigner Signature: Date (if applicable) CC: ~ [facility] Work Phone: 1(720) 946-498507-10-2025 Evaluation note* Diagnosis Onset Date Resolution Status Admit Date Diarrhea acute November 28 3:23pm Hx of diverticulitis of colon acute November 28, 2024 3:23pm Atrophic vaginitis acute Octobe r 2024 2:17pm Lichen sclerosus acute February 27, 2025 2:17pm Encounter for routine gynecological examination noneactive Octobe r 2024 2:17pm [facility] Work Phone: 1(792) 738-160406-19-2025 Consult note Author Andrei Grimm [facility] Note Date/Time November 07, 2024 6:52 am [facility] Medical Records Department [address] [place] [address] Pre-Anesthesia Evaluation 11/07/24 0646 MR#: [id number] Acct: [id number] Name: VANDA SANTIAGO Rep #:[id number] : 1960 63 From: Andrei Grimm MD PCP: Dr. Dany Thacker MD Status:REG S DC Y Race: C Location: [place] [address] ASA Classification* ASA Classification ASA Classification: 2 (HTN, GERD, migraines, arthritis ) Assessment & Plan Anesthesia* Anesthesia Assessment Anesthesia Assessment: Discussed sedation and/or anesthesia options, risks, benefits, and alternatives with patient/parents/legal guardian/POA. Questions invited. The patient/parents/legal guardian/POA seems to understand and agrees to proceedwith anesthesia plan. Reviewed the physical assessment, medical history, allergy history and patient home medications list prior to surgery/procedure/anesthetic and documented any changes. Performed airway and anesthesia risk assessments. Anesthesia Type Anesthesia Type: MAC History Source History Obtained from:: Patient and Chart Anesthesia Focused Assessment* Temperature: 98.6 F Pulse Rate: 64 Blood Pressure: 123/60 Respiratory Rate: 16 Pulse Ox: 95 Oxygen Delivery Method: Room Air Airway Assessment Mouth opens: >3 cm Mallampati Score: II Teeth Condition: Intact Neck Range of motion (ROM): Full ROM Labs Anesthesia Preop lab: CBC WBC 10.8 K/mm3 (4.4-11.0) 08/21/24 12:59 08/21/24 RBC 4.42 M/mm3 (4.2-5.4) 08/21/24 12:59 08/21/24 Hgb 13.4 g/dL (12.0-15.0) 08/21/24 12:59 08/21/24 Hct 39.0 % (37-47) 08/21/24 12:59 08/21/24 Plt Count 277 K/mm3 (150-450) 08/21/24 12:59 08/21/24 CHEMISTRY Potassium 4.3 mmol/L (3.3-5.1) 08/27/24 10:51 08/27/24 Sodium 140 mmol/L (133-145) 08/27/24 10:51 08/27/24 Magnesium 2.3 mg/dL (1.6-2.6) 11/01/17 09:38 11/01/17 BUN 9 mg/dL (4-19) 08/27/24 10:51 08/27/24 Creatinine 0.76 mg/dL (0.70-1.20) 08/27/24 10:51 08/27/24 Glucose 94 mg/dL (70-99) 08/27/24 10:51 08/27/24 TSH 2.04 uIU/mL (0.358-3.74) 11/02/22 07:01 COAG Pre-Assessment Diagnosis/Proposed Procedure Planned Operative Procedure(s): EGD, COLONOSCOPY Anesthesia History Anesthesia History - diagrammer: Anesthesia History - diagrammer Hx Hospitalization No 11/05/24 15:26 Any Problems With Anesthesia No 11/05/24 15:26 Cholinesterase deficiency No 11/05/24 15:26 You/Your Family Experience No 11/05/24 15:26 fever (hyperthermia) with Relationship Recent Exposure to Contagious No 11/07/24 06:32 Disease Does patient have nerve No 11/05/24 15:26 stimulator Patient instructed to have device shut off --Does patient have Pacemaker No 11/07/24 06:33 or ICD? When Was Last Pacemaker Check QUESTION #4 FULL TEXT: You/Your Family Experience fever (hyperthermia) with Anesthesia Last Oral Intake Last Oral intake: Last Oral Intake NPO since 04:00 11/07/24 06:33 Meds taken in AM with sips of No 11/07/24 06:33 water? Meds patient instructed to take am of surgery PONV PONV - diagrammer: PONV - diagrammer Female Yes 11/05/24 15:26 HX of Motion Sickness No 11/05/24 15:26 HX of N/V After Surgery No 11/05/24 15:26 Non-Smoker Yes 11/05/24 15:26 Duration of Surgery greater No 11/05/24 15:26 than 60 minutes Number of Risk Factors 2 11/05/24 15:26 PONV Score Moderate Risk 11/05/24 15:26 Height & Weight Height & Weight: Anesthesia: Height & Weight Height 5 ft 5 in 11/07/24 06:33 Weight: 72.2 kg 11/07/24 06:33 Body Mass Index (BMI) 26.4 11/07/24 06:33 Respiratory Assessment Respiratory Assessment - diagrammer: Respiratory Tract Infection Hx - diagrammer Hx Respiratory Tract Infection No 11/05/24 15:26 STOP Sleep Apnea STOP Sleep Apnea - diagrammer: STOP Sleep Apnea - diagrammer Hx Hypertension Yes 11/05/24 15:26 Hx Sleep Apnea No 11/05/24 15:26 CPAP BIPAP Do you snore loudly (louder No 11/05/24 15:26 than talking or can be heard Do you often feel tired/ No 11/05/24 15:26 fatigued/ sleepy during daytime? Has anyone observed you stop No 11/05/24 15:26 breathing during sleep? STOP Results Negative 11/05/24 15:26 QUESTION #5 FULL TEXT : Do you snore loudly (louder than talking or can be heard through closed doors)? 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 Specify any problems Hx of Preganancy in last 3 No 11/05/24 15:26 Months Nurse Filling Out Transfusion [facility] 11/05/24 15:26 & Questions: Date: 11/05/24 11/05/24 15:26 Time: 15:33 11/05/24 15:26 Patient unable to answer at this time (ie. confused, unrespo /Reproduction History /Reproductive History - diagrammer: /Reproductive Hx- diagrammer Hx Now No 11/05/24 15:26 Gestational Age (in weeks): EDC: Hx Hx Para Hx Section SAB No 11/05/24 15:26 Active Medications Active Medications: Current Medications Generic Name Dose Route Start Last Admin Trade Name Freq PRN Reason Stop Dose Admin Lactated Ringer's 1,000 mls @ 15 mls/hr 11/07/24 06:15 11/07/24 06:36 IV 15 mls/hr .Q48H SARA Administration PFSH Medical History Post-menopausal History of diverticulitis Mitral valve prolapse Hypertension Disease of gingiva due to infection Ganglion cyst of dorsum of left wrist Wears contact lenses Wears glasses Anxiety Arthritis Anemia Migraine headache History of IBS Gastric reflux Former smoker History of echocardiogram History of stress test Hx of mitral valve prolapse Cardiology follow-up encounter [place] Hypercholesteremia Home Medications ?Medication ?Instructions ?Recorded ?Last Taken ?Type famotidine 40 mg tablet 40 mg PO BID 01/20/21 History multivitamin 1 tab PO DAILY 01/12/2210/20 History clobetasol 0.05 % topical cream 1 applic topical DAILY PRN itching 09/28/22 10/16/23 Rx #15 grams lisinopril 20 mg tablet 20 mg PO DAILY 01/17/2310/20 History fexofenadine 60 mg tablet (Milly 60 mg PO DAILY PRN ALLERGY 09/07/23 Unknown History Allergy) ondansetron 4 mg disintegrating 4 mg PO Q8H PRN PRN Na usea #10 tabs 08/21/24 11/06/24 Rx tablet diphenhydramine 25 1 tab PO QHS PRN sedation 11/05/24 History mg-acetaminophen 500 mg tablet (Tylenol PM Extra Strength) omeprazole 20 mg tablet,delayed 20 mg PO QDAY PRN hear tburn 08/27/24 11/06/24 History release buspirone 7.5 mg tablet 7.5 mg PO BID 11/05/2411/06 History citalopram 20 mg tablet 30 mg PO DAILY 11/05/2410/20 History Allergy/AdvReac Type Severity Reaction Status Date / Time Penicillins Allergy Rash Verified 11/05/24 15:21 Family History Father Cancer lung Hypertension Mother [...] 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 11/07/24 0652 <Electronically signed by Andrei Grimm MD> Date _ Andrei Grimm MD Cosigner Signature: Date CC: ~ Signed [facility] Work Phone: 1(331) 483-623606-19-2025 Procedure note [facility] Medical Records Department [address] [place] [address] Colonoscopy Report MR#: [id number] Acct: [id number] Name: VANDA SANTIAGO Rep #:[id number] : 1960 63 From: Leo Monroe DO PCP: Dr. Dany Thacker MD Status:REG S DC Patient Name: Vanda Santiago Procedure Date: 11/07/2024 7:53 AM Date of : 1960 Age: 63 Procedure: Colonoscopy Indications: Generalized abdominal pain, Clinically significant diarrhea of unexplained origin Providers: Leo Monroe DO Referring MD: Dany Thacker MD Medicines: Monitored Anesthesia Care Patient Profile: This is a 63 year old female. Refer to note in patient chart for documentation of history and physical. Patient has symptoms of acute abdominal cramping and acute epigastric abdominal pain. Last Colonoscopy: several years ago. Complications: No immediate complications. Procedure: Pre-Anesthesia Assessment: - Prior to the procedure, a History and Physical was performed, and patient medications and allergies were reviewed. The patient is competent. The risks and benefits of the procedure and the sedation options and risks were discussed with the patient. All questions were answered and informed consent was obtained. Patient identification and proposed procedure were verified by the physician in the pre-procedure area. Mental Status Examination: alert and oriented. Airway Examination: normal oropharyngeal airway and neck mobility. Respiratory Examination: clear to auscultation. CV Examination: normal. Prophylactic Antibiotics: The patient does not require prophylactic antibiotics. Prior Anticoagulants: The patient has taken no anticoagulant or antiplatelet agents except for NSAID medication. ASA Grade Assessment: II - A patient with mild systemic disease. After reviewing the risks and benefits, the patient was deemed in satisfactory condition to undergo the procedure. The anesthesia plan was to use monitored anesthesia care (MAC). Immediately prior to administration of medications, the patient was re-assessed for adequacy to receive sedatives. The heart rate, respiratory rate, oxygen saturations, blood pressure, adequacy of pulmonary ventilation, and response to care were monitored throughout the procedure. The physical status of the patient was re-assessed after the procedure. After I obtained informed consent, the scope was passed under direct vision. Throughout the procedure, the patient's blood pressure, pulse, and oxygen saturations were monitored continuously. The colonoscope was introduced through the anus and advanced to the terminal ileum. The colonoscopy was performed without difficulty. The patient tolerated the procedure well. The quality of the bowel preparation was adequate. The terminal ileum, ileocecal valve, appendiceal orifice, and rectum were photographed. Scope In: 7:54:47 AM Scope Withdrawal Time 0 hours 8 minutes 44 seconds Scope Out: 8:08:05 AM Total Procedure Duration Time 0 hours 13 minutes 18 seconds Findings: The perianal and digital rectal examinations were normal. The colon (entire examined portion) appeared normal. Biopsies were taken with a cold forceps for histology. Verification of patient identification for the specimen was done. Estimated blood loss was minimal. A patchy area of the distal ileum was congested. Biopsies were taken with a cold forceps for histology. Verification of patient identification for the specimen was done. Estimated blood loss was minimal. A few small-mouthed diverticula were found in the recto-sigmoid colon and sigmoid colon. Impression: - The entire examined colon is normal. Biopsied. - Congested mucosa in the distal ileum. Biopsied. - Diverticulosis in the recto-sigmoid colon and in the sigmoid colon. Recommendation: - Discharge patient to home. - Resume previous diet. - Continue present medications. - Await pathology results. - Repeat colonoscopy for surveillance based on pathology results. - Return to GI office. Procedure Code(s): --- Professional --- 57979, Colonoscopy, flexible; with biopsy, single or multiple CPT copyright 2021 [employer]. All rights reserved. The codes documented in this report are preliminary and upon radar mechanic review may be revised to meet current compliance requirements. Leo Monroe DO 11/07/2024 8:22:52 AM This report has been signed electronically. Number of Addenda: 0 Note Initiated On: 11/07/2024 7:53 AM 11/07/24822 Date _ Leo Monroe DO Cosigner Signature: Date (if indicated) CC: Dr. Dany Thacker MD; Leo Monroe DO ~ Date Dictated: 11/07/24 0753 Date Transcribed: Train Operator: RF Signed [facility]06-19-2025 Procedure note [facility] Medical Records Department [address] [place] [address] Operative Report - CC Letter MR#: [id number] Acct: [id number] Name: VANDA SANTIAGO HAIM Rep #:[id number] : 1960 63 From: Leo Monroe DO PCP: Dr. Dany Thacker MD Status:REG S DC 11/07/2024 Dany Thacker MD [address] [place] [address] Re : Colonoscopy procedure for Vanda Santiago Dear Dr. Thacker This procedure was performed on October. My impressions and recommendations are as follows: Impressions : - The entire examined colon is normal. Biopsied. - Congested mucosa in the distal ileum. Biopsied. - Diverticulosis in the recto-sigmoid colon and in the sigmoid colon. Recommendations : - Discharge patient to home. - Resume previous diet. - Continue present medications. - Await pathology results. - Repeat colonoscopy for surveillance based on pathology results. - Return to GI office. My findings are described in the full procedure note, which is enclosed. If I can be of further assistance, please feel free to contact me at . Sincerely, Leo Monroe DO 11/07/2024 8:22:52 AM This report has been signed electronically. 11/07/24822 Date _ Leo Monroe DO Cosigner Signature: Date (if indicated) CC: Dr. Dany Thacker MD; Leo Monroe DO ~ Date Dictated: 11/07/24 075 Date Transcribed: Train Operator: RF Signed [facility]06-19-2025 Procedure note [facility] Medical Records Department [address] [place] [address] EGD Report MR#: [id number] Acct: [id number] Name: VANDA SANTIAGO Rep #:[id number] : 1960 63 From: Leo Monroe DO PCP: Dr. Dany Thacker MD Status:REG S DC Patient Name: Vanda Santiago Procedure Date: 11/07/2024 7:34 AM Date of : 1960 Age: 63 Procedure: Upper GI endoscopy Indications: Epigastric abdominal pain, Functional Dyspepsia Providers: Leo Monroe DO Referring MD: Dany Thacker MD Medicines: Monitored Anesthesia Care Patient Profile: This is a 63 year old female. Refer to note in patient chart for documentation of history and physical. Patient has symptoms of acute abdominal cramping and acute epigastric abdominal pain. Complications: No immediate complications. Procedure: Pre-Anesthesia Assessment: - Prior to the procedure, a History and Physical was performed, and patient medications and allergies were reviewed. The patient is competent. The risks and benefits of the procedure and the sedation options and risks were discussed with the patient. All questions were answered and informed consent was obtained. Patient identification and proposed procedure were verified by the physician in the pre-procedure area. Mental Status Examination: alert and oriented. Airway Examination: normal oropharyngeal airway and neck mobility. Respiratory Examination: clear to auscultation. CV Examination: normal. Prophylactic Antibiotics: The patient does not require prophylactic antibiotics. Prior Anticoagulants: The patient has taken no anticoagulant or antiplatelet agents except for NSAID medication. ASA Grade Assessment: II - A patient with mild systemic disease. After reviewing the risks and benefits, the patient was deemed in satisfactory condition to undergo the procedure. The anesthesia plan was to use monitored anesthesia care (MAC). Immediately prior to administration of medications, the patient was re-assessed for adequacy to receive sedatives. The heart rate, respiratory rate, oxygen saturations, blood pressure, adequacy of pulmonary ventilation, and response to care were monitored throughout the procedure. The physical status of the patient was re-assessed after the procedure. After obtaining informed consent, the endoscope was passed under direct vision. Throughout the procedure, the patient's blood pressure, pulse, and oxygen saturations were monitored continuously. The colonoscope was introduced through the mouth, and advanced to the third part of the duodenum. Small bowel enteroscopy was deemed necessary. The upper GI endoscopy was accomplished without difficulty. The patient tolerated the procedure well. Scope In: 7:46:38 AM Scope Out: 7:53:03 AM Total Procedure Duration Time 0 hours 6 minutes 25 seconds Findings: One benign-appearing, intrinsic moderate stenosis was found at the cricopharyngeus. This stenosis measured 9 mm (inner diameter) x 3 cm (in length). The stenosis was traversed. Mucosal changes including ringed esophagus and small-caliber esophagus were found in the middle third of the esophagus and in the lower third of the esophagus. Biopsies were obtained from the proximal and distal esophagus with cold forceps for histology of suspected eosinophilic esophagitis. Verification of patient identification for the specimen was done. Estimated blood loss was minimal. Three non-bleeding linear gastric ulcers with no stigmata of bleeding were found in the gastric antrum. Biopsies were taken with a cold forceps for histology. Verification of patient identification for the specimen was done. Estimated blood loss was minimal. Biopsies were taken with a cold forceps for Helicobacter pylori testing. Verification of patient identification for the specimen was done. Many non-bleeding linear duodenal ulcers with no stigmata of bleeding were found in the duodenal bulb, in the first portion of the duodenum, in the second portion of the duodenum, in the third portion of the duodenum and in the fourth portion of the duodenum. The largest lesion was 4 mm in largest dimension. Biopsies were taken with a cold forceps for histology. Verification of patient identification for the specimen was done. Estimated blood loss was minimal. Impression: - Benign-appearing esophageal stenosis. - Esophageal mucosal changes suggestive of eosinophilic esophagitis. - Non-bleeding gastric ulcers with no stigmata of bleeding. Biopsied. - Non-bleeding duodenal ulcers with no stigmata of bleeding. Biopsied. - Biopsies were taken with a cold forceps for evaluation of eosinophilic esophagitis. Recommendation: - Discharge patient to home. - Resume previous diet. - Continue present medications. - Await pathology results. Procedure Code(s): --- Professional --- 96603, Small intestinal endoscopy, enteroscopy beyond second portion of duodenum, not including ileum; with biopsy, single or multiple CPT copyright 2021 [employer]. All rights reserved. The codes documented in this report are preliminary and upon radar mechanic review may be revised to meet current compliance requirements. Leo Monroe DO 11/07/2024 8:20:32 AM This report has been signed electronically. Number of Addenda: 0 Note Initiated On: 11/07/2024 7:34 AM 11/07/2420 Date _ Leo Monroe DO Cosigner Signature: Date (if indicated) CC: Dr. Dany Thacker MD; Leo Monroe DO ~ Date Dictated: 11/07/24 0734 Date Transcribed: Train Operator: RF Signed [facility]06-19-2025 Procedure note [facility] Medical Records Department [address] [place] [address] Operative Report - CC Letter MR#: [id number] Acct: [id number] Name: VANDA SANTIAGO HAIM Rep #:[id number] : 1960 63 From: Leo Monroe DO PCP: Dr. Dany Thacker MD Status:REG S DC 11/07/2024 Dany Thacker MD [address] [place] [id number] Re : Upper GI endoscopy procedure for Vanda Santiago Dear Dr. Thacker This procedure was performed on , November 07, 2024. My impressions and recommendations are as follows: Impressions : - Benign-appearing esophageal stenosis. - Esophageal mucosal changes suggestive of eosinophilic esophagitis. - Non-bleeding gastric ulcers with no stigmata of bleeding. Biopsied. - Non-bleeding duodenal ulcers with no stigmata of bleeding. Biopsied. - Biopsies were taken with a cold forceps for evaluation of eosinophilic esophagitis. Recommendations : - Discharge patient to home. - Resume previous diet. - Continue present medications. - Await pathology results. My findings are described in the full procedure note, which is enclosed. If I can be of further assistance, please feel free to contact me at . Sincerely, eLo Monroe DO 11/07/2024 8:20:32 AM This report has been signed electronically. 11/07/24819 Date _ Leo Monroe DO Cosigner Signature: Date (if indicated) CC: Dr. Dany Thacker MD; Leo Monroe DO ~ Date Dictated: 11/07/2434 Date Transcribed: Train Operator: RF Signed [facility]06-19-2025 Consult note [facility] Medical Records Department [address] [place] [address] Anesthesia Postop Eval I 11/07/2416 MR#: [id number] Acct: [id number] Name: VANDA SANTIAGO HAIM Rep #:[id number] : 1960 63 From: Naeem Dennis PCP: Dr. Dany Thacker MD Status:REG S DC Y Race: C Location: [place] [address] Anesthesia: Postop Eval I Current Vital Signs Temperature: 97.5 F Pulse Rate: 67 Blood Pressure: 107/56 Respiratory Rate: 16 Pulse Ox: 100 Oxygen Delivery Method: Room Air Assessment Airway patent: Yes Spontaneous unlabored respirations: Yes Mental status: Asleep nausea: No Vomiting: No Anesthesia Complication: No Fluid Hydration Crystalloid volume administer (ml): 800 Total IV fluid infused: 800 Progress Note Anesthesia document: Postop Eval 1 completed: Yes 11/07/24 0817 > Date _ Naeem Oteroignálvaro Signature: Date CC: ~ Signed [facility]06-19-2025 History and physical note [facility] Medical Records Department [address] [place] [address] History & Physical Exam 11/07/24726 MR#: [id number] Acct: [id number] Name: VANDA SANTIAGO Rep #:[id number] : 1960 63 From: Leotyson Monroe PCP: Dr. Dany Thacker MD Status:REG S DC Location: [place] [address] HPI - General General Date of Admission: 11/07/24 Date of Service: 11/07/24 Chief Complaint: colitis, heartburn and elevated liver enzymes HPI Narrative VANDA SANTIAGO, is a 63 F who presents with the Chief Complaint: colitis [facility] ED .07.16 with nausea, abd pain and tenderness. Pt recently finished antibiotic for diverticulitis. Work up remarkable for elevated liver enzymes andcolitis on CT. CT abd/pelvis 08.21.24:1. Mild wall thickening and enhancement of the distal sigmoid colon, which mayrepresent infectious/inflammatory colitis. 2. No acute abdominopelvic finding. Pt was diagnosed with diverticulitis in December 2023 and was treated with antibiotics. She recently felt like she was having this again. She contacted herP and was put on an antibiotic however [...] and PPIs in the past for this. [facility] Medical History Post-menopausal History of diverticulitis Mitral valve prolapse Hypertension Disease of gingiva due to infection Ganglion cyst of dorsum of left wrist Wears contact lenses Wears glasses Anxiety Arthritis Anemia Migraine headache History of IBS Gastric reflux Former smoker History of echocardiogram History of stress test Hx of mitral valve prolapse Cardiology follow-up encounter [place] Hypercholesteremia Home Medications ?Medication ?Instructions ?Recorded ?Last Taken ?Type famotidine 40 mg tablet 40 mg PO BID 01/20/21 History multivitamin 1 tab PO DAILY 01/12/2210/20 History clobetasol 0.05 % topical cream 1 applic topical DAILY PRN itching 09/28/22 10/16/23 Rx #15 grams lisinopril 20 mg tablet 20 mg PO DAILY 01/17/2310/20 History fexofenadine 60 mg tablet (Milly 60 mg PO DAILY PRN ALLERGY 09/07/23 Unknown History Allergy) ondansetron 4 mg disintegrating 4 mg PO Q8H PRN PRN Na usea #10 tabs 08/21/24 11/06/24 Rx tablet diphenhydramine 25 1 tab PO QHS PRN sedation 11/05/24 History mg-acetaminophen 500 mg tablet (Tylenol PM Extra Strength) omeprazole 20 mg tablet,delayed 20 mg PO QDAY PRN hear tburn 08/27/24 11/06/24 History release buspirone 7.5 mg tablet 7.5 mg PO BID 11/05/2411/06 History citalopram 20 mg tablet 30 mg PO DAILY 11/05/2410/20 History Allergy/AdvReac Type Severity Reaction Status Date / Time Penicillins Allergy Rash Verified 11/05/24 15:21 Family History Father Cancer lung Hypertension Mother [...] 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 [employer] Constitutional Constitutional: Denies fatigue, fever(s), poor appetite, weight gain or weight loss Gastrointestinal Gastrointestinal: Denies belching, bloating, change in bowel habits, change in stool character, chewing difficulty, coffee ground emesis, constipation, cramping, diarrhea, dyspepsia, dysphagia, earlysatiety, excessive flatus, fecalincontinence, heartburn, hematemesis, hematochezia, hemorrhoids, loose stools, melena, nausea, odynophagia, rectal bleeding, tenesmus, vomiting or weight changes Vital Signs Vital Signs Vital Signs: 11/07/24 06:32 11/07/24 06:33 11/07/24 06:48 Temperature 98.6 F 98.6 F Temperature Source Temporal Pulse Rate 64 64 Respiratory Rate 16 16 Respiratory Pattern Normal Blood Pressure 123/60 H 123/60 H Blood Pressure Mean 81 Blood Pressure Source Monitor Blood Pressure Position Semi-Fowlers Blood Pressure Location Right Arm Pulse Ox 95 95 Oxygen Delivery Method Room Air Room Air Weight Weight: 159 lb 2.78 oz Body Mass Index (BMI) 26.4 Physical Exam Const alert, oriented x3, no apparent distress and healthy appearing General Appearance: cooperative GI normal to inspection, nondistended, normoactive bowel sounds, soft to palpation,non-tender and non-distended Percussion: normal to percussion Rectal Exam: deferred Assessment & Plan Assessment/Plan (1) Heartburn: (2) Diarrhea: PLAN: Assessment and Plan Assessment and Plan (1) Colitis: Status: Acute Plan: This is a 63 yo female pt here today for ED f/u after being diagnosed with colitis. Pt has a PMHx of diverticulitis with most recent episode in December 2023. Her symptoms of abd pain and loose stools have mostly resolved. She noticed improvements after cutting gluten out of her diet. Will order celiac panel and calprotectin. She will also undergo colonoscopy for assessment of her colon. She has daily heartburn in the evening. She has been on PPI and H2 macario in the past. SHe will have an EGD at the same time as colonoscopy. In the ED, she was found to have elevated liver enzymes. She endorses use of acetaminophen daily for 10 years. I will repeat CMP and consider further work up. -Colonoscopy and EGD -Celiac panel, calprotectin and CMP -f/u after procedure (2) Elevated liver enzymes: Status: Acute (3) Heartburn: Status: Acute Orders: Orders Celiac Disease Profile Today K52.9 - Noninfective gastroenteritis and colitis, unspecified Calprotectin, Stool Today K52.9 - Noninfective gastroenteritis and colitis, unspecified Comprehensive Metabolic Profil Today K52.9 - Noninfective gastroenteritis and colitis, unspecified 11/07/24 0730 Cosigner Signature (if applicable): CC: Dr. Dany Thacker MD; Leo Monroe DO~ Signed [facility]06-19-2025 [facility] Medical Records Department [address] [place] [address] History Physical Exam 11/07/24 0727 MR#: [id number] Acct: [id number] Name: VANDA SANTIAGO HAIM Rep #: [id number] : 1960 63 From: Leo Monroe DO PCP: Dr. Dany Thacker MD Status:[facility] Location: [place] [address] HPI - General General Date of Admission: 11/07/24 Date of Service: 11/07/24 Chief Complaint: colitis, heartburn and elevated liver enzymes HPI Narrative VANDA SANTIAGO, is a 63 F who presents with the Chief Complaint: colitis [facility] ED .2.25 with nausea, abd pain and tenderness. Pt recently finished antibiotic for diverticulitis. Work up remarkable for elevated liver enzymes and colitis on CT. CT abd/pelvis 4..25:1. Mild wall thickening and enhancement of the distal sigmoid colon, which may represent infectious/inflammatory colitis. 2. No acute abdominopelvic finding. Pt [...] and PPIs in the past for this. [facility] Medical History Post-menopausal History of diverticulitis Mitral valve prolapse Hypertension Disease of gingiva due to infection Ganglion [...] mg tablet 40 mg PO BID 01/20/21 11/06/24 His tory multivitamin 1 tab PO DAILY 01/12/22 11/06/24 H istory clobetasol 0.05 % topical cream 1 applic topical DAILY PRN itching 09/28/22 10/16/23 Rx #15 grams lisinopril 20 mg tablet 20 mg PO DAILY 01/17/23 11/06/24 H istory fexofenadine 60 mg tablet (Milly 60 mg PO DAILY PRN ALLERGY 09/06 Unknown History Allergy) ondansetron 4 mg disintegrating 4 mg PO Q8H PRN PRN Nausea #10 tab s 08/21/24 11/06/24 Rx tablet diphenhydramine 25 1 tab PO QHS PRN sedation 08/27/24 11/05/24 History mg-acetaminophen 500 mg tablet (Tylenol PM Extra Strength) omeprazole 20 mg tablet,delayed 20 mg PO QDAY PRN heartburn 11/06/24 History release buspirone 7.5 mg tablet 7.5 mg PO BID 11/05/24 11/06/24 Hi story citalopram 20 mg tablet 30 mg PO DAILY 11/05/24 11/06/24 H istory Allergy/AdvReac Type Severity Reaction Status Date / Time Penicillins Allergy Rash Verified 11/05/24 15:21 Family History Father Cancer lung Hypertension Mother [...] 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 [employer] Constitutional Constitutional: Denies fatigue, fever(s), poor appetite, weight gain or weight loss Gastrointestinal Gastrointestinal: Denies belching, bloating, change in bowel habits, change in stool character, chewing difficulty, coffee ground emesis, constipation, cramping, diarrhea, dyspepsia, dysphagia, early satiety, excessive flatus, fecal incontinence, heartburn, hematemesis, hematochezia, hemorrhoids, loose stools, melena, nausea, odynophagia, rectal bleeding, tenesmus, vomiting or weight changes Vital Signs Vital Signs Vital Signs: 11/07/24 06:32 11/07/24 06:33 11/07/24 06:48 Temperature 98.6 F 98.6 F Temperature Source Temporal Pulse Rate 64 64 Respiratory Rate 16 16 Respiratory Pattern Normal Blood Pressure 123/60 H 123/60 H Blood Pressure Mean 81 Blood Pressure Source Monitor Blood Pressure Position Semi-Fowlers Blood Pressure Location (more content not included)...[facility] 11-07-2024 Consult note [facility] Medical Records Department [address] [place] [address] Pre-Anesthesia Evaluation 11/07/24 0646 MR#: [id number] Acct: [id number] Name: VANDA SANTIAGO Rep #:[id number] : 1960 63 From: Andrei Grimm MD PCP: Dr. Dany Thacker MD Status:REG S DC Y Race: C Location: [place] [address] ASA Classification* ASA Classification ASA Classification: 2 (HTN, GERD, migraines, arthritis ) Assessment & Plan Anesthesia* Anesthesia Assessment Anesthesia Assessment: Discussed sedation and/or anesthesia options, risks, benefits, and alternatives with patient/parents/legal guardian/POA. Questions invited. The patient/parents/legal guardian/POA seems to understand and agrees to proceedwith anesthesia plan. Reviewed the physical assessment, medical history, allergy history and patient home medications list prior to surgery/procedure/anesthetic and documented any changes. Performed airway and anesthesia risk assessments. Anesthesia Type Anesthesia Type: MAC History Source History Obtained from:: Patient and Chart Anesthesia Focused Assessment* Temperature: 98.6 F Pulse Rate: 64 Blood Pressure: 123/60 Respiratory Rate: 16 Pulse Ox: 95 Oxygen Delivery Method: Room Air Airway Assessment Mouth opens: >3 cm Mallampati Score: II Teeth Condition: Intact Neck Range of motion (ROM): Full ROM Labs Anesthesia Preop lab: CBC WBC 10.8 K/mm3 (4.4-11.0) 08/21/24 12:59 08/21/24 RBC 4.42 M/mm3 (4.2-5.4) 08/21/24 12:59 08/21/24 Hgb 13.4 g/dL (12.0-15.0) 08/21/24 12:59 08/21/24 Hct 39.0 % (37-47) 08/21/24 12:59 08/21/24 Plt Count 277 K/mm3 (150-450) 08/21/24 12:59 08/21/24 CHEMISTRY Potassium 4.3 mmol/L (3.3-5.1) 08/27/24 10:51 08/27/24 Sodium 140 mmol/L (133-145) 08/27/24 10:51 08/27/24 Magnesium 2.3 mg/dL (1.6-2.6) 11/01/17 09:38 11/01/17 BUN 9 mg/dL (4-19) 08/27/24 10:51 08/27/24 Creatinine 0.76 mg/dL (0.70-1.20) 08/27/24 10:51 08/27/24 Glucose 94 mg/dL (70-99) 08/27/24 10:51 08/27/24 TSH 2.04 uIU/mL (0.358-3.74) 11/02/22 07:01 COAG Pre-Assessment Diagnosis/Proposed Procedure Planned Operative Procedure(s): EGD, COLONOSCOPY Anesthesia History Anesthesia History - diagrammer: Anesthesia History - diagrammer Hx Hospitalization No 11/05/24 15:26 Any Problems With Anesthesia No 11/05/24 15:26 Cholinesterase deficiency No 11/05/24 15:26 You/Your Family Experience No 11/05/24 15:26 fever (hyperthermia) with Relationship Recent Exposure to Contagious No 11/07/24 06:32 Disease Does patient have nerve No 11/05/24 15:26 stimulator Patient instructed to have device shut off --Does patient have Pacemaker No 11/07/24 06:33 or ICD? When Was Last Pacemaker Check QUESTION #4 FULL TEXT: You/Your Family Experience fever (hyperthermia) with Anesthesia Last Oral Intake Last Oral intake: Last Oral Intake NPO since 04:00 11/07/24 06:33 Meds taken in AM with sips of No 11/07/24 06:33 water? Meds patient instructed to take am of surgery PONV PONV - diagrammer: PONV - diagrammer Female Yes 11/05/24 15:26 HX of Motion Sickness No 11/05/24 15:26 HX of N/V After Surgery No 11/05/24 15:26 Non-Smoker Yes 11/05/24 15:26 Duration of Surgery greater No 11/05/24 15:26 than 60 minutes Number of Risk Factors 2 11/05/24 15:26 PONV Score Moderate Risk 11/05/24 15:26 Height & Weight Height & Weight: Anesthesia: Height & Weight Height 5 ft 5 in 11/07/24 06:33 Weight: 72.2 kg 11/07/24 06:33 Body Mass Index (BMI) 26.4 11/07/24 06:33 Respiratory Assessment Respiratory Assessment - diagrammer: Respiratory Tract Infection Hx - diagrammer Hx Respiratory Tract Infection No 11/05/24 15:26 STOP Sleep Apnea STOP Sleep Apnea - diagrammer: STOP Sleep Apnea - diagrammer Hx Hypertension Yes 11/05/24 15:26 Hx Sleep Apnea No 11/05/24 15:26 CPAP BIPAP Do you snore loudly (louder No 11/05/24 15:26 than talking or can be heard Do you often feel tired/ No 11/05/24 15:26 fatigued/ sleepy during daytime? Has anyone observed you stop No 11/05/24 15:26 breathing during sleep? STOP Results Negative 11/05/24 15:26 QUESTION #5 FULL TEXT : Do you snore loudly (louder than talking or can be heard through closeddoors)? 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 Specify any problems Hx of Preganancy in last 3 No 11/05/24 15:26 Months Nurse Filling Out Transfusion [facility] 11/05/24 15:26 & Questions: Date: 11/05/24 11/05/24 15:26 Time: 15:33 11/05/24 15:26 Patient unable to answer at this time (ie. confused, unrespo /Reproduction History /Reproductive History - diagrammer: /Reproductive Hx- diagrammer Hx Now No 11/05/24 15:26 Gestational Age (in weeks): EDC: Hx Hx Para Hx Section SAB No 11/05/24 15:26 Active Medications Active Medications: Current Medications Generic Name Dose Route Start Last Admin Trade Name Freq PRN Reason Stop Dose Admin Lactated Ringer's 1,000 mls @ 15 mls/hr 11/07/24 06:15 11/07/24 06:36 IV 15 mls/hr .Q48H SARA Administration PFSH Medical History Post-menopausal History of diverticulitis Mitral valve prolapse Hypertension Disease of gingiva due to infection Ganglion cyst of dorsum of left wrist Wears contact lenses Wears glasses Anxiety Arthritis Anemia Migraine headache History of IBS Gastric reflux Former smoker History of echocardiogram History of stress test Hx of mitral valve prolapse Cardiology follow-up encounter [place] Hypercholesteremia Home Medications ?Medication ?Instructions ?Recorded ?Last Taken ?Type famotidine 40 mg tablet 40 mg PO BID 01/20/21 History multivitamin 1 tab PO DAILY 01/12/2210/20 History clobetasol 0.05 % topical cream 1 applic topical DAILY PRN itching 09/28/22 10/16/23 Rx #15 grams lisinopril 20 mg tablet 20 mg PO DAILY 01/17/2310/20 History fexofenadine 60 mg tablet (Milly 60 mg PO DAILY PRN ALLERGY 09/07/23 Unknown History Allergy) ondansetron 4 mg disintegrating 4 mg PO Q8H PRN PRN Na usea #10 tabs 08/21/24 11/06/24 Rx tablet diphenhydramine 25 1 tab PO QHS PRN sedation 11/05/24 History mg-acetaminophen 500 mg tablet (Tylenol PM Extra Strength) omeprazole 20 mg tablet,delayed 20 mg PO QDAY PRN hear tburn 08/27/24 11/06/24 History release buspirone 7.5 mg tablet 7.5 mg PO BID 11/05/2411/06 History citalopram 20 mg tablet 30 mg PO DAILY 11/05/2410/20 History Allergy/AdvReac Type Severity Reaction Status Date / Time Penicillins Allergy Rash Verified 11/05/24 15:21 Family History Father Cancer lung Hypertension Mother [...] 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 11/07/24651 > Date _ Andrei Grimm MD Cosigner Signature: Date CC: ~ Signed [facility]04-08-2025 Evaluation note* Diagnosis Onset Date Resolution Status Admit Date Elevated liver enzymes acute Ap 2024 9:52am Heartburn acute August 27 9:52am Colitis inactive August 27 9:52am [facility] Work Phone: 1(553) 881-240304-08-2025 Evaluation note* Diagnosis Onset Date Resolution Status Admit Date Elevated liver enzymes acute Ap 2024 9:52am Heartburn acute August 27 9:52am Colitis inactive August 27 9:52am Diarrhea acute November 07 5:52am Heartburn acute November 07 5:52am [facility] Work Phone: 1(209) 650-113504-02-2025 Radiology Diagnostic study note [facility] Imaging Services [address] [place], [place] [address] Abdomen/Pelvis W IV Cont ONLY MR#: [id number] Acct: [id number] Name: VANDA SANTIAGO Rep #: [id number] 9 : 1960 F 63 From: Katarina Angel MD PCP: Dr. Dany Thacker MD Status: REG E R Study:Abdomen/Pelvis W IV Cont ONLY Date of E xam: 08/21/24 Exam# [id number] Ordering Dr: Sobeida Watts DO PROCEDURE: ABDOMEN/PELVIS [...] of the uterus with scattered fibroids. Bilateral Essuredevices. Bowel: The bowel loops are normal in [...] 2. No acute abdominopelvic finding. Reading Location: [facility] CC: Dr. Dany Thacker MD; Dr. Thomas Watts, DO ~ Train Operator: [facility] Naeem Dennis [facility] Note Date/Time November 07, 2024 8:17 am [facility] Medical Records Department [address] [place] [address] Anesthesia Postop Eval I 11/07/24 0816 MR#: [id number] Acct: [id number] Name: VANDA SANTIAGO Rep #:[id number] 0 : 1960 63 From: Naeem Dennis PCP: Dr. Dany Thacker MD Status:REG S DC Y Race: C Location: [place] [address] Anesthesia: Postop Eval I Current Vital Signs Temperature: 97.5 F Pulse Rate: 67 Blood Pressure: 107/56 Respiratory Rate: 16 Pulse Ox: 100 Oxygen Delivery Method: Room Air Assessment Airway patent: Yes Spontaneous unlabored respirations: Yes Mental status: Asleep nausea: No Vomiting: No Anesthesia Complication: No Fluid Hydration Crystalloid volume administer (ml): 800 Total IV fluid infused: 800 Progress Note Anesthesia document: Postop Eval 1 completed: Yes 11/07/24 08 <Electronically signed by Naeem Dennis > Date _ Naeem Peters Signature: Date CC: ~ Signed [facility] Work Phone: Evaluation noteNo assessment information available [facility] Work Phone: Evaluation note* Diagnosis Onset Date Resolution Status Atrophic vaginitis acute Lichen sclerosus acute Encounter for routine gynecological examination noneactive [facility] Work Phone: Evaluation note* Diagnosis Onset Date Resolution Status Mass of left hand acute [facility] Work Phone: Evaluation note* Diagnosis Onset Date Resolution Status Mass of left hand acute Mass of left hand acute Mass of left hand acute [facility] Work Phone: History and physical note Author Leo Monroe [facility] Note Date/Time November 07, 2024 7:30 am [facility] Medical Records Department [address] [place] [address] History & Physical Exam 11/07/24 0727 MR#: [id number] Acct: [id number] Name: VANDA SANTIAGO HAIM Rep #:[id number] 6 : 1960 63 From: Leo Monroe DO PCP: Dr. Dany Thacker MD Status:REG S DC Location: [place] [address] HPI - General General Date of Admission: 11/07/24 Date of Service: 11/07/24 Chief Complaint: colitis, heartburn and elevated liver enzymes HPI Narrative VANDA SANTIAGO, is a 63 F who presents with the Chief Complaint: colitis [facility] ED 4.07.16 with nausea, abd pain and tenderness. Pt recently finished antibiotic for diverticulitis. Work up remarkable for elevated liver enzymes andcolitis on CT. CT abd/pelvis 4.07.16:1. Mild wall thickening and enhancement of the distal sigmoid colon, which may represent infectious/inflammatory colitis. 2. No acute abdominopelvic finding. Pt was diagnosed with diverticulitis in December 2023 and was treated with antibiotics. She recently felt like she was having this again. She contacted herP and was put on an antibiotic however [...] and PPIs in the past for this. [facility] Medical History Post-menopausal History of diverticulitis Mitral valve prolapse Hypertension Disease of gingiva due to infection Ganglion cyst of dorsum of left wrist Wears contact lenses Wears glasses Anxiety Arthritis Anemia Migraine headache History of IBS Gastric reflux Former smoker History of echocardiogram History of stress test Hx of mitral valve prolapse Cardiology follow-up encounter [place] Hypercholesteremia Home Medications ?Medication ?Instructions ?Recorded ?Last Taken ?Type famotidine 40 mg tablet 40 mg PO BID 01/20/21 History multivitamin 1 tab PO DAILY 01/12/2210/20 History clobetasol 0.05 % topical cream 1 applic topical DAILY PRN itching 09/28/22 10/16/23 Rx #15 grams lisinopril 20 mg tablet 20 mg PO DAILY 01/17/2310/20 History fexofenadine 60 mg tablet (Milly 60 mg PO DAILY PRN ALLERGY 09/07/23 Unknown History Allergy) ondansetron 4 mg disintegrating 4 mg PO Q8H PRN PRN Na usea #10 tabs 08/21/24 11/06/24 Rx tablet diphenhydramine 25 1 tab PO QHS PRN sedation 11/05/24 History mg-acetaminophen 500 mg tablet (Tylenol PM Extra Strength) omeprazole 20 mg tablet,delayed 20 mg PO QDAY PRN hear tburn 08/27/24 11/06/24 History release buspirone 7.5 mg tablet 7.5 mg PO BID 11/05/2411/06 History citalopram 20 mg tablet 30 mg PO DAILY 11/05/2410/20 History Allergy/AdvReac Type Severity Reaction Status Date / Time Penicillins Allergy Rash Verified 11/05/24 15:21 Family History Father Cancer lung Hypertension Mother [...] 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 [employer] Constitutional Constitutional: Denies fatigue, fever(s), poor appetite, weight gain or weight loss Gastrointestinal Gastrointestinal: Denies belching, bloating, change in bowel habits, change in stool character, chewing difficulty, coffee ground emesis, constipation, cramping, diarrhea, dyspepsia, dysphagia, early satiety, excessive flatus, fecalincontinence, heartburn, hematemesis, hematochezia, hemorrhoids, loose stools, melena, nausea, odynophagia, rectal bleeding, tenesmus, vomiting or weight changes Vital Signs Vital Signs Vital Signs: 11/07/24 06:32 11/07/24 06:33 11/07/24 06:48 Temperature 98.6 F 98.6 F Temperature Source Temporal Pulse Rate 64 64 Respiratory Rate 16 16 Respiratory Pattern Normal Blood Pressure 123/60 H 123/60 H Blood Pressure Mean 81 Blood Pressure Source Monitor Blood Pressure Position Semi-Fowlers Blood Pressure Location Right Arm Pulse Ox 95 95 Oxygen Delivery Method Room Air Room Air Weight Weight: 159 lb 2.78 oz Body Mass Index (BMI) 26.4 Physical Exam Const alert, oriented x3, no apparent distress and healthy appearing General Appearance: cooperative GI normal to inspection, nondistended, normoactive bowel sounds, soft to palpation,non-tender and non-distended Percussion: normal to percussion Rectal Exam: deferred Assessment & Plan Assessment/Plan (1) Heartburn: (2) Diarrhea: PLAN: Assessment and Plan Assessment and Plan (1) Colitis: Status: Acute Plan: This is a 63 yo female pt here today for ED f/u after being diagnosed with colitis. Pt has a PMHx of diverticulitis with most recent episode in December 2023. Her symptoms of abd pain and loose stools have mostly resolved. She noticed improvements after cutting gluten out of her diet. Will order celiac panel and calprotectin. She will also undergo colonoscopy for assessment of her colon. She has daily heartburn in the evening. She has been on PPI and H2 macario in the past. SHe will have an EGD at the same time as colonoscopy. In the ED, she was found to have elevated liver enzymes. She endorses use of acetaminophen daily for 10 years. I will repeat CMP and consider further work up. -Colonoscopy and EGD -Celiac panel, calprotectin and CMP -f/u after procedure (2) Elevated liver enzymes: Status: Acute (3) Heartburn: Status: Acute Orders: Orders Celiac Disease Profile Today K52.9 - Noninfective gastroenteritis and colitis, unspecified Calprotectin, Stool Today K52.9 - Noninfective gastroenteritis and colitis, unspecified Comprehensive Metabolic Profil Today K52.9 - Noninfective gastroenteritis and colitis, unspecified 11/07/24 0730 <Electronically signed by Leo Monroe DO> Cosigner Signature (if applicable): CC: Dr. Dany Thacker MD; Leo Monroe DO~ Signed [facility] Work Phone: Hospital Discharge instructionsAmbulatory Orders* Orthopedics Location: None Selected [facility] Work Phone: Hospital Discharge instructions Additional Instructions Thank you [...] (Dr. 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 Reason for Visit Atrophic vaginitis Lichen [...] am Colitis August 27, 2024 9:52 am Reason for Visit Admit Date Elevated liver enzymes August 27, 2024 9 :52am Heartburn August 27, 2024 9:52 am Colitis August 27, 2024 9:52 am Diarrhea November 07, 2024 5:52 am Heartburn November 07, 2024 5:52 am Chief Complaint Admit Date STOOL August 16, 2024 9:2 3am ABD pain August 21, 2024 12:2 8pm DIARRHEA - DVT August 27, 2024 9:52 am INT LAB ORDER August 27, 2024 10:4 7am LABSPEC August 29, 2024 7:5 6am FU PER LISA November 28, 2024 3:23 pm Chief Complaint Admit Date FU PER LISA November 28, 2024 3:23 pm 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, 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 2: 17pm Reason for Visit Admit Date Diarrhea November 28, 2024 3:23 pm Hx of diverticulitis of colon November 28, 2024 3:23pm Atrophic vaginitis February 27, 2025 2: 17pm Lichen sclerosus February 27, 2025 2: 17pm Encounter for routine gynecological exam ination February 27, 2025 2:17pm Family History Relationship Condition Age at Onset Recorded Date/T dorian father Malignant neoplasm Unknown Hypertension Unknown mother Malignant neoplasm of breast Unknown Advance Directives Advance Directive Response Recorded Date/ Time Living Will No April 20 9:19am Power of Tumbling And Rolling Supervisor No April 20, 2021 9:19am Advance Directive Response Recorded Date/ Time Living Will No April 20 8:19am Power of Tumbling And Rolling Supervisor No April 20, 2021 8:19am Advance Directive Response Recorded Date/ Time Living Will No September 19, 2023 12:25pm Power of Tumbling And Rolling Supervisor No September 18 12:25pm Advance Directive Response Recorded Date/ Time Living Will No August 21, 2024 3:10pm Do you have a Healthcare Power of Tumbling And Rolling Supervisor? No August 21, 2024 3:10pm Advance Directive Response Recorded Date/ Time Living Will No August 21, 2024 3:10pm Do you have a Healthcare Power of Tumbling And Rolling Supervisor? No August 21, 2024 3:10pm Do you have a Healthcare Power of Tumbling And Rolling Supervisor? No November 05, 2024 3:26pm Summary Purpose Additional Source Comments Goals (unrecognized [...] MD Primary Care Provider Active Ирина Israel CUSTOM WOOD STAIR BUILDER, CUSTOM WOOD STAIR BUILDER-C Attending Provider, Referring Provider Active Team Status: Active Member Role Status Dates Dr. Dany Thacker MD Family Provider Active No Primary Care Physician Primary Care Provider Active Team Status: Inactive Member Role Status Dates Dr. Dany Thacker MD Referring Provider Active Ирина Israel CUSTOM WOOD STAIR BUILDER, CUSTOM WOOD STAIR BUILDER-C Attending Provider Active Team Status: Inactive Member Role Status Dates No Primary Care Physician Primary Care Provider Active Ирина Israel CUSTOM WOOD STAIR BUILDER, CUSTOM WOOD STAIR BUILDER-C Attending Provider, Referring Provider Active Team Status: [...] August 27, 2024 End: August 27, 2024 JEFF Jc Attending Provider Active Start: August 27, 2024 End: August 27, 2024 Team Status: Inactive Member Role Status Dates Dr. Dany Thacker MD Primary Care Provider Active Start: August 27, 2024 End: August 27, 2024 JEFF Jc Attending Provider Active Start: August 27, 2024 End: August 27, 2024 JEFF Jc Referring Provider Active Start: August 27, 2024 End: August 27, 2024 Team Status: Active Member Role Status Dates Dr. Dany Thacker MD Primary Care Provider Active Start: August 29, 2024 JEFF Jc Attending Provider Active Start: August 29, 2024 JEFF Jc Referring Provider Active Start: August 29, 2024 Team Status: Inactive Member Role Status Dates Dr. Dany Thacker MD Primary Care Provider Active Start: August 29, 2024 End: August 29, 2024 JEFF Jc Attending Provider Active Start: August 29, 2024 End: August 29, 2024 JEFF Jc Referring Provider Active Start: August 29, 2024 End: August 29, 2024 Team Status: Inactive Member Role Status Dates Dr. Dany Thacker MD Primary Care Provider Active Start: November 07, 2024 End: November 07, 2024 Dr. Dany Thacker MD Referring Provider Active Start: November 07, 2024 End: November 07, 2024 Dr. Leo Monroe DO Attending Provider Active Start: November 07, 2024 End: November 07, 2024 Team Status: Active Member Role Status Dates Dr. Dany Thacker MD Primary Care Provider Active Start: November 07, 2024 Dr. Dany Thacker MD Referring Provider Active Start: November 07, 2024 Dr. Leo Monroe DO Attending Provider Active Start: November 07, 2024 Dr. Leo Monroe DO Other Provider Active St art: November 07, 2024 Team Status: Active Member Role/Relationship Status Dates Dr. Dany Thacker MD Primary Care Provider Active Team Status: Inactive Member Role/Relationship Status Dates Dr. Dany Thacker MD Primary Care Provider Active Start: August 16, 2024 End: August 16, 2024 Dr. Dany Thacker MD Attending Provider Active Start: August 16, 2024 End: August 16, 2024 Dr. Dany Thacker MD Referring Provider Active Start: August 16, 2024 End: August 16, 2024 Team Status: Inactive Member Role/Relationship Status Dates Dr. Dany Thacker MD Primary Care Provider Active Start: August 21, 2024 End: August 21, 2024 Dr. Thomas Watts DO Attending Provider Active Start: August 21, 2024 End: August 21, 2024 Dr. Thomas Watts DO Emergency Provider Active Start: August 21, 2024 End: August 21, 2024 Team Status: Inactive Member Role/Relationship Status Dates Dr. Dany Thacker MD Primary Care Provider Active Start: August 27, 2024 End: August 27, 2024 Dr. Dany Thacker MD Referring Provider Active Start: August 27, 2024 End: August 27, 2024 JEFF Jc Attending Provider Active Start: August 27, 2024 End: August 27, 2024 Team Status: Inactive Member Role/Relationship Status Dates Dr. Dany Thacker MD Primary Care Provider Active Start: August 27, 2024 End: August 27, 2024 JEFF Jc Attending Provider Active Start: August 27, 2024 End: August 27, 2024 JEFF Jc Referring Provider Active Start: August 27, 2024 End: August 27, 2024 Team Status: Inactive Member Role/Relationship Status Dates Dr. Dany Thacker MD Primary Care Provider Active Start: August 29, 2024 End: August 29, 2024 JEFF Jc Attending Provider Active Start: August 29, 2024 End: August 29, 2024 JEFF Jc Referring Provider Active Start: August 29, 2024 End: August 29, 2024 Team Status: Inactive Member Role/Relationship Status Dates Dr. Dany Thacker MD Primary Care Provider Active Start: November 07, 2024 End: November 07, 2024 Dr. Dany Thacker MD Referring Provider Active Start: November 07, 2024 End: November 07, 2024 Dr. Leo Monroe DO Attending Provider Active Start: November 07, 2024 End: November 07, 2024 Team Status: Active Member Role/Relationship Status Dates Dr. Dany Thacker MD Primary Care Provider Active Start: November 07, 2024 Dr. Dany Thacker MD Referring Provider Active Start: November 07, 2024 Dr. Leo Monroe DO Attending Provider Active Start: November 07, 2024 Dr. Leo Monroe DO Other Provider Active St art: November 07, 2024 Team Status: Inactive Member Role/Relationship Status Dates Dr. Dany Thacker MD Primary Care Provider Active Start: November 28, 2024 End: November 28, 2024 Dr. Dany Thacker MD Referring Provider Active Start: November 28, 2024 End: November 28, 2024 JEFF Jc Attending Provider Active Start: November 28, 2024 End: November 28, 2024 Team Status: Active Member Role/Relationship Status Dates Dr. Dany Thacker MD Primary care physician Active Team Status: Inactive Member Role/Relationship Status Dates Dr. Dany Thacker MD Primary care physician Active Start: November 28, 2024 End: November 28, 2024 Dr. Dany Thacker MD Referring Provider Active Start: November 28, 2024 End: November 28, 2024 JEFF Jc Attending physician Active Start: November 28, 2024 End: November 28, 2024 Team Status: Inactive Member Role/Relationship Status Dates Dr. Dany Thacker MD Primary care physician Active Start: February 27, 2025 End: February 27, 2025 Dr. Dany Thacker MD Referring Provider Active Start: February 27, 2025 End: February 27, 2025 Ирина Israel NP, ORACIO-C Attending physician Active Start: February 27, 2025 End: February 27, 2025 INFORMATION SOURCE (unrecogn ized section and content) DATE CREATED AUTHOR 02/27/2025 [facility] FOR RECORDS PERTAINING TO PATIENTS WHO [...] BE BASED ON THE PRIMARY CLINICAL RECORDS. [facility] [employer] [facility]. provides no warranty or guarantee of the accuracy or completeness of information in this document.
[2025-04-28] MEDS: Lactated Ringers 1,000 ML 15 ML IV (05:59)
--- NOTE | 2025-04-28 06:30 | EGD_PTH ---
PATIENT: LINDA SANTIAGO LOC: EN U#:[id number] AGE/SX: 64/F ROOM: RE04/28/[address]: Dr. Leo Monroe DO : 1960 BED: DIS: 04/28/2025 SPEC #: [id number] RECD: 04/28/25 07:52 STATUS: IVANIA REFany #: [id number] SONALI: 04/28/25 06:[address]: Leo Monroe DEPT: SURGICAL PATHOLOGY RECD BY: Maciej Keen ENTERED: 04/28/25 11:31 SP TYPE: EGD BIOPSY [place] DR: Dr. Dany Thacker MD Tissues: A - Duodenum, NOS B - Gastric mucous membrane Procedures: Immunohistochemical Stains Surgery Specimen Level IV HEADER OPERATION: EGD with biopsy PRE-OP DIAGNOSIS: Peptic ulcer disease TISSUE SUBMITTED: A- Duodenum biopsy, B- Gastric antrum biopsy MICROSCOPIC DIAGNOSIS A. Small intestine, duodenum, biopsy: - Jaydon gland hyperplasia. - Negative for increased intraepithelial lymphocytes. B. Stomach, antrum, biopsy: - Oxyntic mucosa with mild chronic inflammation. - IHC for H pylori is PENDING and will be reported in an addendum. MICROSCOPIC DESCRIPTION Slides are reviewed. GROSS DESCRIPTION A. Received in fixative is one container labeled with the patient's name and designated Duodenum biopsy. The specimen consists of two irregular fragments of bhatti tissue that measure 0.3 and 0.4 cm. The specimen is totally submitted in one cassette. B. Received in fixative is one container labeled with the patient's name and designated Gastric antrum biopsy. The specimen consists of one irregular fragment of bhatti tissue that measures 0.6 cm. The specimen is totally submitted in one cassette. [place] 04/28/2025 CPT:[id number],78819 ADDENDUM ADDENDUM ADDENDUM ADDENDUM ADDENDUM ADDENDUM ADDENDUM ADDENDUM ADDENDUM ADDENDUM ADDENDUM ADDENDUM 04/30/2025 12:10 ADDENDUM 04/30/2025 12:10 ADDENDUM 04/30/2025 12:10 ADDENDUM 04/30/2025 12:10 ADDENDUM 04/30/2025 12:10 This addendum is to report the IHC for H pylori on part B: B. IHC negative for H. pylori organisms. All matched controls reacted appropriately. These tests were developed and their performance characteristics determined by [facility]. They may not have been cleared or approved by the U.S. Food and Drug Administration. The FDA has determined that such clearance or approval is not necessary. The above immunohistochemical markers and/or special?stains have been reviewed by the Pathologist.
--- NOTE | 2025-04-28 06:34 | PCM.PRE.AN2 ---
ASA Classification* ASA Classification ASA Classification: 2 Assessment & Plan Anesthesia* Anesthesia Assessment Anesthesia Assessment: Discussed sedation and/or anesthesia options, risks, benefits, and alternatives with patient/parents/legal guardian/POA. Questions invited. The patient/parents/legal guardian/POA seems to understand and agrees to proceed with anesthesia plan. Reviewed the physical assessment, medical history, allergy history and patient home medications list prior to surgery/procedure/anesthetic and documented any changes. Performed airway and anesthesia risk assessments. Anesthesia Type Anesthesia Type: MAC Anesthesia Focused Assessment* Temperature: 97.5 F Pulse Rate: 58 Blood Pressure: 133/61 Respiratory Rate: 16 Pulse Ox: 98 Airway Assessment Mouth opens: >3 cm Mallampati Score: II Labs Anesthesia Preop lab: CBC WBC, (4.4-11.0) 10.8 K/mm3 08/21/24, 12:59 RBC, (4.2-5.4) 4.42 M/mm3 08/21/24, 12:59 Hgb, (12.0-15.0) 13.4 g/dL 08/21/24, 12:59 Hct, (37-47) 39.0 % 08/21/24, 12:59 Plt Count, (150-450) 277 K/mm3 08/21/24, 12:59 CHEMISTRY Potassium, (3.3-5.1) 4.3 mmol/L 08/27/24, 10:51 Sodium, (133-145) 140 mmol/L 08/27/24, 10:51 Magnesium, (1.6-2.6) 2.3 mg/dL 11/01/17, 09:38 BUN, (4-19) 9 mg/dL 08/27/24, 10:51 Creatinine, (0.70-1.20) 0.76 mg/dL 08/27/24, 10:51 Glucose, (70-99) 94 mg/dL 08/27/24, 10:51 TSH, (0.358-3.74) 2.04 uIU/mL 11/02/22, 07:01 COAG Pre-Assessment Diagnosis/Proposed Procedure Planned Operative Procedure(s): EGD Anesthesia History Anesthesia History - middleware administrator: Anesthesia History - middleware administrator Hx Hospitalization No 04/23/25 15:15 Any Problems With Anesthesia No 04/23/25 15:15 Cholinesterase deficiency No 04/23/25 15:15 You/Your Family Experience No 04/23/25 15:15 fever (hyperthermia) with Relationship Recent Exposure to Contagious No 04/28/25 05:51 Disease Does patient have nerve No 04/23/25 15:15 stimulator Patient instructed to have device shut off --Does patient have Pacemaker No 04/28/25 05:51 or ICD? When Was Last Pacemaker Check QUESTION #4 FULL TEXT: You/Your Family Experience fever (hyperthermia) with Anesthesia Last Oral Intake Last Oral intake: Last Oral Intake NPO since 20:00 04/28/25 05:51 Meds taken in AM with sips of No 04/28/25 05:51 water? Meds patient instructed to take am of surgery PONV PONV - middleware administrator: PONV - middleware administrator Female Yes 04/23/25 15:15 HX of Motion Sickness No 04/23/25 15:15 HX of N/V After Surgery No 04/23/25 15:15 Non-Smoker Yes 04/23/25 15:15 Duration of Surgery greater No 04/23/25 15:15 than 60 minutes Number of Risk Factors 2 04/23/25 15:15 PONV Score Moderate Risk 04/23/25 15:15 Height & Weight Height & Weight: Anesthesia: Height & Weight Height 5 ft 5.5 in 04/28/25 05:51 Weight: 78.1 kg 04/28/25 05:51 Body Mass Index (BMI) 28.2 04/28/25 05:51 Respiratory Assessment Respiratory Assessment - middleware administrator: Respiratory Tract Infection Hx - middleware administrator Hx Respiratory Tract Infection No 04/23/25 15:15 STOP Sleep Apnea STOP Sleep Apnea - middleware administrator: STOP Sleep Apnea - middleware administrator Hx Hypertension Yes 04/23/25 15:15 Hx Sleep Apnea No 04/23/25 15:15 CPAP BIPAP Do you snore loudly (louder No 04/23/25 15:15 than talking or can be heard Do you often feel tired/ No 04/23/25 15:15 fatigued/ sleepy during daytime? Has anyone observed you stop No 04/23/25 15:15 breathing during sleep? STOP Results Negative 04/23/25 15:15 QUESTION #5 FULL TEXT : Do you snore loudly (louder than talking or can be heard through closed doors)? 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 Specify any problems Hx of Preganancy in last 3 No 04/23/25 15:15 Months Nurse Filling Out Transfusion [facility] 04/23/25 15:15 & Questions: Date: 04/23/25 04/23/25 15:15 Time: 15:20 04/23/25 15:15 Patient unable to answer at this time (ie. confused, unrespo /Reproduction History /Reproductive History - middleware administrator: /Reproductive Hx- middleware administrator Hx Now Gestational Age (in weeks): EDC: Hx Hx Para Hx Section SAB No 04/23/25 15:15 Does the father of the baby or his family experience fever w Father of the baby Malignant Hypertension history comment Active Medications Active Medications: Current Medications Generic Name Dose Route Start Last Admin Trade Name Freq PRN Reason Stop Dose Admin Lactated Ringer's 1,000 mls @ 15 mls/hr 04/28/25 05:45 04/28/25 05:59 IV 15 mls/hr .Q48H SARA Administration PFSH Medical History High cholesterol Post-menopausal History of diverticulitis Mitral valve prolapse Hypertension Disease of gingiva due to infection Ganglion cyst of dorsum of left wrist Wears contact lenses Wears glasses Anxiety Arthritis Anemia Migraine headache History of IBS Gastric reflux Former smoker History of echocardiogram History of stress test Hx of mitral valve prolapse Cardiology follow-up encounter [facility] Hypercholesteremia Home Medications ?Medication ?Instructions ?Recorded ?Last Taken ?Type lisinopril 20 mg tablet 20 mg PO DAILY 01/17/23 11/06/24 History fexofenadine 60 mg tablet (Milly 60 mg PO DAILY PRN ALLERGY 09/07/23 Unknown History Allergy) buspirone 7.5 mg tablet 7.5 mg PO BID 11/05/24 11/06/24 History citalopram 20 mg tablet 30 mg PO DAILY 11/05/24 11/06/24 History omeprazole 40 mg capsule,delayed 40 mg PO QDAY #60 caps 11/27/24 Unknown Rx release clobetasol 0.05 % topical cream 1 applic topical DAILY PRN itching 02/27/25 Unknown Rx #15 grams estradiol 0.01% (0.1 mg/gram) See Rx Instructions vaginal 2XW 02/27/25 Unknown History vaginal cream rosuvastatin 10 mg tablet 10 mg PO DAILY 04/23/25 Unknown History Allergy/AdvReac Type Severity Reaction Status Date / Time Penicillins Allergy Rash Verified 04/28/25 05:50 Family History Father Cancer lung Hypertension Mother Breast cancer Surgical History S/P laparoscopic cholecystectomy History of breast biopsy H/O tubal ligation Social History Smoking Status: Former smoker alcohol intake: current details: social substance use type: does not use caffeine: No what type of physical activity do you participate in: none seatbelt use: always do you feel safe at home: Yes 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 [employer] Review of Systems (Anesthesia) ROS Narrative System reviewed and no additional complaints, except as documented.
--- NOTE | 2025-04-28 06:41 | HP.PCM_ITS ---
HPI - General General Date of Admission: 04/28/25 Date of Service: 04/28/25 Chief Complaint: Peptic ulcer disease HPI Narrative LINDA SANTIAGO, is a 64 F who presents [Chief Complaint: Abdominal pain [facility] ED 08.21.24 with nausea, abd pain and tenderness. Pt recently finished antibiotic for diverticulitis. Work up remarkable for elevated liver enzymes and colitis on CT. CT abd/pelvis 08.21.24:1. Mild wall thickening and enhancement of the distal sigmoid colon, which may represent infectious/inflammatory colitis. 2. No acute abdominopelvic finding. Pt was diagnosed with diverticulitis in December 2023 and was treated with antibiotics. She recently felt like she was having this again. She contacted her PCP and was put on an antibiotic however this time it worsened her symptoms and she discontinued it. She presented to the ED and had a CT which showed colitis. She endorses having issues with her bowels all through out her life with intermittent diarrhea. She has cut out gluten in her diet and has noticed improvements. SHe is not sure if the gluten free is helping or if she is just healing. Last colonoscopy was about 10 years ago. She also has intermittent heartburn and difficulty swallowing pills. SHe has tried famotidine and PPIs in the past for this. EGD- Benign-appearing esophageal stenosis. - Esophageal mucosal changes suggestive of eosinophilic esophagitis. - Non-bleeding gastric ulcers with no stigmata of bleeding. Biopsied. - Non-bleeding duodenal ulcers with no stigmata of bleeding. Biopsied. - Biopsies were taken with a cold forceps for evaluation of eosinophilic esophagitis. Colonoscopy The entire examined colon is normal. Biopsied. - Congested mucosa in the distal ileum. Biopsied. - Diverticulosis in the recto-sigmoid colon and in the sigmoid colon OV 7 Pt here today to review results of endoscopy. SHe has had continued symptoms of daily loose stools. This is affecting her life as she feels afraid to go anywhere due to this urgency. She denies abd pain, constipation, heartburn, nausea or vomiting. [facility] Medical History High cholesterol Post-menopausal History of diverticulitis Mitral valve prolapse Hypertension Disease of gingiva due to infection Ganglion cyst of dorsum of left wrist Wears contact lenses Wears glasses Anxiety Arthritis Anemia Migraine headache History of IBS Gastric reflux Former smoker History of echocardiogram History of stress test Hx of mitral valve prolapse Cardiology follow-up encounter Lipoma Hypercholesteremia Home Medications ?Medication ?Instructions ?Recorded ?Last Taken ?Type lisinopril 20 mg tablet 20 mg PO DAILY 01/17/2310/20 History fexofenadine 60 mg tablet (Milly 60 mg PO DAILY PRN ALLERGY 09/07/23 Unknown History Allergy) buspirone 7.5 mg tablet 7.5 mg PO BID 11/05/2411/06 History citalopram 20 mg tablet 30 mg PO DAILY 11/05/2410/20 History omeprazole 40 mg capsule,delayed 40 mg PO QDAY #60 cap s 11/27/24 Unknown Rx release clobetasol 0.05 % topical cream 1 applic topical DAILY PRN itching 02/27/25 Unknown Rx #15 grams estradiol 0.01% (0.1 mg/gram) See Rx Instructions vagi nal 2XW 02/27/25 Unknown History vaginal cream rosuvastatin 10 mg tablet 10 mg PO DAILY 04/23/25 Unkn own History Allergy/AdvReac Type Severity Reaction Status Date / Time Penicillins Allergy Rash Verified 04/28/25 05:50 Family History Father Cancer lung Hypertension Mother Breast cancer Surgical History S/P laparoscopic cholecystectomy History of breast biopsy H/O tubal ligation Social History Smoking Status: Former smoker alcohol intake: current details: social substance use type: does not use caffeine: No what type of physical activity do you participate in: none seatbelt use: always do you feel safe at home: Yes 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 [employer] Constitutional Constitutional: Denies fatigue, fever(s), poor appetite, weight gain or weight loss Gastrointestinal Gastrointestinal: Denies belching, bloating, change in bowel habits, change in stool character, chewing difficulty, coffee ground emesis, constipation, cramping, diarrhea, dyspepsia, dysphagia, early satiety, excessive flatus, fecal incontinence, heartburn, hematemesis, hematochezia, hemorrhoids, loose stools, melena, nausea, odynophagia, rectal bleeding, tenesmus, vomiting or weight changes Vital Signs Vital Signs Vital Signs: 04/28/25 05:51 04/28/25 05:51 04/28/25 05:54 Temperature 97.5 F L Temperature Source Temporal Pulse Rate 58 L Respiratory Rate 16 Respiratory Pattern Normal Blood Pressure 133/61 H Blood Pressure Mean 85 Blood Pressure Source Monitor Blood Pressure Position Semi-Fowlers Blood Pressure Location Left Arm Baseline BP 133/61 Pulse Ox 98 Oxygen Delivery Method Room Air 04/28/25 06:34 Temperature 97.5 F L Temperature Source Pulse Rate 58 L Respiratory Rate 16 Respiratory Pattern Blood Pressure 133/61 H Blood Pressure Mean Blood Pressure Source Blood Pressure Position Blood Pressure Location Baseline BP Pulse Ox 98 Oxygen Delivery Method Weight Weight: 172 lb 2.896 oz Body Mass Index (BMI) 28.2 Physical Exam Const alert, oriented x3, no apparent distress and healthy appearing General Appearance: cooperative GI normal to inspection, nondistended, normoactive bowel sounds, soft to palpation, non-tender and non-distended Percussion: normal to percussion Rectal Exam: deferred Assessment & Plan Assessment/Plan (1) Peptic ulcer disease: PLAN: Assessment and Plan Assessment and Plan (1) Diarrhea: Status: Acute (2) Hx of diverticulitis of colon: Status: Acute Plan: Linda is a 63 yo female pt here today for f/u after EGD and colonoscopy. Pt initially established with [facility] after presentation to the ED in August 2023 with abdominal complaints. Subsequently diagnosed with diverticulitis and placed on antibiotics. She underwent EGD and colonoscopy in October 2023 with biopsies of the colon, rectum and TI with no pathologic change. Calprotectin 16. Per pt, Dr. Monroe had concern for Crohns disease after seeing her colon however with the pathology indicating no inflammation and normal calprotectin I believe this to be rule out. May consider further work up with MRE in the future if indicated. She continues to have daily urgent loose stools. I suspect this is related to non-celiac gluten sensitivity, bile acid diarrhea or IBS-D. Will trial colestipol 1 gram daily and titrate up as needed. Results of EGD showing a gastric ulcer (H.pylori negative) and villous blunting (w/o intraepithelial lymphocytes making celiac disease less likely). I increased her omeprazole to 40 mg daily and she will have repeat EGD in 3 months to ensure healing of gastric ulcer. Pt agreeable to plan. -Start colestipol 1 gram daily and titrate up as needed -Consider MRE -Continue omeprazole 40 mg daily -Repeat EGD in 3 months Medications: New colestipol 1 g PO QDAY 30 tabs 1RF ]
--- NOTE | 2025-04-28 07:06 | OP.EGD_ITS ---
Patient Name: Vanda Vela Procedure Date: 04/28/2025 6:12 AM Date of : 1960 Age: 64 Procedure: Upper GI endoscopy Indications: Epigastric abdominal pain, Chronic peptic ulcer Providers: Leo Monroe DO Referring MD: Dany Thacker MD Medicines: Monitored Anesthesia Care Patient Profile: This is a 64 year old female. Refer to note in patient chart for documentation of history and physical. Patient has symptoms of chronic epigastric abdominal pain. Her most recent EGD for ulcer treatment was within the past three months. Complications: No immediate complications. Procedure: Pre-Anesthesia Assessment: - Prior to the procedure, a History and Physical was performed, and patient medications and allergies were reviewed. The patient is competent. The risks and benefits of the procedure and the sedation options and risks were discussed with the patient. All questions were answered and informed consent was obtained. Patient identification and proposed procedure were verified by the physician in the pre-procedure area. Mental Status Examination: alert and oriented. Airway Examination: normal oropharyngeal airway and neck mobility. Respiratory Examination: clear to auscultation. CV Examination: normal. Prophylactic Antibiotics: The patient does not require prophylactic antibiotics. Prior Anticoagulants: The patient has taken no anticoagulant or antiplatelet agents except for NSAID medication. ASA Grade Assessment: II - A patient with mild systemic disease. After reviewing the risks and benefits, the patient was deemed in satisfactory condition to undergo the procedure. The anesthesia plan was to use monitored anesthesia care (MAC). Immediately prior to administration of medications, the patient was re-assessed for adequacy to receive sedatives. The heart rate, respiratory rate, oxygen saturations, blood pressure, adequacy of pulmonary ventilation, and response to care were monitored throughout the procedure. The physical status of the patient was re-assessed after the procedure. After obtaining informed consent, the endoscope was passed under direct vision. Throughout the procedure, the patient's blood pressure, pulse, and oxygen saturations were monitored continuously. The gastroscope was introduced through the mouth, and advanced to the third part of the duodenum. Small bowel enteroscopy was deemed necessary. The upper GI endoscopy was accomplished without difficulty. The patient tolerated the procedure well. Scope In: 6:55:13 AM Scope Out: 6:57:52 AM Total Procedure Duration Time 0 hours 2 minutes 39 seconds Findings: The examined esophagus was normal. Patchy mildly erythematous mucosa without bleeding was found in the gastric body. A few small hyperplastic polyps with no stigmata of recent bleeding were found in the gastric body. Patchy mildly erythematous mucosa without active bleeding and with no stigmata of bleeding was found in the entire duodenum. Biopsies were taken with a cold forceps for histology. Verification of patient identification for the specimen was done. Estimated blood loss was minimal. Impression: - Normal esophagus. - Erythematous mucosa in the gastric body. - A few gastric polyps. - Erythematous duodenopathy. Biopsied. Recommendation: - Discharge patient to home. - Resume previous diet. - Continue present medications. - Await pathology results. Procedure Code(s): --- Professional --- 55247, Small intestinal endoscopy, enteroscopy beyond second portion of duodenum, not including ileum; with biopsy, single or multiple CPT copyright 2021 [employer]. All rights reserved. The codes documented in this report are preliminary and upon coil winder repair review may be revised to meet current compliance requirements. Leo Monroe DO 04/28/2025 7:05:35 AM This report has been signed electronically. Number of Addenda: 0 Note Initiated On: 04/28/2025 6:12 AM
--- NOTE | 2025-04-28 07:06 | OP.PROVAT_ITS ---
04/28/2025 Dayn Thacker MD [address] [id number] Re : Upper GI endoscopy procedure for Vanda Vela Dear Dr. Thacker This procedure was performed on Monday, April 28, 2025. My impressions and recommendations are as follows: Impressions : - Normal esophagus. - Erythematous mucosa in the gastric body. - A few gastric polyps. - Erythematous duodenopathy. Biopsied. Recommendations : - Discharge patient to home. - Resume previous diet. - Continue present medications. - Await pathology results. My findings are described in the full procedure note, which is enclosed. If I can be of further assistance, please feel free to contact me at . Sincerely, Leo Monroe, 04/28/2025 7:05:35 AM This report has been signed electronically.
--- NOTE | 2025-04-28 07:10 | PCM.POST.ANE ---
Anesthesia: Postop Eval I Current Vital Signs Temperature: 98.2 F Pulse Rate: 62 Blood Pressure: 100/57 Respiratory Rate: 16 Pulse Ox: 96 Oxygen Delivery Method: Room Air Assessment Airway patent: Yes Spontaneous unlabored respirations: Yes Mental status: Asleep nausea: No Vomiting: No Anesthesia Complication: No Fluid Hydration Crystalloid volume administer (ml): 400 Total IV fluid infused: 400 Progress Note Anesthesia document: Postop Eval 1 completed: Yes
--- NOTE | 2025-04-28 07:38 | PCM.POSTANE2 ---
Anesthesia Postop Eval I Sum Postop Eval Completion status Anesthesia document: Postop Eval 1 completed: Yes Anesthesia Postop Eval I Summary Anesthesia Postop Eval I Summary: Anesthesia Postop Eval I: Assessment Summary Airway patent Yes 04/28/25 07:10 [email or web address] Spontaneous unlabored Yes 04/28/25 07:10 [email or web address] respirations Mental status Asleep 04/28/25 07:10 [email or web address] nausea No 04/28/25 07:10 [email or web address] Vomiting No 04/28/25 07:10 [email or web address] Anesthesia Postop Eval I: Fluid Summary Crystalloid volume administer 400 04/28/25 07:10 [email or web address] (ml) Colloids volume administered ( ml) Blood Product volume administered (ml) Total IV fluid infused 400 04/28/25 07:10 [email or web address] Anesthesia Postop Eval I: Summary Notes Anesthesia Complication No 04/28/25 07:10 [email or web address] Anesthesia Complication Comment: Post-operative progress note Anesthesia: Postop Eval II Evaluation Mental status: Awake Pain Level: 0 nausea: No Vomiting: No
== END 2025-04-28 07:41 | disposition home or self-care (01) ==
LOC: EN 05:22 → AC 05:24
PROVIDERS: PCP Family Medicine; Referring Provider Family Medicine; Visit Provider Internal Medicine Gastroenterology
PROC: 0DJ08ZZ Inspection of Upper Intestinal Tract, Via Natural or Artificial Opening Endoscopic (ICD-10-PCS; CPT 43235; principal; 2025-04-28 06:25)
DX: K29.50 Unspecified chronic gastritis without bleeding (principal); K21.9 Gastro-esophageal reflux disease without esophagitis; Z87.891 Personal history of nicotine dependence; K31.7 Polyp of stomach and duodenum; K27.9 Peptic ulcer, site unspecified, unspecified as acute or chronic, without hemorrhage or perforation; I10 Essential (primary) hypertension; E78.00 Pure hypercholesterolemia, unspecified; Z79.899 Other long term (current) drug therapy
CPT/HCPCS: 44361; 88305; 88342; J2405